=== PATIENT | male | born 1955 | race Caucasian/White ===

== ENCOUNTER → 2018-06-08 10:32 | Outpatient (CLI) | payer OTHER, SELFPAY ==
[2018-06-08 12:25] LABS: Creatinine Urine Random 220.4 mg/dL
[2018-06-08 12:29] LABS: Alanine Aminotransferase 52 IU/L (21-72); Albumin 4.8 g/dL (3.5-5.0); Albumin Globulin Ratio 1.8 (1.0-2.8); Alkaline Phosphatase 87 U/L (38-126); Aspartate Aminotransferase 47 IU/L (17-59); Bilirubin Total 0.8 mg/dL (0.2-1.3); Blood Urea Nitrogen 22 mg/dL (9-20); Calcium 10.2 mg/dL (8.4-10.2); Carbon Dioxide 23 mmol/L (22-32); Chloride 104 mmol/L (98-107); Cholesterol 119 mg/dL (140-199); Estimated Glomerular Filt Rate > 60.0 mL/min (>60); Globulin 2.6 g/dL (1.7-4.1); Glucose 113 mg/dL (80-110); HDL Cholesterol 45 mg/dL (40-60); HEMOLYSIS < 15 (0-50); LDL Cholesterol Calculated 34 mg/dL (<100); Potassium 4.5 mmol/L (3.4-5.1); Sodium 143 mmol/L (137-145); Total Protein 7.4 g/dL (6.3-8.2); Triglycerides 201 mg/dL (35-150)
[2018-06-08 12:39] LABS: Hemoglobin A1C% w Est Avg Glu 6.3 % (4.0-6.0)
== END ==
PROVIDERS: Family Provider Family Medicine; PCP Family Medicine; Visit Provider Family Medicine
DX: E11.9 Type 2 diabetes mellitus without complications (principal)
CPT/HCPCS: 36415; 80053; 80061; 82043; 82570; 83036

== ENCOUNTER → 2019-01-14 13:33 | Outpatient (CLI) | payer MEDICARE, SELFPAY ==
[2019-01-14 14:48] LABS: Alanine Aminotransferase 63 IU/L (21-72); Albumin Globulin Ratio 1.7 (1.0-2.8); Alkaline Phosphatase 82 U/L (38-126); Aspartate Aminotransferase 69 IU/L (17-59); BUN Creatinine Ratio 23.3 (6-22); Bilirubin Total 0.8 mg/dL (0.2-1.3); Blood Urea Nitrogen 28 mg/dL (9-20); Carbon Dioxide 24 mmol/L (22-32); Chloride 102 mmol/L (98-107); Cholesterol 195 mg/dL (140-199); Estimated Glomerular Filt Rate > 60.0 mL/min (>60); Glucose 112 mg/dL (80-110); HDL Cholesterol 51 mg/dL (40-60); HEMOLYSIS < 15 (0-50); LDL Cholesterol Calculated 103 mg/dL (<100); Potassium 5.2 mmol/L (3.4-5.1); Sodium 140 mmol/L (137-145); Triglycerides 203 mg/dL (35-150)
[2019-01-14 14:49] LABS: Hemoglobin A1C% w Est Avg Glu 5.9 % (4.0-6.0)
[2019-01-14 15:34] LABS: Microalbumi Creatinin Ratio Ur 10.5 ug/mg CR (<30); Microalbumin Urine Random < 0.6 mg/dL (0-1.6)
== END ==
PROVIDERS: Family Provider Family Medicine; PCP Family Medicine; Visit Provider Family Medicine
DX: E11.9 Type 2 diabetes mellitus without complications (principal)
CPT/HCPCS: 36415; 80053; 80061; 82043; 82570; 83036

== ENCOUNTER → 2020-09-09 10:51 | Outpatient (CLI) | payer MEDICARE, OTHER, SELFPAY ==
--- NOTE | 2020-09-09 11:02 | DI.RAD.S_ITS ---
PROCEDURE: XR LUMBAR SPINE 2-3V INDICATIONS: pain TECHNIQUE: 3 views of the lumbar spine were acquired. COMPARISON: None. FINDINGS: Bones: No fracture. Multilevel degenerative endplate sclerosis and spurring. Diffuse facet arthropathy. Grade 1 anterolisthesis of L4 on L5. Grade 1 retrolisthesis of L1 on L2. Diffuse mild to moderate narrowing of the lumbar disc spaces. Soft tissues: Vascular calcifications seen in the aorta. IMPRESSION: Moderate diffuse lumbar spondylosis and facet disease Multilevel spondylolisthesis as above. Dictated by: Sohail Willams M.D. on 09/09/2020 at 12:52 Approved by: Sohail Willams M.D. on 09/09/2020 at 13:10
== END ==
PROVIDERS: Family Provider Family Medicine; PCP Family Medicine; Referring Provider Family Medicine; Visit Provider Family Medicine
DX: M47.816 Spondylosis without myelopathy or radiculopathy, lumbar region (principal); M43.16 Spondylolisthesis, lumbar region; M54.5 Low back pain; G89.29 Other chronic pain
CPT/HCPCS: 72100

== ENCOUNTER → 2020-09-10 13:55 | Outpatient (CLI) | payer MEDICARE, OTHER, SELFPAY ==
[2020-09-11 14:42] LABS: Fecal Immunochemical Test Positive (Negative)
== END ==
PROVIDERS: Family Provider Family Medicine; PCP Family Medicine; Referring Provider Family Medicine; Visit Provider Family Medicine
DX: Z12.11 Encounter for screening for malignant neoplasm of colon (principal)
CPT/HCPCS: 82274

== ENCOUNTER → 2020-10-09 09:01 | Outpatient (CLI) | payer MEDICARE, OTHER, SELFPAY ==
[2020-10-09 10:32] LABS: COVID19 -Nasal RAPID Negative (Negative)
== END ==
PROVIDERS: Family Provider Family Medicine; PCP Family Medicine; Visit Provider Surgery
DX: Z11.59 Encounter for screening for other viral diseases (principal); Z01.812 Encounter for preprocedural laboratory examination
CPT/HCPCS: 87635; C9803

== ENCOUNTER 2020-10-12 09:39 | Day surgery (SDC) | payer MEDICARE, OTHER, SELFPAY ==
[2020-10-12] VITALS (8 sets, daily range): BP systolic 105–161; BP diastolic 56–95; PULSE 78–99; RESP 15–22; TEMP 36.2–37.4; O2SAT 94–97; BMI 63.6
--- NOTE | 2020-10-12 | PATH_ITS ---
[facility] Accession Number: [id number] . 01 Material submitted: . rectum - RECTUM POLYP . 02 Diagnosis: Rectum, Polyp: Tubulovillous adenoma, fragmented. Negative for high-grade dysplasia or malignancy. MRV 10/14/2020 1100 Local . 02 Electronically signed: . Angel Clifford MD, PhD, Pathologist NPI- [id number] . 01 Gross description: . RECTUM POLYP: Received in formalin are multiple fragment(s) of garrett, soft tissue measuring 1.3 x 0.7 x 0.7 cm in aggregate submitted entirely in 1 cassette(s) /QBJ 10/13/2020 0712 Local . 02 Pathologist provided ICD-10: D12.8 . 02 CPT . 689538 Performed at: 01 [facility] [address] [id number] MD Hema Stone MD Phone: [phone] Performed at: 02 [facility] [address] [place], [place] [id number] MD Celestina Swan MD Phone: [phone]
[2020-10-12] MEDS: LACTATED RINGERS 1,000 ML 200 ML IV ×2 (10:25→11:37)
--- NOTE | 2020-10-12 10:56 | PM.HP.1 ---
History of Present Illness History of Present Illness Date Patient Seen: 10/12/20 Time Patient Seen: 10:56 Chief complaint: SCREENING COLONOSCOPY Narrative: The patient presents for colorectal sreening. They have never had any previous examination for such. No personal or family history of colon cancer. On further history denies any recent gastrointestinal symptoms. No nausea, vomiting, abdominal pain, loss of appetite, unexplained weight loss, change in bowel habits, diarrhea, constipation, melena, hematochezia, or bright red blood per rectum. Patient History Medical History Allergies (~1971) Asthma (~1999) Body posture problem Chicken pox (~1965) Chronic low back pain without sciatica (~2018) Depression (~1996) HTN (hypertension) Hyperlipidemia Lumbar region somatic dysfunction Pelvic somatic dysfunction Postural kyphosis, thoracic region Sacral region somatic dysfunction Segmental and somatic dysfunction of abdomen and other regions Sleep apnea (~1999) Substance abuse (~1970) Type 2 diabetes mellitus Weight gain finding Surgical History Anesthesia H/O knee surgery (~1999) Family & Social History Family History Father Diabetes mellitus Hypertension Congestive heart failure Stroke Sister Cancer Mother Alzheimer disease Grandfather Cancer Grandfather Tuberculosis Grandmother Mental health problem Social History: household members spouse Tobacco & Substance use: Smoking Status Former smoker alcohol intake former Substance Use Type does not use Meds Home Medications and Allergies Home Medications Medication Instructions Recorded Confirmed Type atorvastatin 40 mg tablet 40 mg PO DAILY #90 tab 09/29/20 10/12/20 Rx cetirizine 10 mg capsule 10 mg PO DAILY #90 cap 09/29/20 10/12/20 Rx escitalopram oxalate 20 mg tablet 20 mg PO DAILY #90 tab 09/29/20 10/12/20 Rx fluticasone propionate 110 2 puff INHALATION BID #12 gram 09/29/20 10/12/20 Rx mcg/actuation HFA aerosol inhaler fluticasone propionate 50 1 spray NASAL DAILY #18.2 ml 09/29/20 10/12/20 Rx mcg/actuation nasal spray,suspension losartan 50 mg-hydrochlorothiazide 1 tab PO DAILY #90 tab 09/29/20 10/12/20 Rx 12.5 mg tablet metformin 500 mg tablet 1,000 mg PO BID #360 tab 09/29/20 10/12/20 Rx Allergies Allergy/AdvReac Type Severity Reaction Status Date / Time apple Allergy Severe Swelling Verified 10/12/20 09:59 of Lip/Tongue/Throat peach Allergy Severe Swelling Verified 10/12/20 09:59 of Lip/Tongue/Throat walnut Allergy Severe Swelling Verified 10/12/20 09:58 of Lip/Tongue/Throat Review of Systems Review of Systems Narrative: A 10 point review of systems is negative except as noted in the HPI Exam Vital Signs (past 8 hours): - 10/12/20 10:13 Temperature 97.1 F L Pulse Rate 99 H Respiratory Rate 15 Blood Pressure 161/95 H Pulse Oximetry 97 Oxygen Delivery Method Room Air Narrative Exam Narrative: General-no acute distress, well nourished adult male HEENT-moist mucous membranes, no scleral icterus Neck-supple, no lymphadenopathy Chest- non labored respirations, clear to auscultation bilaterally Cardiac-regular rate no peripheral edema Abdomen-soft, nontender, non distended Extremities-warm, well perfused Neurological-alert and oriented, no focal deficits Assessment & Plan Assessment & Plan narrative: The patient requires colorectal screening and colonoscopy is recommended. Technical details were discussed. Risks, benefits, alternatives explained. Risks including but not limited to myocardial infarction, aspiration, bleeding, pain, missed lesion, incomplete examination, need for further radiographic studies, colonic perforation, and need for major abdominal surgery were discussed. All questions were answered to their satisfaction, and they are in agreement with this plan.
[2020-10-12] MEDS: fentaNYL 250 MCG/5 ML INJ IV (11:02)
[2020-10-12] MEDS: MIDAZOLAM 5 MG/5 ML VIAL IV (11:02)
--- NOTE | 2020-10-12 11:29 | PM.OP.ENDO ---
Operative Date/Time/Diagnoses Date of procedure: 10/12/20 Time of procedure: 11:29 Pre-op diagnosis: Positive fecal immunochemical test (FIT) Post-op diagnosis: other (rectal polyp, diverticulosis) Procedure & Clinicians Study performed: Colonoscopy, polypectomy Same procedure as scheduled: Yes Indications: 64-year-old man positive fit test no prior colonoscopy here for screening Surgeon: Billy Aaron Procedure Notes SCOAP/Timeout: Performed Procedure in detail: Medications: Conscious sedation using 5mg IV midazolam and 100mcg IV of fentanyl The history and physical was performed/updated and the patient is ASA class is *. The procedure was discussed in detail with the patient. Potential risks complications including infection, bleeding, missed diagnosis, perforation, need for surgery, and were explained. Their questions were answered and informed consent was obtained. Patient was brought to the procedure room and placed standard monitoring equipment. The patient's vital signs were monitored continuously throughout the entire procedure. Prior to starting time-out was performed. The ablation patient was placed in the left lateral recumbent position. Procedural sedation was administered. Examination began with a thorough inspection of the perianal area there was no evidence of fissures, fistulae, external hemorrhoids or cutaneous malignancy. The colonoscopy scope was then placed into the anal canal and was advanced to the cecum, which was identified by the ileocecal valve, the appendiceal orifice and the confluence of the taenia. The scope was then slowly withdrawn examining colon thoroughly in all directions, irrigating it of any residual stool. 1 cm pedunculated polyp in the rectum was removed with cold snare. There was some small amount of bleeding from the base polyp and I cauterized this hemostasis was observed Ferreira diverticulosis The patient tolerated the procedure well. They will be discharged once criteria are met. The prep was of good/excellent quality. The withdrawl time was 14 minutes. The sedation time was 26 minutes. Findings: diverticulosis and polyp Specimen(s): other (Rectal polyp) Complications: none Impression: Rectal polyp Post-procedure Recommendations: Colonscopy in 5 years Disposition: same day surgery
== END 2020-10-12 12:19 | disposition home or self-care (01) ==
PROVIDERS: Family Provider Family Medicine; PCP Family Medicine; Referring Provider Surgery; Visit Provider Surgery
PROC: 0DJD8ZZ Inspection of Lower Intestinal Tract, Via Natural or Artificial Opening Endoscopic (ICD-10-PCS; CPT 45378; principal; 2020-10-12 10:45)
DX: R19.5 Other fecal abnormalities (principal); I10 Essential (primary) hypertension; E78.5 Hyperlipidemia, unspecified; G47.30 Sleep apnea, unspecified; E11.9 Type 2 diabetes mellitus without complications; J45.909 Unspecified asthma, uncomplicated; Z79.84 Long term (current) use of oral hypoglycemic drugs; K57.30 Diverticulosis of large intestine without perforation or abscess without bleeding; D12.8 Benign neoplasm of rectum
CPT/HCPCS: 45385; 82962; J2250; J3010

== ENCOUNTER → 2020-12-03 10:44 | Outpatient (CLI) | payer MEDICARE, OTHER, SELFPAY ==
[2020-12-03 12:20] LABS: Add Manual Diff / Slide Review NO; Basophils Absolute Auto 100 /uL (0-100); Eosinophils Absolute Auto 200 /uL (0-450); Eosinophils Percent Auto 3.1 % (2-4); Hematocrit 40.1 % (41-53); Hemoglobin 13.2 g/dL (13.5-17.5); Lymphocytes Absolute Auto 2200 /uL (1100-4500); Lymphocytes Percent Auto 31.3 % (25-40); Monocytes Absolute Auto 400 /uL (0-900); Monocytes Percent Auto 6.4 % (3-14); Neutrophils Absolute Auto 4000 /uL (1500-7000); Neutrophils Percent Auto 58.2 % (50-75); Platelet Count 234 X10^3/uL (150-400); Red Blood Cell Count 4.26 X10^6/uL (4.5-5.9); Red Cell Distribution Width 13.6 % (11.6-14.8); White Blood Cell Count 6.9 X10^3/uL (4.5-11.0)
[2020-12-03 12:25] LABS: Hemoglobin A1C% w Est Avg Glu 6.4 % (4.0-6.0)
[2020-12-03 12:33] LABS: Alanine Aminotransferase 47 IU/L (<50); Albumin 4.8 g/dL (3.5-5.0); Albumin Globulin Ratio 1.6 (1.0-2.8); Alkaline Phosphatase 89 U/L (38-126); Aspartate Aminotransferase 60 IU/L (17-59); BUN Creatinine Ratio 22.9 (6-22); Bilirubin Total 0.4 mg/dL (0.2-1.3); Blood Urea Nitrogen 22 mg/dL (9-20); Carbon Dioxide 21 mmol/L (22-32); Chloride 104 mmol/L (98-107); Cholesterol 144 mg/dL (140-199); Estimated Glomerular Filt Rate > 60.0 mL/min (>60); Glucose 93 mg/dL (80-110); HDL Cholesterol 46 mg/dL (40-60); HEMOLYSIS < 15 (0-50); LDL Cholesterol Calculated 41 mg/dL (<100); Potassium 4.1 mmol/L (3.4-5.1); Sodium 138 mmol/L (137-145); Total Protein 7.8 g/dL (6.3-8.2); Triglycerides 287 mg/dL (35-150)
[2020-12-03 12:59] LABS: Prostate Specific Antigen Scrn 0.178 ng/mL (0.1-4.0)
== END ==
PROVIDERS: PCP Family Medicine; Referring Provider Family Medicine; Visit Provider Family Medicine
DX: E11.9 Type 2 diabetes mellitus without complications (principal); Z12.5 Encounter for screening for malignant neoplasm of prostate; E78.5 Hyperlipidemia, unspecified; I10 Essential (primary) hypertension
CPT/HCPCS: 36415; 80053; 80061; 83036; 85025; G0103

== ENCOUNTER 2021-03-12 13:45 | Outpatient (RCR) | payer MEDICARE, OTHER, SELFPAY ==
--- NOTE | 2021-01-07 18:13 | PT.OIE ---
Current Diagnoses Other chronic pain (01/07/21) Postural kyphosis, thoracic region (01/07/21) Low back pain (01/07/21) Difficulty in walking, not elsewhere classified (01/07/21) Abnormal posture (01/07/21) Weakness (01/07/21) Past Medical History (Last Updated 12/03/20 @ 10:18 by Raul Urbina DO) Allergies (~1971) Asthma (~1999) Body posture problem Cervical somatic dysfunction Chicken pox (~1965) Chronic low back pain without sciatica (~2018) Depression (~1996) HTN (hypertension) Hyperlipidemia Lumbar region somatic dysfunction Pelvic somatic dysfunction Postural kyphosis, thoracic region Sacral region somatic dysfunction Screening for prostate cancer Segmental and somatic dysfunction of abdomen and other regions Sleep apnea (~1999) Somatic dysfunction of lower extremity Substance abuse (~1970) Thoracic region somatic dysfunction Type 2 diabetes mellitus Upper extremity somatic dysfunction Weight gain finding Weight loss counseling, encounter for Past Surgical History (Last Reviewed 10/12/20 @ 10:56 by Billy Aaron MD) Anesthesia H/O knee surgery (~1999) Visit Care Team Role Provider Type Raul Urbina DO Attending Provider Physician Primary Care Provider Referring Provider Specialty: [facility] Address: [address] [place] [address] Email: Physical Therapy Initial Evaluation PT-OP-A Visit Information Start: 01/06/21 11:42 Freq: Status: Active Protocol: Document 01/07/21 16:47 [facility] (Rec: 01/07/21 18:01 [facility] [id number]) Out-Patient Physical Therapy Visit Information Visit Information Visit Type Initial Evaluation Visit Note 11/29 Visit Start Time 16:50 Visit Stop Time 17:30 Total Visit Minutes 40 Visit Number 1 Number of WOOD CARVER Visits 0 PT-OP-B Current Condition Start: 01/06/21 11:42 Freq: Status: Active Protocol: Document 01/07/21 16:47 [facility] (Rec: 01/07/21 18:01 [facility] [id number]) Current Condition History of Current Condition Onset Date 5 years Current Complaints LBP History of Current Condition pt reports progressive worsening back pain over the past 5 years and 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 No notable injuries. Pt reports dry needling over the past 6 weeks that did help some but treatment plateaued. Pt reprots pain improved about 2/ 3 w/dry needling. Walks dog 3x /day (2x .5 mile and 1x mile) where he has pain. He has to stabilize back with hands by the end of 1 mile walk. Walking in the snow was very difficult. Pt reports its been difficult to do walks since about 1 year ago. Pt reports standing for >30 min, he starts to feel his back, but really feels awful after a 4 hour shift at [employer]. He tries to sit down occ. Pt reports tripping over dog aobut 1 year ago but no known injury Prior Treatments and Tests dry needling by DO & stretching exercises by doctor -help some IMPRESSION: Moderate diffuse lumbar spondylosis and facet disease Multilevel spondylolisthesis as above. Treatment Goals Patient/Caregiver Goals Play basketball again (been 12 years since last played)- wants to play in [employer], be able to exercise again to help w/pain, diabetes, wt & BP, Be able to walk 1-2 miles without inc pain Personal Factors Other Personal Factors That May Effect works at [employer], HTN, Therapy/Recovery diabetes PT-OP-C Subjective Start: 01/06/21 11:42 Freq: Status: Active Protocol: Document 01/07/21 16:47 [facility] (Rec: 01/07/21 18:01 [facility] [id number]) Patient Questionnaires Oswestry Low Back Index Oswestry Score 7/50 OP-PT Pain Assessment Location LB Pain Location Details lumbar into SI region B Intensity 5 Scale Used Numeric (0 - 10) Description- Other like mm are really tight Frequency Intermittent Pain Duration relieves w/in seconds of sitting down Radiating Location denies any Pain Aggravating Factors Standing,Walking,Lifting Pain Alleviating Factors Sitting Other Pain Alleviating Factors laying, advil if really bad PT-OP-F Manual Assessment Start: 01/06/21 11:42 Freq: Status: Active Protocol: Document 01/07/21 16:47 [facility] (Rec: 01/07/21 18:01 [facility] [id number]) Manual Assessments Soft Tissue Assessment Soft Tissue Mobility Assessment tightness L ES & glutes upper, R QL Joint Mobility Assessment Joint Mobility Assessment equal greater trochanter & iliac crest height PT-OP-G Mobility & Gait Start: 01/06/21 11:42 Freq: Status: Active Protocol: Document 01/07/21 16:47 [facility] (Rec: 01/07/21 18:01 [facility] [id number]) OP Gait Assessment Comments Gait Comments walks w/reaching w/legs w/dec push off, lat shear of pelvis w/walk w/o full wt accpetance, dec overall appropriate pelvis motion PT-OP-J Posture/Palpation/Skin Start: 01/06/21 11:42 Freq: Status: Active Protocol: Document 01/07/21 16:47 [facility] (Rec: 01/07/21 18:01 [facility] [id number]) Posture Evaluation Minerva Postural Classification System Minerva Postural Classifications Posterior/Anterior Vertebral Compression Test 2 Elbow Flexion Test 0 Lumbar Protective Mechanism Left AP 0 Lumbar Protective Mechanism Right AP 1 Lumbar Protective Mechanism Left PA 0 Lumbar Protective Mechanism Right PA 0 Comments Posture Comments significant kyphsosi & fwd head, flexed at hips, LLE ER slightly PT-OP-K Range of Motion Start: 01/06/21 11:42 Freq: Status: Active Protocol: Document 01/07/21 16:47 [facility] (Rec: 01/07/21 18:01 [facility] [id number]) Lumbar Spine Range of Motion Lumbar Spine Active Degrees Flexion 51 Extension 5 Rotation Left 41 Rotation Right 36 Lateral Flexion Left 25 Lateral Flexion Right 21 Comments no pain PT-OP-L Special Tests Start: 01/06/21 11:42 Freq: Status: Active Protocol: Document 01/07/21 16:47 [facility] (Rec: 01/07/21 18:01 [facility] [id number]) Special Tests Lumbar Spine Special Tests Straight Leg Raise Test Results R 80 Comments L 74 Slump Test Results neg B David Test Results WNL PT-OP-M Strength Start: 01/06/21 11:42 Freq: Status: Active Protocol: Document 01/07/21 16:47 [facility] (Rec: 01/07/21 18:01 [facility] [id number]) Hip Strength Hip Manual Muscle Testing Right Flexion (L2) 5 Normal Extension (S1) 3 Fair Abduction 4- Good- Adduction 4 Good External Rotation 4 Good Internal Rotation 4+ Good+ Left Flexion (L2) 5 Normal Extension (S1) 3- Fair- Abduction 4- Good- Adduction 4 Good External Rotation 4 Good Internal Rotation 4+ Good+ Knee Strength Knee Manual Muscle Testing Right Flexion (S2) 5 Normal Extension (L3) 5 Normal Left Flexion (S2) 5 Normal Extension (L3) 5 Normal Ankle/Foot Strength Ankle and Foot Manual Muscle Testing Right Dorsiflexion (L4) 5 Normal Plantarflexion (S1) 5 Normal Left Dorsiflexion (L4) 5 Normal Plantarflexion (S1) 5 Normal Comments 20 heel raises B PT-OP-Q Treatments Start: 01/06/21 11:42 Freq: Status: Active Protocol: Document 01/07/21 16:47 [facility] (Rec: 01/07/21 18:01 [facility] [id number]) Therapeutic Exercises Supine Exercises pelvic tilts Reps/Minutes 10 Standing Exercises hip ext Standing Exercise Name alt Side bilateral Reps/Minutes 15 Comments max cueing & tactile cueing wall posture Standing Exercise Name w/pillow behind head & shoulder ext Side bilateral Reps/Minutes 2 min Self-Care/Home Management Treatment Education Other Education importance of posture PT-OP-T Assessment and Plan Start: 01/06/21 11:42 Freq: Status: Active Protocol: Document 01/07/21 16:47 [facility] (Rec: 01/07/21 18:01 [facility] [id number]) Physical Therapy Assessment Rehab Potential Rehabilitation Potential Good Evaluation Complexity Number of Personal Factors/Comorbidities 1-2 Number of Body Systems Impaired 4 or More Clinical Presentation at Evaluation Evolving Impairments Impairments Activity Tolerance,Functional Activities,Functional Mobility ,Gait,Pain,Posture,ROM,Soft Tissue Mobility,Strength Goals activity Car Shunter Goal (LTG) Pt will be able to lateral movements requried for pt to participate in old man league basketball w/o inc pain LTG Duration 03/07/21 BENY Car Shunter Goal (LTG) Pt will improve BENY to no greater than 3/50 to show improved functional ability. LTG Duration 03/07/21 walking Short Term Goal (STG) Pt will demonstrate increased push off with gait. STG Duration 02/04/21 Nursing Home Goal (LTG) Pt will be able to walk 1 mile without inc in back pain more than 2/10. LTG Duration 03/07/21 strength Short Term Goal (STG) Pt will be indep w/HEP STG Duration 02/04/21 Nursing Home Goal (LTG) Pt will have 5/5 LE strength & 3/5 LPM into all planes w/o pain to show improved stability to dec pain w/ activity. LTG Duration 03/07/21 lifting Short Term Goal (STG) Pt will be able to lift without pain with good mechanics to dec risk of further pain/injury when working at [employer]. STG Duration 02/04/21 Car Shunter Goal (LTG) Pt will score 4/5 w/EFT to show imrpoved stability for lifting to dec risk of pain w/ lifitng. LTG Duration 03/07/21 Assessment Summary Assessment Pt presents w/chronic LBP that has gotten worse over the past year and has had some relief w/dry needling treatment from DO. He has difficulty with performing his daily walks, doing his full shifts at [employer], and standing exteneded. His pain can be relieved with sitting, but it makes it dififcult for him to do longer activities. He has weak glutes & fwd flexed posture especially at thoracic spine which likely contributes to his LBP. He would benefit from PT to work on his deficits to improve his ability to particiapte in his typical activities. Physical Therapy Plan Frequency and Duration Frequency of Treatment 2x/Week Duration of Treatment 2 months Plan of Care Start Date 01/07/21 Plan of Care End Date 03/07/21 Therapeutic Interventions Therapeutic Interventions Aquatic Therapy,Balance Training,Gait Training,Home Exercise Program,Joint Mobilizations,Manual Therapy, Neuromuscular Re-education, Patient/Caregiver Education, Self-Care/Home Management,Soft Tissue Mobilization,Taping, Therapeutic Activities, Therapeutic Exercises Modalities Cold Pack/Ice Massage,Electric Stimulation,Hot Packs, Traction- Mechanical, Ultrasound Next Visit Focus/Plan Next Note Type Treatment Note Next Visit Plan further core progression supine, roll & reach, squats, side steps, STM to LB & hip mobs
--- NOTE | 2021-01-07 18:13 | PT.OPPOC ---
Physical, Occupational & Speech Therapy At [facility] Current Diagnoses Other chronic pain (01/07/21) Postural kyphosis, thoracic region (01/07/21) Low back pain (01/07/21) Difficulty in walking, not elsewhere classified (01/07/21) Abnormal posture (01/07/21) Weakness (01/07/21) Visit Care Team Role Provider Type Raul Urbina DO Attending Provider Physician Primary Care Provider Referring Provider Specialty: [facility] Address: [address] [place] [address] Email: Plan Of Care PT-OP-T Assessment and Plan Start: 01/06/21 11:42 Freq: Status: Active Protocol: Document 01/07/21 16:47 [facility] (Rec: 01/07/21 18:01 [facility] [id number]) Physical Therapy Assessment Rehab Potential Rehabilitation Potential Good Evaluation Complexity Number of Personal Factors/Comorbidities 1-2 Number of Body Systems Impaired 4 or More Clinical Presentation at Evaluation Evolving Impairments Impairments Activity Tolerance,Functional Activities,Functional Mobility ,Gait,Pain,Posture,ROM,Soft Tissue Mobility,Strength Goals activity Usp Goal (LTG) Pt will be able to lateral movements requried for pt to participate in old man league basketball w/o inc pain LTG Duration 03/07/21 BENY Usp Goal (LTG) Pt will improve BENY to no greater than 3/50 to show improved functional ability. LTG Duration 03/07/21 walking Short Term Goal (STG) Pt will demonstrate increased push off with gait. STG Duration 02/04/21 Usp Goal (LTG) Pt will be able to walk 1 mile without inc in back pain more than 2/10. LTG Duration 03/07/21 strength Short Term Goal (STG) Pt will be indep w/HEP STG Duration 02/04/21 Usp Goal (LTG) Pt will have 5/5 LE strength & 3/5 LPM into all planes w/o pain to show improved stability to dec pain w/ activity. LTG Duration 03/07/21 lifting Short Term Goal (STG) Pt will be able to lift without pain with good mechanics to dec risk of further pain/injury when working at [employer]. STG Duration 02/04/21 Frit Maker Goal (LTG) Pt will score 4/5 w/EFT to show imrpoved stability for lifting to dec risk of pain w/ lifitng. LTG Duration 03/07/21 Assessment Summary Assessment Pt presents w/chronic LBP that has gotten worse over the past year and has had some relief w/dry needling treatment from DO. He has difficulty with performing his daily walks, doing his full shifts at [employer], and standing exteneded. His pain can be relieved with sitting, but it makes it dififcult for him to do longer activities. He has weak glutes & fwd flexed posture especially at thoracic spine which likely contributes to his LBP. He would benefit from PT to work on his deficits to improve his ability to particiapte in his typical activities. Physical Therapy Plan Frequency and Duration Frequency of Treatment 2x/Week Duration of Treatment 2 months Plan of Care Start Date 01/07/21 Plan of Care End Date 03/07/21 Therapeutic Interventions Therapeutic Interventions Aquatic Therapy,Balance Training,Gait Training,Home Exercise Program,Joint Mobilizations,Manual Therapy, Neuromuscular Re-education, Patient/Caregiver Education, Self-Care/Home Management,Soft Tissue Mobilization,Taping, Therapeutic Activities, Therapeutic Exercises Modalities Cold Pack/Ice Massage,Electric Stimulation,Hot Packs, Traction- Mechanical, Ultrasound Next Visit Focus/Plan Next Note Type Treatment Note Next Visit Plan further core progression supine, roll & reach, squats, side steps, STM to LB & hip mobs Plan of Care Dates Plan of Care Start Date 01/07/21 Plan of Care End Date 03/07/21 Electronically Signed by: Adali Bedolla, PT 01/07/21 [id number] Please Sign and Return: I have reviewed this Plan of Care and certify that the skilled therapy services above are required to meet the patient?s needs. Physician Signature Date Printed Name and Credentials Clinical Instructor Signature Printed Name and Credentials
--- NOTE | 2021-01-12 17:48 | PT.OTN ---
Current Diagnoses Other chronic pain (01/12/21) Postural kyphosis, thoracic region (01/12/21) Low back pain (01/12/21) Difficulty in walking, not elsewhere classified (01/12/21) Abnormal posture (01/12/21) Weakness (01/12/21) Physical Therapy Treatment Note PT-OP-A Visit Information Start: 01/06/21 11:42 Freq: Status: Active Protocol: Document 01/12/21 16:51 [facility] (Rec: 01/12/21 17:48 [facility] [id number]) Out-Patient Physical Therapy Visit Information Visit Information Visit Type Treatment Note Visit Note 12/30 Visit Start Time 16:50 Visit Stop Time 17:30 Total Visit Minutes 40 Visit Number 2 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 No notable injuries. Pt reports dry needling over the past 6 weeks that did help some but treatment plateaued. Pt reprots pain improved about 2/ 3 w/dry needling. Walks dog 3x /day (2x .5 mile and 1x mile) where he has pain. He has to stabilize back with hands by the end of 1 mile walk. Walking in the snow was very difficult. Pt reports its been difficult to do walks since about 1 year ago. Pt reports standing for >30 min, he starts to feel his back, but really feels awful after a 4 hour shift at [employer]. He tries to sit down occ. Pt reports tripping over dog aobut 1 year ago but no known injury Prior Treatments and Tests dry needling by DO & stretching exercises by doctor -help some IMPRESSION: Moderate diffuse lumbar spondylosis and facet disease Multilevel spondylolisthesis as above. Treatment Goals Patient/Caregiver Goals Play basketball again (been 12 years since last played)- wants to play in [employer] men[employer] league, be able to exercise again to help w/pain, diabetes, wt & BP, Be able to walk 1-2 miles without inc pain Personal Factors Other Personal Factors That May Effect works at [employer], HTN, Therapy/Recovery diabetes PT-OP-C Subjective Start: 01/06/21 11:42 Freq: Status: Active Protocol: Document 01/12/21 16:51 [facility] (Rec: 01/12/21 17:48 [facility] [id number]) OP-PT Subjective Patient Comments Patient Comments Pt reprots compliance with exercises PT-OP-F Manual Assessment Start: 01/06/21 11:42 Freq: Status: Active Protocol: Document 01/07/21 16:47 [facility] (Rec: 01/07/21 18:01 [facility] [id number]) Manual Assessments Soft Tissue Assessment Soft Tissue Mobility Assessment tightness L ES & glutes upper, R QL Joint Mobility Assessment Joint Mobility Assessment equal greater trochanter & iliac crest height PT-OP-G Mobility & Gait Start: 01/06/21 11:42 Freq: Status: Active Protocol: Document 01/07/21 16:47 [facility] (Rec: 01/07/21 18:01 [facility] [id number]) OP Gait Assessment Comments Gait Comments walks w/reaching w/legs w/dec push off, lat shear of pelvis w/walk w/o full wt accpetance, dec overall appropriate pelvis motion PT-OP-J Posture/Palpation/Skin Start: 01/06/21 11:42 Freq: Status: Active Protocol: Document 01/07/21 16:47 [facility] (Rec: 01/07/21 18:01 [facility] [id number]) Posture Evaluation [facility] Postural Classification System Minerva Postural Classifications Posterior/Anterior Vertebral Compression Test 2 Elbow Flexion Test 0 Lumbar Protective Mechanism Left AP 0 Lumbar Protective Mechanism Right AP 1 Lumbar Protective Mechanism Left PA 0 Lumbar Protective Mechanism Right PA 0 Comments Posture Comments significant kyphsosi & fwd head, flexed at hips, LLE ER slightly PT-OP-K Range of Motion Start: 01/06/21 11:42 Freq: Status: Active Protocol: Document 01/07/21 16:47 [facility] (Rec: 01/07/21 18:01 [facility] [id number]) Lumbar Spine Range of Motion Lumbar Spine Active Degrees Flexion 51 Extension 5 Rotation Left 41 Rotation Right 36 Lateral Flexion Left 25 Lateral Flexion Right 21 Comments no pain PT-OP-L Special Tests Start: 01/06/21 11:42 Freq: Status: Active Protocol: Document 01/07/21 16:47 [facility] (Rec: 01/07/21 18:01 [facility] [id number]) Special Tests Lumbar Spine Special Tests Straight Leg Raise Test Results R 80 Comments L 74 Slump Test Results neg B David Test Results WNL PT-OP-M Strength Start: 01/06/21 11:42 Freq: Status: Active Protocol: Document 01/07/21 16:47 [facility] (Rec: 01/07/21 18:01 [facility] [id number]) Hip Strength Hip Manual Muscle Testing Right Flexion (L2) 5 Normal Extension (S1) 3 Fair Abduction 4- Good- Adduction 4 Good External Rotation 4 Good Internal Rotation 4+ Good+ Left Flexion (L2) 5 Normal Extension (S1) 3- Fair- Abduction 4- Good- Adduction 4 Good External Rotation 4 Good Internal Rotation 4+ Good+ Knee Strength Knee Manual Muscle Testing Right Flexion (S2) 5 Normal Extension (L3) 5 Normal Left Flexion (S2) 5 Normal Extension (L3) 5 Normal Ankle/Foot Strength Ankle and Foot Manual Muscle Testing Right Dorsiflexion (L4) 5 Normal Plantarflexion (S1) 5 Normal Left Dorsiflexion (L4) 5 Normal Plantarflexion (S1) 5 Normal Comments 20 heel raises B PT-OP-Q Treatments Start: 01/06/21 11:42 Freq: Status: Active Protocol: Document 01/12/21 16:51 [facility] (Rec: 01/12/21 17:48 [facility] [id number]) Therapeutic Exercises Supine Exercises LTR Side bilateral Reps/Minutes 10 core Supine Exercise Name isometric B hip flex Side bilateral Reps/Minutes 30 sec hip ER Supine Exercise Name BKFO w/core focus Side bilateral Reps/Minutes 15 hip flex Supine Exercise Name january w/ core focus Side bilateral Reps/Minutes 10 pelvic tilts Equipment Used focus on breathing Reps/Minutes 15 Sidelying Exercises roll & reach Side bilateral Reps/Minutes 10 Standing Exercises squat Standing Exercise Name over chair Side bilateral Reps/Minutes 20 side step Side bilateral Equipment Used L1 Reps/Minutes 20 hip ext Standing Exercise Name alt Side bilateral Equipment Used L1 Reps/Minutes 15 Comments max cueing & tactile cueing wall posture Standing Exercise Name w/pillow behind head & shoulder ext Side bilateral Reps/Minutes 2 min Manual Therapy Treatment Soft Tissue Mobilization LB Body Location B paraspinals & QL Mobilization Type Rolling,Strumming,Sustained Pressure Intensity/Depth Moderate Body Position Prone Joint Mobilizations sacrum Joint caudal FM & PA hip Joint on axis ER FM B PT-OP-T Assessment and Plan Start: 01/06/21 11:42 Freq: Status: Active Protocol: Document 01/12/21 16:51 [facility] (Rec: 01/12/21 17:48 [facility] [id number]) Physical Therapy Assessment Goals activity Intermediate Goal (LTG) Pt will be able to lateral movements requried for pt to participate in [employer] basketball w/o inc pain LTG Duration 03/07/21 BENY Intermediate Goal (LTG) Pt will improve BENY to no greater than 3/50 to show improved functional ability. LTG Duration 03/07/21 walking Short Term Goal (STG) Pt will demonstrate increased push off with gait. STG Duration 02/04/21 Intermediate Goal (LTG) Pt will be able to walk 1 mile without inc in back pain more than 2/10. LTG Duration 03/07/21 strength Short Term Goal (STG) Pt will be indep w/HEP STG Duration 02/04/21 Intermediate Goal (LTG) Pt will have 5/5 LE strength & 3/5 LPM into all planes w/o pain to show improved stability to dec pain w/ activity. LTG Duration 03/07/21 lifting Short Term Goal (STG) Pt will be able to lift without pain with good mechanics to dec risk of further pain/injury when working at [employer]. STG Duration 02/04/21 Intermediate Goal (LTG) Pt will score 4/5 w/EFT to show imrpoved stability for lifting to dec risk of pain w/ lifitng. LTG Duration 03/07/21 Assessment Summary Assessment Pt did well with exericses but did note difficulty with core exercises. He did require cueing to avoid tilitng back and forth and to cont breathing during core exercises. Cueing for posture in standing. Improved hip rotation after manual treatment. Physical Therapy Plan Frequency and Duration Frequency of Treatment 2x/Week Duration of Treatment 2 months Plan of Care Start Date 01/07/21 Plan of Care End Date 03/07/21 Next Visit Focus/Plan Next Note Type Treatment Note Next Visit Plan review exercises,STM to LB & hip mobs
--- NOTE | 2021-01-14 17:47 | PT.OTN ---
Current Diagnoses Other chronic pain (01/14/21) Postural kyphosis, thoracic region (01/14/21) Low back pain (01/14/21) Difficulty in walking, not elsewhere classified (01/14/21) Abnormal posture (01/14/21) Weakness (01/14/21) Physical Therapy Treatment Note PT-OP-A Visit Information Start: 01/06/21 11:42 Freq: Status: Active Protocol: Document 01/14/21 16:45 [facility] (Rec: 01/14/21 17:47 [facility] [id number]) Out-Patient Physical Therapy Visit Information Visit Information Visit Type Treatment Note Visit Note 01/27 Visit Start Time 16:50 Visit Stop Time 17:30 Total Visit Minutes 40 Visit Number 3 Number of [employer] Visits 0 PT-OP-B Current Condition Start: 01/06/21 11:42 Freq: Status: Active Protocol: Document 01/07/21 16:47 [facility] (Rec: 01/07/21 18:01 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 No notable injuries. Pt reports dry needling over the past 6 weeks that did help some but treatment plateaued. Pt reprots pain improved about 2/ 3 w/dry needling. Walks dog 3x /day (2x .5 mile and 1x mile) where he has pain. He has to stabilize back with hands by the end of 1 mile walk. Walking in the snow was very difficult. Pt reports its been difficult to do walks since about 1 year ago. Pt reports standing for >30 min, he starts to feel his back, but really feels awful after a 4 hour shift at [employer]. He tries to sit down occ. Pt reports tripping over dog aobut 1 year ago but no known injury Prior Treatments and Tests dry needling by DO & stretching exercises by doctor -help some IMPRESSION: Moderate diffuse lumbar spondylosis and facet disease Multilevel spondylolisthesis as above. Treatment Goals Patient/Caregiver Goals Play basketball again (been 12 years since last played)- wants to play in [employer], be able to exercise again to help w/pain, diabetes, wt & BP, Be able to walk 1-2 miles without inc pain Personal Factors Other Personal Factors That May Effect works at [employer], HTN, Therapy/Recovery diabetes PT-OP-C Subjective Start: 01/06/21 11:42 Freq: Status: Active Protocol: Document 01/14/21 16:45 [facility] (Rec: 01/14/21 17:47 [facility] [id number]) OP-PT Subjective Patient Comments Patient Comments Pt did exericses last night PT-OP-F Manual Assessment Start: 01/06/21 11:42 Freq: Status: Active Protocol: Document 01/07/21 16:47 [facility] (Rec: 01/07/21 18:01 [facility] [id number]) Manual Assessments Soft Tissue Assessment Soft Tissue Mobility Assessment tightness L ES & glutes upper, R QL Joint Mobility Assessment Joint Mobility Assessment equal greater trochanter & iliac crest height PT-OP-G Mobility & Gait Start: 01/06/21 11:42 Freq: Status: Active Protocol: Document 01/07/21 16:47 [facility] (Rec: 01/07/21 18:01 [facility] [id number]) OP Gait Assessment Comments Gait Comments walks w/reaching w/legs w/dec push off, lat shear of pelvis w/walk w/o full wt accpetance, dec overall appropriate pelvis motion PT-OP-J Posture/Palpation/Skin Start: 01/06/21 11:42 Freq: Status: Active Protocol: Document 01/07/21 16:47 [facility] (Rec: 01/07/21 18:01 [facility] [id number]) Posture Evaluation [facility] Postural Classification System [place] Postural Classifications Posterior/Anterior Vertebral Compression Test 2 Elbow Flexion Test 0 Lumbar Protective Mechanism Left AP 0 Lumbar Protective Mechanism Right AP 1 Lumbar Protective Mechanism Left PA 0 Lumbar Protective Mechanism Right PA 0 Comments Posture Comments significant kyphsosi & fwd head, flexed at hips, LLE ER slightly PT-OP-K Range of Motion Start: 01/06/21 11:42 Freq: Status: Active Protocol: Document 01/07/21 16:47 [facility] (Rec: 01/07/21 18:01 [facility] [id number]) Lumbar Spine Range of Motion Lumbar Spine Active Degrees Flexion 51 Extension 5 Rotation Left 41 Rotation Right 36 Lateral Flexion Left 25 Lateral Flexion Right 21 Comments no pain PT-OP-L Special Tests Start: 01/06/21 11:42 Freq: Status: Active Protocol: Document 01/07/21 16:47 [facility] (Rec: 01/07/21 18:01 [facility] [id number]) Special Tests Lumbar Spine Special Tests Straight Leg Raise Test Results R 80 Comments L 74 Slump Test Results neg B David Test Results WNL PT-OP-M Strength Start: 01/06/21 11:42 Freq: Status: Active Protocol: Document 01/07/21 16:47 [facility] (Rec: 01/07/21 18:01 [facility] [id number]) Hip Strength Hip Manual Muscle Testing Right Flexion (L2) 5 Normal Extension (S1) 3 Fair Abduction 4- Good- Adduction 4 Good External Rotation 4 Good Internal Rotation 4+ Good+ Left Flexion (L2) 5 Normal Extension (S1) 3- Fair- Abduction 4- Good- Adduction 4 Good External Rotation 4 Good Internal Rotation 4+ Good+ Knee Strength Knee Manual Muscle Testing Right Flexion (S2) 5 Normal Extension (L3) 5 Normal Left Flexion (S2) 5 Normal Extension (L3) 5 Normal Ankle/Foot Strength Ankle and Foot Manual Muscle Testing Right Dorsiflexion (L4) 5 Normal Plantarflexion (S1) 5 Normal Left Dorsiflexion (L4) 5 Normal Plantarflexion (S1) 5 Normal Comments 20 heel raises B PT-OP-Q Treatments Start: 01/06/21 11:42 Freq: Status: Active Protocol: Document 01/14/21 16:45 [facility] (Rec: 01/14/21 17:47 [facility] [id number]) Gym Equipment Sport Cord fwd Exercise Details fwd walk in mirror w/focus on wt shift Cord/Resistance green Reps/Duration 12 Therapeutic Exercises Supine Exercises bridge Supine Exercise Name w/approximation at knees Side bilateral Reps/Minutes 5 sec x10 LTR Side bilateral Reps/Minutes 10 core Supine Exercise Name isometric B hip flex Side bilateral Reps/Minutes 30 sec hip ER Supine Exercise Name BKFO w/core focus Side bilateral Reps/Minutes 10 hip flex Supine Exercise Name march w/ core focus Side bilateral Reps/Minutes 10 pelvic tilts Equipment Used focus on breathing Reps/Minutes 5 Sidelying Exercises roll & reach Side bilateral Reps/Minutes 10 Standing Exercises squat Standing Exercise Name over chair Side bilateral Reps/Minutes 20 side step Side bilateral Equipment Used L1 Reps/Minutes 20 hip ext Standing Exercise Name alt Side bilateral Equipment Used L1 Reps/Minutes 15 Comments cues for posture & slow movement Gait Training Gait Activity wt shifts Comments 1.fwd in mirror focus on posture 2 wt sfhit to acceptance w/ SLS w/counter support Manual Therapy Treatment Soft Tissue Mobilization LB Body Location B paraspinals & QL Mobilization Type Rolling,Strumming,Sustained Pressure Intensity/Depth Moderate Body Position Prone Joint Mobilizations sacrum Joint caudal FM & PA hip Joint on axis ER FM L PT-OP-T Assessment and Plan Start: 01/06/21 11:42 Freq: Status: Active Protocol: Document 01/14/21 16:45 [facility] (Rec: 01/14/21 17:47 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 LTG Duration 03/07/21 walking Short Term Goal (STG) Pt will demonstrate increased push off with gait. STG Duration 02/04/21 Snf Goal (LTG) Pt will be able to walk 1 mile without inc in back pain more than 2/10. LTG Duration 03/07/21 strength Short Term Goal (STG) Pt will be indep w/HEP STG Duration 02/04/21 Snf Goal (LTG) Pt will have 5/5 LE strength & 3/5 LPM into all planes w/o pain to show improved stability to dec pain w/ activity. LTG Duration 03/07/21 lifting Short Term Goal (STG) Pt will be able to lift without pain with good mechanics to dec risk of further pain/injury when working at [employer]. STG Duration 02/04/21 Hotel Engineer Goal (LTG) Pt will score 4/5 w/EFT to show imrpoved stability for lifting to dec risk of pain w/ lifitng. LTG Duration 03/07/21 Assessment Summary Assessment Pt felt unsteady when doing wt shifts and had to step to the side to catch balance occ. REquired cueing mostly for posture during exercises today . Physical Therapy Plan Frequency and Duration Frequency of Treatment 2x/Week Duration of Treatment 2 months Plan of Care Start Date 01/07/21 Plan of Care End Date 03/07/21 Next Visit Focus/Plan Next Note Type Treatment Note Next Visit Plan cont to work on core exercises , cont to wrok on LB & hip mobility
--- NOTE | 2021-01-18 16:55 | PT.OTN ---
Current Diagnoses Other chronic pain (01/18/21) Postural kyphosis, thoracic region (01/18/21) Low back pain (01/18/21) Difficulty in walking, not elsewhere classified (01/18/21) Abnormal posture (01/18/21) Weakness (01/18/21) Physical Therapy Treatment Note PT-OP-A Visit Information Start: 01/06/21 11:42 Freq: Status: Active Protocol: Document 01/18/21 15:13 MA (Rec: 01/18/21 16:01 MA [id number]) Out-Patient Physical Therapy Visit Information Visit Information Visit Type Treatment Note Visit Note 02/27 Visit Start Time 15:11 Visit Stop Time 15:56 Total Visit Minutes 45 Visit Number 4 Number of PSYCHIATRIC LPN Visits 1 PT-OP-B Current Condition Start: 01/06/21 11:42 Freq: Status: Active Protocol: Document 01/07/21 16:47 LR (Rec: 01/07/21 18:01 [facility] [id number]) Current Condition History of Current Condition Onset Date 5 years Current Complaints LBP History of Current Condition pt reports progressive worsening back pain over the past 5 years and 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 No notable injuries. Pt reports dry needling over the past 6 weeks that did help some but treatment plateaued. Pt reprots pain improved about 2/ 3 w/dry needling. Walks dog 3x /day (2x .5 mile and 1x mile) where he has pain. He has to stabilize back with hands by the end of 1 mile walk. Walking in the snow was very difficult. Pt reports its been difficult to do walks since about 1 year ago. Pt reports standing for >30 min, he starts to feel his back, but really feels awful after a 4 hour shift at [employer]. He tries to sit down occ. Pt reports tripping over dog aobut 1 year ago but no known injury Prior Treatments and Tests dry needling by DO & stretching exercises by doctor -help some IMPRESSION: Moderate diffuse lumbar spondylosis and facet disease Multilevel spondylolisthesis as above. Treatment Goals Patient/Caregiver Goals Play basketball again (been 12 years since last played)- wants to play in [employer] league, be able to exercise again to help w/pain, diabetes, wt & BP, Be able to walk 1-2 miles without inc pain Personal Factors Other Personal Factors That May Effect works at [employer], HTN, Therapy/Recovery diabetes PT-OP-C Subjective Start: 01/06/21 11:42 Freq: Status: Active Protocol: Document 01/18/21 15:13 MA (Rec: 01/18/21 16:01 MA [id number]) OP-PT Subjective Patient Comments Patient Comments Pt has been doing HEP exercises. His back pain is about the same. PT-OP-F Manual Assessment Start: 01/06/21 11:42 Freq: Status: Active Protocol: Document 01/07/21 16:47 [facility] (Rec: 01/07/21 18:01 [facility] [id number]) Manual Assessments Soft Tissue Assessment Soft Tissue Mobility Assessment tightness L ES & glutes upper, R QL Joint Mobility Assessment Joint Mobility Assessment equal greater trochanter & iliac crest height PT-OP-G Mobility & Gait Start: 01/06/21 11:42 Freq: Status: Active Protocol: Document 01/07/21 16:47 [facility] (Rec: 01/07/21 18:01 [facility] [id number]) OP Gait Assessment Comments Gait Comments walks w/reaching w/legs w/dec push off, lat shear of pelvis w/walk w/o full wt accpetance, dec overall appropriate pelvis motion PT-OP-J Posture/Palpation/Skin Start: 01/06/21 11:42 Freq: Status: Active Protocol: Document 01/07/21 16:47 [facility] (Rec: 01/07/21 18:01 [facility] [id number]) Posture Evaluation [facility] Postural Classification System [facility] Postural Classifications Posterior/Anterior Vertebral Compression Test 2 Elbow Flexion Test 0 Lumbar Protective Mechanism Left AP 0 Lumbar Protective Mechanism Right AP 1 Lumbar Protective Mechanism Left PA 0 Lumbar Protective Mechanism Right PA 0 Comments Posture Comments significant kyphsosi & fwd head, flexed at hips, LLE ER slightly PT-OP-K Range of Motion Start: 01/06/21 11:42 Freq: Status: Active Protocol: Document 01/07/21 16:47 [facility] (Rec: 01/07/21 18:01 [facility] [id number]) Lumbar Spine Range of Motion Lumbar Spine Active Degrees Flexion 51 Extension 5 Rotation Left 41 Rotation Right 36 Lateral Flexion Left 25 Lateral Flexion Right 21 Comments no pain PT-OP-L Special Tests Start: 01/06/21 11:42 Freq: Status: Active Protocol: Document 01/07/21 16:47 [facility] (Rec: 01/07/21 18:01 [facility] [id number]) Special Tests Lumbar Spine Special Tests Straight Leg Raise Test Results R 80 Comments L 74 Slump Test Results neg B David Test Results WNL PT-OP-M Strength Start: 01/06/21 11:42 Freq: Status: Active Protocol: Document 01/07/21 16:47 [facility] (Rec: 01/07/21 18:01 [facility] [id number]) Hip Strength Hip Manual Muscle Testing Right Flexion (L2) 5 Normal Extension (S1) 3 Fair Abduction 4- Good- Adduction 4 Good External Rotation 4 Good Internal Rotation 4+ Good+ Left Flexion (L2) 5 Normal Extension (S1) 3- Fair- Abduction 4- Good- Adduction 4 Good External Rotation 4 Good Internal Rotation 4+ Good+ Knee Strength Knee Manual Muscle Testing Right Flexion (S2) 5 Normal Extension (L3) 5 Normal Left Flexion (S2) 5 Normal Extension (L3) 5 Normal Ankle/Foot Strength Ankle and Foot Manual Muscle Testing Right Dorsiflexion (L4) 5 Normal Plantarflexion (S1) 5 Normal Left Dorsiflexion (L4) 5 Normal Plantarflexion (S1) 5 Normal Comments 20 heel raises B PT-OP-Q Treatments Start: 01/06/21 11:42 Freq: Status: Active Protocol: Document 01/18/21 15:13 MA (Rec: 01/18/21 16:01 MA [id number]) Therapeutic Exercises Supine Exercises bridge Supine Exercise Name w/approximation at knees Side bilateral Reps/Minutes 5 sec x10 LTR Side bilateral Reps/Minutes 10 core Supine Exercise Name then isometric B hip flex Side bilateral Reps/Minutes 30 sec hip ER Supine Exercise Name BKFO w/core focus Side bilateral Reps/Minutes 10 hip flex Supine Exercise Name january w/ core focus Side bilateral Reps/Minutes 10 pelvic tilts Equipment Used focus on breathing Reps/Minutes 5 Sidelying Exercises roll & reach Side bilateral Reps/Minutes 10 Standing Exercises Hip Hikes Side bilateral Equipment Used 4 step Reps/Minutes x8 Step Ups Side bilateral Equipment Used 4 step Reps/Minutes x8 ea side step Side bilateral Equipment Used L1 Reps/Minutes 20ft x2 hip ext Standing Exercise Name alt Side bilateral Equipment Used L1 Reps/Minutes 10x Comments cues for posture & slow movement Gait Training Gait Activity wt shifts Comments 1.fwd in mirror focus on posture 2 wt sfhit to acceptance w/ SLS w/counter support Manual Therapy Treatment Soft Tissue Mobilization LB Body Location B paraspinals & QL Mobilization Type Rolling,Strumming,Sustained Pressure Intensity/Depth Moderate Body Position Prone PT-OP-T Assessment and Plan Start: 01/06/21 11:42 Freq: Status: Active Protocol: Document 01/18/21 15:13 MA (Rec: 01/18/21 16:01 MA [id number]) Physical Therapy Assessment Goals activity Half-Way Goal (LTG) Pt will be able to lateral movements requried for pt to participate in old [employer] league basketball w/o inc pain LTG Duration 03/07/21 BENY Half-Way Goal (LTG) Pt will improve BENY to no greater than 3/50 to show improved functional ability. LTG Duration 03/07/21 walking Short Term Goal (STG) Pt will demonstrate increased push off with gait. STG Duration 02/04/21 Fruit Inspector Goal (LTG) Pt will be able to walk 1 mile without inc in back pain more than 2/10. LTG Duration 03/07/21 strength Short Term Goal (STG) Pt will be indep w/HEP STG Duration 02/04/21 Fruit Inspector Goal (LTG) Pt will have 5/5 LE strength & 3/5 LPM into all planes w/o pain to show improved stability to dec pain w/ activity. LTG Duration 03/07/21 lifting Short Term Goal (STG) Pt will be able to lift without pain with good mechanics to dec risk of further pain/injury when working at [employer]. STG Duration 02/04/21 Half-Way Goal (LTG) Pt will score 4/5 w/EFT to show imrpoved stability for lifting to dec risk of pain w/ lifitng. LTG Duration 03/07/21 Assessment Summary Assessment Pt needs verbal and tactile cues during weight shifts for pelvic rotation and to avoid hip drop. Worked on hip hikes in mirror with pt lifting to neutral. Pt had no pain throughout session. He needs cues for activating transverse abdominals during supine core work and to avoid spinal extension during bridges. Pt would benefit from skilled therapy for decreasing back pain and increasing core strength. Physical Therapy Plan Frequency and Duration Frequency of Treatment 2x/Week Duration of Treatment 2 months Plan of Care Start Date 01/07/21 Plan of Care End Date 03/07/21 Therapeutic Interventions Therapeutic Interventions Aquatic Therapy,Balance Training,Gait Training,Home Exercise Program,Joint Mobilizations,Manual Therapy, Neuromuscular Re-education, Patient/Caregiver Education, Self-Care/Home Management,Soft Tissue Mobilization,Taping, Therapeutic Activities, Therapeutic Exercises Modalities Cold Pack/Ice Massage,Electric Stimulation,Hot Packs, Traction- Mechanical, Ultrasound Next Visit Focus/Plan Next Note Type Treatment Note Next Visit Plan cont to work on core exercises , low back STM and hip mobility
--- NOTE | 2021-01-25 16:19 | PT.OTN ---
Current Diagnoses Other chronic pain (01/25/21) Postural kyphosis, thoracic region (01/25/21) Low back pain (01/25/21) Difficulty in walking, not elsewhere classified (01/25/21) Abnormal posture (01/25/21) Weakness (01/25/21) Physical Therapy Treatment Note PT-OP-A Visit Information Start: 01/06/21 11:42 Freq: Status: Active Protocol: Document 01/25/21 14:34 MA (Rec: 01/25/21 15:17 MA [id number]) Out-Patient Physical Therapy Visit Information Visit Information Visit Type Treatment Note Visit Note 03/29 Visit Start Time 14:30 Visit Stop Time 15:10 Total Visit Minutes 40 Visit Number 5 Number of PICK REMOVER Visits 2 PT-OP-B Current Condition Start: 01/06/21 11:42 Freq: Status: Active Protocol: Document 01/07/21 16:47 LR (Rec: 01/07/21 18:01 [facility] [id number]) Current Condition History of Current Condition Onset Date 5 years Current Complaints LBP History of Current Condition pt reports progressive worsening back pain over the past 5 years and 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 No notable injuries. Pt reports dry needling over the past 6 weeks that did help some but treatment plateaued. Pt reprots pain improved about 2/ 3 w/dry needling. Walks dog 3x /day (2x .5 mile and 1x mile) where he has pain. He has to stabilize back with hands by the end of 1 mile walk. Walking in the snow was very difficult. Pt reports its been difficult to do walks since about 1 year ago. Pt reports standing for >30 min, he starts to feel his back, but really feels awful after a 4 hour shift at [employer]. He tries to sit down occ. Pt reports tripping over dog aobut 1 year ago but no known injury Prior Treatments and Tests dry needling by DO & stretching exercises by doctor -help some IMPRESSION: Moderate diffuse lumbar spondylosis and facet disease Multilevel spondylolisthesis as above. Treatment Goals Patient/Caregiver Goals Play basketball again (been 12 years since last played)- wants to play in [employer], be able to exercise again to help w/pain, diabetes, wt & BP, Be able to walk 1-2 miles without inc pain Personal Factors Other Personal Factors That May Effect works at [employer], HTN, Therapy/Recovery diabetes PT-OP-C Subjective Start: 01/06/21 11:42 Freq: Status: Active Protocol: Document 01/25/21 14:34 MA (Rec: 01/25/21 15:17 MA [id number]) OP-PT Subjective Patient Comments Patient Comments My back is doing a little better PT-OP-F Manual Assessment Start: 01/06/21 11:42 Freq: Status: Active Protocol: Document 01/07/21 16:47 [facility] (Rec: 01/07/21 18:01 [facility] [id number]) Manual Assessments Soft Tissue Assessment Soft Tissue Mobility Assessment tightness L ES & glutes upper, R QL Joint Mobility Assessment Joint Mobility Assessment equal greater trochanter & iliac crest height PT-OP-G Mobility & Gait Start: 01/06/21 11:42 Freq: Status: Active Protocol: Document 01/07/21 16:47 [facility] (Rec: 01/07/21 18:01 [facility] [id number]) OP Gait Assessment Comments Gait Comments walks w/reaching w/legs w/dec push off, lat shear of pelvis w/walk w/o full wt accpetance, dec overall appropriate pelvis motion PT-OP-J Posture/Palpation/Skin Start: 01/06/21 11:42 Freq: Status: Active Protocol: Document 01/07/21 16:47 [facility] (Rec: 01/07/21 18:01 [facility] [id number]) Posture Evaluation [facility] Postural Classification System [facility] Postural Classifications Posterior/Anterior Vertebral Compression Test 2 Elbow Flexion Test 0 Lumbar Protective Mechanism Left AP 0 Lumbar Protective Mechanism Right AP 1 Lumbar Protective Mechanism Left PA 0 Lumbar Protective Mechanism Right PA 0 Comments Posture Comments significant kyphsosi & fwd head, flexed at hips, LLE ER slightly PT-OP-K Range of Motion Start: 01/06/21 11:42 Freq: Status: Active Protocol: Document 01/07/21 16:47 [facility] (Rec: 01/07/21 18:01 [facility] [id number]) Lumbar Spine Range of Motion Lumbar Spine Active Degrees Flexion 51 Extension 5 Rotation Left 41 Rotation Right 36 Lateral Flexion Left 25 Lateral Flexion Right 21 Comments no pain PT-OP-L Special Tests Start: 01/06/21 11:42 Freq: Status: Active Protocol: Document 01/07/21 16:47 [facility] (Rec: 01/07/21 18:01 [facility] [id number]) Special Tests Lumbar Spine Special Tests Straight Leg Raise Test Results R 80 Comments L 74 Slump Test Results neg B David Test Results WNL PT-OP-M Strength Start: 01/06/21 11:42 Freq: Status: Active Protocol: Document 01/07/21 16:47 [facility] (Rec: 01/07/21 18:01 [facility] [id number]) Hip Strength Hip Manual Muscle Testing Right Flexion (L2) 5 Normal Extension (S1) 3 Fair Abduction 4- Good- Adduction 4 Good External Rotation 4 Good Internal Rotation 4+ Good+ Left Flexion (L2) 5 Normal Extension (S1) 3- Fair- Abduction 4- Good- Adduction 4 Good External Rotation 4 Good Internal Rotation 4+ Good+ Knee Strength Knee Manual Muscle Testing Right Flexion (S2) 5 Normal Extension (L3) 5 Normal Left Flexion (S2) 5 Normal Extension (L3) 5 Normal Ankle/Foot Strength Ankle and Foot Manual Muscle Testing Right Dorsiflexion (L4) 5 Normal Plantarflexion (S1) 5 Normal Left Dorsiflexion (L4) 5 Normal Plantarflexion (S1) 5 Normal Comments 20 heel raises B PT-OP-Q Treatments Start: 01/06/21 11:42 Freq: Status: Active Protocol: Document 01/25/21 14:34 MA (Rec: 01/25/21 15:17 MA [id number]) Therapeutic Exercises Supine Exercises bridge Supine Exercise Name w/approximation at knees Side bilateral Reps/Minutes 5 sec x8 LTR Side bilateral Reps/Minutes 10 hip flex Supine Exercise Name january w/ core focus Side bilateral Reps/Minutes 10 Sidelying Exercises roll & reach Side bilateral Reps/Minutes 10 Standing Exercises Hip Hikes Side bilateral Equipment Used 4 step Reps/Minutes x8 squat Standing Exercise Name over chair Side bilateral Reps/Minutes x8 side step Side bilateral Equipment Used L2 Reps/Minutes 20ft x2 hip ext Standing Exercise Name alt Side bilateral Equipment Used L2 Reps/Minutes 10x Comments cues for posture & slow movement Therapeutic Activity Therapeutic Activity Lifting Name Lifting mechanics Comments 1. lifting 45 cm ball from floor, bringing ball close to body and keeping chest lifted 2. lifting 6 box from table at hip height Manual Therapy Treatment Soft Tissue Mobilization LB Body Location B paraspinals & QL Mobilization Type Rolling,Strumming,Sustained Pressure Intensity/Depth Moderate Body Position Prone PT-OP-T Assessment and Plan Start: 01/06/21 11:42 Freq: Status: Active Protocol: Document 01/25/21 14:34 MA (Rec: 01/25/21 15:17 MA [id number]) Physical Therapy Assessment Goals activity Behavior Clinician Goal (LTG) Pt will be able to lateral movements requried for pt to participate in [employer] league basketball w/o inc pain LTG Duration 03/07/21 BENY Behavior Clinician Goal (LTG) Pt will improve BENY to no greater than 3/50 to show improved functional ability. LTG Duration 03/07/21 walking Short Term Goal (STG) Pt will demonstrate increased push off with gait. STG Duration 02/04/21 Behavior Clinician Goal (LTG) Pt will be able to walk 1 mile without inc in back pain more than 2/10. LTG Duration 03/07/21 strength Short Term Goal (STG) Pt will be indep w/HEP STG Duration 02/04/21 Behavior Clinician Goal (LTG) Pt will have 5/5 LE strength & 3/5 LPM into all planes w/o pain to show improved stability to dec pain w/ activity. LTG Duration 03/07/21 lifting Short Term Goal (STG) Pt will be able to lift without pain with good mechanics to dec risk of further pain/injury when working at [employer]. STG Duration 02/04/21 Behavior Clinician Goal (LTG) Pt will score 4/5 w/EFT to show imrpoved stability for lifting to dec risk of pain w/ lifitng. LTG Duration 03/07/21 Assessment Summary Assessment Pt's requested lvl 2 TB for side steps and extension today . He was able to maintain good form so gave him lvl 2 band for home. Worked on lifting mechanics today with pt needing moderate cues to keep chest up and bring object closer to body when lifting. Pt is waiting for his second shot before going back to work at [employer]. Physical Therapy Plan Frequency and Duration Frequency of Treatment 2x/Week Duration of Treatment 2 months Plan of Care Start Date 01/07/21 Plan of Care End Date 03/07/21 Therapeutic Interventions Therapeutic Interventions Aquatic Therapy,Balance Training,Gait Training,Home Exercise Program,Joint Mobilizations,Manual Therapy, Neuromuscular Re-education, Patient/Caregiver Education, Self-Care/Home Management,Soft Tissue Mobilization,Taping, Therapeutic Activities, Therapeutic Exercises Modalities Cold Pack/Ice Massage,Electric Stimulation,Hot Packs, Traction- Mechanical, Ultrasound Next Visit Focus/Plan Next Note Type Treatment Note Next Visit Plan Check carryover of lifting mechanics, cont to work on core exercises, low back STM and hip mobility
--- NOTE | 2021-01-27 16:07 | PT.OTN ---
Current Diagnoses Other chronic pain (01/27/21) Postural kyphosis, thoracic region (01/27/21) Low back pain (01/27/21) Difficulty in walking, not elsewhere classified (01/27/21) Abnormal posture (01/27/21) Weakness (01/27/21) Physical Therapy Treatment Note PT-OP-A Visit Information Start: 01/06/21 11:42 Freq: Status: Active Protocol: Document 01/27/21 15:18 MA (Rec: 01/27/21 16:02 MA [id number]) Out-Patient Physical Therapy Visit Information Visit Information Visit Type Treatment Note Visit Note 04/29 Visit Start Time 15:15 Visit Stop Time 15:57 Total Visit Minutes 42 Visit Number 6 Number of AGRICULTURAL ECONOMIST Visits 3 PT-OP-B Current Condition Start: 01/06/21 11:42 Freq: Status: Active Protocol: Document 01/07/21 16:47 LR (Rec: 01/07/21 18:01 [facility] [id number]) Current Condition History of Current Condition Onset Date 5 years Current Complaints LBP History of Current Condition pt reports progressive worsening back pain over the past 5 years and 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 No notable injuries. Pt reports dry needling over the past 6 weeks that did help some but treatment plateaued. Pt reprots pain improved about 2/ 3 w/dry needling. Walks dog 3x /day (2x .5 mile and 1x mile) where he has pain. He has to stabilize back with hands by the end of 1 mile walk. Walking in the snow was very difficult. Pt reports its been difficult to do walks since about 1 year ago. Pt reports standing for >30 min, he starts to feel his back, but really feels awful after a 4 hour shift at [employer]. He tries to sit down occ. Pt reports tripping over dog aobut 1 year ago but no known injury Prior Treatments and Tests dry needling by DO & stretching exercises by doctor -help some IMPRESSION: Moderate diffuse lumbar spondylosis and facet disease Multilevel spondylolisthesis as above. Treatment Goals Patient/Caregiver Goals Play basketball again (been 12 years since last played)- wants to play in Monday old men's league, be able to exercise again to help w/pain, diabetes, wt & BP, Be able to walk 1-2 miles without inc pain Personal Factors Other Personal Factors That May Effect works at [employer], HTN, Therapy/Recovery diabetes PT-OP-C Subjective Start: 01/06/21 11:42 Freq: Status: Active Protocol: Document 01/27/21 15:18 MA (Rec: 01/27/21 16:02 MA [id number]) OP-PT Subjective Patient Comments Patient Comments My back is doing well PT-OP-F Manual Assessment Start: 01/06/21 11:42 Freq: Status: Active Protocol: Document 01/07/21 16:47 [facility] (Rec: 01/07/21 18:01 [facility] [id number]) Manual Assessments Soft Tissue Assessment Soft Tissue Mobility Assessment tightness L ES & glutes upper, R QL Joint Mobility Assessment Joint Mobility Assessment equal greater trochanter & iliac crest height PT-OP-G Mobility & Gait Start: 01/06/21 11:42 Freq: Status: Active Protocol: Document 01/07/21 16:47 [facility] (Rec: 01/07/21 18:01 [facility] [id number]) OP Gait Assessment Comments Gait Comments walks w/reaching w/legs w/dec push off, lat shear of pelvis w/walk w/o full wt accpetance, dec overall appropriate pelvis motion PT-OP-J Posture/Palpation/Skin Start: 01/06/21 11:42 Freq: Status: Active Protocol: Document 01/07/21 16:47 [facility] (Rec: 01/07/21 18:01 [facility] [id number]) Posture Evaluation [facility] Postural Classification System [facility] Postural Classifications Posterior/Anterior Vertebral Compression Test 2 Elbow Flexion Test 0 Lumbar Protective Mechanism Left AP 0 Lumbar Protective Mechanism Right AP 1 Lumbar Protective Mechanism Left PA 0 Lumbar Protective Mechanism Right PA 0 Comments Posture Comments significant kyphsosi & fwd head, flexed at hips, LLE ER slightly PT-OP-K Range of Motion Start: 01/06/21 11:42 Freq: Status: Active Protocol: Document 01/07/21 16:47 [facility] (Rec: 01/07/21 18:01 [facility] [id number]) Lumbar Spine Range of Motion Lumbar Spine Active Degrees Flexion 51 Extension 5 Rotation Left 41 Rotation Right 36 Lateral Flexion Left 25 Lateral Flexion Right 21 Comments no pain PT-OP-L Special Tests Start: 02/17/21 11:42 Freq: Status: Active Protocol: Document 01/07/21 16:47 [facility] (Rec: 01/07/21 18:01 [facility] [id number]) Special Tests Lumbar Spine Special Tests Straight Leg Raise Test Results R 80 Comments L 74 Slump Test Results neg B David Test Results WNL PT-OP-M Strength Start: 01/06/21 11:42 Freq: Status: Active Protocol: Document 01/07/21 16:47 [facility] (Rec: 01/07/21 18:01 [facility] [id number]) Hip Strength Hip Manual Muscle Testing Right Flexion (L2) 5 Normal Extension (S1) 3 Fair Abduction 4- Good- Adduction 4 Good External Rotation 4 Good Internal Rotation 4+ Good+ Left Flexion (L2) 5 Normal Extension (S1) 3- Fair- Abduction 4- Good- Adduction 4 Good External Rotation 4 Good Internal Rotation 4+ Good+ Knee Strength Knee Manual Muscle Testing Right Flexion (S2) 5 Normal Extension (L3) 5 Normal Left Flexion (S2) 5 Normal Extension (L3) 5 Normal Ankle/Foot Strength Ankle and Foot Manual Muscle Testing Right Dorsiflexion (L4) 5 Normal Plantarflexion (S1) 5 Normal Left Dorsiflexion (L4) 5 Normal Plantarflexion (S1) 5 Normal Comments 20 heel raises B PT-OP-Q Treatments Start: 01/06/21 11:42 Freq: Status: Active Protocol: Document 01/27/21 15:18 MA (Rec: 01/27/21 16:02 MA [id number]) Therapeutic Exercises Supine Exercises bridge Supine Exercise Name w/approximation at knees Side bilateral Reps/Minutes 5 sec x8 LTR Side bilateral Reps/Minutes 10 hip ER Side bilateral Equipment Used lvl 2 TB Reps/Minutes 10 hip flex Supine Exercise Name january w/ core focus Side bilateral Reps/Minutes 10 pelvic tilts Equipment Used focus on breathing Reps/Minutes 5 Sidelying Exercises roll & reach Side bilateral Reps/Minutes 10x hold 5 sec Therapeutic Activity Therapeutic Activity Lifting Name Lifting mechanics Reps/Minutes x6 Comments lifting 18 box ~ 10 pounds Manual Therapy Treatment Soft Tissue Mobilization LB Body Location B paraspinals & QL Mobilization Type Rolling,Strumming,Sustained Pressure Intensity/Depth Moderate Body Position Prone PT-OP-T Assessment and Plan Start: 01/06/21 11:42 Freq: Status: Active Protocol: Document 01/27/21 15:18 MA (Rec: 01/27/21 16:02 MA [id number]) Physical Therapy Assessment Goals activity Charge Hand Goal (LTG) Pt will be able to lateral movements requried for pt to participate in old man league basketball w/o inc pain LTG Duration 03/07/21 BENY Detention Goal (LTG) Pt will improve BENY to no greater than 3/50 to show improved functional ability. LTG Duration 03/07/21 walking Short Term Goal (STG) Pt will demonstrate increased push off with gait. STG Duration 02/04/21 Charge Hand Goal (LTG) Pt will be able to walk 1 mile without inc in back pain more than 2/10. LTG Duration 03/07/21 strength Short Term Goal (STG) Pt will be indep w/HEP STG Duration 02/04/21 Charge Hand Goal (LTG) Pt will have 5/5 LE strength & 3/5 LPM into all planes w/o pain to show improved stability to dec pain w/ activity. LTG Duration 03/07/21 lifting Short Term Goal (STG) Pt will be able to lift without pain with good mechanics to dec risk of further pain/injury when working at [employer]. STG Duration 02/04/21 Detention Goal (LTG) Pt will score 4/5 w/EFT to show imrpoved stability for lifting to dec risk of pain w/ lifitng. LTG Duration 03/07/21 Assessment Summary Assessment Pt showed good carryover of lifting mechanics when lifting from floor. He has some trouble when setting objects back down and tends to forward flex, instead of squat which causes him to lose his balance requiring Min A x1. Once cued to squat and keep chest lifted, pt is able to maintain balance. Worked on lifting heavier objects today since pt states I lift up to 150 pounds when I volunteer so the ball was really light last session. Pt is showing good core control during supine core exercises and needs only minimal cues for TrA activation. Physical Therapy Plan Frequency and Duration Frequency of Treatment 2x/Week Duration of Treatment 2 months Plan of Care Start Date 01/07/21 Plan of Care End Date 03/07/21 Therapeutic Interventions Therapeutic Interventions Aquatic Therapy,Balance Training,Gait Training,Home Exercise Program,Joint Mobilizations,Manual Therapy, Neuromuscular Re-education, Patient/Caregiver Education, Self-Care/Home Management,Soft Tissue Mobilization,Taping, Therapeutic Activities, Therapeutic Exercises Modalities Cold Pack/Ice Massage,Electric Stimulation,Hot Packs, Traction- Mechanical, Ultrasound Next Visit Focus/Plan Next Note Type Treatment Note Next Visit Plan Begin working on lateral movements for getting back to basketball. Continue working on lifting mechanics, core exercises, low back STM and hip mobility
--- NOTE | 2021-02-03 15:18 | PT.OTN ---
Current Diagnoses Other chronic pain (02/03/21) Postural kyphosis, thoracic region (02/03/21) Low back pain (02/03/21) Difficulty in walking, not elsewhere classified (02/03/21) Abnormal posture (02/03/21) Weakness (02/03/21) Physical Therapy Treatment Note PT-OP-A Visit Information Start: 01/06/21 11:42 Freq: Status: Active Protocol: Document 02/03/21 14:31 [facility] (Rec: 02/03/21 15:18 [facility] [id number]) Out-Patient Physical Therapy Visit Information Visit Information Visit Type Treatment Note Visit Note 05/29 Visit Start Time 14:35 Visit Stop Time 15:14 Total Visit Minutes 39 Visit Number 7 Number of LEARN TO SWIM INSTRUCTOR Visits 0 PT-OP-B Current Condition Start: 01/06/21 11:42 Freq: Status: Active Protocol: Document 01/07/21 16:47 [facility] (Rec: 01/07/21 18:01 [facility] [id number]) Current Condition History of Current Condition Onset Date 5 years Current Complaints LBP History of Current Condition pt reports progressive worsening back pain over the past 5 years and 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 No notable injuries. Pt reports dry needling over the past 6 weeks that did help some but treatment plateaued. Pt reprots pain improved about 2/ 3 w/dry needling. Walks dog 3x /day (2x .5 mile and 1x mile) where he has pain. He has to stabilize back with hands by the end of 1 mile walk. Walking in the snow was very difficult. Pt reports its been difficult to do walks since about 1 year ago. Pt reports standing for >30 min, he starts to feel his back, but really feels awful after a 4 hour shift at [employer]. He tries to sit down occ. Pt reports tripping over dog aobut 1 year ago but no known injury Prior Treatments and Tests dry needling by DO & stretching exercises by doctor -help some IMPRESSION: Moderate diffuse lumbar spondylosis and facet disease Multilevel spondylolisthesis as above. Treatment Goals Patient/Caregiver Goals Play basketball again (been 12 years since last played)- wants to play in [employer], be able to exercise again to help w/pain, diabetes, wt & BP, Be able to walk 1-2 miles without inc pain Personal Factors Other Personal Factors That May Effect works at [employer], HTN, Therapy/Recovery diabetes PT-OP-C Subjective Start: 01/06/21 11:42 Freq: Status: Active Protocol: Document 02/03/21 14:31 [facility] (Rec: 02/03/21 15:18 [facility] [id number]) OP-PT Subjective Patient Comments Patient Comments 4/10 pain after dog walk 1.5 Patient Reported Progress Improving PT-OP-F Manual Assessment Start: 01/06/21 11:42 Freq: Status: Active Protocol: Document 01/07/21 16:47 [facility] (Rec: 01/07/21 18:01 [facility] [id number]) Manual Assessments Soft Tissue Assessment Soft Tissue Mobility Assessment tightness L ES & glutes upper, R QL Joint Mobility Assessment Joint Mobility Assessment equal greater trochanter & iliac crest height PT-OP-G Mobility & Gait Start: 01/06/21 11:42 Freq: Status: Active Protocol: Document 01/07/21 16:47 [facility] (Rec: 01/07/21 18:01 [facility] [id number]) OP Gait Assessment Comments Gait Comments walks w/reaching w/legs w/dec push off, lat shear of pelvis w/walk w/o full wt accpetance, dec overall appropriate pelvis motion PT-OP-J Posture/Palpation/Skin Start: 01/06/21 11:42 Freq: Status: Active Protocol: Document 01/07/21 16:47 [facility] (Rec: 01/07/21 18:01 [facility] [id number]) Posture Evaluation [facility] Postural Classification System [facility] Postural Classifications Posterior/Anterior Vertebral Compression Test 2 Elbow Flexion Test 0 Lumbar Protective Mechanism Left AP 0 Lumbar Protective Mechanism Right AP 1 Lumbar Protective Mechanism Left PA 0 Lumbar Protective Mechanism Right PA 0 Comments Posture Comments significant kyphsosi & fwd head, flexed at hips, LLE ER slightly PT-OP-K Range of Motion Start: 01/06/21 11:42 Freq: Status: Active Protocol: Document 01/07/21 16:47 [facility] (Rec: 01/07/21 18:01 [facility] [id number]) Lumbar Spine Range of Motion Lumbar Spine Active Degrees Flexion 51 Extension 5 Rotation Left 41 Rotation Right 36 Lateral Flexion Left 25 Lateral Flexion Right 21 Comments no pain PT-OP-L Special Tests Start: 01/06/21 11:42 Freq: Status: Active Protocol: Document 01/07/21 16:47 [facility] (Rec: 01/07/21 18:01 [facility] [id number]) Special Tests Lumbar Spine Special Tests Straight Leg Raise Test Results R 80 Comments L 74 Slump Test Results neg B David Test Results WNL PT-OP-M Strength Start: 01/06/21 11:42 Freq: Status: Active Protocol: Document 01/07/21 16:47 [facility] (Rec: 01/07/21 18:01 [facility] [id number]) Hip Strength Hip Manual Muscle Testing Right Flexion (L2) 5 Normal Extension (S1) 3 Fair Abduction 4- Good- Adduction 4 Good External Rotation 4 Good Internal Rotation 4+ Good+ Left Flexion (L2) 5 Normal Extension (S1) 3- Fair- Abduction 4- Good- Adduction 4 Good External Rotation 4 Good Internal Rotation 4+ Good+ Knee Strength Knee Manual Muscle Testing Right Flexion (S2) 5 Normal Extension (L3) 5 Normal Left Flexion (S2) 5 Normal Extension (L3) 5 Normal Ankle/Foot Strength Ankle and Foot Manual Muscle Testing Right Dorsiflexion (L4) 5 Normal Plantarflexion (S1) 5 Normal Left Dorsiflexion (L4) 5 Normal Plantarflexion (S1) 5 Normal Comments 20 heel raises B PT-OP-Q Treatments Start: 01/06/21 11:42 Freq: Status: Active Protocol: Document 02/03/21 14:31 [facility] (Rec: 02/03/21 15:18 [facility] [id number]) Gym Equipment Shuttle Balance blue clips Comments fwd &side :wbos & nbos Therapeutic Exercises Standing Exercises lunges Standing Exercise Name fwd & side Side bilateral Reps/Minutes 12 ea Comments cues for core & posture side step Standing Exercise Name in minisquat Side bilateral Equipment Used L3 Reps/Minutes 20ft x2 Comments by rail Other Exercises quadruped Other Exercise Name 1. alt UE lift 2. alt LE lift Side bilateral Reps/Minutes 12 ea Comments difficulty w/lifting RLE w/ keeping trunk still preet pose Other Exercise Name fwd & to sides Reps/Minutes 30 sec ea Therapeutic Activity Therapeutic Activity Lifting Name Lifting mechanics Comments box starting at 20lbs then 30 lbs and working on squat lift then move over to table Manual Therapy Treatment Soft Tissue Mobilization LB Body Location B paraspinals & QL Mobilization Type Rolling,Strumming,Sustained Pressure Intensity/Depth Moderate Body Position Prone Joint Mobilizations Lumbar Joint UPA L4 &L5 Grade II PT-OP-T Assessment and Plan Start: 01/06/21 11:42 Freq: Status: Active Protocol: Document 02/03/21 14:31 [facility] (Rec: 02/03/21 15:18 [facility] [id number]) Physical Therapy Assessment Goals activity [employer] Goal (LTG) Pt will be able to lateral movements requried for pt to participate in [email or web address] basketball w/o inc pain LTG Duration 03/07/21 BENY [employer] Goal (LTG) Pt will improve BENY to no greater than 3/50 to show improved functional ability. LTG Duration 03/07/21 walking Short Term Goal (STG) Pt will demonstrate increased push off with gait. STG Duration 02/04/21 Half-Way Goal (LTG) Pt will be able to walk 1 mile without inc in back pain more than 2/10. LTG Duration 03/07/21 strength Short Term Goal (STG) Pt will be indep w/HEP STG Duration 02/04/21 Half-Way Goal (LTG) Pt will have 5/5 LE strength & 3/5 LPM into all planes w/o pain to show improved stability to dec pain w/ activity. LTG Duration 03/07/21 lifting Short Term Goal (STG) Pt will be able to lift without pain with good mechanics to dec risk of further pain/injury when working at [employer]. STG Duration 02/04/21 [employer] Goal (LTG) Pt will score 4/5 w/EFT to show imrpoved stability for lifting to dec risk of pain w/ lifitng. LTG Duration 03/07/21 Assessment Summary Assessment Pt did well with lifting but requried cueing for good posture w/standing fully when lifting before walking to move object. He is improving with strength and tolerated more difficult exercises tdoay. Physical Therapy Plan Frequency and Duration Frequency of Treatment 2x/Week Duration of Treatment 2 months Plan of Care Start Date 01/07/21 Plan of Care End Date 03/07/21 Next Visit Focus/Plan Next Note Type Treatment Note Next Visit Plan cont working on lateral movements for getting back to basketball. Continue working on lifting mechanics, core exercises, low back STM and hip mobility
--- NOTE | 2021-02-05 15:18 | PT.OTN ---
Current Diagnoses Other chronic pain (02/05/21) Postural kyphosis, thoracic region (02/05/21) Low back pain (02/05/21) Difficulty in walking, not elsewhere classified (02/05/21) Abnormal posture (02/05/21) Weakness (02/05/21) Physical Therapy Treatment Note PT-OP-A Visit Information Start: 01/06/21 11:42 Freq: Status: Active Protocol: Document 02/05/21 14:48 MA (Rec: 02/05/21 15:18 MA [id number]) Out-Patient Physical Therapy Visit Information Visit Information Visit Type Treatment Note Visit Note 06/29 Visit Start Time 14:30 Visit Stop Time 15:10 Total Visit Minutes 40 Visit Number 8 Number of PARK INTERPRETER Visits 1 PT-OP-B Current Condition Start: 01/06/21 11:42 Freq: Status: Active Protocol: Document 01/07/21 16:47 LR (Rec: 01/07/21 18:01 LR [id number]) Current Condition History of Current Condition Onset Date 5 years Current Complaints LBP History of Current Condition pt reports progressive worsening back pain over the past 5 years and 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 No notable injuries. Pt reports dry needling over the past 6 weeks that did help some but treatment plateaued. Pt reprots pain improved about 2/ 3 w/dry needling. Walks dog 3x /day (2x .5 mile and 1x mile) where he has pain. He has to stabilize back with hands by the end of 1 mile walk. Walking in the snow was very difficult. Pt reports its been difficult to do walks since about 1 year ago. Pt reports standing for >30 min, he starts to feel his back, but really feels awful after a 4 hour shift at [employer]. He tries to sit down occ. Pt reports tripping over dog aobut 1 year ago but no known injury Prior Treatments and Tests dry needling by DO & stretching exercises by doctor -help some IMPRESSION: Moderate diffuse lumbar spondylosis and facet disease Multilevel spondylolisthesis as above. Treatment Goals Patient/Caregiver Goals Play basketball again (been 12 years since last played)- wants to play in Monday old men's league, be able to exercise again to help w/pain, diabetes, wt & BP, Be able to walk 1-2 miles without inc pain Personal Factors Other Personal Factors That May Effect works at [employer], HTN, Therapy/Recovery diabetes PT-OP-C Subjective Start: 01/06/21 11:42 Freq: Status: Active Protocol: Document 02/05/21 14:48 MA (Rec: 02/05/21 15:18 MA [id number]) OP-PT Subjective Patient Comments Patient Comments Nothing new since last visit on Monday. Pt feels overall , therapy has improved his LBP PT-OP-F Manual Assessment Start: 01/06/21 11:42 Freq: Status: Active Protocol: Document 01/07/21 16:47 [facility] (Rec: 01/07/21 18:01 [facility] [id number]) Manual Assessments Soft Tissue Assessment Soft Tissue Mobility Assessment tightness L ES & glutes upper, R QL Joint Mobility Assessment Joint Mobility Assessment equal greater trochanter & iliac crest height PT-OP-G Mobility & Gait Start: 01/06/21 11:42 Freq: Status: Active Protocol: Document 01/07/21 16:47 [facility] (Rec: 01/07/21 18:01 [facility] [id number]) OP Gait Assessment Comments Gait Comments walks w/reaching w/legs w/dec push off, lat shear of pelvis w/walk w/o full wt accpetance, dec overall appropriate pelvis motion PT-OP-J Posture/Palpation/Skin Start: 01/06/21 11:42 Freq: Status: Active Protocol: Document 01/07/21 16:47 [facility] (Rec: 01/07/21 18:01 [facility] [id number]) Posture Evaluation Minerva Postural Classification System Minerva Postural Classifications Posterior/Anterior Vertebral Compression Test 2 Elbow Flexion Test 0 Lumbar Protective Mechanism Left AP 0 Lumbar Protective Mechanism Right AP 1 Lumbar Protective Mechanism Left PA 0 Lumbar Protective Mechanism Right PA 0 Comments Posture Comments significant kyphsosi & fwd head, flexed at hips, LLE ER slightly PT-OP-K Range of Motion Start: 01/06/21 11:42 Freq: Status: Active Protocol: Document 01/07/21 16:47 [facility] (Rec: 01/07/21 18:01 [facility] [id number]) Lumbar Spine Range of Motion Lumbar Spine Active Degrees Flexion 51 Extension 5 Rotation Left 41 Rotation Right 36 Lateral Flexion Left 25 Lateral Flexion Right 21 Comments no pain PT-OP-L Special Tests Start: 01/06/21 11:42 Freq: Status: Active Protocol: Document 01/07/21 16:47 [facility] (Rec: 01/07/21 18:01 [facility] [id number]) Special Tests Lumbar Spine Special Tests Straight Leg Raise Test Results R 80 Comments L 74 Slump Test Results neg B David Test Results WNL PT-OP-M Strength Start: 01/06/21 11:42 Freq: Status: Active Protocol: Document 01/07/21 16:47 [facility] (Rec: 01/07/21 18:01 [facility] [id number]) Hip Strength Hip Manual Muscle Testing Right Flexion (L2) 5 Normal Extension (S1) 3 Fair Abduction 4- Good- Adduction 4 Good External Rotation 4 Good Internal Rotation 4+ Good+ Left Flexion (L2) 5 Normal Extension (S1) 3- Fair- Abduction 4- Good- Adduction 4 Good External Rotation 4 Good Internal Rotation 4+ Good+ Knee Strength Knee Manual Muscle Testing Right Flexion (S2) 5 Normal Extension (L3) 5 Normal Left Flexion (S2) 5 Normal Extension (L3) 5 Normal Ankle/Foot Strength Ankle and Foot Manual Muscle Testing Right Dorsiflexion (L4) 5 Normal Plantarflexion (S1) 5 Normal Left Dorsiflexion (L4) 5 Normal Plantarflexion (S1) 5 Normal Comments 20 heel raises B PT-OP-Q Treatments Start: 01/06/21 11:42 Freq: Status: Active Protocol: Document 02/05/21 14:48 MA (Rec: 02/05/21 15:18 MA [id number]) Gym Equipment Shuttle Balance blue clips Comments fwd &side :wbos & nbos (EO/EC ) fwd: staggered stance Therapeutic Exercises Supine Exercises Stretch Supine Exercise Name HS stretch with towel Side bilateral Reps/Minutes 60 sec LTR Side bilateral Reps/Minutes 10 pelvic tilts Equipment Used focus on breathing Reps/Minutes 5 Standing Exercises lunges Standing Exercise Name fwd- big step out and back ( modified lunge) Side bilateral Reps/Minutes 8 ea Comments cues for core & posture side step Standing Exercise Name in minisquat (one round with yellow band, one without) Side bilateral Equipment Used yellow band Reps/Minutes 20ft x2 Comments by rail Other Exercises quadruped Other Exercise Name 1. alt UE lift 2. alt LE lift Side bilateral Reps/Minutes 12 ea Comments difficulty w/lifting RLE w/ keeping trunk still preet pose Other Exercise Name fwd & to sides Reps/Minutes 30 sec ea PT-OP-T Assessment and Plan Start: 01/06/21 11:42 Freq: Status: Active Protocol: Document 02/05/21 14:48 MA (Rec: 02/05/21 15:18 MA [id number]) Physical Therapy Assessment Goals activity Chain Carrier Goal (LTG) Pt will be able to lateral movements requried for pt to participate in [place] basketball w/o inc pain LTG Duration 03/07/21 BENY Snf Goal (LTG) Pt will improve BENY to no greater than 3/50 to show improved functional ability. LTG Duration 03/07/21 walking Short Term Goal (STG) Pt will demonstrate increased push off with gait. STG Duration 02/04/21 Snf Goal (LTG) Pt will be able to walk 1 mile without inc in back pain more than 2/10. LTG Duration 03/07/21 strength Short Term Goal (STG) Pt will be indep w/HEP STG Duration 02/04/21 Snf Goal (LTG) Pt will have 5/5 LE strength & 3/5 LPM into all planes w/o pain to show improved stability to dec pain w/ activity. LTG Duration 03/07/21 lifting Short Term Goal (STG) Pt will be able to lift without pain with good mechanics to dec risk of further pain/injury when working at [employer]. STG Duration 02/04/21 Chain Carrier Goal (LTG) Pt will score 4/5 w/EFT to show imrpoved stability for lifting to dec risk of pain w/ lifitng. LTG Duration 03/07/21 Assessment Summary Assessment Pt required cueing for posture throughout exercises. His core strength and balance are both improving. Pt was able to stand on shuttle balance with eyes closed only needing occassional bouts of Min A for balance. Physical Therapy Plan Next Visit Focus/Plan Next Note Type Treatment Note Next Visit Plan Continue working on lateral movements for getting back to basketball. Add HS stretch to HEP. Continue working on lifting mechanics, core exercises, low back STM and hip mobility
--- NOTE | 2021-02-10 14:48 | PT.OTN ---
Current Diagnoses Other chronic pain (02/10/21) Postural kyphosis, thoracic region (02/10/21) Low back pain (02/10/21) Difficulty in walking, not elsewhere classified (02/10/21) Abnormal posture (02/10/21) Weakness (02/10/21) Physical Therapy Treatment Note PT-OP-A Visit Information Start: 01/06/21 11:42 Freq: Status: Active Protocol: Document 02/10/21 13:44 [facility] (Rec: 02/10/21 14:47 [facility] [id number]) Out-Patient Physical Therapy Visit Information Visit Information Visit Type Progress Note Visit Note 11/29 Visit Start Time 13:47 Visit Stop Time 14:27 Total Visit Minutes 40 Visit Number 9 Number of DISTRICT ENGINEER Visits 0 PT-OP-B Current Condition Start: 01/06/21 11:42 Freq: Status: Active Protocol: Document 01/07/21 16:47 [facility] (Rec: 01/07/21 18:01 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 No notable injuries. Pt reports dry needling over the past 6 weeks that did help some but treatment plateaued. Pt reprots pain improved about 2/ 3 w/dry needling. Walks dog 3x /day (2x .5 mile and 1x mile) where he has pain. He has to stabilize back with hands by the end of 1 mile walk. Walking in the snow was very difficult. Pt reports its been difficult to do walks since about 1 year ago. Pt reports standing for >30 min, he starts to feel his back, but really feels awful after a 4 hour shift at [employer]. He tries to sit down occ. Pt reports tripping over dog aobut 1 year ago but no known injury Prior Treatments and Tests dry needling by DO & stretching exercises by doctor -help some IMPRESSION: Moderate diffuse lumbar spondylosis and facet disease Multilevel spondylolisthesis as above. Treatment Goals Patient/Caregiver Goals Play basketball again (been 12 years since last played)- wants to play in Monday old men's league, be able to exercise again to help w/pain, diabetes, wt & BP, Be able to walk 1-2 miles without inc pain Personal Factors Other Personal Factors That May Effect works at [email or web address], HTN, Therapy/Recovery diabetes PT-OP-C Subjective Start: 01/06/21 11:42 Freq: Status: Active Protocol: Document 02/10/21 13:44 [facility] (Rec: 02/10/21 14:47 [facility] [id number]) OP-PT Subjective Patient Comments Patient Comments Pt reports pain slowly better each week Patient Reported Progress Improving PT-OP-F Manual Assessment Start: 01/06/21 11:42 Freq: Status: Active Protocol: Document 01/07/21 16:47 [facility] (Rec: 01/07/21 18:01 [facility] [id number]) Manual Assessments Soft Tissue Assessment Soft Tissue Mobility Assessment tightness L ES & glutes upper, R QL Joint Mobility Assessment Joint Mobility Assessment equal greater trochanter & iliac crest height PT-OP-G Mobility & Gait Start: 01/06/21 11:42 Freq: Status: Active Protocol: Document 01/07/21 16:47 [facility] (Rec: 01/07/21 18:01 [facility] [id number]) OP Gait Assessment Comments Gait Comments walks w/reaching w/legs w/dec push off, lat shear of pelvis w/walk w/o full wt accpetance, dec overall appropriate pelvis motion PT-OP-J Posture/Palpation/Skin Start: 01/06/21 11:42 Freq: Status: Active Protocol: Document 02/10/21 13:44 [facility] (Rec: 02/10/21 14:47 [facility] [id number]) Posture Evaluation Minerva Postural Classification System Vertebral Compression Test 3 Elbow Flexion Test 2 Lumbar Protective Mechanism Left AP 0 Lumbar Protective Mechanism Right AP 2 Lumbar Protective Mechanism Left PA 1 Lumbar Protective Mechanism Right PA 0 PT-OP-K Range of Motion Start: 01/06/21 11:42 Freq: Status: Active Protocol: Document 01/07/21 16:47 [facility] (Rec: 01/07/21 18:01 [facility] [id number]) Lumbar Spine Range of Motion Lumbar Spine Active Degrees Flexion 51 Extension 5 Rotation Left 41 Rotation Right 36 Lateral Flexion Left 25 Lateral Flexion Right 21 Comments no pain PT-OP-L Special Tests Start: 01/06/21 11:42 Freq: Status: Active Protocol: Document 01/07/21 16:47 [facility] (Rec: 01/07/21 18:01 [facility] [id number]) Special Tests Lumbar Spine Special Tests Straight Leg Raise Test Results R 80 Comments L 74 Slump Test Results neg B David Test Results WNL PT-OP-M Strength Start: 01/06/21 11:42 Freq: Status: Active Protocol: Document 02/10/21 13:44 [facility] (Rec: 02/10/21 14:47 [facility] [id number]) Hip Strength Hip Manual Muscle Testing Right Flexion (L2) 5 Normal Extension (S1) 3+ Fair+ Abduction 4+ Good+ Adduction 4 Good External Rotation 4 Good Internal Rotation 5 Normal Left Flexion (L2) 5 Normal Extension (S1) 3+ Fair+ Abduction 4+ Good+ Adduction 4+ Good+ External Rotation 5 Normal Internal Rotation 5 Normal Knee Strength Knee Manual Muscle Testing Right Flexion (S2) 5 Normal Extension (L3) 5 Normal Left Flexion (S2) 5 Normal Extension (L3) 5 Normal Ankle/Foot Strength Ankle and Foot Manual Muscle Testing Right Dorsiflexion (L4) 5 Normal Plantarflexion (S1) 5 Normal Left Dorsiflexion (L4) 5 Normal Plantarflexion (S1) 5 Normal Comments 20 heel raises B PT-OP-Q Treatments Start: 01/06/21 11:42 Freq: Status: Active Protocol: Document 02/10/21 13:44 [facility] (Rec: 02/10/21 14:47 [facility] [id number]) Gym Equipment Shuttle Balance blue clips Details fwd: WBOS, NBOS w/head turns & staggeres tance B Therapeutic Exercises Standing Exercises lunges Standing Exercise Name fwd- big step out and back ( modified lunge) Side bilateral Reps/Minutes 8 ea Comments cues for core & posture side step Standing Exercise Name in minisquat Side bilateral Equipment Used red band Reps/Minutes 20ft Comments by rail Manual Therapy Treatment Soft Tissue Mobilization LB Body Location B paraspinals & QL Mobilization Type Rolling,Strumming,Sustained Pressure Intensity/Depth Moderate Body Position Prone Joint Mobilizations sacrum Joint caudal FM & PA Neuro Re-Education Treatment Balance Activities hurdles Details step through x 6 reps Surface rail prn PT-OP-T Assessment and Plan Start: 01/06/21 11:42 Freq: Status: Active Protocol: Document 02/10/21 13:44 [facility] (Rec: 02/10/21 14:47 [facility] [id number]) Physical Therapy Assessment Goals activity [employer] Treating Unit Operator Goal (LTG) Pt will be able to lateral movements requried for pt to participate in old man league basketball w/o inc pain 02/10-has not tried LTG Duration 04/12/21 BENY [employer] Treating Unit Operator Goal (LTG) Pt will improve BENY to no greater than 3/50 to show improved functional ability. 02/10-n/t LTG Duration 04/12/21 walking Short Term Goal (STG) Pt will demonstrate increased push off with gait. 02/10-inc on L>R STG Duration 03/13/21 Detention Goal (LTG) Pt will be able to walk 1 mile without inc in back pain more than 12/30. 02/10-02/27 now w/1 mile, can walk further LTG Duration 04/12/21 strength Short Term Goal (STG) Pt will be indep w/HEP STG Duration achieved Natural [employer] Treating Unit Operator Goal (LTG) Pt will have 5/5 LE strength & 3/5 LPM into all planes w/o pain to show improved stability to dec pain w/ activity. 02/10-progressing LTG Duration 04/12/21 lifting Short Term Goal (STG) Pt will be able to lift without pain with good mechanics to dec risk of further pain/injury when working at [employer]. 02/10-min cues needed STG Duration 03/13/21 Detention Goal (LTG) Pt will score 4/5 w/EFT to show imrpoved stability for lifting to dec risk of pain w/ lifitng. LTG Duration 04/12/21l Assessment Summary Assessment Pt did well with exercises but does require cuieng for posture for all activities. He had difficulty with hurdles d /t requirement of coordiation and clearing . He is making good improvements with pain, strength and mobility and would benefit from cont PT. Physical Therapy Plan Frequency and Duration Frequency of Treatment 1-2x/week Duration of Treatment 2 months Plan of Care Start Date 02/10/21 Plan of Care End Date 04/12/21 Therapeutic Interventions Therapeutic Interventions Aquatic Therapy,Balance Training,Gait Training,Home Exercise Program,Joint Mobilizations,Manual Therapy, Neuromuscular Re-education, Patient/Caregiver Education, Self-Care/Home Management,Soft Tissue Mobilization,Taping, Therapeutic Activities, Therapeutic Exercises Modalities Cold Pack/Ice Massage,Electric Stimulation,Hot Packs, Traction- Mechanical, Ultrasound Next Visit Focus/Plan Next Note Type Treatment Note Next Visit Plan Continue working on lateral movements for getting back to basketball.Continue working on lifting mechanics, core exercises, low back STM and hip mobility
--- NOTE | 2021-02-10 14:48 | PT.OPPOC ---
Physical, Occupational & Speech Therapy At [facility] Current Diagnoses Other chronic pain (02/10/21) Postural kyphosis, thoracic region (02/10/21) Low back pain (02/10/21) Difficulty in walking, not elsewhere classified (02/10/21) Abnormal posture (02/10/21) Weakness (02/10/21) Visit Care Team Role Provider Type Raul Urbina DO Attending Provider Physician Primary Care Provider Referring Provider Specialty: [facility] Address: [address] [place] [address], [facility] Email: Plan Of Care PT-OP-T Assessment and Plan Start: 01/06/21 11:42 Freq: Status: Active Protocol: Document 02/10/21 13:44 [facility] (Rec: 02/10/21 14:47 [facility] [id number]) Physical Therapy Assessment Goals activity Longterm Goal (LTG) Pt will be able to lateral movements requried for pt to participate in [employer] basketball w/o inc pain 02/10-has not tried LTG Duration 04/12/21 BENY Combiner Goal (LTG) Pt will improve BENY to no greater than 3/50 to show improved functional ability. 02/10-n/t LTG Duration 04/12/21 walking Short Term Goal (STG) Pt will demonstrate increased push off with gait. 02/10-inc on L>R STG Duration 03/13/21 Longterm Goal (LTG) Pt will be able to walk 1 mile without inc in back pain more than 2/10. 02/10-/ now w/1 mile, can walk further LTG Duration 04/12/21 strength Short Term Goal (STG) Pt will be indep w/HEP STG Duration achieved Combiner Goal (LTG) Pt will have 5/5 LE strength & 3/5 LPM into all planes w/o pain to show improved stability to dec pain w/ activity. 02/10-progressing LTG Duration 04/12/21 lifting Short Term Goal (STG) Pt will be able to lift without pain with good mechanics to dec risk of further pain/injury when working at [employer]. 02/10-min cues needed STG Duration 03/13/21 Longterm Goal (LTG) Pt will score 4/5 w/EFT to show imrpoved stability for lifting to dec risk of pain w/ lifitng. LTG Duration 04/12/21l Assessment Summary Assessment Pt did well with exercises but does require cuieng for posture for all activities. He had difficulty with hurdles d /t requirement of coordiation and clearing . He is making good improvements with pain, strength and mobility and would benefit from cont PT. Physical Therapy Plan Frequency and Duration Frequency of Treatment 1-2x/week Duration of Treatment 2 months Plan of Care Start Date 02/10/21 Plan of Care End Date 04/12/21 Therapeutic Interventions Therapeutic Interventions Aquatic Therapy,Balance Training,Gait Training,Home Exercise Program,Joint Mobilizations,Manual Therapy, Neuromuscular Re-education, Patient/Caregiver Education, Self-Care/Home Management,Soft Tissue Mobilization,Taping, Therapeutic Activities, Therapeutic Exercises Modalities Cold Pack/Ice Massage,Electric Stimulation,Hot Packs, Traction- Mechanical, Ultrasound Next Visit Focus/Plan Next Note Type Treatment Note Next Visit Plan Continue working on lateral movements for getting back to basketball.Continue working on lifting mechanics, core exercises, low back STM and hip mobility Plan of Care Dates Plan of Care Start Date 02/10/21 Plan of Care End Date 04/12/21 Electronically Signed by: Adali Bedolla, PT 02/10/21 [id number] Please Sign and Return: I have reviewed this Plan of Care and certify that the skilled therapy services above are required to meet the patient?s needs. Physician Signature Date Printed Name and Credentials Clinical Instructor Signature Printed Name and Credentials
--- NOTE | 2021-02-12 15:16 | PT.OTN ---
Current Diagnoses Other chronic pain (02/12/21) Postural kyphosis, thoracic region (02/12/21) Low back pain (02/12/21) Difficulty in walking, not elsewhere classified (02/12/21) Abnormal posture (02/12/21) Weakness (02/12/21) Physical Therapy Treatment Note PT-OP-A Visit Information Start: 01/06/21 11:42 Freq: Status: Active Protocol: Document 02/12/21 14:34 MA (Rec: 02/12/21 15:16 MA [id number]) Out-Patient Physical Therapy Visit Information Visit Information Visit Type Treatment Note Visit Start Time 14:30 Visit Stop Time 15:10 Total Visit Minutes 40 Visit Number 10 Number of WELFARE SUPERVISOR Visits 1 PT-OP-B Current Condition Start: 01/06/21 11:42 Freq: Status: Active Protocol: Document 01/07/21 16:47 LR (Rec: 01/07/21 18:01 [facility] [id number]) Current Condition History of Current Condition Onset Date 5 years Current Complaints LBP History of Current Condition pt reports progressive worsening back pain over the past 5 years and 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 No notable injuries. Pt reports dry needling over the past 6 weeks that did help some but treatment plateaued. Pt reprots pain improved about 2/ 3 w/dry needling. Walks dog 3x /day (2x .5 mile and 1x mile) where he has pain. He has to stabilize back with hands by the end of 1 mile walk. Walking in the snow was very difficult. Pt reports its been difficult to do walks since about 1 year ago. Pt reports standing for >30 min, he starts to feel his back, but really feels awful after a 4 hour shift at [employer] He tries to sit down occ. Pt reports tripping over dog aobut 1 year ago but no known injury Prior Treatments and Tests dry needling by DO & stretching exercises by doctor -help some IMPRESSION: Moderate diffuse lumbar spondylosis and facet disease Multilevel spondylolisthesis as above. Treatment Goals Patient/Caregiver Goals Play basketball again (been 12 years since last played)- wants to play in [employer] league, be able to exercise again to help w/pain, diabetes, wt & BP, Be able to walk 1-2 miles without inc pain Personal Factors Other Personal Factors That May Effect works at [employer], HTN, Therapy/Recovery diabetes PT-OP-C Subjective Start: 01/06/21 11:42 Freq: Status: Active Protocol: Document 02/12/21 14:34 MA (Rec: 02/12/21 15:16 MA [id number]) OP-PT Subjective Patient Comments Patient Comments Pt reports pain is getting better every week. He thinks therapy is helping. Patient Reported Progress Improving PT-OP-F Manual Assessment Start: 01/06/21 11:42 Freq: Status: Active Protocol: Document 01/07/21 16:47 [facility] (Rec: 01/07/21 18:01 [facility] [id number]) Manual Assessments Soft Tissue Assessment Soft Tissue Mobility Assessment tightness L ES & glutes upper, R QL Joint Mobility Assessment Joint Mobility Assessment equal greater trochanter & iliac crest height PT-OP-G Mobility & Gait Start: 01/06/21 11:42 Freq: Status: Active Protocol: Document 01/07/21 16:47 [facility] (Rec: 01/07/21 18:01 [facility] [id number]) OP Gait Assessment Comments Gait Comments walks w/reaching w/legs w/dec push off, lat shear of pelvis w/walk w/o full wt accpetance, dec overall appropriate pelvis motion PT-OP-J Posture/Palpation/Skin Start: 01/06/21 11:42 Freq: Status: Active Protocol: Document 02/10/21 13:44 [facility] (Rec: 02/10/21 14:47 [facility] [id number]) Posture Evaluation Minerva Postural Classification System Vertebral Compression Test 3 Elbow Flexion Test 2 Lumbar Protective Mechanism Left AP 0 Lumbar Protective Mechanism Right AP 2 Lumbar Protective Mechanism Left PA 1 Lumbar Protective Mechanism Right PA 0 PT-OP-K Range of Motion Start: 01/06/21 11:42 Freq: Status: Active Protocol: Document 01/07/21 16:47 [facility] (Rec: 01/07/21 18:01 [facility] [id number]) Lumbar Spine Range of Motion Lumbar Spine Active Degrees Flexion 51 Extension 5 Rotation Left 41 Rotation Right 36 Lateral Flexion Left 25 Lateral Flexion Right 21 Comments no pain PT-OP-L Special Tests Start: 01/06/21 11:42 Freq: Status: Active Protocol: Document 01/07/21 16:47 LR (Rec: 01/07/21 18:01 [facility] [id number]) Special Tests Lumbar Spine Special Tests Straight Leg Raise Test Results R 80 Comments L 74 Slump Test Results neg B David Test Results WNL PT-OP-M Strength Start: 01/06/21 11:42 Freq: Status: Active Protocol: Document 02/10/21 13:44 LR (Rec: 02/10/21 14:47 [facility] [id number]) Hip Strength Hip Manual Muscle Testing Right Flexion (L2) 5 Normal Extension (S1) 3+ Fair+ Abduction 4+ Good+ Adduction 4 Good External Rotation 4 Good Internal Rotation 5 Normal Left Flexion (L2) 5 Normal Extension (S1) 3+ Fair+ Abduction 4+ Good+ Adduction 4+ Good+ External Rotation 5 Normal Internal Rotation 5 Normal Knee Strength Knee Manual Muscle Testing Right Flexion (S2) 5 Normal Extension (L3) 5 Normal Left Flexion (S2) 5 Normal Extension (L3) 5 Normal Ankle/Foot Strength Ankle and Foot Manual Muscle Testing Right Dorsiflexion (L4) 5 Normal Plantarflexion (S1) 5 Normal Left Dorsiflexion (L4) 5 Normal Plantarflexion (S1) 5 Normal Comments 20 heel raises B PT-OP-Q Treatments Start: 01/06/21 11:42 Freq: Status: Active Protocol: Document 02/12/21 14:34 MA (Rec: 02/12/21 15:16 MA [id number]) Therapeutic Exercises Supine Exercises Stretch Supine Exercise Name HS stretch with towel Side bilateral Reps/Minutes 60 sec LTR Side bilateral Reps/Minutes 10 pelvic tilts Equipment Used focus on breathing Reps/Minutes 8 Sitting Exercises Piriformis stretch Sitting Exercise Name figure-4 Reps/Minutes 60 Standing Exercises squat Standing Exercise Name over chair Side bilateral Reps/Minutes x10 side step Standing Exercise Name in minisquat Side bilateral Equipment Used red band Reps/Minutes 20ftx2 Comments by rail Manual Therapy Treatment Soft Tissue Mobilization LB Body Location B paraspinals & QL Mobilization Type Rolling,Strumming,Sustained Pressure Intensity/Depth Moderate Body Position Prone Neuro Re-Education Treatment Balance Activities SLS Surface Solid Equipment single hand on bar Reps/Duration 10 sec Comments CGA; Mary as pt tried to let go of bar hurdles Details step through x 6 reps Surface rail prn Comments fwd, lateral PT-OP-T Assessment and Plan Start: 01/06/21 11:42 Freq: Status: Active Protocol: Document 02/12/21 14:34 MA (Rec: 02/12/21 15:16 MA [id number]) Physical Therapy Assessment Goals activity Skilled Nursing Goal (LTG) Pt will be able to lateral movements requried for pt to participate in old [employer] league basketball w/o inc pain 02/10-has not tried LTG Duration 04/12/21 BENY Ambulatory Care Goal (LTG) Pt will improve BENY to no greater than 3/50 to show improved functional ability. 02/10-n/t LTG Duration 04/12/21 walking Short Term Goal (STG) Pt will demonstrate increased push off with gait. 02/10-inc on L>R STG Duration 03/13/21 Ambulatory Care Goal (LTG) Pt will be able to walk 1 mile without inc in back pain more than 210. 02/10-02/27 now w/1 mile, can walk further LTG Duration 04/12/21 strength Short Term Goal (STG) Pt will be indep w/HEP STG Duration achieved Skilled Nursing Goal (LTG) Pt will have 5/5 LE strength & 3/5 LPM into all planes w/o pain to show improved stability to dec pain w/ activity. 02/10-progressing LTG Duration 04/12/21 lifting Short Term Goal (STG) Pt will be able to lift without pain with good mechanics to dec risk of further pain/injury when working at [employer]. 02/10-min cues needed STG Duration 03/13/21 Skilled Nursing Goal (LTG) Pt will score 4/5 w/EFT to show imrpoved stability for lifting to dec risk of pain w/ lifitng. LTG Duration 04/12/21l Assessment Summary Assessment Pt continues to need cues for posture. He has occassional LOB during hurdles, fwd stepping more than lateral stepping. Pt is shakey during SLS with single hand on bar and needed one bout of Min A when trying to let go of bar. Pt's RLE is tighter than LLE during HS and piriformis stretches Physical Therapy Plan Frequency and Duration Frequency of Treatment 1-2x/week Duration of Treatment 2 months Plan of Care Start Date 02/10/21 Plan of Care End Date 04/12/21 Therapeutic Interventions Therapeutic Interventions Aquatic Therapy,Balance Training,Gait Training,Home Exercise Program,Joint Mobilizations,Manual Therapy, Neuromuscular Re-education, Patient/Caregiver Education, Self-Care/Home Management,Soft Tissue Mobilization,Taping, Therapeutic Activities, Therapeutic Exercises Modalities Cold Pack/Ice Massage,Electric Stimulation,Hot Packs, Traction- Mechanical, Ultrasound Next Visit Focus/Plan Next Note Type Treatment Note Next Visit Plan Continue working on lateral movements for getting back to basketball.Continue working on lifting mechanics, core exercises, low back STM and hip mobility
--- NOTE | 2021-02-17 15:16 | PT.OTN ---
Current Diagnoses Other chronic pain (02/17/21) Postural kyphosis, thoracic region (02/17/21) Low back pain (02/17/21) Difficulty in walking, not elsewhere classified (02/17/21) Abnormal posture (02/17/21) Weakness (02/17/21) Physical Therapy Treatment Note PT-OP-A Visit Information Start: 01/06/21 11:42 Freq: Status: Active Protocol: Document 02/17/21 14:29 MA (Rec: 02/17/21 15:16 MA [id number]) Out-Patient Physical Therapy Visit Information Visit Information Visit Type Treatment Note Visit Start Time 14:28 Visit Stop Time 15:10 Total Visit Minutes 42 Visit Number 11 Number of WEDDING DAY COORDINATOR Visits 2 PT-OP-B Current Condition Start: 01/06/21 11:42 Freq: Status: Active Protocol: Document 01/07/21 16:47 [facility] (Rec: 01/07/21 18:01 [facility] [id number]) Current Condition History of Current Condition Onset Date 5 years Current Complaints LBP History of Current Condition pt reports progressive worsening back pain over the past 5 years and 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 No notable injuries. Pt reports dry needling over the past 6 weeks that did help some but treatment plateaued. Pt reprots pain improved about 2/ 3 w/dry needling. Walks dog 3x /day (2x .5 mile and 1x mile) where he has pain. He has to stabilize back with hands by the end of 1 mile walk. Walking in the snow was very difficult. Pt reports its been difficult to do walks since about 1 year ago. Pt reports standing for >30 min, he starts to feel his back, but really feels awful after a 4 hour shift at [employer]. He tries to sit down occ. Pt reports tripping over dog aobut 1 year ago but no known injury Prior Treatments and Tests dry needling by DO & stretching exercises by doctor -help some IMPRESSION: Moderate diffuse lumbar spondylosis and facet disease Multilevel spondylolisthesis as above. Treatment Goals Patient/Caregiver Goals Play basketball again (been 12 years since last played)- wants to play in [employer], be able to exercise again to help w/pain, diabetes, wt & BP, Be able to walk 1-2 miles without inc pain Personal Factors Other Personal Factors That May Effect works at [employer], HTN, Therapy/Recovery diabetes PT-OP-C Subjective Start: 01/06/21 11:42 Freq: Status: Active Protocol: Document 02/17/21 14:29 MA (Rec: 02/17/21 15:16 MA [id number]) OP-PT Subjective Patient Comments Patient Comments Pt reports his pain is getting better and he has less pain after walking PT-OP-F Manual Assessment Start: 01/06/21 11:42 Freq: Status: Active Protocol: Document 01/07/21 16:47 [facility] (Rec: 01/07/21 18:01 [facility] [id number]) Manual Assessments Soft Tissue Assessment Soft Tissue Mobility Assessment tightness L ES & glutes upper, R QL Joint Mobility Assessment Joint Mobility Assessment equal greater trochanter & iliac crest height PT-OP-G Mobility & Gait Start: 01/06/21 11:42 Freq: Status: Active Protocol: Document 01/07/21 16:47 [facility] (Rec: 01/07/21 18:01 [facility] [id number]) OP Gait Assessment Comments Gait Comments walks w/reaching w/legs w/dec push off, lat shear of pelvis w/walk w/o full wt accpetance, dec overall appropriate pelvis motion PT-OP-J Posture/Palpation/Skin Start: 01/06/21 11:42 Freq: Status: Active Protocol: Document 02/10/21 13:44 [facility] (Rec: 02/10/21 14:47 [facility] [id number]) Posture Evaluation Minerva Postural Classification System Vertebral Compression Test 3 Elbow Flexion Test 2 Lumbar Protective Mechanism Left AP 0 Lumbar Protective Mechanism Right AP 2 Lumbar Protective Mechanism Left PA 1 Lumbar Protective Mechanism Right PA 0 PT-OP-K Range of Motion Start: 01/06/21 11:42 Freq: Status: Active Protocol: Document 01/07/21 16:47 [facility] (Rec: 01/07/21 18:01 [facility] [id number]) Lumbar Spine Range of Motion Lumbar Spine Active Degrees Flexion 51 Extension 5 Rotation Left 41 Rotation Right 36 Lateral Flexion Left 25 Lateral Flexion Right 21 Comments no pain PT-OP-L Special Tests Start: 01/06/21 11:42 Freq: Status: Active Protocol: Document 01/07/21 16:47 [facility] (Rec: 01/07/21 18:01 [facility] [id number]) Special Tests Lumbar Spine Special Tests Straight Leg Raise Test Results R 80 Comments L 74 Slump Test Results neg B David Test Results WNL PT-OP-M Strength Start: 01/06/21 11:42 Freq: Status: Active Protocol: Document 02/10/21 13:44 [facility] (Rec: 02/10/21 14:47 [facility] [id number]) Hip Strength Hip Manual Muscle Testing Right Flexion (L2) 5 Normal Extension (S1) 3+ Fair+ Abduction 4+ Good+ Adduction 4 Good External Rotation 4 Good Internal Rotation 5 Normal Left Flexion (L2) 5 Normal Extension (S1) 3+ Fair+ Abduction 4+ Good+ Adduction 4+ Good+ External Rotation 5 Normal Internal Rotation 5 Normal Knee Strength Knee Manual Muscle Testing Right Flexion (S2) 5 Normal Extension (L3) 5 Normal Left Flexion (S2) 5 Normal Extension (L3) 5 Normal Ankle/Foot Strength Ankle and Foot Manual Muscle Testing Right Dorsiflexion (L4) 5 Normal Plantarflexion (S1) 5 Normal Left Dorsiflexion (L4) 5 Normal Plantarflexion (S1) 5 Normal Comments 20 heel raises B PT-OP-Q Treatments Start: 01/06/21 11:42 Freq: Status: Active Protocol: Document 02/17/21 14:29 MA (Rec: 02/17/21 15:16 MA [id number]) Therapeutic Exercises Supine Exercises LTR Side bilateral Reps/Minutes 8x 10 sec hold core Supine Exercise Name supine marches Side bilateral Reps/Minutes 30 sec pelvic tilts Equipment Used focus on breathing Reps/Minutes 8 Sidelying Exercises roll & reach Side bilateral Reps/Minutes 10x hold 5 sec Sitting Exercises Piriformis stretch Sitting Exercise Name figure-4 Reps/Minutes 60 Standing Exercises lunges Standing Exercise Name fwd- big step out and back ( modified lunge) Side bilateral Reps/Minutes 8 ea Comments cues for core & posture Therapeutic Activity Therapeutic Activity Lifting Name Lifting mechanics Comments lifting 4 in box from floor and setting it back down Manual Therapy Treatment Soft Tissue Mobilization LB Body Location B paraspinals & QL Mobilization Type Rolling,Strumming,Sustained Pressure Intensity/Depth Moderate Body Position Prone Neuro Re-Education Treatment Balance Activities Tandem Stance Comments 1. solid floor 2. blue foam 3.tandem walk 2x20 feet hurdles Details step through x 6 reps Surface rail prn Comments fwd, lateral Self-Care/Home Management Treatment Education Patient Education Home Exercise Program Other Education Pt asked for exercises he can do to help with balance at home. Discussed trying modified tandem and then tandem stance by counter for support before doing any SLS at home PT-OP-T Assessment and Plan Start: 01/06/21 11:42 Freq: Status: Active Protocol: Document 02/17/21 14:29 MA (Rec: 02/17/21 15:16 MA [id number]) Physical Therapy Assessment Goals activity Longterm Goal (LTG) Pt will be able to lateral movements requried for pt to participate in [employer] league basketball w/o inc pain 02/10-has not tried LTG Duration 04/12/21 BENY Longterm Goal (LTG) Pt will improve BENY to no greater than 3/50 to show improved functional ability. 02/10-n/t LTG Duration 04/12/21 walking Short Term Goal (STG) Pt will demonstrate increased push off with gait. 02/10-inc on L>R STG Duration 03/13/21 Transit Clerk Goal (LTG) Pt will be able to walk 1 mile without inc in back pain more than 10. 02/10-02/27 now w/1 mile, can walk further LTG Duration 04/12/21 strength Short Term Goal (STG) Pt will be indep w/HEP STG Duration achieved Longterm Goal (LTG) Pt will have 5/5 LE strength & 3/5 LPM into all planes w/o pain to show improved stability to dec pain w/ activity. 02/10-progressing LTG Duration 04/12/21 lifting Short Term Goal (STG) Pt will be able to lift without pain with good mechanics to dec risk of further pain/injury when working at [employer]. 02/10-min cues needed 02/17- GOAL MET STG Duration Achieved Transit Clerk Goal (LTG) Pt will score 4/5 w/EFT to show imrpoved stability for lifting to dec risk of pain w/ lifitng. LTG Duration 04/12/21l Assessment Summary Assessment Started with balance work instead of supine core work today with pt having more difficulty balancing and catching his foot several times on the hurdles. Pt continues to need cues during pelvic tilts to use TrA and not rectus abs. Reminded pt to focus on pulling his belly button toward his spine at home. Pt was able to show good carry-over of training during lifting, achieving a short term goal. Physical Therapy Plan Frequency and Duration Frequency of Treatment 1-2x/week Duration of Treatment 2 months Plan of Care Start Date 02/10/21 Plan of Care End Date 04/12/21 Therapeutic Interventions Therapeutic Interventions Aquatic Therapy,Balance Training,Gait Training,Home Exercise Program,Joint Mobilizations,Manual Therapy, Neuromuscular Re-education, Patient/Caregiver Education, Self-Care/Home Management,Soft Tissue Mobilization,Taping, Therapeutic Activities, Therapeutic Exercises Modalities Cold Pack/Ice Massage,Electric Stimulation,Hot Packs, Traction- Mechanical, Ultrasound Next Visit Focus/Plan Next Note Type Treatment Note Next Visit Plan see how tandem stance went at home with counter for support Continue working on lateral movements for getting back to basketball.Continue working on lifting mechanics, core exercises, low back STM and hip mobility
--- NOTE | 2021-02-19 14:33 | PT.OTN ---
Current Diagnoses Other chronic pain (02/19/21) Postural kyphosis, thoracic region (02/19/21) Low back pain (02/19/21) Difficulty in walking, not elsewhere classified (02/19/21) Abnormal posture (02/19/21) Weakness (02/19/21) Physical Therapy Treatment Note PT-OP-A Visit Information Start: 01/06/21 11:42 Freq: Status: Active Protocol: Document 02/19/21 13:50 MA (Rec: 02/19/21 14:32 MA [id number]) Out-Patient Physical Therapy Visit Information Visit Information Visit Type Treatment Note Visit Start Time 13:45 Visit Number 12 Number of HEADING AND PRIMING OPERATOR Visits 3 PT-OP-B Current Condition Start: 01/06/21 11:42 Freq: Status: Active Protocol: Document 01/07/21 16:47 [facility] (Rec: 01/07/21 18:01 [facility] [id number]) Current Condition History of Current Condition Onset Date 5 years Current Complaints LBP History of Current Condition pt reports progressive worsening back pain over the past 5 years and 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 No notable injuries. Pt reports dry needling over the past 6 weeks that did help some but treatment plateaued. Pt reprots pain improved about 2/ 3 w/dry needling. Walks dog 3x /day (2x .5 mile and 1x mile) where he has pain. He has to stabilize back with hands by the end of 1 mile walk. Walking in the snow was very difficult. Pt reports its been difficult to do walks since about 1 year ago. Pt reports standing for >30 min, he starts to feel his back, but really feels awful after a 4 hour shift at [employer]. He tries to sit down occ. Pt reports tripping over dog aobut 1 year ago but no known injury Prior Treatments and Tests dry needling by DO & stretching exercises by doctor -help some IMPRESSION: Moderate diffuse lumbar spondylosis and facet disease Multilevel spondylolisthesis as above. Treatment Goals Patient/Caregiver Goals Play basketball again (been 12 years since last played)- wants to play in Monday old men[employer] league, be able to exercise again to help w/pain, diabetes, wt & BP, Be able to walk 1-2 miles without inc pain Personal Factors Other Personal Factors That May Effect works at [employer], HTN, Therapy/Recovery diabetes PT-OP-C Subjective Start: 01/06/21 11:42 Freq: Status: Active Protocol: Document 02/19/21 14:33 MA (Rec: 02/19/21 14:33 MA [id number]) OP-PT Subjective Patient Comments Patient Comments Pt did tandem walking using his counter for support at home. He had no pain after walking the dog nearly 1 mile yesterday. PT-OP-F Manual Assessment Start: 01/06/21 11:42 Freq: Status: Active Protocol: Document 01/07/21 16:47 [facility] (Rec: 01/07/21 18:01 [facility] [id number]) Manual Assessments Soft Tissue Assessment Soft Tissue Mobility Assessment tightness L ES & glutes upper, R QL Joint Mobility Assessment Joint Mobility Assessment equal greater trochanter & iliac crest height PT-OP-G Mobility & Gait Start: 01/06/21 11:42 Freq: Status: Active Protocol: Document 01/07/21 16:47 [facility] (Rec: 01/07/21 18:01 [facility] [id number]) OP Gait Assessment Comments Gait Comments walks w/reaching w/legs w/dec push off, lat shear of pelvis w/walk w/o full wt accpetance, dec overall appropriate pelvis motion PT-OP-J Posture/Palpation/Skin Start: 01/06/21 11:42 Freq: Status: Active Protocol: Document 02/10/21 13:44 [facility] (Rec: 02/10/21 14:47 [facility] [id number]) Posture Evaluation Minerva Postural Classification System Vertebral Compression Test 3 Elbow Flexion Test 2 Lumbar Protective Mechanism Left AP 0 Lumbar Protective Mechanism Right AP 2 Lumbar Protective Mechanism Left PA 1 Lumbar Protective Mechanism Right PA 0 PT-OP-K Range of Motion Start: 01/06/21 11:42 Freq: Status: Active Protocol: Document 01/07/21 16:47 [facility] (Rec: 01/07/21 18:01 [facility] [id number]) Lumbar Spine Range of Motion Lumbar Spine Active Degrees Flexion 51 Extension 5 Rotation Left 41 Rotation Right 36 Lateral Flexion Left 25 Lateral Flexion Right 21 Comments no pain PT-OP-L Special Tests Start: 01/06/21 11:42 Freq: Status: Active Protocol: Document 01/07/21 16:47 [facility] (Rec: 01/07/21 18:01 [facility] [id number]) Special Tests Lumbar Spine Special Tests Straight Leg Raise Test Results R 80 Comments L 74 Slump Test Results neg B David Test Results WNL PT-OP-M Strength Start: 01/06/21 11:42 Freq: Status: Active Protocol: Document 02/10/21 13:44 [facility] (Rec: 02/10/21 14:47 [facility] [id number]) Hip Strength Hip Manual Muscle Testing Right Flexion (L2) 5 Normal Extension (S1) 3+ Fair+ Abduction 4+ Good+ Adduction 4 Good External Rotation 4 Good Internal Rotation 5 Normal Left Flexion (L2) 5 Normal Extension (S1) 3+ Fair+ Abduction 4+ Good+ Adduction 4+ Good+ External Rotation 5 Normal Internal Rotation 5 Normal Knee Strength Knee Manual Muscle Testing Right Flexion (S2) 5 Normal Extension (L3) 5 Normal Left Flexion (S2) 5 Normal Extension (L3) 5 Normal Ankle/Foot Strength Ankle and Foot Manual Muscle Testing Right Dorsiflexion (L4) 5 Normal Plantarflexion (S1) 5 Normal Left Dorsiflexion (L4) 5 Normal Plantarflexion (S1) 5 Normal Comments 20 heel raises B PT-OP-Q Treatments Start: 01/06/21 11:42 Freq: Status: Active Protocol: Document 02/19/21 13:50 MA (Rec: 02/19/21 14:32 MA [id number]) Therapeutic Exercises Supine Exercises bridge Supine Exercise Name w/approximation at knees Side bilateral Reps/Minutes 10x 5 sec hold LTR Side bilateral Reps/Minutes 8x 10 sec hold pelvic tilts Equipment Used focus on breathing Reps/Minutes 10 Other Exercises quadruped Other Exercise Name 1. alt UE lift 2. alt LE lift Side bilateral Reps/Minutes 6x ea Comments focus on core to keep body still preet pose Other Exercise Name fwd Reps/Minutes 30 sec Therapeutic Activity Therapeutic Activity Basketball Reps/Minutes 2 min Comments bouncing ball, reaching outside FADY Neuro Re-Education Treatment Balance Activities Tandem Stance Comments 1. solid floor 2. blue foam 3.tandem walk 2x20 feet hurdles Details fwd, lateral Comments 1. fwd, lateral 6 hurdles 2. fwd over hurdles, box, blue & green foam pads PT-OP-T Assessment and Plan Start: 01/06/21 11:42 Freq: Status: Active Protocol: Document 02/19/21 13:50 MA (Rec: 02/19/21 14:32 MA [id number]) Physical Therapy Assessment Goals activity [employer] Goal (LTG) Pt will be able to lateral movements requried for pt to participate in old man league basketball w/o inc pain 02/10-has not tried LTG Duration 04/12/21 BENY Custodial Goal (LTG) Pt will improve BENY to no greater than 3/50 to show improved functional ability. 02/10-n/t LTG Duration 04/12/21 walking Short Term Goal (STG) Pt will demonstrate increased push off with gait. 02/10-inc on L>R STG Duration 03/13/21 Custodial Goal (LTG) Pt will be able to walk 1 mile without inc in back pain more than 10. 02/10-02/27 now w/1 mile, can walk further LTG Duration 04/12/21 strength Short Term Goal (STG) Pt will be indep w/HEP STG Duration achieved Custodial Goal (LTG) Pt will have 5/5 LE strength & 3/5 LPM into all planes w/o pain to show improved stability to dec pain w/ activity. 02/10-progressing LTG Duration 04/12/21 lifting Short Term Goal (STG) Pt will be able to lift without pain with good mechanics to dec risk of further pain/injury when working at [employer]. 02/10-min cues needed 02/17- GOAL MET STG Duration Achieved Custodial Goal (LTG) Pt will score 4/5 w/EFT to show imrpoved stability for lifting to dec risk of pain w/ lifitng. LTG Duration 04/12/21l Assessment Summary Assessment Pt did much better today than Monday with balance work. He was able to complete hurdles fwd and laterally, only hitting one bri. Added foam pads with hurdles to make a more challenging obstacle course with pt only having one LOB requiring min A . Allen did better activating TrA during core work, only needing a single reminder to avoid using only rectus instead of TrA. Ended session bouncing basketball with pt, having him reach outside FADY for balance challenge. Pt does not feel he is ready to go back to basketball legue yet, but is willing to work on skills here to help avoid hurting LB when he returns to playing. Physical Therapy Plan Frequency and Duration Frequency of Treatment 1-2x/week Duration of Treatment 2 months Plan of Care Start Date 02/10/21 Plan of Care End Date 04/12/21 Therapeutic Interventions Therapeutic Interventions Aquatic Therapy,Balance Training,Gait Training,Home Exercise Program,Joint Mobilizations,Manual Therapy, Neuromuscular Re-education, Patient/Caregiver Education, Self-Care/Home Management,Soft Tissue Mobilization,Taping, Therapeutic Activities, Therapeutic Exercises Modalities Cold Pack/Ice Massage,Electric Stimulation,Hot Packs, Traction- Mechanical, Ultrasound Next Visit Focus/Plan Next Note Type Treatment Note Next Visit Plan Progress core exercises, low back STM and hip mobility; begin practicing lateral movements with basketball
--- NOTE | 2021-02-24 15:25 | PT.OTN ---
Current Diagnoses Other chronic pain (02/24/21) Postural kyphosis, thoracic region (02/24/21) Low back pain (02/24/21) Difficulty in walking, not elsewhere classified (02/24/21) Abnormal posture (02/24/21) Weakness (02/24/21) Physical Therapy Treatment Note PT-OP-A Visit Information Start: 01/06/21 11:42 Freq: Status: Active Protocol: Document 02/24/21 14:12 [facility] (Rec: 02/24/21 15:25 [facility] [id number]) Out-Patient Physical Therapy Visit Information Visit Information Visit Type Treatment Note Visit Start Time 14:31 Visit Stop Time 15:14 Total Visit Minutes 43 Visit Number 13 Number of CONSTRUCTION TRENCH DIGGER Visits 0 PT-OP-B Current Condition Start: 01/06/21 11:42 Freq: Status: Active Protocol: Document 01/07/21 16:47 [facility] (Rec: 01/07/21 18:01 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 No notable injuries. Pt reports dry needling over the past 6 weeks that did help some but treatment plateaued. Pt reprots pain improved about 2/ 3 w/dry needling. Walks dog 3x /day (2x .5 mile and 1x mile) where he has pain. He has to stabilize back with hands by the end of 1 mile walk. Walking in the snow was very difficult. Pt reports its been difficult to do walks since about 1 year ago. Pt reports standing for >30 min, he starts to feel his back, but really feels awful after a 4 hour shift at [employer]. He tries to sit down occ. Pt reports tripping over dog aobut 1 year ago but no known injury Prior Treatments and Tests dry needling by DO & stretching exercises by doctor -help some IMPRESSION: Moderate diffuse lumbar spondylosis and facet disease Multilevel spondylolisthesis as above. Treatment Goals Patient/Caregiver Goals Play basketball again (been 12 years since last played)- wants to play in Monday old men[employer] league, be able to exercise again to help w/pain, diabetes, wt & BP, Be able to walk 1-2 miles without inc pain Personal Factors Other Personal Factors That May Effect works at [employer], HTN, Therapy/Recovery diabetes PT-OP-C Subjective Start: 01/06/21 11:42 Freq: Status: Active Protocol: Document 02/24/21 14:12 [facility] (Rec: 02/24/21 15:25 [facility] [id number]) OP-PT Subjective Patient Comments Patient Comments Pt reports he feels like pain has been worse this week starting monday when he was playing w/[employer] (5&11) PT-OP-F Manual Assessment Start: 01/06/21 11:42 Freq: Status: Active Protocol: Document 01/07/21 16:47 [facility] (Rec: 01/07/21 18:01 [facility] [id number]) Manual Assessments Soft Tissue Assessment Soft Tissue Mobility Assessment tightness L ES & glutes upper, R QL Joint Mobility Assessment Joint Mobility Assessment equal greater trochanter & iliac crest height PT-OP-G Mobility & Gait Start: 01/06/21 11:42 Freq: Status: Active Protocol: Document 01/07/21 16:47 [facility] (Rec: 01/07/21 18:01 [facility] [id number]) OP Gait Assessment Comments Gait Comments walks w/reaching w/legs w/dec push off, lat shear of pelvis w/walk w/o full wt accpetance, dec overall appropriate pelvis motion PT-OP-J Posture/Palpation/Skin Start: 01/06/21 11:42 Freq: Status: Active Protocol: Document 02/10/21 13:44 [facility] (Rec: 02/10/21 14:47 [facility] [id number]) Posture Evaluation Minerva Postural Classification System Vertebral Compression Test 3 Elbow Flexion Test 2 Lumbar Protective Mechanism Left AP 0 Lumbar Protective Mechanism Right AP 2 Lumbar Protective Mechanism Left PA 1 Lumbar Protective Mechanism Right PA 0 PT-OP-K Range of Motion Start: 01/06/21 11:42 Freq: Status: Active Protocol: Document 01/07/21 16:47 [facility] (Rec: 01/07/21 18:01 [facility] [id number]) Lumbar Spine Range of Motion Lumbar Spine Active Degrees Flexion 51 Extension 5 Rotation Left 41 Rotation Right 36 Lateral Flexion Left 25 Lateral Flexion Right 21 Comments no pain PT-OP-L Special Tests Start: 01/06/21 11:42 Freq: Status: Active Protocol: Document 01/07/21 16:47 [facility] (Rec: 01/07/21 18:01 [facility] [id number]) Special Tests Lumbar Spine Special Tests Straight Leg Raise Test Results R 80 Comments L 74 Slump Test Results neg B David Test Results WNL PT-OP-M Strength Start: 01/06/21 11:42 Freq: Status: Active Protocol: Document 02/10/21 13:44 [facility] (Rec: 02/10/21 14:47 [facility] [id number]) Hip Strength Hip Manual Muscle Testing Right Flexion (L2) 5 Normal Extension (S1) 3+ Fair+ Abduction 4+ Good+ Adduction 4 Good External Rotation 4 Good Internal Rotation 5 Normal Left Flexion (L2) 5 Normal Extension (S1) 3+ Fair+ Abduction 4+ Good+ Adduction 4+ Good+ External Rotation 5 Normal Internal Rotation 5 Normal Knee Strength Knee Manual Muscle Testing Right Flexion (S2) 5 Normal Extension (L3) 5 Normal Left Flexion (S2) 5 Normal Extension (L3) 5 Normal Ankle/Foot Strength Ankle and Foot Manual Muscle Testing Right Dorsiflexion (L4) 5 Normal Plantarflexion (S1) 5 Normal Left Dorsiflexion (L4) 5 Normal Plantarflexion (S1) 5 Normal Comments 20 heel raises B PT-OP-Q Treatments Start: 01/06/21 11:42 Freq: Status: Active Protocol: Document 02/24/21 14:12 [facility] (Rec: 02/24/21 15:25 [facility] [id number]) Gym Equipment Shuttle Balance blue clips Details fwd: WBOS, NBOS & side WBOS & NBOS Therapeutic Ball seated Ball Size/Color green ball Body Position seated Reps/Duration 15 ea Comments 1.bounces 2. alt marches supine Exercise Details bridges Ball Size/Color 55cm Body Position Supine Reps/Duration 15 Therapeutic Exercises Supine Exercises core Supine Exercise Name 1.supine marches 2. knee ext lift Side bilateral Reps/Minutes 15 ea Prone Exercises hip ext Side bilateral Reps/Minutes 15 Standing Exercises side step Standing Exercise Name in minisquat Side bilateral Equipment Used red band Reps/Minutes 20ftx2 Comments by marlin Therapeutic Activity Therapeutic Activity posture Comments standing posture & working in different positions (WBOS, NBOS & staggered stance B) Basketball Name working on hip hinge Reps/Minutes 4 min Comments bouncing ball, reaching outside FADY Manual Therapy Treatment Soft Tissue Mobilization LB Body Location B paraspinals & QL Mobilization Type Rolling,Strumming,Sustained Pressure Intensity/Depth Moderate Body Position Prone Joint Mobilizations hip Joint on axis ER FM B PT-OP-T Assessment and Plan Start: 01/06/21 11:42 Freq: Status: Active Protocol: Document 02/24/21 14:12 [facility] (Rec: 02/24/21 15:25 [facility] [id number]) Physical Therapy Assessment Goals activity Structural Technician Goal (LTG) Pt will be able to lateral movements requried for pt to participate in [employer] basketball w/o inc pain 02/10-has not tried LTG Duration 04/12/21 BENY Structural Technician Goal (LTG) Pt will improve BENY to no greater than 3/50 to show improved functional ability. 02/10-n/t LTG Duration 04/12/21 walking Short Term Goal (STG) Pt will demonstrate increased push off with gait. 02/10-inc on L>R STG Duration 03/13/21 Skilled Nursing Goal (LTG) Pt will be able to walk 1 mile without inc in back pain more than 2/10. 02/10-4/10 now w/1 mile, can walk further LTG Duration 04/12/21 strength Short Term Goal (STG) Pt will be indep w/HEP STG Duration achieved Skilled Nursing Goal (LTG) Pt will have 5/5 LE strength & 3/5 LPM into all planes w/o pain to show improved stability to dec pain w/ activity. 02/10-progressing LTG Duration 04/12/21 lifting Short Term Goal (STG) Pt will be able to lift without pain with good mechanics to dec risk of further pain/injury when working at [employer]. 02/10-min cues needed 02/17- GOAL MET STG Duration Achieved Structural Technician Goal (LTG) Pt will score 4/5 w/EFT to show imrpoved stability for lifting to dec risk of pain w/ lifitng. LTG Duration 04/12/21l Assessment Summary Assessment Pt had difficulty keeping ball bouncing & avoiding flex of t spine. He improved on balance board performancw while working on posture. Cueing occ still to avoid scuffing w/ walking. Physical Therapy Plan Frequency and Duration Frequency of Treatment 1-2x/week Duration of Treatment 2 months Plan of Care Start Date 02/10/21 Plan of Care End Date 04/12/21 Next Visit Focus/Plan Next Note Type Treatment Note Next Visit Plan Progress core exercises, low back STM and hip mobility; cont practicing lateral movements with basketball
--- NOTE | 2021-02-26 14:41 | PT.OTN ---
Current Diagnoses Other chronic pain (02/26/21) Postural kyphosis, thoracic region (02/26/21) Low back pain (02/26/21) Difficulty in walking, not elsewhere classified (02/26/21) Abnormal posture (02/26/21) Weakness (02/26/21) Physical Therapy Treatment Note PT-OP-A Visit Information Start: 01/06/21 11:42 Freq: Status: Active Protocol: Document 02/26/21 13:47 MA (Rec: 02/26/21 14:41 MA [id number]) Out-Patient Physical Therapy Visit Information Visit Information Visit Type Treatment Note Visit Start Time 13:45 Visit Stop Time 14:30 Total Visit Minutes 45 Visit Number 14 Number of DESIGNER ARCHITECT Visits 1 PT-OP-B Current Condition Start: 01/06/21 11:42 Freq: Status: Active Protocol: Document 01/07/21 16:47 LR (Rec: 01/07/21 18:01 [facility] [id number]) Current Condition History of Current Condition Onset Date 5 years Current Complaints LBP History of Current Condition pt reports progressive worsening back pain over the past 5 years and 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 No notable injuries. Pt reports dry needling over the past 6 weeks that did help some but treatment plateaued. Pt reprots pain improved about 2/ 3 w/dry needling. Walks dog 3x /day (2x .5 mile and 1x mile) where he has pain. He has to stabilize back with hands by the end of 1 mile walk. Walking in the snow was very difficult. Pt reports its been difficult to do walks since about 1 year ago. Pt reports standing for >30 min, he starts to feel his back, but really feels awful after a 4 hour shift at [employer]. He tries to sit down occ. Pt reports tripping over dog aobut 1 year ago but no known injury Prior Treatments and Tests dry needling by DO & stretching exercises by doctor -help some IMPRESSION: Moderate diffuse lumbar spondylosis and facet disease Multilevel spondylolisthesis as above. Treatment Goals Patient/Caregiver Goals Play basketball again (been 12 years since last played)- wants to play in Monday old men's league, be able to exercise again to help w/pain, diabetes, wt & BP, Be able to walk 1-2 miles without inc pain Personal Factors Other Personal Factors That May Effect works at [employer], HTN, Therapy/Recovery diabetes PT-OP-C Subjective Start: 01/06/21 11:42 Freq: Status: Active Protocol: Document 02/26/21 13:47 MA (Rec: 02/26/21 14:41 MA [id number]) OP-PT Subjective Patient Comments Patient Comments Pt's pain has gotten better since the beginning of the week. PT-OP-F Manual Assessment Start: 01/06/21 11:42 Freq: Status: Active Protocol: Document 01/07/21 16:47 LR (Rec: 01/07/21 18:01 [facility] [id number]) Manual Assessments Soft Tissue Assessment Soft Tissue Mobility Assessment tightness L ES & glutes upper, R QL Joint Mobility Assessment Joint Mobility Assessment equal greater trochanter & iliac crest height PT-OP-G Mobility & Gait Start: 01/06/21 11:42 Freq: Status: Active Protocol: Document 01/07/21 16:47 LR (Rec: 01/07/21 18:01 [facility] [id number]) OP Gait Assessment Comments Gait Comments walks w/reaching w/legs w/dec push off, lat shear of pelvis w/walk w/o full wt accpetance, dec overall appropriate pelvis motion PT-OP-J Posture/Palpation/Skin Start: 01/06/21 11:42 Freq: Status: Active Protocol: Document 02/10/21 13:44 [facility] (Rec: 02/10/21 14:47 [facility] [id number]) Posture Evaluation Minerva Postural Classification System Vertebral Compression Test 3 Elbow Flexion Test 2 Lumbar Protective Mechanism Left AP 0 Lumbar Protective Mechanism Right AP 2 Lumbar Protective Mechanism Left PA 1 Lumbar Protective Mechanism Right PA 0 PT-OP-K Range of Motion Start: 01/06/21 11:42 Freq: Status: Active Protocol: Document 01/07/21 16:47 [facility] (Rec: 01/07/21 18:01 [facility] [id number]) Lumbar Spine Range of Motion Lumbar Spine Active Degrees Flexion 51 Extension 5 Rotation Left 41 Rotation Right 36 Lateral Flexion Left 25 Lateral Flexion Right 21 Comments no pain PT-OP-L Special Tests Start: 01/06/21 11:42 Freq: Status: Active Protocol: Document 01/07/21 16:47 [facility] (Rec: 01/07/21 18:01 [facility] [id number]) Special Tests Lumbar Spine Special Tests Straight Leg Raise Test Results R 80 Comments L 74 Slump Test Results neg B David Test Results WNL PT-OP-M Strength Start: 01/06/21 11:42 Freq: Status: Active Protocol: Document 02/10/21 13:44 [facility] (Rec: 02/10/21 14:47 [facility] [id number]) Hip Strength Hip Manual Muscle Testing Right Flexion (L2) 5 Normal Extension (S1) 3+ Fair+ Abduction 4+ Good+ Adduction 4 Good External Rotation 4 Good Internal Rotation 5 Normal Left Flexion (L2) 5 Normal Extension (S1) 3+ Fair+ Abduction 4+ Good+ Adduction 4+ Good+ External Rotation 5 Normal Internal Rotation 5 Normal Knee Strength Knee Manual Muscle Testing Right Flexion (S2) 5 Normal Extension (L3) 5 Normal Left Flexion (S2) 5 Normal Extension (L3) 5 Normal Ankle/Foot Strength Ankle and Foot Manual Muscle Testing Right Dorsiflexion (L4) 5 Normal Plantarflexion (S1) 5 Normal Left Dorsiflexion (L4) 5 Normal Plantarflexion (S1) 5 Normal Comments 20 heel raises B PT-OP-Q Treatments Start: 01/06/21 11:42 Freq: Status: Active Protocol: Document 02/26/21 13:47 MA (Rec: 02/26/21 14:41 MA [id number]) Gym Equipment Shuttle Balance blue clips Details fwd: WBOS, NBOS & side WBOS & NBOS Therapeutic Ball seated Ball Size/Color green ball Body Position seated Reps/Duration 15 ea Comments 1.bounces 2. alt marches supine Exercise Details bridges Ball Size/Color 55cm Body Position Supine Reps/Duration 15 Comments LEs on ball Therapeutic Exercises Supine Exercises LTR Side bilateral Reps/Minutes 8x 10 sec hold Standing Exercises side step Standing Exercise Name in minisquat Side bilateral Equipment Used red band Reps/Minutes 20ftx2 Comments by marlin hip ext Standing Exercise Name alt Side bilateral Equipment Used red band Reps/Minutes 2x10 Comments cues for posture & slow movement Manual Therapy Treatment Soft Tissue Mobilization Glutes Body Location Juni glute med/max Mobilization Type Myofascial Release,Sustained Pressure,Trigger Point Release Intensity/Depth Moderate Body Position Prone Comments Mod-deep pressure Self-Care/Home Management Treatment Education Other Education Pt has been occassionally wearing a back brace when he walks dog. Discussed how he can wear his brace if he feels it helps when he is walking as a reminder for good posture and core facilitation, but not to wear brace throughout the day as a crutch since his back has been doing a lot better. PT-OP-T Assessment and Plan Start: 01/06/21 11:42 Freq: Status: Active Protocol: Document 02/26/21 13:47 MA (Rec: 02/26/21 14:41 MA [id number]) Physical Therapy Assessment Goals activity Checkroom Chief Goal (LTG) Pt will be able to lateral movements requried for pt to participate in old man league basketball w/o inc pain 02/10-has not tried LTG Duration 04/12/21 BENY Longterm Goal (LTG) Pt will improve BENY to no greater than 3/50 to show improved functional ability. 02/10-n/t LTG Duration 04/12/21 walking Short Term Goal (STG) Pt will demonstrate increased push off with gait. 02/10-inc on L>R STG Duration 03/13/21 Longterm Goal (LTG) Pt will be able to walk 1 mile without inc in back pain more than 12/30. 02/10-02/27 now w/1 mile, can walk further LTG Duration 04/12/21 strength Short Term Goal (STG) Pt will be indep w/HEP STG Duration achieved Checkroom Chief Goal (LTG) Pt will have 5/5 LE strength & 3/5 LPM into all planes w/o pain to show improved stability to dec pain w/ activity. 02/10-progressing LTG Duration 04/12/21 lifting Short Term Goal (STG) Pt will be able to lift without pain with good mechanics to dec risk of further pain/injury when working at [employer]. 02/10-min cues needed 02/17- GOAL MET STG Duration Achieved Longterm Goal (LTG) Pt will score 4/5 w/EFT to show imrpoved stability for lifting to dec risk of pain w/ lifitng. LTG Duration 04/12/21l Assessment Summary Assessment Pt did well on balance board today.He has the most difficulty during staggered stance when forward. Pt stated his back is doing well but his hip (pointing to glute med ) has been bothering him some. Worked on STM to glutes with pt's R side tighter than L. Physical Therapy Plan Frequency and Duration Frequency of Treatment 1-2x/week Duration of Treatment 2 months Plan of Care Start Date 02/10/21 Plan of Care End Date 04/12/21 Therapeutic Interventions Therapeutic Interventions Aquatic Therapy,Balance Training,Gait Training,Home Exercise Program,Joint Mobilizations,Manual Therapy, Neuromuscular Re-education, Patient/Caregiver Education, Self-Care/Home Management,Soft Tissue Mobilization,Taping, Therapeutic Activities, Therapeutic Exercises Modalities Cold Pack/Ice Massage,Electric Stimulation,Hot Packs, Traction- Mechanical, Ultrasound Next Visit Focus/Plan Next Note Type Treatment Note Next Visit Plan Progress core exercises, low back STM and hip mobility; cont practicing lateral movements with basketball
--- NOTE | 2021-03-03 15:33 | PT.OTN ---
Current Diagnoses Other chronic pain (03/03/21) Postural kyphosis, thoracic region (03/03/21) Low back pain (03/03/21) Difficulty in walking, not elsewhere classified (03/03/21) Abnormal posture (03/03/21) Weakness (03/03/21) Physical Therapy Treatment Note PT-OP-A Visit Information Start: 01/06/21 11:42 Freq: Status: Active Protocol: Document 03/03/21 14:33 [facility] (Rec: 03/03/21 15:33 [facility] [id number]) Out-Patient Physical Therapy Visit Information Visit Information Visit Type Treatment Note Visit Start Time 14:32 Visit Stop Time 15:13 Total Visit Minutes 41 Visit Number 15 Number of CARRIER LOADER Visits 0 PT-OP-B Current Condition Start: 01/06/21 11:42 Freq: Status: Active Protocol: Document 01/07/21 16:47 [facility] (Rec: 01/07/21 18:01 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 No notable injuries. Pt reports dry needling over the past 6 weeks that did help some but treatment plateaued. Pt reprots pain improved about 2/ 3 w/dry needling. Walks dog 3x /day (2x .5 mile and 1x mile) where he has pain. He has to stabilize back with hands by the end of 1 mile walk. Walking in the snow was very difficult. Pt reports its been difficult to do walks since about 1 year ago. Pt reports standing for >30 min, he starts to feel his back, but really feels awful after a 4 hour shift at [employer]. He tries to sit down occ. Pt reports tripping over dog aobut 1 year ago but no known injury Prior Treatments and Tests dry needling by DO & stretching exercises by doctor -help some IMPRESSION: Moderate diffuse lumbar spondylosis and facet disease Multilevel spondylolisthesis as above. Treatment Goals Patient/Caregiver Goals Play basketball again (been 12 years since last played)- wants to play in [employer] league, be able to exercise again to help w/pain, diabetes, wt & BP, Be able to walk 1-2 miles without inc pain Personal Factors Other Personal Factors That May Effect works at [employer], HTN, Therapy/Recovery diabetes PT-OP-C Subjective Start: 01/06/21 11:42 Freq: Status: Active Protocol: Document 03/03/21 14:33 [facility] (Rec: 03/03/21 15:33 [facility] [id number]) OP-PT Subjective Patient Comments Patient Comments Pt reprots back not bothering him on his walks. He notices his back when he makes weird turns etc PT-OP-F Manual Assessment Start: 01/06/21 11:42 Freq: Status: Active Protocol: Document 01/07/21 16:47 [facility] (Rec: 01/07/21 18:01 [facility] [id number]) Manual Assessments Soft Tissue Assessment Soft Tissue Mobility Assessment tightness L ES & glutes upper, R QL Joint Mobility Assessment Joint Mobility Assessment equal greater trochanter & iliac crest height PT-OP-G Mobility & Gait Start: 01/06/21 11:42 Freq: Status: Active Protocol: Document 01/07/21 16:47 [facility] (Rec: 01/07/21 18:01 [facility] [id number]) OP Gait Assessment Comments Gait Comments walks w/reaching w/legs w/dec push off, lat shear of pelvis w/walk w/o full wt accpetance, dec overall appropriate pelvis motion PT-OP-J Posture/Palpation/Skin Start: 01/06/21 11:42 Freq: Status: Active Protocol: Document 02/10/21 13:44 [facility] (Rec: 02/10/21 14:47 [facility] [id number]) Posture Evaluation Minerva Postural Classification System Vertebral Compression Test 3 Elbow Flexion Test 2 Lumbar Protective Mechanism Left AP 0 Lumbar Protective Mechanism Right AP 2 Lumbar Protective Mechanism Left PA 1 Lumbar Protective Mechanism Right PA 0 PT-OP-K Range of Motion Start: 01/06/21 11:42 Freq: Status: Active Protocol: Document 01/07/21 16:47 [facility] (Rec: 01/07/21 18:01 [facility] [id number]) Lumbar Spine Range of Motion Lumbar Spine Active Degrees Flexion 51 Extension 5 Rotation Left 41 Rotation Right 36 Lateral Flexion Left 25 Lateral Flexion Right 21 Comments no pain PT-OP-L Special Tests Start: 01/06/21 11:42 Freq: Status: Active Protocol: Document 01/07/21 16:47 [facility] (Rec: 01/07/21 18:01 [facility] [id number]) Special Tests Lumbar Spine Special Tests Straight Leg Raise Test Results R 80 Comments L 74 Slump Test Results neg B David Test Results WNL PT-OP-M Strength Start: 01/06/21 11:42 Freq: Status: Active Protocol: Document 02/10/21 13:44 [facility] (Rec: 02/10/21 14:47 [facility] [id number]) Hip Strength Hip Manual Muscle Testing Right Flexion (L2) 5 Normal Extension (S1) 3+ Fair+ Abduction 4+ Good+ Adduction 4 Good External Rotation 4 Good Internal Rotation 5 Normal Left Flexion (L2) 5 Normal Extension (S1) 3+ Fair+ Abduction 4+ Good+ Adduction 4+ Good+ External Rotation 5 Normal Internal Rotation 5 Normal Knee Strength Knee Manual Muscle Testing Right Flexion (S2) 5 Normal Extension (L3) 5 Normal Left Flexion (S2) 5 Normal Extension (L3) 5 Normal Ankle/Foot Strength Ankle and Foot Manual Muscle Testing Right Dorsiflexion (L4) 5 Normal Plantarflexion (S1) 5 Normal Left Dorsiflexion (L4) 5 Normal Plantarflexion (S1) 5 Normal Comments 20 heel raises B PT-OP-Q Treatments Start: 01/06/21 11:42 Freq: Status: Active Protocol: Document 03/03/21 14:33 [facility] (Rec: 03/03/21 15:33 [facility] [id number]) Gym Equipment Shuttle Balance red clips Details WBOS fwd blue clips Details fwd: WBOS, NBOS & side WBOS & NBOS Therapeutic Ball seated Ball Size/Color green ball Body Position seated Reps/Duration 15 ea Comments 1.bounces 2. alt marches B 3. kicks B 4. rotation B Lvl 1 band 2 strands supine Exercise Details 1. bridges 2. knee flex/ext Ball Size/Color 55cm Body Position Supine Reps/Duration 5 sec x10 2. 20 Comments LEs on ball Sport Cord fwd Exercise Details fwd walk Cord/Resistance red Reps/Duration 12 Therapeutic Exercises Standing Exercises walk outs Standing Exercise Name fwd press w/side step Side bilateral Equipment Used L1 (2 strands) Reps/Minutes 10 Manual Therapy Treatment Soft Tissue Mobilization LB Body Location B paraspinals & QL Mobilization Type Rolling,Strumming,Sustained Pressure Intensity/Depth Moderate Body Position Prone PT-OP-T Assessment and Plan Start: 01/06/21 11:42 Freq: Status: Active Protocol: Document 03/03/21 14:33 [facility] (Rec: 03/03/21 15:33 [facility] [id number]) Physical Therapy Assessment Goals activity Skilled Nursing Goal (LTG) Pt will be able to lateral movements requried for pt to participate in [email or web address] league basketball w/o inc pain 02/10-has not tried LTG Duration 04/12/21 BENY Legal Entity Controller Goal (LTG) Pt will improve BENY to no greater than 3/50 to show improved functional ability. 02/10-n/t LTG Duration 04/12/21 walking Short Term Goal (STG) Pt will demonstrate increased push off with gait. 02/10-inc on L>R STG Duration 03/13/21 Skilled Nursing Goal (LTG) Pt will be able to walk 1 mile without inc in back pain more than 12/30. 02/10-02/27 now w/1 mile, can walk further LTG Duration 04/12/21 strength Short Term Goal (STG) Pt will be indep w/HEP STG Duration achieved Legal Entity Controller Goal (LTG) Pt will have 5/5 LE strength & 3/5 LPM into all planes w/o pain to show improved stability to dec pain w/ activity. 02/10-progressing LTG Duration 04/12/21 lifting Short Term Goal (STG) Pt will be able to lift without pain with good mechanics to dec risk of further pain/injury when working at [employer]. 02/10-min cues needed 02/17- GOAL MET STG Duration Achieved Legal Entity Controller Goal (LTG) Pt will score 4/5 w/EFT to show imrpoved stability for lifting to dec risk of pain w/ lifitng. LTG Duration 04/12/21l Assessment Summary Assessment Pt did well with exercises with only mild tightness in his back after exercises. Does require max cueing for posture throughout activities though. Physical Therapy Plan Frequency and Duration Frequency of Treatment 1-2x/week Duration of Treatment 2 months Plan of Care Start Date 02/10/21 Plan of Care End Date 04/12/21 Next Visit Focus/Plan Next Note Type Treatment Note Next Visit Plan cont to work on transitional movements & core stability w/ unsuspected pertubations
--- NOTE | 2021-03-05 14:23 | PT.OTN ---
Current Diagnoses Other chronic pain (03/05/21) Postural kyphosis, thoracic region (03/05/21) Low back pain (03/05/21) Difficulty in walking, not elsewhere classified (03/05/21) Abnormal posture (03/05/21) Weakness (03/05/21) Physical Therapy Treatment Note PT-OP-A Visit Information Start: 01/06/21 11:42 Freq: Status: Active Protocol: Document 03/05/21 13:39 MA (Rec: 03/05/21 14:22 MA [id number]) Out-Patient Physical Therapy Visit Information Visit Information Visit Type Treatment Note Visit Start Time 13:42 Visit Stop Time 14:22 Total Visit Minutes 40 Visit Number 16 Number of EARTH SCIENCES PROFESSOR Visits 1 PT-OP-B Current Condition Start: 01/06/21 11:42 Freq: Status: Active Protocol: Document 01/07/21 16:47 LR (Rec: 01/07/21 18:01 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 No notable injuries. Pt reports dry needling over the past 6 weeks that did help some but treatment plateaued. Pt reprots pain improved about 2/ 3 w/dry needling. Walks dog 3x /day (2x .5 mile and 1x mile) where he has pain. He has to stabilize back with hands by the end of 1 mile walk. Walking in the snow was very difficult. Pt reports its been difficult to do walks since about 1 year ago. Pt reports standing for >30 min, he starts to feel his back, but really feels awful after a 4 hour shift at [employer]. He tries to sit down occ. Pt reports tripping over dog aobut 1 year ago but no known injury Prior Treatments and Tests dry needling by DO & stretching exercises by doctor -help some IMPRESSION: Moderate diffuse lumbar spondylosis and facet disease Multilevel spondylolisthesis as above. Treatment Goals Patient/Caregiver Goals Play basketball again (been 12 years since last played)- wants to play in Monday old men's league, be able to exercise again to help w/pain, diabetes, wt & BP, Be able to walk 1-2 miles without inc pain Personal Factors Other Personal Factors That May Effect works at [email or web address], HTN, Therapy/Recovery diabetes PT-OP-C Subjective Start: 01/06/21 11:42 Freq: Status: Active Protocol: Document 03/05/21 13:39 MA (Rec: 03/05/21 14:22 MA [id number]) OP-PT Subjective Patient Comments Patient Comments Pt has nothing new to report. He is going golfing on Monday and will report next session on how his back feels after PT-OP-F Manual Assessment Start: 01/06/21 11:42 Freq: Status: Active Protocol: Document 01/07/21 16:47 [facility] (Rec: 01/07/21 18:01 [facility] [id number]) Manual Assessments Soft Tissue Assessment Soft Tissue Mobility Assessment tightness L ES & glutes upper, R QL Joint Mobility Assessment Joint Mobility Assessment equal greater trochanter & iliac crest height PT-OP-G Mobility & Gait Start: 01/06/21 11:42 Freq: Status: Active Protocol: Document 01/07/21 16:47 [facility] (Rec: 01/07/21 18:01 [facility] [id number]) OP Gait Assessment Comments Gait Comments walks w/reaching w/legs w/dec push off, lat shear of pelvis w/walk w/o full wt accpetance, dec overall appropriate pelvis motion PT-OP-J Posture/Palpation/Skin Start: 01/06/21 11:42 Freq: Status: Active Protocol: Document 02/10/21 13:44 [facility] (Rec: 02/10/21 14:47 [facility] [id number]) Posture Evaluation Minerva Postural Classification System Vertebral Compression Test 3 Elbow Flexion Test 2 Lumbar Protective Mechanism Left AP 0 Lumbar Protective Mechanism Right AP 2 Lumbar Protective Mechanism Left PA 1 Lumbar Protective Mechanism Right PA 0 PT-OP-K Range of Motion Start: 01/06/21 11:42 Freq: Status: Active Protocol: Document 01/07/21 16:47 [facility] (Rec: 01/07/21 18:01 [facility] [id number]) Lumbar Spine Range of Motion Lumbar Spine Active Degrees Flexion 51 Extension 5 Rotation Left 41 Rotation Right 36 Lateral Flexion Left 25 Lateral Flexion Right 21 Comments no pain PT-OP-L Special Tests Start: 01/06/21 11:42 Freq: Status: Active Protocol: Document 01/07/21 16:47 LR (Rec: 01/07/21 18:01 [facility] [id number]) Special Tests Lumbar Spine Special Tests Straight Leg Raise Test Results R 80 Comments L 74 Slump Test Results neg B David Test Results WNL PT-OP-M Strength Start: 01/06/21 11:42 Freq: Status: Active Protocol: Document 02/10/21 13:44 [facility] (Rec: 02/10/21 14:47 [facility] [id number]) Hip Strength Hip Manual Muscle Testing Right Flexion (L2) 5 Normal Extension (S1) 3+ Fair+ Abduction 4+ Good+ Adduction 4 Good External Rotation 4 Good Internal Rotation 5 Normal Left Flexion (L2) 5 Normal Extension (S1) 3+ Fair+ Abduction 4+ Good+ Adduction 4+ Good+ External Rotation 5 Normal Internal Rotation 5 Normal Knee Strength Knee Manual Muscle Testing Right Flexion (S2) 5 Normal Extension (L3) 5 Normal Left Flexion (S2) 5 Normal Extension (L3) 5 Normal Ankle/Foot Strength Ankle and Foot Manual Muscle Testing Right Dorsiflexion (L4) 5 Normal Plantarflexion (S1) 5 Normal Left Dorsiflexion (L4) 5 Normal Plantarflexion (S1) 5 Normal Comments 20 heel raises B PT-OP-Q Treatments Start: 01/06/21 11:42 Freq: Status: Active Protocol: Document 03/05/21 13:39 MA (Rec: 03/05/21 14:22 MA [id number]) Gym Equipment Shuttle Balance red clips Details fwd: WBOS, NBOS & side WBOS & NBOS Comments Min A Therapeutic Ball seated Ball Size/Color green ball Body Position seated Reps/Duration 15 ea Comments 1. seated bouncing basketball 2. alt marches B 3. kicks B 4. rotation B Lvl 1 band 2 strands supine Exercise Details 1. bridges 2. knee flex/ext Ball Size/Color 55cm Body Position Supine Reps/Duration 5 sec x10 2. 20 Comments LEs on ball Therapeutic Exercises Supine Exercises Stretch Supine Exercise Name HS stretch with belt, piriformis stretch Side bilateral Reps/Minutes 60 sec Sitting Exercises Posture Sitting Exercise Name seated posture with perturbations Reps/Minutes 2 min Comments 1. seated posture 2. chin tucks x10 PT-OP-T Assessment and Plan Start: 01/06/21 11:42 Freq: Status: Active Protocol: Document 03/05/21 13:39 MA (Rec: 03/05/21 14:22 MA [id number]) Physical Therapy Assessment Goals activity Assisted Goal (LTG) Pt will be able to lateral movements requried for pt to participate in old man league basketball w/o inc pain 02/10-has not tried LTG Duration 04/12/21 BENY Assisted Goal (LTG) Pt will improve BENY to no greater than 3/50 to show improved functional ability. 02/10-n/t LTG Duration 04/12/21 walking Short Term Goal (STG) Pt will demonstrate increased push off with gait. 02/10-inc on L>R STG Duration 03/13/21 Senior Housekeeper Goal (LTG) Pt will be able to walk 1 mile without inc in back pain more than 10. 02/10-02/27 now w/1 mile, can walk further LTG Duration 04/12/21 strength Short Term Goal (STG) Pt will be indep w/HEP STG Duration achieved Senior Housekeeper Goal (LTG) Pt will have 5/5 LE strength & 3/5 LPM into all planes w/o pain to show improved stability to dec pain w/ activity. 02/10-progressing LTG Duration 04/12/21 lifting Short Term Goal (STG) Pt will be able to lift without pain with good mechanics to dec risk of further pain/injury when working at [employer]. 02/10-min cues needed 02/17- GOAL MET STG Duration Achieved Assisted Goal (LTG) Pt will score 4/5 w/EFT to show imrpoved stability for lifting to dec risk of pain w/ lifitng. LTG Duration 04/12/21l Assessment Summary Assessment Pt was able to do red clips on shuttle balance today with CGA-Min A. He needs frequent cues for posture throughout exercises and has trouble holding posture for longer than 30 seconds. Ended session working on seated posture with perturbations and chin tucks. Physical Therapy Plan Frequency and Duration Frequency of Treatment 1-2x/week Duration of Treatment 2 months Plan of Care Start Date 02/10/21 Plan of Care End Date 04/12/21 Therapeutic Interventions Therapeutic Interventions Aquatic Therapy,Balance Training,Gait Training,Home Exercise Program,Joint Mobilizations,Manual Therapy, Neuromuscular Re-education, Patient/Caregiver Education, Self-Care/Home Management,Soft Tissue Mobilization,Taping, Therapeutic Activities, Therapeutic Exercises Modalities Cold Pack/Ice Massage,Electric Stimulation,Hot Packs, Traction- Mechanical, Ultrasound Next Visit Focus/Plan Next Note Type Treatment Note Next Visit Plan cont to work on transitional movements & core stability w/ unsuspected pertubations
--- NOTE | 2021-03-10 15:20 | PT.OTN ---
Current Diagnoses Other chronic pain (03/10/21) Postural kyphosis, thoracic region (03/10/21) Low back pain (03/10/21) Difficulty in walking, not elsewhere classified (03/10/21) Abnormal posture (03/10/21) Weakness (03/10/21) Physical Therapy Treatment Note PT-OP-A Visit Information Start: 01/06/21 11:42 Freq: Status: Active Protocol: Document 03/10/21 14:39 [facility] (Rec: 03/10/21 15:19 [facility] [id number]) Out-Patient Physical Therapy Visit Information Visit Information Visit Type Treatment Note Visit Start Time 14:36 Visit Stop Time 14:29 Total Visit Minutes 38 Visit Number 17 Number of PLASTIC FINISHER Visits 0 PT-OP-B Current Condition Start: 01/06/21 11:42 Freq: Status: Active Protocol: Document 01/07/21 16:47 [facility] (Rec: 01/07/21 18:01 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 No notable injuries. Pt reports dry needling over the past 6 weeks that did help some but treatment plateaued. Pt reprots pain improved about 2/ 3 w/dry needling. Walks dog 3x /day (2x .5 mile and 1x mile) where he has pain. He has to stabilize back with hands by the end of 1 mile walk. Walking in the snow was very difficult. Pt reports its been difficult to do walks since about 1 year ago. Pt reports standing for >30 min, he starts to feel his back, but really feels awful after a 4 hour shift at [employer]. He tries to sit down occ. Pt reports tripping over dog aobut 1 year ago but no known injury Prior Treatments and Tests dry needling by DO & stretching exercises by doctor -help some IMPRESSION: Moderate diffuse lumbar spondylosis and facet disease Multilevel spondylolisthesis as above. Treatment Goals Patient/Caregiver Goals Play basketball again (been 12 years since last played)- wants to play in Monday old men's league, be able to exercise again to help w/pain, diabetes, wt & BP, Be able to walk 1-2 miles without inc pain Personal Factors Other Personal Factors That May Effect works at [employer], HTN, Therapy/Recovery diabetes PT-OP-C Subjective Start: 01/06/21 11:42 Freq: Status: Active Protocol: Document 03/10/21 14:39 [facility] (Rec: 03/10/21 15:19 [facility] [id number]) OP-PT Subjective Patient Comments Patient Comments Pt reports back has not bothered him at all Patient Reported Progress Improving PT-OP-F Manual Assessment Start: 01/06/21 11:42 Freq: Status: Active Protocol: Document 01/07/21 16:47 [facility] (Rec: 01/07/21 18:01 [facility] [id number]) Manual Assessments Soft Tissue Assessment Soft Tissue Mobility Assessment tightness L ES & glutes upper, R QL Joint Mobility Assessment Joint Mobility Assessment equal greater trochanter & iliac crest height PT-OP-G Mobility & Gait Start: 01/06/21 11:42 Freq: Status: Active Protocol: Document 01/07/21 16:47 [facility] (Rec: 01/07/21 18:01 [facility] [id number]) OP Gait Assessment Comments Gait Comments walks w/reaching w/legs w/dec push off, lat shear of pelvis w/walk w/o full wt accpetance, dec overall appropriate pelvis motion PT-OP-J Posture/Palpation/Skin Start: 01/06/21 11:42 Freq: Status: Active Protocol: Document 03/10/21 14:39 [facility] (Rec: 03/10/21 15:19 [facility] [id number]) Posture Evaluation Minerva Postural Classification System Elbow Flexion Test 3 Lumbar Protective Mechanism Left AP 1 Lumbar Protective Mechanism Right AP 2 Lumbar Protective Mechanism Left PA 2 Lumbar Protective Mechanism Right PA 2 PT-OP-K Range of Motion Start: 01/06/21 11:42 Freq: Status: Active Protocol: Document 01/07/21 16:47 [facility] (Rec: 01/07/21 18:01 [facility] [id number]) Lumbar Spine Range of Motion Lumbar Spine Active Degrees Flexion 51 Extension 5 Rotation Left 41 Rotation Right 36 Lateral Flexion Left 25 Lateral Flexion Right 21 Comments no pain PT-OP-L Special Tests Start: 01/06/21 11:42 Freq: Status: Active Protocol: Document 01/07/21 16:47 [facility] (Rec: 01/07/21 18:01 [facility] [id number]) Special Tests Lumbar Spine Special Tests Straight Leg Raise Test Results R 80 Comments L 74 Slump Test Results neg B David Test Results WNL PT-OP-M Strength Start: 01/06/21 11:42 Freq: Status: Active Protocol: Document 03/10/21 14:39 [facility] (Rec: 03/10/21 15:19 [facility] [id number]) Hip Strength Hip Manual Muscle Testing Right Flexion (L2) 5 Normal Extension (S1) 4- Good- Abduction 5 Normal Adduction 5 Normal External Rotation 5 Normal Internal Rotation 5 Normal Left Flexion (L2) 5 Normal Extension (S1) 4- Good- Abduction 5 Normal Adduction 5 Normal External Rotation 5 Normal Internal Rotation 5 Normal Knee Strength Knee Manual Muscle Testing Right Flexion (S2) 5 Normal Extension (L3) 5 Normal Left Flexion (S2) 5 Normal Extension (L3) 5 Normal Ankle/Foot Strength Ankle and Foot Manual Muscle Testing Right Dorsiflexion (L4) 5 Normal Plantarflexion (S1) 5 Normal Left Dorsiflexion (L4) 5 Normal Plantarflexion (S1) 5 Normal Comments 20 heel raises B PT-OP-Q Treatments Start: 01/06/21 11:42 Freq: Status: Active Protocol: Document 03/10/21 14:39 [facility] (Rec: 03/10/21 15:19 [facility] [id number]) Gym Equipment Shuttle Balance red clips Details fwd/side: WBOS, fwd NBOS Therapeutic Ball seated Ball Size/Color green ball Body Position seated Reps/Duration 15 ea Comments 1. seated bouncing 2. alt marches B 3. kicks B 4. rotation B Lvl 1 band 2 strands 5.pelvic circles Sport Cord fwd Exercise Details fwd walk Cord/Resistance red Reps/Duration 12 Therapeutic Exercises Prone Exercises hip ext Side bilateral Reps/Minutes 10 Standing Exercises lunges Standing Exercise Name fwd & lat Side bilateral Reps/Minutes 10 ea Comments cues for core & posture hip ext Standing Exercise Name alt Side bilateral Equipment Used L2 Reps/Minutes 2x10 Comments cues for posture & slow movement Neuro Re-Education Treatment Balance Activities bosu Details step ups Reps/Duration 12 B Tandem Stance Comments 1. solid floor hurdles Details fwd, lateral Comments 1. fwd, lateral 6 hurdles PT-OP-T Assessment and Plan Start: 01/06/21 11:42 Freq: Status: Active Protocol: Document 03/10/21 14:39 [facility] (Rec: 03/10/21 15:19 [facility] [id number]) Physical Therapy Assessment Goals activity Shelter Goal (LTG) Pt will be able to lateral movements requried for pt to participate in old man league basketball w/o inc pain 02/10-has not tried LTG Duration able to do lat movements in therapy but has not played bball, can dribble BENY Shelter Goal (LTG) Pt will improve BENY to no greater than 3/50 to show improved functional ability. 02/10-n/t LTG Duration 04/12/21 walking Short Term Goal (STG) Pt will demonstrate increased push off with gait. 02/10-inc on L>R STG Duration improving but does require cuieng Shelter Goal (LTG) Pt will be able to walk 1 mile without inc in back pain more than 12/30. 02/10-02/27 now w/1 mile, can walk further LTG Duration achieved strength Short Term Goal (STG) Pt will be indep w/HEP STG Duration achieved Supervisor Waterworks Goal (LTG) Pt will have 5/5 LE strength & 3/5 LPM into all planes w/o pain to show improved stability to dec pain w/ activity. 02/10-progressing LTG Duration signficanlty improved lifting Short Term Goal (STG) Pt will be able to lift without pain with good mechanics to dec risk of further pain/injury when working at [employer]. 02/10-min cues needed 02/17- GOAL MET STG Duration Achieved Supervisor Waterworks Goal (LTG) Pt will score 4/5 w/EFT to show imrpoved stability for lifting to dec risk of pain w/ lifitng. LTG Duration improved to 3/5 Assessment Summary Assessment Pt did well with uneven surfaces today with good challenge on red clips but able w/cueing to stay in good posture. No pain with session. REview HEP with pt and make sure he has core and glute exercises for home program for dc after next time Physical Therapy Plan Frequency and Duration Frequency of Treatment 1-2x/week Duration of Treatment 2 months Plan of Care Start Date 02/10/21 Plan of Care End Date 04/12/21 Next Visit Focus/Plan Next Note Type Discharge Summary Next Visit Plan review HEP for DC
--- NOTE | 2021-03-12 14:33 | PT.OTN ---
Current Diagnoses Other chronic pain (03/12/21) Postural kyphosis, thoracic region (03/12/21) Low back pain (03/12/21) Difficulty in walking, not elsewhere classified (03/12/21) Abnormal posture (03/12/21) Weakness (03/12/21) Physical Therapy Treatment Note PT-OP-A Visit Information Start: 01/06/21 11:42 Freq: Status: Active Protocol: Document 03/12/21 13:57 MA (Rec: 03/12/21 14:33 MA [id number]) Out-Patient Physical Therapy Visit Information Visit Information Visit Type Treatment Note Visit Start Time 13:45 Visit Stop Time 14:25 Total Visit Minutes 40 Visit Number 18 Number of OCULARIST Visits 1 PT-OP-B Current Condition Start: 01/06/21 11:42 Freq: Status: Active Protocol: Document 01/07/21 16:47 LR (Rec: 01/07/21 18:01 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 No notable injuries. Pt reports dry needling over the past 6 weeks that did help some but treatment plateaued. Pt reprots pain improved about 2/ 3 w/dry needling. Walks dog 3x /day (2x .5 mile and 1x mile) where he has pain. He has to stabilize back with hands by the end of 1 mile walk. Walking in the snow was very difficult. Pt reports its been difficult to do walks since about 1 year ago. Pt reports standing for >30 min, he starts to feel his back, but really feels awful after a 4 hour shift at [employer]. He tries to sit down occ. Pt reports tripping over dog aobut 1 year ago but no known injury Prior Treatments and Tests dry needling by DO & stretching exercises by doctor -help some IMPRESSION: Moderate diffuse lumbar spondylosis and facet disease Multilevel spondylolisthesis as above. Treatment Goals Patient/Caregiver Goals Play basketball again (been 12 years since last played)- wants to play in [employer], be able to exercise again to help w/pain, diabetes, wt & BP, Be able to walk 1-2 miles without inc pain Personal Factors Other Personal Factors That May Effect works at [employer], HTN, Therapy/Recovery diabetes PT-OP-C Subjective Start: 01/06/21 11:42 Freq: Status: Active Protocol: Document 03/12/21 13:57 MA (Rec: 03/12/21 14:33 MA [id number]) OP-PT Subjective Patient Comments Patient Comments Pt feels he is ready for d/c PT-OP-F Manual Assessment Start: 01/06/21 11:42 Freq: Status: Active Protocol: Document 01/07/21 16:47 LR (Rec: 01/07/21 18:01 [facility] [id number]) Manual Assessments Soft Tissue Assessment Soft Tissue Mobility Assessment tightness L ES & glutes upper, R QL Joint Mobility Assessment Joint Mobility Assessment equal greater trochanter & iliac crest height PT-OP-G Mobility & Gait Start: 01/06/21 11:42 Freq: Status: Active Protocol: Document 01/07/21 16:47 [facility] (Rec: 01/07/21 18:01 [facility] [id number]) OP Gait Assessment Comments Gait Comments walks w/reaching w/legs w/dec push off, lat shear of pelvis w/walk w/o full wt accpetance, dec overall appropriate pelvis motion PT-OP-J Posture/Palpation/Skin Start: 01/06/21 11:42 Freq: Status: Active Protocol: Document 03/10/21 14:39 LR (Rec: 03/10/21 15:19 [facility] [id number]) Posture Evaluation Minerva Postural Classification System Elbow Flexion Test 3 Lumbar Protective Mechanism Left AP 1 Lumbar Protective Mechanism Right AP 2 Lumbar Protective Mechanism Left PA 2 Lumbar Protective Mechanism Right PA 2 PT-OP-K Range of Motion Start: 01/06/21 11:42 Freq: Status: Active Protocol: Document 01/07/21 16:47 LR (Rec: 01/07/21 18:01 [facility] [id number]) Lumbar Spine Range of Motion Lumbar Spine Active Degrees Flexion 51 Extension 5 Rotation Left 41 Rotation Right 36 Lateral Flexion Left 25 Lateral Flexion Right 21 Comments no pain PT-OP-L Special Tests Start: 01/06/21 11:42 Freq: Status: Active Protocol: Document 01/07/21 16:47 LR (Rec: 01/07/21 18:01 [facility] [id number]) Special Tests Lumbar Spine Special Tests Straight Leg Raise Test Results R 80 Comments L 74 Slump Test Results neg B David Test Results WNL PT-OP-M Strength Start: 01/06/21 11:42 Freq: Status: Active Protocol: Document 03/10/21 14:39 [facility] (Rec: 03/10/21 15:19 [facility] [id number]) Hip Strength Hip Manual Muscle Testing Right Flexion (L2) 5 Normal Extension (S1) 4- Good- Abduction 5 Normal Adduction 5 Normal External Rotation 5 Normal Internal Rotation 5 Normal Left Flexion (L2) 5 Normal Extension (S1) 4- Good- Abduction 5 Normal Adduction 5 Normal External Rotation 5 Normal Internal Rotation 5 Normal Knee Strength Knee Manual Muscle Testing Right Flexion (S2) 5 Normal Extension (L3) 5 Normal Left Flexion (S2) 5 Normal Extension (L3) 5 Normal Ankle/Foot Strength Ankle and Foot Manual Muscle Testing Right Dorsiflexion (L4) 5 Normal Plantarflexion (S1) 5 Normal Left Dorsiflexion (L4) 5 Normal Plantarflexion (S1) 5 Normal Comments 20 heel raises B PT-OP-Q Treatments Start: 01/06/21 11:42 Freq: Status: Active Protocol: Document 03/12/21 13:57 MA (Rec: 03/12/21 14:33 MA [id number]) Gym Equipment Shuttle Balance red clips Details fwd/side: WBOS, fwd NBOS Comments fwd: staggered stance Therapeutic Exercises Supine Exercises bridge Side bilateral Reps/Minutes 10x 5 sec hold core Supine Exercise Name 1.supine marches Side bilateral Reps/Minutes x10 Standing Exercises side step Standing Exercise Name in minisquat Side bilateral Equipment Used lvl 2 TB Reps/Minutes 20ftx2 Comments by rail hip ext Standing Exercise Name alt Side bilateral Equipment Used L2 Reps/Minutes 2x10 Comments cues for posture & slow movement Other Exercises quadruped Other Exercise Name alt LE lift Side bilateral Reps/Minutes 6x ea Comments focus on core to keep body still Self-Care/Home Management Treatment Education Other Education Final HEP Reivew: elevated plank, child's pose, quadruped LE extension, prone hip ext, bridge, supine core marches, standing hip ext with band, monster walk with band All exercises 3x/wk with daily stretches PT-OP-T Assessment and Plan Start: 01/06/21 11:42 Freq: Status: Active Protocol: Document 03/12/21 13:57 MA (Rec: 03/12/21 14:33 MA [id number]) Physical Therapy Assessment Goals activity Custodial Goal (LTG) Pt will be able to lateral movements requried for pt to participate in [employer] basketball w/o inc pain 02/10-has not tried LTG Duration able to do lat movements in therapy but has not played bball, can dribble BENY Custodial Goal (LTG) Pt will improve BENY to no greater than 3/50 to show improved functional ability. 02/10-n/t 03/12/21- GOAL MET BENY score 1/ 50 LTG Duration Achieved walking Short Term Goal (STG) Pt will demonstrate increased push off with gait. 02/10-inc on L>R STG Duration improving but does require cuieng [employer] Goal (LTG) Pt will be able to walk 1 mile without inc in back pain more than 12/30. 02/10-02/27 now w/1 mile, can walk further LTG Duration achieved strength Short Term Goal (STG) Pt will be indep w/HEP STG Duration achieved Custodial Goal (LTG) Pt will have 5/5 LE strength & 3/5 LPM into all planes w/o pain to show improved stability to dec pain w/ activity. 02/10-progressing LTG Duration signficanlty improved lifting Short Term Goal (STG) Pt will be able to lift without pain with good mechanics to dec risk of further pain/injury when working at [employer]. 02/10-min cues needed 02/17- GOAL MET STG Duration Achieved [employer] Goal (LTG) Pt will score 4/5 w/EFT to show imrpoved stability for lifting to dec risk of pain w/ lifitng. LTG Duration improved to 3/5 Assessment Summary Assessment Allen has no back pain recently and has met his goals to d/c from therapy. He has improved his LE strength to 3- 4/5 in all planes, improved core stability, balance, and shows good lifting mechanics, His BENY score improved from 8/ 50 the first session to 1/50 today. Allen spent today's session reviewing exercises he could do at home with printed HEP given to pt at end of session. Pt to be d/c today. Physical Therapy Plan Frequency and Duration Frequency of Treatment 1-2x/week Duration of Treatment 2 months Plan of Care Start Date 02/10/21 Plan of Care End Date 04/12/21 Therapeutic Interventions Therapeutic Interventions Aquatic Therapy,Balance Training,Gait Training,Home Exercise Program,Joint Mobilizations,Manual Therapy, Neuromuscular Re-education, Patient/Caregiver Education, Self-Care/Home Management,Soft Tissue Mobilization,Taping, Therapeutic Activities, Therapeutic Exercises Modalities Cold Pack/Ice Massage,Electric Stimulation,Hot Packs, Traction- Mechanical, Ultrasound Discharge Physical Therapy Discharge Reasons Goals Met Next Visit Focus/Plan Next Note Type Discharge Summary Next Visit Plan review HEP for DC
--- NOTE | 2021-03-16 17:18 | PT.OPDS ---
Current Diagnoses Other chronic pain (03/12/21) Postural kyphosis, thoracic region (03/12/21) Low back pain (03/12/21) Difficulty in walking, not elsewhere classified (03/12/21) Abnormal posture (03/12/21) Weakness (03/12/21) Visit Care Team Role Provider Type Raul Urbina DO Attending Provider Physician Primary Care Provider Referring Provider Specialty: [facility] Address: [address] [place] [address], [facility] Email: Visit Number Visit Number 18 Discharge Summary PT-OP-B Current Condition Start: 01/06/21 11:42 Freq: Status: Active Protocol: Document 01/07/21 16:47 [facility] (Rec: 01/07/21 18:01 [facility] [id number]) Current Condition History of Current Condition Onset Date 5 years Current Complaints LBP History of Current Condition pt reports progressive worsening back pain over the past 5 years and 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 No notable injuries. Pt reports dry needling over the past 6 weeks that did help some but treatment plateaued. Pt reprots pain improved about 2/ 3 w/dry needling. Walks dog 3x /day (2x .5 mile and 1x mile) where he has pain. He has to stabilize back with hands by the end of 1 mile walk. Walking in the snow was very difficult. Pt reports its been difficult to do walks since about 1 year ago. Pt reports standing for >30 min, he starts to feel his back, but really feels awful after a 4 hour shift at [employer]. He tries to sit down occ. Pt reports tripping over dog aobut 1 year ago but no known injury Prior Treatments and Tests dry needling by DO & stretching exercises by doctor -help some IMPRESSION: Moderate diffuse lumbar spondylosis and facet disease Multilevel spondylolisthesis as above. Treatment Goals Patient/Caregiver Goals Play basketball again (been 12 years since last played)- wants to play in [employer], be able to exercise again to help w/pain, diabetes, wt & BP, Be able to walk 1-2 miles without inc pain Personal Factors Other Personal Factors That May Effect works at [employer], HTN, Therapy/Recovery diabetes PT-OP-C Subjective Start: 01/06/21 11:42 Freq: Status: Active Protocol: Document 03/12/21 13:57 MA (Rec: 03/12/21 14:33 MA [id number]) OP-PT Subjective Patient Comments Patient Comments Pt feels he is ready for d/c Patient Questionnaires Oswestry Low Back Index Oswestry Score 1/50 Oswestry Impairment 1 to 19% Impaired (Score 1-19) PT-OP-F Manual Assessment Start: 01/06/21 11:42 Freq: Status: Active Protocol: Document 01/07/21 16:47 [facility] (Rec: 01/07/21 18:01 [facility] [id number]) Manual Assessments Soft Tissue Assessment Soft Tissue Mobility Assessment tightness L ES & glutes upper, R QL Joint Mobility Assessment Joint Mobility Assessment equal greater trochanter & iliac crest height PT-OP-G Mobility & Gait Start: 01/06/21 11:42 Freq: Status: Active Protocol: Document 01/07/21 16:47 [facility] (Rec: 01/07/21 18:01 [facility] [id number]) OP Gait Assessment Comments Gait Comments walks w/reaching w/legs w/dec push off, lat shear of pelvis w/walk w/o full wt accpetance, dec overall appropriate pelvis motion PT-OP-J Posture/Palpation/Skin Start: 01/06/21 11:42 Freq: Status: Active Protocol: Document 03/10/21 14:39 [facility] (Rec: 03/10/21 15:19 [facility] [id number]) Posture Evaluation Minerva Postural Classification System Elbow Flexion Test 3 Lumbar Protective Mechanism Left AP 1 Lumbar Protective Mechanism Right AP 2 Lumbar Protective Mechanism Left PA 2 Lumbar Protective Mechanism Right PA 2 PT-OP-K Range of Motion Start: 01/06/21 11:42 Freq: Status: Active Protocol: Document 01/07/21 16:47 [facility] (Rec: 01/07/21 18:01 [facility] [id number]) Lumbar Spine Range of Motion Lumbar Spine Active Degrees Flexion 51 Extension 5 Rotation Left 41 Rotation Right 36 Lateral Flexion Left 25 Lateral Flexion Right 21 Comments no pain PT-OP-L Special Tests Start: 01/06/21 11:42 Freq: Status: Active Protocol: Document 01/07/21 16:47 [facility] (Rec: 01/07/21 18:01 [facility] [id number]) Special Tests Lumbar Spine Special Tests Straight Leg Raise Test Results R 80 Comments L 74 Slump Test Results neg B David Test Results WNL PT-OP-M Strength Start: 01/06/21 11:42 Freq: Status: Active Protocol: Document 03/10/21 14:39 [facility] (Rec: 03/10/21 15:19 [facility] [id number]) Hip Strength Hip Manual Muscle Testing Right Flexion (L2) 5 Normal Extension (S1) 4- Good- Abduction 5 Normal Adduction 5 Normal External Rotation 5 Normal Internal Rotation 5 Normal Left Flexion (L2) 5 Normal Extension (S1) 4- Good- Abduction 5 Normal Adduction 5 Normal External Rotation 5 Normal Internal Rotation 5 Normal Knee Strength Knee Manual Muscle Testing Right Flexion (S2) 5 Normal Extension (L3) 5 Normal Left Flexion (S2) 5 Normal Extension (L3) 5 Normal Ankle/Foot Strength Ankle and Foot Manual Muscle Testing Right Dorsiflexion (L4) 5 Normal Plantarflexion (S1) 5 Normal Left Dorsiflexion (L4) 5 Normal Plantarflexion (S1) 5 Normal Comments 20 heel raises B PT-OP-T Assessment and Plan Start: 01/06/21 11:42 Freq: Status: Active Protocol: Document 03/16/21 17:17 [facility] (Rec: 03/16/21 17:18 [facility] [id number]) Physical Therapy Assessment Assessment Summary Assessment Allen has no back pain recently and has met his goals to d/c from therapy. He has improved his LE strength to in all planes, improved core stability, balance, and shows good lifting mechanics. His BENY score improved from 8/50 the first session to 1/50 today. Pt able to do HEP indep and is to cont working on stbility exercises at home Physical Therapy Plan Discharge Physical Therapy Discharge Reasons Goals Met
== END 2021-03-17 07:48 | disposition home or self-care (01) ==
LOC: PHYS 13:45
PROVIDERS: PCP Family Medicine; Referring Provider Family Medicine; Visit Provider Family Medicine
DX: R29.3 Abnormal posture (principal); M54.5 Low back pain; G89.29 Other chronic pain; M40.04 Postural kyphosis, thoracic region; R26.2 Difficulty in walking, not elsewhere classified; R53.1 Weakness
CPT/HCPCS: 97110; 97112; 97116; 97140; 97162; 97530; 97535

== ENCOUNTER 2022-03-03 17:50 | Emergency (ER) | payer MEDICARE, OTHER, SELFPAY ==
[2022-03-03 18:03] VITALS: BP 164/78; PULSE 96; RESP 18; TEMP 36.4; O2SAT 98; BMI 27.3
[2022-03-03] MEDS: TET,DIPH,PERTUSS(ACELL),VAC/PF 0.5 ML SYRINGE IM (18:23)
--- NOTE | 2022-03-03 18:30 | ED_ITS ---
HPI - Fall General Chief Complaint: Fall Stated Complaint: head bump s/p fall Time Seen by Provider: 03/03/22 18:21 Source: patient Mode of arrival: Ambulatory History of Present Illness HPI Narrative: Patient is a 66-year-old male who is here for evaluation approximately 1 hour after he fell while walking down a incline. Is here with his . He did sustain some abrasions to his hands and also hit his right forehead. He denies any vision problems. No nausea vomiting. No headache. No extremity injuries. There was no loss of consciousness. Not on anticoagulation. He does have an underlying tremor in his states that he has had some issues with walking specifically on inclines. This is not the 1st time he has fallen. He does have a follow-up with his primary doctor the beginning next week. Related Data Previous Rx's Medication Instructions Recorded cetirizine 10 mg capsule (Zyrtec) 10 mg PO DAILY #90 cap 09/29/20 escitalopram oxalate 20 mg tablet 20 mg PO DAILY #90 tab 12/23/21 metformin 500 mg tablet See Rx Instructions .ROUTE 12/23/21 .COMPLEX #360 tab losartan 50 mg-hydrochlorothiazide 1 tab PO DAILY #90 tab 01/19/22 12.5 mg tablet atorvastatin 40 mg tablet 40 mg PO DAILY #90 tab 01/28/22 fluticasone propionate 110 2 puff INHALATION BID #12 gram 02/08/22 mcg/actuation HFA aerosol inhaler (Flovent HFA) fluticasone propionate 50 1 spray NASAL DAILY #18.2 ml 02/08/22 mcg/actuation nasal spray,suspension Allergies Allergy/AdvReac Type Severity Reaction Status Date / Time apple Allergy Severe Swelling Verified 12/10/20 10:01 of Lip/Tongue/Throat peach Allergy Severe Swelling Verified 12/10/20 10:01 of Lip/Tongue/Throat walnut Allergy Severe Swelling Verified 12/10/20 10:01 of Lip/Tongue/Throat Review of Systems Constitutional Constitutional: Denies headache(s) ENT Ears, Nose, Mouth, and Throat: Denies headache(s) Cardiovascular Cardiovascular: Denies chest pain and Denies dyspnea Respiratory Respiratory: Denies dyspnea Musculoskeletal Musculoskeletal: Reports system reviewed and no additional complaints, except as documented and Reports as per HPI Integumentary/Breasts Skin/Breast: Reports system reviewed and no additional complaints, except as documented and Reports as per HPI Neurologic Neurologic: Denies headache(s) Hematologic/Lymphatic On Anticoagulants: No Patient History Medical History Allergies (~1971) Asthma (~1999) Body posture problem Cervical somatic dysfunction Chicken pox (~1965) Chronic low back pain without sciatica (~2018) Depression (~1996) HTN (hypertension) Hyperlipidemia Lumbar region somatic dysfunction Pelvic somatic dysfunction Postural kyphosis, thoracic region Sacral region somatic dysfunction Screening for prostate cancer Segmental and somatic dysfunction of abdomen and other regions Sleep apnea (~1999) Somatic dysfunction of lower extremity Substance abuse (~1970) Thoracic region somatic dysfunction Type 2 diabetes mellitus Upper extremity somatic dysfunction Weight gain finding Weight loss counseling, encounter for Surgical History Anesthesia H/O knee surgery (~1999) Family History Father Diabetes mellitus Hypertension Congestive heart failure Stroke Sister Cancer Mother Alzheimer disease Grandfather Cancer Grandfather Tuberculosis Grandmother Mental health problem Social History household members: spouse Smoking Status: Former smoker alcohol intake: former substance use type: does not use Smoking Status: Former smoker alcohol intake frequency: holidays/special occasions only Substance Use Type: does not use Exam Initial Vital Signs Initial Vital Signs: Vital Signs Temperature 97.6 F 03/03/22 18:03 Pulse Rate 96 H 03/03/22 18:03 Respiratory Rate 18 03/03/22 18:03 Blood Pressure 164/78 H 03/03/22 18:03 Pulse Oximetry 98 03/03/22 18:03 Const General: cooperative and healthy appearing HENOK Head: abrasion (Right forehead) Eyes Pupils: PERRL EOM: EOM intact bilaterally Resp Effort & Inspection: normal respiratory effort Cardio Rate: regular rate Back/Spine/Pelvis Back: No back tenderness Cervical Spine: No cervical spinal tenderness Skin Other: Patient has abrasions above his right eye in his right forehead. Also superficial abrasions to his palms both his hands. Neuro General: patient alert, patient awake and moves all extremities Extrem General: capillary refill normal Psych Appearance: grossly normal and well kempt Scores [place] CT Head Rule Age <16 years old: No Patient on blood thinners: No Seizure after injury: No Exclusion: Patient NOT Excluded, Proceed to next steps GCS < 15 at 2 hr post trauma: No Suspected open or depressed skull fracture: No Any sign of basilar skull fracture (hemotympanum, raccoon eyes, Cody's sign, CSF leonie-/rhinorrhea): No Two or more episodes of vomiting: No Age greater or equal to 65 years: Yes Retrograde amnesia to the event greater or equal to 30 min: No Dangerous Mechanism (pedestrian vs. mv, occupant ejected from mv, fall from >3 ft or > 5 stairs): No Recommendation: Consider CT. The [place] Head CT Rule cannot rule out need for Imaging. GCS Lesa coma scale eye opening: Spontaneous Lesa coma scale verbal response: Orientated Lesa coma scale motor response: Obey commands Lesa coma scale total score: 15 Nexus Score for C-Spine Focal Neurologic deficit present: No Midline spinal tenderness present: No Altered level of conciousness present: No Intoxication present: No Distracting Injury Present: No Nexus Criteria for C-spine: 0 Course Orders Ordered: Discontinued Medications Diphtheria/Tetanus/Acell Pertussis (Tet,Diph,Pertuss(Acell),Vac/Pf 0.5 Ml Syringe) 0.5 ml IM .ONCE ONE Stop: 03/03/22 18:19 Last Admin: 03/03/22 18:23 Dose: 0.5 ml Documented by: BTONER Vital Signs Vital signs: Vital Signs - 8 hr 03/03/22 18:03 03/03/22 19:28 Temperature 97.6 F Pulse Rate 96 H 95 H Respiratory Rate 18 18 Blood Pressure 164/78 H 139/76 Pulse Oximetry 98 97 MDM - Fall MDM Narrative Medical decision making narrative: This is clearly a mechanical falls the patient lost his balance while walking down an incline. His cervical spine is cleared by nexus criteria. He is able to move his upper lower extremities without difficulty. GCS of 15. The patient's only positive result on the [place] Head CT Rule is his age however despite this I feel that we can hold on a head CT for now. He was observed for period of time after the injury without any deterioration. Plan to be is to discharge home and have observed for potentially worsening symptoms and will return. Feel that we can hold on other radiologic studies for now. Patient is expressed understanding and agree with this plan. Discharge Plan Departure Patient Disposition: Home Clinical Impression: Forehead contusion, Abrasion hand, Fall, CHI (closed head injury) Instructions: How to Prevent Falls Activity Restrictions/Additional Instructions: You can eat like normal and sleep like normal. Continue to take all of your medications as directed. You can shower like normal as well. Place ice over the abrasions around your right eye. Keep all of her scheduled medical appointments. Return to the emergency department for any new or worsening symptoms. Prescriptions: No Action escitalopram oxalate 20 mg tablet 20 mg PO DAILY Qty: 90 0RF Rx Instructions: PLEASE SCHEDULE A MEDICATION REVIEW APPT WITH YOUR PRIMARY CARE PRIOR TO FURTHER REFILLS. metformin 500 mg tablet See Rx Instructions .ROUTE .COMPLEX Qty: 360 0RF Dose Instruction: TAKE 2 TABLETS BY MOUTH TWICE DAILY Rx Instructions: TAKE 2 TABLETS BY MOUTH TWICE DAILY losartan-hydrochlorothiazide 50-12.5 mg tablet 1 tab PO DAILY Qty: 90 0RF Rx Instructions: PLEASE SCHEDULE ANNUAL EXAM PRIOR TO FURTHER REFILLS. atorvastatin 40 mg tablet 40 mg PO DAILY Qty: 90 0RF Rx Instructions: PLEASE SCHEDULE ANNUAL EXAM PRIOR TO FURTHER REFILLS. Flovent HFA 110 mcg/actuation HFA aerosol inhaler 2 puff INHALATION BID Qty: 12 0RF fluticasone propionate 50 mcg/actuation spray,suspension 1 spray NASAL DAILY Qty: 18.2 0RF Rx Instructions: administer into each nostril Zyrtec 10 mg capsule 10 mg PO DAILY Qty: 90 3RF Referrals: Raul Urbina DO [Primary Care Provider] -
[2022-03-03 19:28] VITALS: BP 139/76; PULSE 95; RESP 18; O2SAT 97
== END 2022-03-03 19:28 | disposition home or self-care (01) ==
PROVIDERS: Emergency Provider Emergency Medicine; Family Provider Family Medicine; PCP Family Medicine
DX: S09.8XXA Other specified injuries of head, initial encounter (principal); S60.512A Abrasion of left hand, initial encounter; S60.511A Abrasion of right hand, initial encounter; W10.2XXA Fall (on)(from) incline, initial encounter; Z23 Encounter for immunization
CPT/HCPCS: 90471; 99283; 90715

== ENCOUNTER → 2022-03-11 13:56 | Outpatient (CLI) | payer MEDICARE, OTHER, SELFPAY ==
[2022-03-11 14:58] LABS: Add Manual Diff / Slide Review NO; Basophils Absolute Auto 100 /uL (0-100); Basophils Percent Auto 0.9 % (0-2); Eosinophils Absolute Auto 200 /uL (0-450); Eosinophils Percent Auto 2.3 % (2-4); Hematocrit 44.4 % (41-53); Hemoglobin 15.1 g/dL (13.5-17.5); Lymphocytes Absolute Auto 2200 /uL (1100-4500); Lymphocytes Percent Auto 24.6 % (25-40); Mean Corpuscular HGB Conc 34.1 % (30-36); Mean Corpuscular Hemoglobin 31.4 PG (26-34); Monocytes Absolute Auto 600 /uL (0-900); Monocytes Percent Auto 6.6 % (3-14); Neutrophils Absolute Auto 5800 /uL (1500-7000); Neutrophils Percent Auto 65.6 % (50-75); Platelet Count 260 X10^3/uL (150-400); Red Blood Cell Count 4.82 X10^6/uL (4.5-5.9); Red Cell Distribution Width 13.6 % (11.6-14.8); White Blood Cell Count 8.9 X10^3/uL (4.5-11.0)
[2022-03-11 15:01] LABS: Hemoglobin A1C% w Est Avg Glu 6.3 % (4.0-6.0)
[2022-03-11 15:07] LABS: Alanine Aminotransferase 26 IU/L (<50); Albumin 5.3 g/dL (3.5-5.0); Albumin Globulin Ratio 1.6 (1.0-2.8); Alkaline Phosphatase 79 U/L (38-126); Aspartate Aminotransferase 43 IU/L (17-59); BUN Creatinine Ratio 18.3 (6-22); Blood Urea Nitrogen 19 mg/dL (9-20); Calcium 9.8 mg/dL (8.4-10.2); Carbon Dioxide 21 mmol/L (22-32); Chloride 106 mmol/L (98-107); Cholesterol 145 mg/dL (140-199); Estimated Glomerular Filt Rate > 60 mL/min (>60); Globulin 3.4 g/dL (1.7-4.1); Glucose 114 mg/dL (80-110); HDL Cholesterol 56 mg/dL (40-60); LDL Cholesterol Calculated 63 mg/dL (<100); Potassium 4.5 mmol/L (3.4-5.1); Sodium 140 mmol/L (137-145); Total Protein 8.7 g/dL (6.3-8.2); Triglycerides 130 mg/dL (35-150)
[2022-03-11 15:08] LABS: HEMOLYSIS 64 (0-50)
[2022-03-11 15:35] LABS: Prostate Specific Antigen 0.227 ng/mL (0.10-4.00)
== END ==
PROVIDERS: Family Provider Family Medicine; PCP Family Medicine; Referring Provider Family Medicine; Visit Provider Family Medicine
DX: E11.9 Type 2 diabetes mellitus without complications (principal); I10 Essential (primary) hypertension; E78.5 Hyperlipidemia, unspecified; Z12.5 Encounter for screening for malignant neoplasm of prostate
CPT/HCPCS: 36415; 80053; 80061; 83036; 84153; 85025; G0103

== ENCOUNTER 2022-07-13 13:45 | Outpatient (RCR) | payer MEDICARE, OTHER, SELFPAY ==
--- NOTE | 2022-01-12 12:00 | PT.OIE ---
Current Diagnoses Other chronic pain (01/12/22) Postural kyphosis, thoracic region (01/12/22) Low back pain, unspecified (01/12/22) Abnormal posture (01/12/22) History of falling (01/12/22) Past Medical History (Last Updated 12/03/20 @ 10:18 by Raul Urbina DO) Allergies (~1971) Asthma (~1999) Body posture problem Cervical somatic dysfunction Chicken pox (~1965) Chronic low back pain without sciatica (~2018) Depression (~1996) H/O knee surgery (~1999) HTN (hypertension) Hyperlipidemia Lumbar region somatic dysfunction Pelvic somatic dysfunction Postural kyphosis, thoracic region Sacral region somatic dysfunction Screening for prostate cancer Segmental and somatic dysfunction of abdomen and other regions Sleep apnea (~1999) Somatic dysfunction of lower extremity Substance abuse (~1970) Thoracic region somatic dysfunction Type 2 diabetes mellitus Upper extremity somatic dysfunction Weight gain finding Weight loss counseling, encounter for Past Surgical History (Last Reviewed 10/12/20 @ 10:56 by Billy Aaron MD) Anesthesia H/O knee surgery (~1999) Visit Care Team Role Provider Type Ralu Urbina DO Attending Provider Physician Family Provider Primary Care Provider Referring Provider Specialty: Family Practice Address: [address] [place] [address] Email: Physical Therapy Initial Evaluation PT-OP-A Visit Information Start: 01/12/22 17:31 Freq: Status: Active Protocol: Document 01/12/22 11:15 [facility] (Rec: 01/12/22 17:33 [facility] [id number]) Out-Patient Physical Therapy Visit Information Visit Information Visit Type Initial Evaluation Visit Start Time 11:15 Visit Stop Time 12:00 Total Visit Minutes 45 Visit Number 1 Number of STORES ASSISTANT Visits 0 Evaluation Information Evaluation Date 01/12/22 PT-OP-B Current Condition Start: 01/12/22 17:31 Freq: Status: Active Protocol: Document 01/12/22 11:15 [facility] (Rec: 01/13/22 15:32 [facility] [id number]) Current Condition History of Current Condition Onset Date Multi-year history Current Complaints Back pain, decreased gait tolerance, difficulty lifting, decreased balance History of Current Condition Pt is a 66 year old male presenting with a multi-year history of low back pain. 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 Notes it has worsened over the last ~10 years, to the point now where he has pain with any extended standing, walking, or lifting. Pt notes he doesn't really have any difficulty when sitting or lying down, only standing. Also notes he has noticed worsening balance, has fallen a few times in the last couple months, typically when walking down hill, he feels like he gets moving too quickly forward and loses control. Treatment Goals Patient/Caregiver Goals Pt's goal is to improve his standing and walking tolerance , as well as improve his balance PT-OP-C Subjective Start: 01/12/22 17:31 Freq: Status: Active Protocol: Document 01/12/22 11:15 [facility] (Rec: 01/12/22 17:45 [facility] [id number]) OP-PT Subjective Patient Comments Patient Comments Just walking my dog bothers my back. It's almost immediate . Patient Reported Progress Worse Patient Questionnaires Oswestry Low Back Index Oswestry Score 10/50 = 20% Oswestry Impairment 20 to 39% Impaired (Score 20- 39) OP-PT Pain Assessment Pain Assessment Grid Paper Pain Assessment Grid Completed Yes Location LB Intensity 4 PT-OP-E Functional Tests Start: 01/12/22 17:36 Freq: Status: Active Protocol: Document 01/12/22 11:15 [facility] (Rec: 01/12/22 17:37 [facility] [id number]) Functional Tests Dynamic Gait Index (DGI) Score 18/24 DGI Impairment Rating 20 to <40% Impaired (Score 15- 19) PT-OP-F Manual Assessment Start: 01/12/22 17:39 Freq: Status: Active Protocol: Document 01/12/22 11:15 [facility] (Rec: 01/12/22 17:41 [facility] [id number]) Manual Assessments Joint Mobility Assessment Joint Mobility Assessment Lumbar vertebral hypomobility, limited P->A motion during attempted mobilizations PT-OP-G Mobility & Gait Start: 01/12/22 17:36 Freq: Status: Active Protocol: Document 01/12/22 11:15 [facility] (Rec: 01/12/22 17:39 [facility] [id number]) OP Gait Assessment Comments Gait Comments Pt shuffles feet with nearly every step, due to forward weight shift, displays limited heel strike, mainly touch down phase begins entirely on balls of feet. PT-OP-J Posture/Palpation/Skin Start: 01/12/22 17:31 Freq: Status: Active Protocol: Document 01/12/22 11:15 [facility] (Rec: 01/12/22 17:36 [facility] [id number]) Posture Evaluation Position Standing Evaluation View Lateral Head/C-Spine Posture Flexed T-Spine Posture Increased Kyphosis L-Spine Posture Increased Lordosis Pelvis Posture Anteriorly Tilted Weight Distribution Weight Shifted Anterior Comments Posture Comments Pt stands with weight shifted forward over his feet, pelvis centered over his toes, and then show excessive lumbar lordosis to lean slightly back , and excessive thoracic kyphosis to return to forward lean. Pt very resistant to attempts to correct posture, will not allow himself to lean back. PT-OP-K Range of Motion Start: 01/12/22 17:31 Freq: Status: Active Protocol: Document 01/12/22 11:15 [facility] (Rec: 01/12/22 17:43 [facility] [id number]) Lumbar Spine Range of Motion Lumbar Spine Active Degrees Testing Position Standing Flexion 50 Extension 20 Lateral Flexion Left 47 Lateral Flexion Right 47 Comments Lateral flexion measured in cm from fingertips to floor PT-OP-L Special Tests Start: 01/12/22 17:55 Freq: Status: Active Protocol: Document 01/12/22 11:15 [facility] (Rec: 01/13/22 15:18 DC[facility] [id number]) Special Tests Lumbar Spine Special Tests Lateral SI Compression Test Results Negative ELIZABET Test Results Negative A-P Shearing Test Results Negative Compression Test Results Negative Straight Leg Raise Test Results Negative Slump Test Results Negative PT-OP-M Strength Start: 01/12/22 17:31 Freq: Status: Active Protocol: Document 01/12/22 11:15 [facility] (Rec: 01/12/22 17:43 DC[facility] [id number]) Hip Strength Hip Manual Muscle Testing Right Flexion (L2) 5 Normal Abduction 5 Normal Adduction 5 Normal External Rotation 5 Normal Internal Rotation 5 Normal Left Flexion (L2) 5 Normal Abduction 5 Normal Adduction 5 Normal External Rotation 5 Normal Internal Rotation 5 Normal Knee Strength Knee Manual Muscle Testing Right Flexion (S2) 5 Normal Extension (L3) 5 Normal Left Flexion (S2) 5 Normal Extension (L3) 5 Normal Ankle/Foot Strength Ankle and Foot Manual Muscle Testing Right Dorsiflexion (L4) 5 Normal Plantarflexion (S1) 5 Normal Left Dorsiflexion (L4) 5 Normal Plantarflexion (S1) 5 Normal PT-OP-T Assessment and Plan Start: 01/12/22 17:31 Freq: Status: Active Protocol: Document 01/12/22 11:15 [facility] (Rec: 01/12/22 17:55 DCW [id number]) Physical Therapy Assessment Rehab Potential Rehabilitation Potential Good Evaluation Complexity Number of Personal Factors/Comorbidities 1-2 Number of Body Systems Impaired 1-2 Clinical Presentation at Evaluation Stable Impairments Impairments Functional Activities, Functional Mobility,Gait, Posture Other Concerns Fall Risk Yes, per DGI () and falls history Goals Three Impairment Pt at increased falls risk, per DGI score () Longterm Goal (LTG) Pt to increased DGI score by at least three points to to demonstrate decreased falls risk LTG Duration 03/12/22 Two Impairment Pt stands with a forward weight shift onto the balls of his feet 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 There were, however, some interesting findings, which may be impacting pt's participation in daily activities. Pt displays poor, forward-shifted posture, with all his weight largely over his toes and balls of his feet . This forward lean creates increased lordosis in his low back in standing, which may be the cause of his back pain. This also creates his shuffling gait pattern and increases his difficulty walking down hills, which is how the majority of his falls have occurred. Pt should benefit from skilled therapy to address balance and posture training, in an effort to decreased ongoing low back pain in standing and walking. Physical Therapy Plan Frequency and Duration Frequency of Treatment 2x/Week Duration of Treatment Two months Plan of Care Start Date 01/12/22 Plan of Care End Date 03/12/22 Therapeutic Interventions Therapeutic Interventions Aquatic Therapy,Balance Training,Joint Mobilizations, Manual Therapy,Neuromuscular Re-education,Patient/Caregiver Education,Self-Care/Home Management,Soft Tissue Mobilization,Therapeutic Exercises Modalities Cold Pack/Ice Massage,Electric Stimulation,Hot Packs, Ultrasound Next Visit Focus/Plan Next Note Type Treatment Note Next Visit Plan Posture training, lumbar joint mobilizations
--- NOTE | 2022-01-12 12:00 | PT.OPPOC ---
Physical, Occupational & Speech Therapy At [facility] Current Diagnoses Other chronic pain (01/12/22) Postural kyphosis, thoracic region (01/12/22) Low back pain, unspecified (01/12/22) Abnormal posture (01/12/22) History of falling (01/12/22) Visit Care Team Role Provider Type Raul Urbina DO Attending Provider Physician Family Provider Primary Care Provider Referring Provider Specialty: Family Practice Address: [address] [place] [address], [facility] Email: Plan Of Care PT-OP-T Assessment and Plan Start: 01/12/22 17:31 Freq: Status: Active Protocol: Document 01/12/22 11:15 DCW (Rec: 01/12/22 17:55 DCW [id number]) Physical Therapy Assessment Rehab Potential Rehabilitation Potential Good Evaluation Complexity Number of Personal Factors/Comorbidities 1-2 Number of Body Systems Impaired 1-2 Clinical Presentation at Evaluation Stable Impairments Impairments Functional Activities, Functional Mobility,Gait, Posture Other Concerns Fall Risk Yes, per DGI () and falls history Goals Three Impairment Pt at increased falls risk, per DGI score () Information And Data Architect Analyst Goal (LTG) Pt to increased DGI score by at least three points to to demonstrate decreased falls risk LTG Duration 03/12/22 Two Impairment Pt stands with a forward weight shift onto the balls of his feet Information And Data Architect Analyst 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 There were, however, some interesting findings, which may be impacting pt's participation in daily activities. Pt displays poor, forward-shifted posture, with all his weight largely over his toes and balls of his feet . This forward lean creates increased lordosis in his low back in standing, which may be the cause of his back pain. This also creates his shuffling gait pattern and increases his difficulty walking down hills, which is how the majority of his falls have occurred. Pt should benefit from skilled therapy to address balance and posture training, in an effort to decreased ongoing low back pain in standing and walking. Physical Therapy Plan Frequency and Duration Frequency of Treatment 2x/Week Duration of Treatment Two months Plan of Care Start Date 01/12/22 Plan of Care End Date 03/12/22 Therapeutic Interventions Therapeutic Interventions Aquatic Therapy,Balance Training,Joint Mobilizations, Manual Therapy,Neuromuscular Re-education,Patient/Caregiver Education,Self-Care/Home Management,Soft Tissue Mobilization,Therapeutic Exercises Modalities Cold Pack/Ice Massage,Electric Stimulation,Hot Packs, Ultrasound Next Visit Focus/Plan Next Note Type Treatment Note Next Visit Plan Posture training, lumbar joint mobilizations Plan of Care Dates Plan of Care Start Date 01/12/22 Plan of Care End Date 03/12/22 Electronically Signed by: Enoch Moyer, PT 01/13/22 1176 Please Sign and Return: I have reviewed this Plan of Care and certify that the skilled therapy services above are required to meet the patient?s needs. Physician Signature Date Printed Name and Credentials Clinical Instructor Signature Printed Name and Credentials
--- NOTE | 2022-01-18 15:14 | PT.OTN ---
Current Diagnoses Other chronic pain (01/18/22) Postural kyphosis, thoracic region (01/18/22) Low back pain, unspecified (01/18/22) Abnormal posture (01/18/22) History of falling (01/18/22) Physical Therapy Treatment Note PT-OP-A Visit Information Start: 01/12/22 17:31 Freq: Status: Active Protocol: Document 01/18/22 14:30 DCW (Rec: 01/18/22 15:14 DCW [id number]) Out-Patient Physical Therapy Visit Information Visit Information Visit Type Treatment Note Visit Start Time 14:30 Visit Stop Time 15:15 Total Visit Minutes 45 Visit Number 2 Number of METER/RELAY TECHNICIAN Visits 0 Evaluation Information Evaluation Date 01/12/22 PT-OP-B Current Condition Start: 01/12/22 17:31 Freq: Status: Active Protocol: Document 01/12/22 11:15 DCW (Rec: 01/13/22 15:32 DCW [id number]) Current Condition History of Current Condition Onset Date Multi-year history Current Complaints Back pain, decreased gait tolerance, difficulty lifting, decreased balance History of Current Condition Pt is a 66 year old male presenting with a multi-year history of low back pain. 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 Notes it has worsened over the last ~10 years, to the point now where he has pain with any extended standing, walking, or lifting. Pt notes he doesn't really have any difficulty when sitting or lying down, only standing. Also notes he has noticed worsening balance, has fallen a few times in the last couple months, typically when walking down hill, he feels like he gets moving too quickly forward and loses control. Treatment Goals Patient/Caregiver Goals Pt's goal is to improve his standing and walking tolerance , as well as improve his balance PT-OP-C Subjective Start: 01/12/22 17:31 Freq: Status: Active Protocol: Document 01/18/22 14:30 DCW (Rec: 01/18/22 15:14 DCW [id number]) OP-PT Subjective Patient Comments Patient Comments I'm about the same, but last time was just the assessment, we didn't really get into any actual therapy, so I didn't expect much improvement yet. PT-OP-E Functional Tests Start: 01/12/22 17:36 Freq: Status: Active Protocol: Document 01/12/22 11:15 DCW (Rec: 01/12/22 17:37 DCW [id number]) Functional Tests Dynamic Gait Index (DGI) Score 18/24 DGI Impairment Rating 20 to <40% Impaired (Score 15- 19) PT-OP-F Manual Assessment Start: 01/12/22 17:39 Freq: Status: Active Protocol: Document 01/12/22 11:15 DCW (Rec: 01/12/22 17:41 DCW [id number]) Manual Assessments Joint Mobility Assessment Joint Mobility Assessment Lumbar vertebral hypomobility, limited P->A motion during attempted mobilizations PT-OP-G Mobility & Gait Start: 01/12/22 17:36 Freq: Status: Active Protocol: Document 01/12/22 11:15 DCW (Rec: 01/12/22 17:39 DCW [id number]) OP Gait Assessment Comments Gait Comments Pt shuffles feet with nearly every step, due to forward weight shift, displays limited heel strike, mainly touch down phase begins entirely on balls of feet. PT-OP-J Posture/Palpation/Skin Start: 01/12/22 17:31 Freq: Status: Active Protocol: Document 01/12/22 11:15 DCW (Rec: 01/12/22 17:36 DCW [id number]) Posture Evaluation Position Standing Evaluation View Lateral Head/C-Spine Posture Flexed T-Spine Posture Increased Kyphosis L-Spine Posture Increased Lordosis Pelvis Posture Anteriorly Tilted Weight Distribution Weight Shifted Anterior Comments Posture Comments Pt stands with weight shifted forward over his feet, pelvis centered over his toes, and then show excessive lumbar lordosis to lean slightly back , and excessive thoracic kyphosis to return to forward lean. Pt very resistant to attempts to correct posture, will not allow himself to lean back. PT-OP-K Range of Motion Start: 01/12/22 17:31 Freq: Status: Active Protocol: Document 01/12/22 11:15 DCW (Rec: 01/12/22 17:43 DCW [id number]) Lumbar Spine Range of Motion Lumbar Spine Active Degrees Testing Position Standing Flexion 50 Extension 20 Lateral Flexion Left 47 Lateral Flexion Right 47 Comments Lateral flexion measured in cm from fingertips to floor PT-OP-L Special Tests Start: 01/12/22 17:55 Freq: Status: Active Protocol: Document 01/12/22 11:15 DCW (Rec: 01/13/22 15:18 DCW [id number]) Special Tests Lumbar Spine Special Tests Lateral SI Compression Test Results Negative ELIZABET Test Results Negative A-P Shearing Test Results Negative Compression Test Results Negative Straight Leg Raise Test Results Negative Slump Test Results Negative PT-OP-M Strength Start: 01/12/22 17:31 Freq: Status: Active Protocol: Document 01/12/22 11:15 DCW (Rec: 01/12/22 17:43 DCW [id number]) Hip Strength Hip Manual Muscle Testing Right Flexion (L2) 5 Normal Abduction 5 Normal Adduction 5 Normal External Rotation 5 Normal Internal Rotation 5 Normal Left Flexion (L2) 5 Normal Abduction 5 Normal Adduction 5 Normal External Rotation 5 Normal Internal Rotation 5 Normal Knee Strength Knee Manual Muscle Testing Right Flexion (S2) 5 Normal Extension (L3) 5 Normal Left Flexion (S2) 5 Normal Extension (L3) 5 Normal Ankle/Foot Strength Ankle and Foot Manual Muscle Testing Right Dorsiflexion (L4) 5 Normal Plantarflexion (S1) 5 Normal Left Dorsiflexion (L4) 5 Normal Plantarflexion (S1) 5 Normal PT-OP-Q Treatments Start: 01/12/22 17:31 Freq: Status: Active Protocol: Document 01/18/22 14:30 DCW (Rec: 01/18/22 15:14 DCW [id number]) Cardio Equipment Recumbent Elliptical (Biodex) Duration (Minutes) 5 Resistance 5 Seat Position 10 Gym Equipment Therapeutic Ball supine Exercise Details LTR, Resisted hip flexion Ball Size/Color 55cm Lv 2 T-band Body Position Supine Therapeutic Exercises Standing Exercises 2 Standing Exercise Name Door pec stretch Side bilateral 1 Standing Exercise Name Rows Side bilateral Resistance Lv 3 Comments Improving posture Other Exercises 2 Other Exercise Name Retro fall to wall 1 Other Exercise Name wall posture Neuro Re-Education Treatment Balance Activities hurdles Details fwd, lateral Equipment in // bars PT-OP-T Assessment and Plan Start: 01/12/22 17:31 Freq: Status: Active Protocol: Document 01/18/22 14:30 DCW (Rec: 01/18/22 15:14 DCW [id number]) Physical Therapy Assessment Impairments Impairments Functional Activities, Functional Mobility,Gait, Posture Other Concerns Fall Risk Yes, per DGI () and falls history Goals Three Impairment Pt at increased falls risk, per DGI score () Pulp House Supervisor Goal (LTG) Pt to increased DGI score by at least three points to to demonstrate decreased falls risk LTG Duration 03/12/22 Two Impairment Pt stands with a forward weight shift onto the balls of his feet Shelter Goal (LTG) Pt to stand with proper posture 80% of the time with no verbal or tactile cues or corrections LTG Duration 03/12/22 One Impairment Pt does not have an appropriate home exercise program Short Term Goal (STG) Pt to be independent and compliant with an appropriate HEP STG Duration 02/09/22 Assessment Summary Assessment Pt had some difficulty with hurdles, needed to catch himself on the // bars twice. Pt also very uncomfortable working on posture against the wall, admits his body doesn' t feel right when not leaning forward. Physical Therapy Plan Frequency and Duration Frequency of Treatment 2x/Week Duration of Treatment Two months Plan of Care Start Date 01/12/22 Plan of Care End Date 03/12/22 Therapeutic Interventions Therapeutic Interventions Aquatic Therapy,Balance Training,Joint Mobilizations, Manual Therapy,Neuromuscular Re-education,Patient/Caregiver Education,Self-Care/Home Management,Soft Tissue Mobilization,Therapeutic Exercises Modalities Cold Pack/Ice Massage,Electric Stimulation,Hot Packs, Ultrasound Next Visit Focus/Plan Next Note Type Treatment Note Next Visit Plan Posture training, lumbar joint mobilizations
--- NOTE | 2022-01-20 16:43 | PT.OTN ---
Current Diagnoses Other chronic pain (01/20/22) Postural kyphosis, thoracic region (01/20/22) Low back pain, unspecified (01/20/22) Abnormal posture (01/20/22) History of falling (01/20/22) Physical Therapy Treatment Note PT-OP-A Visit Information Start: 01/12/22 17:31 Freq: Status: Active Protocol: Document 01/20/22 16:00 DCW (Rec: 01/20/22 16:43 DCW [id number]) Out-Patient Physical Therapy Visit Information Visit Information Visit Type Treatment Note Visit Start Time 16:00 Visit Stop Time 16:45 Total Visit Minutes 45 Visit Number 3 Number of THERAPIST SPEECH Visits 0 Evaluation Information Evaluation Date 01/12/22 PT-OP-B Current Condition Start: 01/12/22 17:31 Freq: Status: Active Protocol: Document 01/12/22 11:15 DCW (Rec: 01/13/22 15:32 DCW [id number]) Current Condition History of Current Condition Onset Date Multi-year history Current Complaints Back pain, decreased gait tolerance, difficulty lifting, decreased balance History of Current Condition Pt is a 66 year old male presenting with a multi-year history of low back pain. 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 Notes it has worsened over the last ~10 years, to the point now where he has pain with any extended standing, walking, or lifting. Pt notes he doesn't really have any difficulty when sitting or lying down, only standing. Also notes he has noticed worsening balance, has fallen a few times in the last couple months, typically when walking down hill, he feels like he gets moving too quickly forward and loses control. Treatment Goals Patient/Caregiver Goals Pt's goal is to improve his standing and walking tolerance , as well as improve his balance PT-OP-C Subjective Start: 01/12/22 17:31 Freq: Status: Active Protocol: Document 01/20/22 16:00 DCW (Rec: 01/20/22 16:43 DCW [id number]) OP-PT Subjective Patient Comments Patient Comments I was a little tight when I work up Monday morning, but it wasn't too bad, actually it felt pretty good. PT-OP-E Functional Tests Start: 01/12/22 17:36 Freq: Status: Active Protocol: Document 01/12/22 11:15 DCW (Rec: 01/12/22 17:37 DCW [id number]) Functional Tests Dynamic Gait Index (DGI) Score 18/24 DGI Impairment Rating 20 to <40% Impaired (Score 15- 19) PT-OP-F Manual Assessment Start: 01/12/22 17:39 Freq: Status: Active Protocol: Document 01/12/22 11:15 DCW (Rec: 01/12/22 17:41 DCW [id number]) Manual Assessments Joint Mobility Assessment Joint Mobility Assessment Lumbar vertebral hypomobility, limited P->A motion during attempted mobilizations PT-OP-G Mobility & Gait Start: 01/12/22 17:36 Freq: Status: Active Protocol: Document 01/12/22 11:15 DCW (Rec: 01/12/22 17:39 DCW [id number]) OP Gait Assessment Comments Gait Comments Pt shuffles feet with nearly every step, due to forward weight shift, displays limited heel strike, mainly touch down phase begins entirely on balls of feet. PT-OP-J Posture/Palpation/Skin Start: 01/12/22 17:31 Freq: Status: Active Protocol: Document 01/12/22 11:15 DCW (Rec: 01/12/22 17:36 DCW [id number]) Posture Evaluation Position Standing Evaluation View Lateral Head/C-Spine Posture Flexed T-Spine Posture Increased Kyphosis L-Spine Posture Increased Lordosis Pelvis Posture Anteriorly Tilted Weight Distribution Weight Shifted Anterior Comments Posture Comments Pt stands with weight shifted forward over his feet, pelvis centered over his toes, and then show excessive lumbar lordosis to lean slightly back , and excessive thoracic kyphosis to return to forward lean. Pt very resistant to attempts to correct posture, will not allow himself to lean back. PT-OP-K Range of Motion Start: 01/12/22 17:31 Freq: Status: Active Protocol: Document 01/12/22 11:15 DCW (Rec: 01/12/22 17:43 DCW [id number]) Lumbar Spine Range of Motion Lumbar Spine Active Degrees Testing Position Standing Flexion 50 Extension 20 Lateral Flexion Left 47 Lateral Flexion Right 47 Comments Lateral flexion measured in cm from fingertips to floor PT-OP-L Special Tests Start: 01/12/22 17:55 Freq: Status: Active Protocol: Document 01/12/22 11:15 DCW (Rec: 01/13/22 15:18 DCW [id number]) Special Tests Lumbar Spine Special Tests Lateral SI Compression Test Results Negative ELIZABET Test Results Negative A-P Shearing Test Results Negative Compression Test Results Negative Straight Leg Raise Test Results Negative Slump Test Results Negative PT-OP-M Strength Start: 01/12/22 17:31 Freq: Status: Active Protocol: Document 01/12/22 11:15 DCW (Rec: 01/12/22 17:43 DCW [id number]) Hip Strength Hip Manual Muscle Testing Right Flexion (L2) 5 Normal Abduction 5 Normal Adduction 5 Normal External Rotation 5 Normal Internal Rotation 5 Normal Left Flexion (L2) 5 Normal Abduction 5 Normal Adduction 5 Normal External Rotation 5 Normal Internal Rotation 5 Normal Knee Strength Knee Manual Muscle Testing Right Flexion (S2) 5 Normal Extension (L3) 5 Normal Left Flexion (S2) 5 Normal Extension (L3) 5 Normal Ankle/Foot Strength Ankle and Foot Manual Muscle Testing Right Dorsiflexion (L4) 5 Normal Plantarflexion (S1) 5 Normal Left Dorsiflexion (L4) 5 Normal Plantarflexion (S1) 5 Normal PT-OP-Q Treatments Start: 01/12/22 17:31 Freq: Status: Active Protocol: Document 01/20/22 16:00 DCW (Rec: 01/20/22 16:43 DCW [id number]) Cardio Equipment Recumbent Elliptical (Biodex) Duration (Minutes) 5 Resistance 5 Seat Position 10 Gym Equipment Cable Column (Body Solid) Pallof Press Resistance 20# Therapeutic Exercises Sidelying Exercises 3 Sidelying Exercise Name Reverse Clamshell Side bilateral 2 Sidelying Exercise Name Clamshell Side bilateral 1 Sidelying Exercise Name Open Book Side bilateral Other Exercises 2 Other Exercise Name Retro fall to wall 1 Other Exercise Name wall posture Gait Training Gait Activity Heel Toe Description VCs for Heel-toe gait pattern Level of Assistance SBA Comments Decreased foot shuffling Neuro Re-Education Treatment Balance Activities hurdles Details fwd, lateral Equipment in // bars PT-OP-T Assessment and Plan Start: 01/12/22 17:31 Freq: Status: Active Protocol: Document 01/20/22 16:00 DCW (Rec: 01/20/22 16:43 DCW [id number]) Physical Therapy Assessment Impairments Impairments Functional Activities, Functional Mobility,Gait, Posture Other Concerns Fall Risk Yes, per DGI () and falls history Goals Three Impairment Pt at increased falls risk, per DGI score () Correction Goal (LTG) Pt to increased DGI score by at least three points to to demonstrate decreased falls risk LTG Duration 03/12/22 Two Impairment Pt stands with a forward weight shift onto the balls of his feet Supervisor Liquefaction Goal (LTG) Pt to stand with proper posture 80% of the time with no verbal or tactile cues or corrections LTG Duration 03/12/22 One Impairment Pt does not have an appropriate home exercise program Short Term Goal (STG) Pt to be independent and compliant with an appropriate HEP STG Duration 02/09/22 Assessment Summary Assessment Pt doing better today, was still challenged some with balance exercises, but did well during gait with additional verbal cues. Posture also improving with focus on wall posturing. Physical Therapy Plan Frequency and Duration Frequency of Treatment 2x/Week Duration of Treatment Two months Plan of Care Start Date 01/12/22 Plan of Care End Date 03/12/22 Therapeutic Interventions Therapeutic Interventions Aquatic Therapy,Balance Training,Joint Mobilizations, Manual Therapy,Neuromuscular Re-education,Patient/Caregiver Education,Self-Care/Home Management,Soft Tissue Mobilization,Therapeutic Exercises Modalities Cold Pack/Ice Massage,Electric Stimulation,Hot Packs, Ultrasound Next Visit Focus/Plan Next Note Type Treatment Note Next Visit Plan Posture training, lumbar joint mobilizations
--- NOTE | 2022-01-24 15:20 | PT.OTN ---
Current Diagnoses Other chronic pain (01/24/22) Postural kyphosis, thoracic region (01/24/22) Low back pain, unspecified (01/24/22) Abnormal posture (01/24/22) History of falling (01/24/22) Physical Therapy Treatment Note PT-OP-A Visit Information Start: 01/12/22 17:31 Freq: Status: Active Protocol: Document 01/24/22 14:33 SP (Rec: 01/24/22 15:55 SP [id number]) Out-Patient Physical Therapy Visit Information Visit Information Visit Type Treatment Note Visit Start Time 14:33 Visit Stop Time 15:20 Total Visit Minutes 47 Visit Number 4 Number of WAX ROOM SUPERVISOR Visits 1 Evaluation Information Evaluation Date 01/12/22 PT-OP-B Current Condition Start: 01/12/22 17:31 Freq: Status: Active Protocol: Document 01/12/22 11:15 DCW (Rec: 01/13/22 15:32 DCW [id number]) Current Condition History of Current Condition Onset Date Multi-year history Current Complaints Back pain, decreased gait tolerance, difficulty lifting, decreased balance History of Current Condition Pt is a 66 year old male presenting with a multi-year history of low back pain. 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 Notes it has worsened over the last ~10 years, to the point now where he has pain with any extended standing, walking, or lifting. Pt notes he doesn't really have any difficulty when sitting or lying down, only standing. Also notes he has noticed worsening balance, has fallen a few times in the last couple months, typically when walking down hill, he feels like he gets moving too quickly forward and loses control. Treatment Goals Patient/Caregiver Goals Pt's goal is to improve his standing and walking tolerance , as well as improve his balance PT-OP-C Subjective Start: 01/12/22 17:31 Freq: Status: Active Protocol: Document 01/24/22 14:33 SP (Rec: 01/24/22 15:55 SP [id number]) OP-PT Subjective Patient Comments Patient Comments No new things to report. PT-OP-E Functional Tests Start: 01/12/22 17:36 Freq: Status: Active Protocol: Document 01/12/22 11:15 DCW (Rec: 01/12/22 17:37 DCW [id number]) Functional Tests Dynamic Gait Index (DGI) Score 18/24 DGI Impairment Rating 20 to <40% Impaired (Score 15- 19) PT-OP-F Manual Assessment Start: 01/12/22 17:39 Freq: Status: Active Protocol: Document 01/12/22 11:15 DCW (Rec: 01/12/22 17:41 DCW [id number]) Manual Assessments Joint Mobility Assessment Joint Mobility Assessment Lumbar vertebral hypomobility, limited P->A motion during attempted mobilizations PT-OP-G Mobility & Gait Start: 01/12/22 17:36 Freq: Status: Active Protocol: Document 01/12/22 11:15 DCW (Rec: 01/12/22 17:39 DCW [id number]) OP Gait Assessment Comments Gait Comments Pt shuffles feet with nearly every step, due to forward weight shift, displays limited heel strike, mainly touch down phase begins entirely on balls of feet. PT-OP-J Posture/Palpation/Skin Start: 01/12/22 17:31 Freq: Status: Active Protocol: Document 01/12/22 11:15 DCW (Rec: 01/12/22 17:36 DCW [id number]) Posture Evaluation Position Standing Evaluation View Lateral Head/C-Spine Posture Flexed T-Spine Posture Increased Kyphosis L-Spine Posture Increased Lordosis Pelvis Posture Anteriorly Tilted Weight Distribution Weight Shifted Anterior Comments Posture Comments Pt stands with weight shifted forward over his feet, pelvis centered over his toes, and then show excessive lumbar lordosis to lean slightly back , and excessive thoracic kyphosis to return to forward lean. Pt very resistant to attempts to correct posture, will not allow himself to lean back. PT-OP-K Range of Motion Start: 01/12/22 17:31 Freq: Status: Active Protocol: Document 01/12/22 11:15 DCW (Rec: 01/12/22 17:43 DCW [id number]) Lumbar Spine Range of Motion Lumbar Spine Active Degrees Testing Position Standing Flexion 50 Extension 20 Lateral Flexion Left 47 Lateral Flexion Right 47 Comments Lateral flexion measured in cm from fingertips to floor PT-OP-L Special Tests Start: 01/12/22 17:55 Freq: Status: Active Protocol: Document 01/12/22 11:15 DCW (Rec: 01/13/22 15:18 DCW [id number]) Special Tests Lumbar Spine Special Tests Lateral SI Compression Test Results Negative ELIZABET Test Results Negative A-P Shearing Test Results Negative Compression Test Results Negative Straight Leg Raise Test Results Negative Slump Test Results Negative PT-OP-M Strength Start: 01/12/22 17:31 Freq: Status: Active Protocol: Document 01/12/22 11:15 DCW (Rec: 01/12/22 17:43 DCW [id number]) Hip Strength Hip Manual Muscle Testing Right Flexion (L2) 5 Normal Abduction 5 Normal Adduction 5 Normal External Rotation 5 Normal Internal Rotation 5 Normal Left Flexion (L2) 5 Normal Abduction 5 Normal Adduction 5 Normal External Rotation 5 Normal Internal Rotation 5 Normal Knee Strength Knee Manual Muscle Testing Right Flexion (S2) 5 Normal Extension (L3) 5 Normal Left Flexion (S2) 5 Normal Extension (L3) 5 Normal Ankle/Foot Strength Ankle and Foot Manual Muscle Testing Right Dorsiflexion (L4) 5 Normal Plantarflexion (S1) 5 Normal Left Dorsiflexion (L4) 5 Normal Plantarflexion (S1) 5 Normal PT-OP-Q Treatments Start: 01/12/22 17:31 Freq: Status: Active Protocol: Document 01/24/22 14:33 SP (Rec: 01/24/22 15:55 SP [id number]) Cardio Equipment Recumbent Elliptical (Biodex) Duration (Minutes) 5 Resistance 5 Seat Position 10 Other UE/ LEs, 40 RPM, total steps 392 Gym Equipment Cable Column (Body Solid) Pallof Press Resistance G TB x8 reps R and L Reps/Time long arm vs cross arm chest- challenged no UT recruitment Therapeutic Exercises Supine Exercises David stretch Supine Exercise Name noted pt rubbing L hip flexor post hurdles Side left Equipment Used opposite LE bent, strap on LLE Reps/Minutes 30 Comments good hip flexor stretch with strap Sidelying Exercises 3 Sidelying Exercise Name Reverse Clamshell Side bilateral Reps/Minutes x15 Comments cued stacked hips, slow con/ ecc 2 Sidelying Exercise Name Clamshell Side bilateral Reps/Minutes x15 Comments cued stacked hips, slow con/ ecc 1 Sidelying Exercise Name Open Book Side bilateral Reps/Minutes x7 Comments cued slow pacing con/ecc, head with arm Sitting Exercises STS Sitting Exercise Name STSx5 > eccentric taps x5 Resistance AROM Equipment Used mesh chair, arms cross chest Comments add for HEP next tx, add foam if able for challenge in PT Standing Exercises hip flexor stretch Standing Exercise Name shown post noted rubbing hip flexor post hurdles Side left Equipment Used //bars, bottom step- no stretch Reps/Minutes x3 Comments no stretch dangling, better w/ strap 1 Standing Exercise Name Rows Side bilateral Resistance Lv 3 Reps/Minutes x30 Comments Improving posture, cued elbows bent, slower con/ ecc pacing, tall posture Other Exercises 2 Other Exercise Name Retro fall to wall- HEP review Reps/Minutes x5 1 Other Exercise Name wall posture segmental roll ups Resistance AROM Reps/Minutes x3, 5 sec hold Comments cued TA fac hold, provided HO for HEP review 1-3 Gait Training Gait Activity Heel Toe Description VCs for Heel-toe gait pattern Device Used none Level of Assistance SBA Surface firm Distance/Duration 50 ft Treatment Focus increased stride and foot clearance Comments cued heel toe, quiet stepping. Neuro Re-Education Treatment Balance Activities step taps Details alternating Equipment 6 step, //bars Comments cued tall posture, core/ hip abd fac with light contact taps- improved stabilty and stance time- CG> SBA hurdles Details fwd Surface firm> oval cushions Equipment in // bars Reps/Duration 3 laps firm CG- SBA, 2 laps oval CG- Min A Comments step to>receiprocal stepping > oval cushions (very challenging, LOB Mary and // bars recover) *Cued slow pacing quiet stepping, improved stance time with core/ hip abd fac/ alighnment. PT-OP-T Assessment and Plan Start: 01/12/22 17:31 Freq: Status: Active Protocol: Document 01/24/22 14:33 SP (Rec: 01/24/22 15:55 SP [id number]) Physical Therapy Assessment Goals Three Impairment Pt at increased falls risk, per DGI score () Lithograph Printer Goal (LTG) Pt to increased DGI score by at least three points to to demonstrate decreased falls risk LTG Duration 03/12/22 Two Impairment Pt stands with a forward weight shift onto the balls of his feet Fpc Goal (LTG) Pt to stand with proper posture 80% of the time with no verbal or tactile cues or corrections LTG Duration 03/12/22 One Impairment Pt does not have an appropriate home exercise program Short Term Goal (STG) Pt to be independent and compliant with an appropriate HEP STG Duration 02/09/22 Assessment Summary Assessment Pt improved stance time and stability during step taps, hurdles with cues for quiet stepping. Occasional cue for heel toe post quiet stepping . Physical Therapy Plan Frequency and Duration Frequency of Treatment 2x/Week Duration of Treatment Two months Plan of Care Start Date 01/12/22 Plan of Care End Date 03/12/22 Therapeutic Interventions Therapeutic Interventions Aquatic Therapy,Balance Training,Joint Mobilizations, Manual Therapy,Neuromuscular Re-education,Patient/Caregiver Education,Self-Care/Home Management,Soft Tissue Mobilization,Therapeutic Exercises Modalities Cold Pack/Ice Massage,Electric Stimulation,Hot Packs, Ultrasound Next Visit Focus/Plan Next Note Type Treatment Note Next Visit Plan Recheck paloff press for quality from if add to HEP. POC: Posture training, lumbar joint mobilizations
--- NOTE | 2022-01-26 15:16 | PT.OTN ---
Current Diagnoses Other chronic pain (01/26/22) Postural kyphosis, thoracic region (01/26/22) Low back pain, unspecified (01/26/22) Abnormal posture (01/26/22) History of falling (01/26/22) Physical Therapy Treatment Note PT-OP-A Visit Information Start: 01/12/22 17:31 Freq: Status: Active Protocol: Document 01/26/22 14:30 DCW (Rec: 01/26/22 15:16 DCW [id number]) Out-Patient Physical Therapy Visit Information Visit Information Visit Type Treatment Note Visit Start Time 14:30 Visit Stop Time 15:15 Total Visit Minutes 45 Visit Number 5 Number of ADVERTISING INTERN Visits 0 Evaluation Information Evaluation Date 01/12/22 PT-OP-B Current Condition Start: 01/12/22 17:31 Freq: Status: Active Protocol: Document 01/12/22 11:15 DCW (Rec: 01/13/22 15:32 DCW [id number]) Current Condition History of Current Condition Onset Date Multi-year history Current Complaints Back pain, decreased gait tolerance, difficulty lifting, decreased balance History of Current Condition Pt is a 66 year old male presenting with a multi-year history of low back pain. 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 Notes it has worsened over the last ~10 years, to the point now where he has pain with any extended standing, walking, or lifting. Pt notes he doesn't really have any difficulty when sitting or lying down, only standing. Also notes he has noticed worsening balance, has fallen a few times in the last couple months, typically when walking down hill, he feels like he gets moving too quickly forward and loses control. Treatment Goals Patient/Caregiver Goals Pt's goal is to improve his standing and walking tolerance , as well as improve his balance PT-OP-C Subjective Start: 01/12/22 17:31 Freq: Status: Active Protocol: Document 01/26/22 14:30 DCW (Rec: 01/26/22 15:16 DCW [id number]) OP-PT Subjective Patient Comments Patient Comments Pt notes is back is not too much better. PT-OP-E Functional Tests Start: 01/12/22 17:36 Freq: Status: Active Protocol: Document 01/12/22 11:15 DCW (Rec: 01/12/22 17:37 DCW [id number]) Functional Tests Dynamic Gait Index (DGI) Score 18/24 DGI Impairment Rating 20 to <40% Impaired (Score 15- 19) PT-OP-F Manual Assessment Start: 01/12/22 17:39 Freq: Status: Active Protocol: Document 01/12/22 11:15 DCW (Rec: 01/12/22 17:41 DCW [id number]) Manual Assessments Joint Mobility Assessment Joint Mobility Assessment Lumbar vertebral hypomobility, limited P->A motion during attempted mobilizations PT-OP-G Mobility & Gait Start: 01/12/22 17:36 Freq: Status: Active Protocol: Document 01/12/22 11:15 DCW (Rec: 01/12/22 17:39 DCW [id number]) OP Gait Assessment Comments Gait Comments Pt shuffles feet with nearly every step, due to forward weight shift, displays limited heel strike, mainly touch down phase begins entirely on balls of feet. PT-OP-J Posture/Palpation/Skin Start: 01/12/22 17:31 Freq: Status: Active Protocol: Document 01/12/22 11:15 DCW (Rec: 01/12/22 17:36 DCW [id number]) Posture Evaluation Position Standing Evaluation View Lateral Head/C-Spine Posture Flexed T-Spine Posture Increased Kyphosis L-Spine Posture Increased Lordosis Pelvis Posture Anteriorly Tilted Weight Distribution Weight Shifted Anterior Comments Posture Comments Pt stands with weight shifted forward over his feet, pelvis centered over his toes, and then show excessive lumbar lordosis to lean slightly back , and excessive thoracic kyphosis to return to forward lean. Pt very resistant to attempts to correct posture, will not allow himself to lean back. PT-OP-K Range of Motion Start: 01/12/22 17:31 Freq: Status: Active Protocol: Document 01/12/22 11:15 DCW (Rec: 01/12/22 17:43 DCW [id number]) Lumbar Spine Range of Motion Lumbar Spine Active Degrees Testing Position Standing Flexion 50 Extension 20 Lateral Flexion Left 47 Lateral Flexion Right 47 Comments Lateral flexion measured in cm from fingertips to floor PT-OP-L Special Tests Start: 01/12/22 17:55 Freq: Status: Active Protocol: Document 01/12/22 11:15 DCW (Rec: 01/13/22 15:18 DCW [id number]) Special Tests Lumbar Spine Special Tests Lateral SI Compression Test Results Negative ELIZABET Test Results Negative A-P Shearing Test Results Negative Compression Test Results Negative Straight Leg Raise Test Results Negative Slump Test Results Negative PT-OP-M Strength Start: 01/12/22 17:31 Freq: Status: Active Protocol: Document 01/12/22 11:15 DCW (Rec: 01/12/22 17:43 DCW [id number]) Hip Strength Hip Manual Muscle Testing Right Flexion (L2) 5 Normal Abduction 5 Normal Adduction 5 Normal External Rotation 5 Normal Internal Rotation 5 Normal Left Flexion (L2) 5 Normal Abduction 5 Normal Adduction 5 Normal External Rotation 5 Normal Internal Rotation 5 Normal Knee Strength Knee Manual Muscle Testing Right Flexion (S2) 5 Normal Extension (L3) 5 Normal Left Flexion (S2) 5 Normal Extension (L3) 5 Normal Ankle/Foot Strength Ankle and Foot Manual Muscle Testing Right Dorsiflexion (L4) 5 Normal Plantarflexion (S1) 5 Normal Left Dorsiflexion (L4) 5 Normal Plantarflexion (S1) 5 Normal PT-OP-Q Treatments Start: 01/12/22 17:31 Freq: Status: Active Protocol: Document 01/26/22 14:30 DCW (Rec: 01/26/22 15:16 DCW [id number]) Cardio Equipment Recumbent Elliptical (BiodLanyrd) Duration (Minutes) 5 Resistance 5 Seat Position 10 Gym Equipment Cable Column (Body Solid) Pallof Press Resistance #2 T-band x8 reps R and L Reps/Time long arm vs cross arm chest- challenged no UT recruitment Therapeutic Ball supine Exercise Details LTR, Resisted hip flexion Ball Size/Color 55cm Lv 2 T-band Body Position Supine Manual Therapy Treatment Soft Tissue Mobilization LB Body Location B paraspinals & QL Mobilization Type Rolling,Strumming,Sustained Pressure Intensity/Depth Moderate Body Position Sidelying PT-OP-T Assessment and Plan Start: 01/12/22 17:31 Freq: Status: Active Protocol: Document 01/26/22 14:30 DCW (Rec: 01/26/22 15:16 DCW [id number]) Physical Therapy Assessment Impairments Impairments Functional Activities, Functional Mobility,Gait, Posture Other Concerns Fall Risk Yes, per DGI () and falls history Goals Three Impairment Pt at increased falls risk, per DGI score () Distance Learning Technician Goal (LTG) Pt to increased DGI score by at least three points to to demonstrate decreased falls risk LTG Duration 03/12/22 Two Impairment Pt stands with a forward weight shift onto the balls of his feet Distance Learning Technician Goal (LTG) Pt to stand with proper posture 80% of the time with no verbal or tactile cues or corrections LTG Duration 03/12/22 One Impairment Pt does not have an appropriate home exercise program Short Term Goal (STG) Pt to be independent and compliant with an appropriate HEP STG Duration 02/09/22 Assessment Summary Assessment Pt still struggling with forward posture and shuffling gait when not receiving verbal cues, but is able to correct himself with cueing. Physical Therapy Plan Frequency and Duration Frequency of Treatment 2x/Week Duration of Treatment Two months Plan of Care Start Date 01/12/22 Plan of Care End Date 03/12/22 Therapeutic Interventions Therapeutic Interventions Aquatic Therapy,Balance Training,Joint Mobilizations, Manual Therapy,Neuromuscular Re-education,Patient/Caregiver Education,Self-Care/Home Management,Soft Tissue Mobilization,Therapeutic Exercises Modalities Cold Pack/Ice Massage,Electric Stimulation,Hot Packs, Ultrasound Next Visit Focus/Plan Next Note Type Treatment Note Next Visit Plan Recheck cas colon for quality from if add to HEP. POC: Posture training, lumbar joint mobilizations
--- NOTE | 2022-01-31 13:46 | PT.OTN ---
Current Diagnoses Other chronic pain (01/31/22) Postural kyphosis, thoracic region (01/31/22) Low back pain, unspecified (01/31/22) Abnormal posture (01/31/22) History of falling (01/31/22) Physical Therapy Treatment Note PT-OP-A Visit Information Start: 01/12/22 17:31 Freq: Status: Active Protocol: Document 01/31/22 13:06 SP (Rec: 01/31/22 13:49 SP [id number]) Out-Patient Physical Therapy Visit Information Visit Information Visit Type Treatment Note Visit Start Time 13:06 Visit Stop Time 13:46 Total Visit Minutes 40 Visit Number 6 Number of SENIOR ABAP DEVELOPER Visits 1 Evaluation Information Evaluation Date 01/12/22 PT-OP-B Current Condition Start: 01/12/22 17:31 Freq: Status: Active Protocol: Document 01/12/22 11:15 DCW (Rec: 01/13/22 15:32 DCW [id number]) Current Condition History of Current Condition Onset Date Multi-year history Current Complaints Back pain, decreased gait tolerance, difficulty lifting, decreased balance History of Current Condition Pt is a 66 year old male presenting with a multi-year history of low back pain. 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 Notes it has worsened over the last ~10 years, to the point now where he has pain with any extended standing, walking, or lifting. Pt notes he doesn't really have any difficulty when sitting or lying down, only standing. Also notes he has noticed worsening balance, has fallen a few times in the last couple months, typically when walking down hill, he feels like he gets moving too quickly forward and loses control. Treatment Goals Patient/Caregiver Goals Pt's goal is to improve his standing and walking tolerance , as well as improve his balance PT-OP-C Subjective Start: 01/12/22 17:31 Freq: Status: Active Protocol: Document 01/31/22 13:06 SP (Rec: 01/31/22 13:49 SP [id number]) OP-PT Subjective Patient Comments Patient Comments Pt stated compliant with HEP 2x/day. PT-OP-E Functional Tests Start: 01/12/22 17:36 Freq: Status: Active Protocol: Document 01/12/22 11:15 DCW (Rec: 01/12/22 17:37 DCW [id number]) Functional Tests Dynamic Gait Index (DGI) Score 18/24 DGI Impairment Rating 20 to <40% Impaired (Score 15- 19) PT-OP-F Manual Assessment Start: 01/12/22 17:39 Freq: Status: Active Protocol: Document 01/12/22 11:15 DCW (Rec: 01/12/22 17:41 DCW [id number]) Manual Assessments Joint Mobility Assessment Joint Mobility Assessment Lumbar vertebral hypomobility, limited P->A motion during attempted mobilizations PT-OP-G Mobility & Gait Start: 01/12/22 17:36 Freq: Status: Active Protocol: Document 01/12/22 11:15 DCW (Rec: 01/12/22 17:39 DCW [id number]) OP Gait Assessment Comments Gait Comments Pt shuffles feet with nearly every step, due to forward weight shift, displays limited heel strike, mainly touch down phase begins entirely on balls of feet. PT-OP-J Posture/Palpation/Skin Start: 01/12/22 17:31 Freq: Status: Active Protocol: Document 01/12/22 11:15 DCW (Rec: 01/12/22 17:36 DCW [id number]) Posture Evaluation Position Standing Evaluation View Lateral Head/C-Spine Posture Flexed T-Spine Posture Increased Kyphosis L-Spine Posture Increased Lordosis Pelvis Posture Anteriorly Tilted Weight Distribution Weight Shifted Anterior Comments Posture Comments Pt stands with weight shifted forward over his feet, pelvis centered over his toes, and then show excessive lumbar lordosis to lean slightly back , and excessive thoracic kyphosis to return to forward lean. Pt very resistant to attempts to correct posture, will not allow himself to lean back. PT-OP-K Range of Motion Start: 01/12/22 17:31 Freq: Status: Active Protocol: Document 01/12/22 11:15 DCW (Rec: 01/12/22 17:43 DCW [id number]) Lumbar Spine Range of Motion Lumbar Spine Active Degrees Testing Position Standing Flexion 50 Extension 20 Lateral Flexion Left 47 Lateral Flexion Right 47 Comments Lateral flexion measured in cm from fingertips to floor PT-OP-L Special Tests Start: 01/12/22 17:55 Freq: Status: Active Protocol: Document 01/12/22 11:15 DCW (Rec: 01/13/22 15:18 DCW [id number]) Special Tests Lumbar Spine Special Tests Lateral SI Compression Test Results Negative ELIZABET Test Results Negative A-P Shearing Test Results Negative Compression Test Results Negative Straight Leg Raise Test Results Negative Slump Test Results Negative PT-OP-M Strength Start: 01/12/22 17:31 Freq: Status: Active Protocol: Document 01/12/22 11:15 DCW (Rec: 01/12/22 17:43 DCW [id number]) Hip Strength Hip Manual Muscle Testing Right Flexion (L2) 5 Normal Abduction 5 Normal Adduction 5 Normal External Rotation 5 Normal Internal Rotation 5 Normal Left Flexion (L2) 5 Normal Abduction 5 Normal Adduction 5 Normal External Rotation 5 Normal Internal Rotation 5 Normal Knee Strength Knee Manual Muscle Testing Right Flexion (S2) 5 Normal Extension (L3) 5 Normal Left Flexion (S2) 5 Normal Extension (L3) 5 Normal Ankle/Foot Strength Ankle and Foot Manual Muscle Testing Right Dorsiflexion (L4) 5 Normal Plantarflexion (S1) 5 Normal Left Dorsiflexion (L4) 5 Normal Plantarflexion (S1) 5 Normal PT-OP-Q Treatments Start: 01/12/22 17:31 Freq: Status: Active Protocol: Document 01/31/22 13:06 SP (Rec: 01/31/22 13:49 SP [id number]) Cardio Equipment Recumbent Elliptical (Biodex) Duration (Minutes) 6 Resistance 5 Seat Position see 9 Other UE/ LEs, 40 RPM, 489 total steps Gym Equipment Therapeutic Ball supine Exercise Details LTR x10, Resisted hip flexion #3 Ball Size/Color red 55cm t-ball Lv 3 T-band ( hip flexion) Body Position Supine Comments S during LTR, Manual downward pressure to decrease shakiness and resistant knee/ hip flex and ext. Sport Cord fwd Exercise Details fwd, back, side walk Cord/Resistance red Reps/Duration 12 Comments cued core/ hip abd fac and alignemet eccentric stepping- CG> min A at end stretch. Therapeutic Exercises Standing Exercises band walk Standing Exercise Name R and L- PT only for now Resistance Y TB at ankles- close SBA Equipment Used rail PRN, LOB to R going R x1 CG recovery Reps/Minutes 20 ft x2 laps Comments cued COG over FADY (front foot and heels). 1 Standing Exercise Name Rows Side bilateral Resistance Lv 3 Reps/Minutes x30 Comments cued tall posture, wt between front feet and heels- not lean back Other Exercises 2 Other Exercise Name Retro fall to wall- HEP review Equipment Used 2. foam stand perturbation nudges Reps/Minutes 1. x10 firm floor, x5 blue foam under BLE Comments cued buttocks tucked under trunk- good core post chain/ quad fac 1 Other Exercise Name wall posture segmental roll ups Resistance AROM Equipment Used small orange ball behind neck/ head Reps/Minutes x3, 5 sec hold Comments cued TA fac hold, provided HO for HEP review 1-3 PT-OP-T Assessment and Plan Start: 01/12/22 17:31 Freq: Status: Active Protocol: Document 01/31/22 13:06 SP (Rec: 01/31/22 13:49 SP [id number]) Physical Therapy Assessment Goals Three Impairment Pt at increased falls risk, per DGI score () Supervisor Maintenance Goal (LTG) Pt to increased DGI score by at least three points to to demonstrate decreased falls risk LTG Duration 03/12/22 Two Impairment Pt stands with a forward weight shift onto the balls of his feet Supervisor Maintenance Goal (LTG) Pt to stand with proper posture 80% of the time with no verbal or tactile cues or corrections LTG Duration 03/12/22 One Impairment Pt does not have an appropriate home exercise program Short Term Goal (STG) Pt to be independent and compliant with an appropriate HEP STG Duration 02/09/22 Assessment Summary Assessment Pt improved good feedback core and posture at wall and retro lean/ falls into wall w/ chair front on added uneven surface. He stated challenged to get head back on wall. Pt required support 25% of time eccentric return durng resisted f/b/side stepping, LOB x2 Min A recovery, improved stance time post cues for COG over front foot and heel and core/ hip abd controlled awareness to assimulate gait against wind outdoors and uneven surfaces. Physical Therapy Plan Frequency and Duration Frequency of Treatment 2x/Week Duration of Treatment Two months Plan of Care Start Date 01/12/22 Plan of Care End Date 03/12/22 Therapeutic Interventions Therapeutic Interventions Aquatic Therapy,Balance Training,Joint Mobilizations, Manual Therapy,Neuromuscular Re-education,Patient/Caregiver Education,Self-Care/Home Management,Soft Tissue Mobilization,Therapeutic Exercises Modalities Cold Pack/Ice Massage,Electric Stimulation,Hot Packs, Ultrasound Next Visit Focus/Plan Next Note Type Treatment Note Next Visit Plan Recheck cas press for quality from if add to HEP, continue sport cord, band walk for safety if can add to HEP. POC: Posture training, lumbar joint mobilizations
--- NOTE | 2022-02-02 15:12 | PT.OTN ---
Current Diagnoses Other chronic pain (02/02/22) Postural kyphosis, thoracic region (02/02/22) Low back pain, unspecified (02/02/22) Abnormal posture (02/02/22) History of falling (02/02/22) Physical Therapy Treatment Note PT-OP-A Visit Information Start: 01/12/22 17:31 Freq: Status: Active Protocol: Document 02/02/22 14:30 DCW (Rec: 02/02/22 15:12 DCW [id number]) Out-Patient Physical Therapy Visit Information Visit Information Visit Type Treatment Note Visit Start Time 14:30 Visit Stop Time 15:15 Total Visit Minutes 45 Visit Number 7 Number of SPACE PHYSICIST Visits 0 Evaluation Information Evaluation Date 01/12/22 PT-OP-B Current Condition Start: 01/12/22 17:31 Freq: Status: Active Protocol: Document 01/12/22 11:15 DCW (Rec: 01/13/22 15:32 DCW [id number]) Current Condition History of Current Condition Onset Date Multi-year history Current Complaints Back pain, decreased gait tolerance, difficulty lifting, decreased balance History of Current Condition Pt is a 66 year old male presenting with a multi-year history of low back pain. 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 Notes it has worsened over the last ~10 years, to the point now where he has pain with any extended standing, walking, or lifting. Pt notes he doesn't really have any difficulty when sitting or lying down, only standing. Also notes he has noticed worsening balance, has fallen a few times in the last couple months, typically when walking down hill, he feels like he gets moving too quickly forward and loses control. Treatment Goals Patient/Caregiver Goals Pt's goal is to improve his standing and walking tolerance , as well as improve his balance PT-OP-C Subjective Start: 01/12/22 17:31 Freq: Status: Active Protocol: Document 02/02/22 14:30 DCW (Rec: 02/02/22 15:12 DCW [id number]) OP-PT Subjective Patient Comments Patient Comments Pt reports he is a little better today. PT-OP-E Functional Tests Start: 01/12/22 17:36 Freq: Status: Active Protocol: Document 01/12/22 11:15 DCW (Rec: 01/12/22 17:37 DCW [id number]) Functional Tests Dynamic Gait Index (DGI) Score 18/24 DGI Impairment Rating 20 to <40% Impaired (Score 15- 19) PT-OP-F Manual Assessment Start: 01/12/22 17:39 Freq: Status: Active Protocol: Document 01/12/22 11:15 DCW (Rec: 01/12/22 17:41 DCW [id number]) Manual Assessments Joint Mobility Assessment Joint Mobility Assessment Lumbar vertebral hypomobility, limited P->A motion during attempted mobilizations PT-OP-G Mobility & Gait Start: 01/12/22 17:36 Freq: Status: Active Protocol: Document 01/12/22 11:15 DCW (Rec: 01/12/22 17:39 DCW [id number]) OP Gait Assessment Comments Gait Comments Pt shuffles feet with nearly every step, due to forward weight shift, displays limited heel strike, mainly touch down phase begins entirely on balls of feet. PT-OP-J Posture/Palpation/Skin Start: 01/12/22 17:31 Freq: Status: Active Protocol: Document 01/12/22 11:15 DCW (Rec: 01/12/22 17:36 DCW [id number]) Posture Evaluation Position Standing Evaluation View Lateral Head/C-Spine Posture Flexed T-Spine Posture Increased Kyphosis L-Spine Posture Increased Lordosis Pelvis Posture Anteriorly Tilted Weight Distribution Weight Shifted Anterior Comments Posture Comments Pt stands with weight shifted forward over his feet, pelvis centered over his toes, and then show excessive lumbar lordosis to lean slightly back , and excessive thoracic kyphosis to return to forward lean. Pt very resistant to attempts to correct posture, will not allow himself to lean back. PT-OP-K Range of Motion Start: 01/12/22 17:31 Freq: Status: Active Protocol: Document 01/12/22 11:15 DCW (Rec: 01/12/22 17:43 DCW [id number]) Lumbar Spine Range of Motion Lumbar Spine Active Degrees Testing Position Standing Flexion 50 Extension 20 Lateral Flexion Left 47 Lateral Flexion Right 47 Comments Lateral flexion measured in cm from fingertips to floor PT-OP-L Special Tests Start: 01/12/22 17:55 Freq: Status: Active Protocol: Document 01/12/22 11:15 DCW (Rec: 01/13/22 15:18 DCW [id number]) Special Tests Lumbar Spine Special Tests Lateral SI Compression Test Results Negative ELIZABET Test Results Negative A-P Shearing Test Results Negative Compression Test Results Negative Straight Leg Raise Test Results Negative Slump Test Results Negative PT-OP-M Strength Start: 01/12/22 17:31 Freq: Status: Active Protocol: Document 01/12/22 11:15 DCW (Rec: 01/12/22 17:43 DCW [id number]) Hip Strength Hip Manual Muscle Testing Right Flexion (L2) 5 Normal Abduction 5 Normal Adduction 5 Normal External Rotation 5 Normal Internal Rotation 5 Normal Left Flexion (L2) 5 Normal Abduction 5 Normal Adduction 5 Normal External Rotation 5 Normal Internal Rotation 5 Normal Knee Strength Knee Manual Muscle Testing Right Flexion (S2) 5 Normal Extension (L3) 5 Normal Left Flexion (S2) 5 Normal Extension (L3) 5 Normal Ankle/Foot Strength Ankle and Foot Manual Muscle Testing Right Dorsiflexion (L4) 5 Normal Plantarflexion (S1) 5 Normal Left Dorsiflexion (L4) 5 Normal Plantarflexion (S1) 5 Normal PT-OP-Q Treatments Start: 01/12/22 17:31 Freq: Status: Active Protocol: Document 02/02/22 14:30 DCW (Rec: 02/02/22 15:12 DCW [id number]) Cardio Equipment Recumbent Elliptical (Biodex) Duration (Minutes) 5 Resistance 6 Seat Position 10 Gym Equipment Therapeutic Ball supine Exercise Details LTR, Resisted hip flexion Ball Size/Color Red - 55 cm Lv 3 T-band (hip flexion) Body Position Supine Therapeutic Exercises Standing Exercises band walk Standing Exercise Name R and L- PT only for now Resistance R TB at ankles- close SBA Equipment Used rail PRN, LOB to R going R x1 CG recovery Reps/Minutes 20 ft x2 laps Comments cued COG over FADY (front foot and heels). Manual Therapy Treatment Soft Tissue Mobilization LB Body Location B paraspinals & QL Mobilization Type Rolling,Strumming,Sustained Pressure Intensity/Depth Moderate Body Position Sidelying Neuro Re-Education Treatment Balance Activities SLS Surface Solid Equipment single hand on bar Comments CGA; Mary as pt tried to let go of bar hurdles Details fwd Surface firm> oval cushions Equipment in // bars Reps/Duration 3 laps firm CG- SBA, 2 laps oval CG- Min A Comments step to>receiprocal stepping > oval cushions (very challenging, LOB Mary and // bars recover) *Cued slow pacing quiet stepping, improved stance time with core/ hip abd fac/ alighnment. PT-OP-T Assessment and Plan Start: 01/12/22 17:31 Freq: Status: Active Protocol: Document 02/02/22 14:30 DCW (Rec: 02/02/22 15:12 DCW [id number]) Physical Therapy Assessment Impairments Impairments Functional Activities, Functional Mobility,Gait, Posture Other Concerns Fall Risk Yes, per DGI () and falls history Goals Three Impairment Pt at increased falls risk, per DGI score () Half-Way Goal (LTG) Pt to increased DGI score by at least three points to to demonstrate decreased falls risk LTG Duration 03/12/22 Two Impairment Pt stands with a forward weight shift onto the balls of his feet Half-Way Goal (LTG) Pt to stand with proper posture 80% of the time with no verbal or tactile cues or corrections LTG Duration 03/12/22 One Impairment Pt does not have an appropriate home exercise program Short Term Goal (STG) Pt to be independent and compliant with an appropriate HEP STG Duration 02/09/22 Assessment Summary Assessment Posture improving with verbal cues, but when walking into the clinic from the parking lot, pt still displays fairly poor posture and forward weight-shift. Physical Therapy Plan Frequency and Duration Frequency of Treatment 2x/Week Duration of Treatment Two months Plan of Care Start Date 01/12/22 Plan of Care End Date 03/12/22 Therapeutic Interventions Therapeutic Interventions Aquatic Therapy,Balance Training,Joint Mobilizations, Manual Therapy,Neuromuscular Re-education,Patient/Caregiver Education,Self-Care/Home Management,Soft Tissue Mobilization,Therapeutic Exercises Modalities Cold Pack/Ice Massage,Electric Stimulation,Hot Packs, Ultrasound Next Visit Focus/Plan Next Note Type Treatment Note Next Visit Plan Recheck paloff press for quality from if add to HEP, continue sport cord, band walk for safety if can add to HEP. POC: Posture training, lumbar joint mobilizations
--- NOTE | 2022-02-07 14:30 | PT.OTN ---
Current Diagnoses Other chronic pain (02/07/22) Postural kyphosis, thoracic region (02/07/22) Low back pain, unspecified (02/07/22) Abnormal posture (02/07/22) History of falling (02/07/22) Physical Therapy Treatment Note PT-OP-A Visit Information Start: 01/12/22 17:31 Freq: Status: Active Protocol: Document 02/07/22 13:45 DCW (Rec: 02/07/22 14:30 DCW [id number]) Out-Patient Physical Therapy Visit Information Visit Information Visit Type Treatment Note Visit Start Time 13:45 Visit Stop Time 14:30 Total Visit Minutes 45 Visit Number 8 Number of STAMPS OR COINS SALESPERSON Visits 0 Evaluation Information Evaluation Date 01/12/22 PT-OP-B Current Condition Start: 01/12/22 17:31 Freq: Status: Active Protocol: Document 01/12/22 11:15 DCW (Rec: 01/13/22 15:32 DCW [id number]) Current Condition History of Current Condition Onset Date Multi-year history Current Complaints Back pain, decreased gait tolerance, difficulty lifting, decreased balance History of Current Condition Pt is a 66 year old male presenting with a multi-year history of low back pain. 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 Notes it has worsened over the last ~10 years, to the point now where he has pain with any extended standing, walking, or lifting. Pt notes he doesn't really have any difficulty when sitting or lying down, only standing. Also notes he has noticed worsening balance, has fallen a few times in the last couple months, typically when walking down hill, he feels like he gets moving too quickly forward and loses control. Treatment Goals Patient/Caregiver Goals Pt's goal is to improve his standing and walking tolerance , as well as improve his balance PT-OP-C Subjective Start: 01/12/22 17:31 Freq: Status: Active Protocol: Document 02/07/22 13:45 DCW (Rec: 02/07/22 14:30 DCW [id number]) OP-PT Subjective Patient Comments Patient Comments Pt feels he has gotten slightly better overall. PT-OP-E Functional Tests Start: 01/12/22 17:36 Freq: Status: Active Protocol: Document 01/12/22 11:15 DCW (Rec: 01/12/22 17:37 DCW [id number]) Functional Tests Dynamic Gait Index (DGI) Score 18/24 DGI Impairment Rating 20 to <40% Impaired (Score 15- 19) PT-OP-F Manual Assessment Start: 01/12/22 17:39 Freq: Status: Active Protocol: Document 01/12/22 11:15 DCW (Rec: 01/12/22 17:41 DCW [id number]) Manual Assessments Joint Mobility Assessment Joint Mobility Assessment Lumbar vertebral hypomobility, limited P->A motion during attempted mobilizations PT-OP-G Mobility & Gait Start: 01/12/22 17:36 Freq: Status: Active Protocol: Document 01/12/22 11:15 DCW (Rec: 01/12/22 17:39 DCW [id number]) OP Gait Assessment Comments Gait Comments Pt shuffles feet with nearly every step, due to forward weight shift, displays limited heel strike, mainly touch down phase begins entirely on balls of feet. PT-OP-J Posture/Palpation/Skin Start: 01/12/22 17:31 Freq: Status: Active Protocol: Document 01/12/22 11:15 DCW (Rec: 01/12/22 17:36 DCW [id number]) Posture Evaluation Position Standing Evaluation View Lateral Head/C-Spine Posture Flexed T-Spine Posture Increased Kyphosis L-Spine Posture Increased Lordosis Pelvis Posture Anteriorly Tilted Weight Distribution Weight Shifted Anterior Comments Posture Comments Pt stands with weight shifted forward over his feet, pelvis centered over his toes, and then show excessive lumbar lordosis to lean slightly back , and excessive thoracic kyphosis to return to forward lean. Pt very resistant to attempts to correct posture, will not allow himself to lean back. PT-OP-K Range of Motion Start: 01/12/22 17:31 Freq: Status: Active Protocol: Document 01/12/22 11:15 DCW (Rec: 01/12/22 17:43 DCW [id number]) Lumbar Spine Range of Motion Lumbar Spine Active Degrees Testing Position Standing Flexion 50 Extension 20 Lateral Flexion Left 47 Lateral Flexion Right 47 Comments Lateral flexion measured in cm from fingertips to floor PT-OP-L Special Tests Start: 01/12/22 17:55 Freq: Status: Active Protocol: Document 01/12/22 11:15 DCW (Rec: 01/13/22 15:18 DCW [id number]) Special Tests Lumbar Spine Special Tests Lateral SI Compression Test Results Negative ELIZABET Test Results Negative A-P Shearing Test Results Negative Compression Test Results Negative Straight Leg Raise Test Results Negative Slump Test Results Negative PT-OP-M Strength Start: 01/12/22 17:31 Freq: Status: Active Protocol: Document 01/12/22 11:15 DCW (Rec: 01/12/22 17:43 DCW [id number]) Hip Strength Hip Manual Muscle Testing Right Flexion (L2) 5 Normal Abduction 5 Normal Adduction 5 Normal External Rotation 5 Normal Internal Rotation 5 Normal Left Flexion (L2) 5 Normal Abduction 5 Normal Adduction 5 Normal External Rotation 5 Normal Internal Rotation 5 Normal Knee Strength Knee Manual Muscle Testing Right Flexion (S2) 5 Normal Extension (L3) 5 Normal Left Flexion (S2) 5 Normal Extension (L3) 5 Normal Ankle/Foot Strength Ankle and Foot Manual Muscle Testing Right Dorsiflexion (L4) 5 Normal Plantarflexion (S1) 5 Normal Left Dorsiflexion (L4) 5 Normal Plantarflexion (S1) 5 Normal PT-OP-Q Treatments Start: 01/12/22 17:31 Freq: Status: Active Protocol: Document 02/07/22 13:45 DCW (Rec: 02/07/22 14:30 DCW [id number]) Cardio Equipment Recumbent Elliptical (Biodex) Duration (Minutes) 5 Resistance 6 Seat Position 10 Gym Equipment Therapeutic Ball supine Exercise Details LTR, Resisted hip flexion Ball Size/Color Red - 55 cm Lv 3 T-band (hip flexion) Body Position Supine Therapeutic Exercises Supine Exercises 5 Supine Exercise Name PPT /c TrA/Air bicycle 4 Supine Exercise Name Bridging /c marching 3 Supine Exercise Name PPT /c TrA/SLR 2 Supine Exercise Name PPT /c TrA/Marching 1 Supine Exercise Name PPT /c TrA Reps/Minutes 5 hold x10 Manual Therapy Treatment Soft Tissue Mobilization LB Body Location B paraspinals & QL Mobilization Type Rolling,Strumming,Sustained Pressure Intensity/Depth Moderate Body Position Sidelying PT-OP-T Assessment and Plan Start: 01/12/22 17:31 Freq: Status: Active Protocol: Document 02/07/22 13:45 DCW (Rec: 02/07/22 14:30 DCW [id number]) Physical Therapy Assessment Impairments Impairments Functional Activities, Functional Mobility,Gait, Posture Other Concerns Fall Risk Yes, per DGI () and falls history Goals Three Impairment Pt at increased falls risk, per DGI score () Retirement Goal (LTG) Pt to increased DGI score by at least three points to to demonstrate decreased falls risk LTG Duration 03/12/22 Two Impairment Pt stands with a forward weight shift onto the balls of his feet Cascade Operator Goal (LTG) Pt to stand with proper posture 80% of the time with no verbal or tactile cues or corrections LTG Duration 03/12/22 One Impairment Pt does not have an appropriate home exercise program Short Term Goal (STG) Pt to be independent and compliant with an appropriate HEP STG Duration 02/09/22 Assessment Summary Assessment Pt tolerating treatment well, continues to have trouble with standing forward on the balls of his feet, shuffling during gait. Physical Therapy Plan Frequency and Duration Frequency of Treatment 2x/Week Duration of Treatment Two months Plan of Care Start Date 01/12/22 Plan of Care End Date 03/12/22 Therapeutic Interventions Therapeutic Interventions Aquatic Therapy,Balance Training,Joint Mobilizations, Manual Therapy,Neuromuscular Re-education,Patient/Caregiver Education,Self-Care/Home Management,Soft Tissue Mobilization,Therapeutic Exercises Modalities Cold Pack/Ice Massage,Electric Stimulation,Hot Packs, Ultrasound Next Visit Focus/Plan Next Note Type Treatment Note Next Visit Plan Recheck paloff press for quality from if add to HEP, continue sport cord, band walk for safety if can add to HEP. POC: Posture training, lumbar joint mobilizations
--- NOTE | 2022-02-09 14:47 | PT.OTN ---
Current Diagnoses Other chronic pain (02/09/22) Postural kyphosis, thoracic region (02/09/22) Low back pain, unspecified (02/09/22) Abnormal posture (02/09/22) History of falling (02/09/22) Physical Therapy Treatment Note PT-OP-A Visit Information Start: 01/12/22 17:31 Freq: Status: Active Protocol: Document 02/09/22 13:45 DCW (Rec: 02/09/22 14:47 DCW [id number]) Out-Patient Physical Therapy Visit Information Visit Information Visit Type Treatment Note Visit Start Time 13:45 Visit Stop Time 14:30 Total Visit Minutes 45 Visit Number 9 Number of KENO DEALER Visits 0 Evaluation Information Evaluation Date 01/12/22 PT-OP-B Current Condition Start: 01/12/22 17:31 Freq: Status: Active Protocol: Document 01/12/22 11:15 DCW (Rec: 01/13/22 15:32 DCW [id number]) Current Condition History of Current Condition Onset Date Multi-year history Current Complaints Back pain, decreased gait tolerance, difficulty lifting, decreased balance History of Current Condition Pt is a 66 year old male presenting with a multi-year history of low back pain. 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 Notes it has worsened over the last ~10 years, to the point now where he has pain with any extended standing, walking, or lifting. Pt notes he doesn't really have any difficulty when sitting or lying down, only standing. Also notes he has noticed worsening balance, has fallen a few times in the last couple months, typically when walking down hill, he feels like he gets moving too quickly forward and loses control. Treatment Goals Patient/Caregiver Goals Pt's goal is to improve his standing and walking tolerance , as well as improve his balance PT-OP-C Subjective Start: 01/12/22 17:31 Freq: Status: Active Protocol: Document 02/09/22 13:45 DCW (Rec: 02/09/22 14:47 DCW [id number]) OP-PT Subjective Patient Comments Patient Comments Pt reports he was pretty sore following last appointment, but then the next day, significantly better. Notes he was able to go for a walk last night with no pain at all . PT-OP-E Functional Tests Start: 01/12/22 17:36 Freq: Status: Active Protocol: Document 01/12/22 11:15 DCW (Rec: 01/12/22 17:37 DCW [id number]) Functional Tests Dynamic Gait Index (DGI) Score 18/24 DGI Impairment Rating 20 to <40% Impaired (Score 15- 19) PT-OP-F Manual Assessment Start: 01/12/22 17:39 Freq: Status: Active Protocol: Document 01/12/22 11:15 DCW (Rec: 01/12/22 17:41 DCW [id number]) Manual Assessments Joint Mobility Assessment Joint Mobility Assessment Lumbar vertebral hypomobility, limited P->A motion during attempted mobilizations PT-OP-G Mobility & Gait Start: 01/12/22 17:36 Freq: Status: Active Protocol: Document 01/12/22 11:15 DCW (Rec: 01/12/22 17:39 DCW [id number]) OP Gait Assessment Comments Gait Comments Pt shuffles feet with nearly every step, due to forward weight shift, displays limited heel strike, mainly touch down phase begins entirely on balls of feet. PT-OP-J Posture/Palpation/Skin Start: 01/12/22 17:31 Freq: Status: Active Protocol: Document 01/12/22 11:15 DCW (Rec: 01/12/22 17:36 DCW [id number]) Posture Evaluation Position Standing Evaluation View Lateral Head/C-Spine Posture Flexed T-Spine Posture Increased Kyphosis L-Spine Posture Increased Lordosis Pelvis Posture Anteriorly Tilted Weight Distribution Weight Shifted Anterior Comments Posture Comments Pt stands with weight shifted forward over his feet, pelvis centered over his toes, and then show excessive lumbar lordosis to lean slightly back , and excessive thoracic kyphosis to return to forward lean. Pt very resistant to attempts to correct posture, will not allow himself to lean back. PT-OP-K Range of Motion Start: 01/12/22 17:31 Freq: Status: Active Protocol: Document 01/12/22 11:15 DCW (Rec: 01/12/22 17:43 DCW [id number]) Lumbar Spine Range of Motion Lumbar Spine Active Degrees Testing Position Standing Flexion 50 Extension 20 Lateral Flexion Left 47 Lateral Flexion Right 47 Comments Lateral flexion measured in cm from fingertips to floor PT-OP-L Special Tests Start: 01/12/22 17:55 Freq: Status: Active Protocol: Document 01/12/22 11:15 DCW (Rec: 01/13/22 15:18 DCW [id number]) Special Tests Lumbar Spine Special Tests Lateral SI Compression Test Results Negative ELIZABET Test Results Negative A-P Shearing Test Results Negative Compression Test Results Negative Straight Leg Raise Test Results Negative Slump Test Results Negative PT-OP-M Strength Start: 01/12/22 17:31 Freq: Status: Active Protocol: Document 01/12/22 11:15 DCW (Rec: 01/12/22 17:43 DCW [id number]) Hip Strength Hip Manual Muscle Testing Right Flexion (L2) 5 Normal Abduction 5 Normal Adduction 5 Normal External Rotation 5 Normal Internal Rotation 5 Normal Left Flexion (L2) 5 Normal Abduction 5 Normal Adduction 5 Normal External Rotation 5 Normal Internal Rotation 5 Normal Knee Strength Knee Manual Muscle Testing Right Flexion (S2) 5 Normal Extension (L3) 5 Normal Left Flexion (S2) 5 Normal Extension (L3) 5 Normal Ankle/Foot Strength Ankle and Foot Manual Muscle Testing Right Dorsiflexion (L4) 5 Normal Plantarflexion (S1) 5 Normal Left Dorsiflexion (L4) 5 Normal Plantarflexion (S1) 5 Normal PT-OP-Q Treatments Start: 01/12/22 17:31 Freq: Status: Active Protocol: Document 02/09/22 13:45 DCW (Rec: 02/09/22 14:47 DCW [id number]) Cardio Equipment Recumbent Elliptical (Biodex) Duration (Minutes) 5 Resistance 6 Seat Position 10 Gym Equipment Cable Column (Body Solid) Pallof Press Resistance #3 T-band x12 reps R and L Shuttle Recovery Unilateral Squats Details TrA hold Resistance 37# Bilateral Squats Details TrA hold Resistance 75# Therapeutic Ball supine Exercise Details LTR, Bridging, Resisted hip flexion Ball Size/Color Red - 55 cm Lv 3 T-band (hip flexion) Body Position Supine Manual Therapy Treatment Soft Tissue Mobilization LB Body Location B paraspinals & QL Mobilization Type Rolling,Strumming,Sustained Pressure Intensity/Depth Moderate Body Position Sidelying Neuro Re-Education Treatment Balance Activities hurdles Details Fwd Equipment CGA->Mary PT-OP-T Assessment and Plan Start: 01/12/22 17:31 Freq: Status: Active Protocol: Document 02/09/22 13:45 DCW (Rec: 02/09/22 14:47 DCW [id number]) Physical Therapy Assessment Impairments Impairments Functional Activities, Functional Mobility,Gait, Posture Other Concerns Fall Risk Yes, per DGI () and falls history Goals Three Impairment Pt at increased falls risk, per DGI score () [facility] Goal (LTG) Pt to increased DGI score by at least three points to to demonstrate decreased falls risk LTG Duration 03/12/22 Two Impairment Pt stands with a forward weight shift onto the balls of his feet Liquified Natural Gas Technician Goal (LTG) Pt to stand with proper posture 80% of the time with no verbal or tactile cues or corrections LTG Duration 03/12/22 One Impairment Pt does not have an appropriate home exercise program Short Term Goal (STG) Pt to be independent and compliant with an appropriate HEP STG Duration 02/09/22 Assessment Summary Assessment Pt doing better with lumbar mobility and stability, still struggles with posture and forward weight shift. Physical Therapy Plan Frequency and Duration Frequency of Treatment 2x/Week Duration of Treatment Two months Plan of Care Start Date 01/12/22 Plan of Care End Date 03/12/22 Therapeutic Interventions Therapeutic Interventions Aquatic Therapy,Balance Training,Joint Mobilizations, Manual Therapy,Neuromuscular Re-education,Patient/Caregiver Education,Self-Care/Home Management,Soft Tissue Mobilization,Therapeutic Exercises Modalities Cold Pack/Ice Massage,Electric Stimulation,Hot Packs, Ultrasound Next Visit Focus/Plan Next Note Type Treatment Note Next Visit Plan Recheck paloff press for quality from if add to HEP, continue sport cord, band walk for safety if can add to HEP. POC: Posture training, lumbar joint mobilizations
--- NOTE | 2022-02-14 14:30 | PT.OTN ---
Current Diagnoses Other chronic pain (02/14/22) Postural kyphosis, thoracic region (02/14/22) Low back pain, unspecified (02/14/22) Abnormal posture (02/14/22) History of falling (02/14/22) Physical Therapy Treatment Note PT-OP-A Visit Information Start: 01/12/22 17:31 Freq: Status: Active Protocol: Document 02/14/22 13:45 DCW (Rec: 02/14/22 14:30 DCW [id number]) Out-Patient Physical Therapy Visit Information Visit Information Visit Type Treatment Note Visit Start Time 13:45 Visit Stop Time 14:30 Total Visit Minutes 45 Visit Number 10 Number of NURSE ANESTHETIST Visits 0 Evaluation Information Evaluation Date 01/12/22 PT-OP-B Current Condition Start: 01/12/22 17:31 Freq: Status: Active Protocol: Document 01/12/22 11:15 DCW (Rec: 01/13/22 15:32 DCW [id number]) Current Condition History of Current Condition Onset Date Multi-year history Current Complaints Back pain, decreased gait tolerance, difficulty lifting, decreased balance History of Current Condition Pt is a 66 year old male presenting with a multi-year history of low back pain. 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 Notes it has worsened over the last ~10 years, to the point now where he has pain with any extended standing, walking, or lifting. Pt notes he doesn't really have any difficulty when sitting or lying down, only standing. Also notes he has noticed worsening balance, has fallen a few times in the last couple months, typically when walking down hill, he feels like he gets moving too quickly forward and loses control. Treatment Goals Patient/Caregiver Goals Pt's goal is to improve his standing and walking tolerance , as well as improve his balance PT-OP-C Subjective Start: 01/12/22 17:31 Freq: Status: Active Protocol: Document 02/14/22 13:45 DCW (Rec: 02/14/22 14:30 DCW [id number]) OP-PT Subjective Patient Comments Patient Comments Pt reports he has been having less constant symptoms, he is able to stand for longer periods of time. PT-OP-E Functional Tests Start: 01/12/22 17:36 Freq: Status: Active Protocol: Document 01/12/22 11:15 DCW (Rec: 01/12/22 17:37 DCW [id number]) Functional Tests Dynamic Gait Index (DGI) Score 18/24 DGI Impairment Rating 20 to <40% Impaired (Score 15- 19) PT-OP-F Manual Assessment Start: 01/12/22 17:39 Freq: Status: Active Protocol: Document 01/12/22 11:15 DCW (Rec: 01/12/22 17:41 DCW [id number]) Manual Assessments Joint Mobility Assessment Joint Mobility Assessment Lumbar vertebral hypomobility, limited P->A motion during attempted mobilizations PT-OP-G Mobility & Gait Start: 01/12/22 17:36 Freq: Status: Active Protocol: Document 01/12/22 11:15 DCW (Rec: 01/12/22 17:39 DCW [id number]) OP Gait Assessment Comments Gait Comments Pt shuffles feet with nearly every step, due to forward weight shift, displays limited heel strike, mainly touch down phase begins entirely on balls of feet. PT-OP-J Posture/Palpation/Skin Start: 01/12/22 17:31 Freq: Status: Active Protocol: Document 01/12/22 11:15 DCW (Rec: 01/12/22 17:36 DCW [id number]) Posture Evaluation Position Standing Evaluation View Lateral Head/C-Spine Posture Flexed T-Spine Posture Increased Kyphosis L-Spine Posture Increased Lordosis Pelvis Posture Anteriorly Tilted Weight Distribution Weight Shifted Anterior Comments Posture Comments Pt stands with weight shifted forward over his feet, pelvis centered over his toes, and then show excessive lumbar lordosis to lean slightly back , and excessive thoracic kyphosis to return to forward lean. Pt very resistant to attempts to correct posture, will not allow himself to lean back. PT-OP-K Range of Motion Start: 01/12/22 17:31 Freq: Status: Active Protocol: Document 01/12/22 11:15 DCW (Rec: 01/12/22 17:43 DCW [id number]) Lumbar Spine Range of Motion Lumbar Spine Active Degrees Testing Position Standing Flexion 50 Extension 20 Lateral Flexion Left 47 Lateral Flexion Right 47 Comments Lateral flexion measured in cm from fingertips to floor PT-OP-L Special Tests Start: 01/12/22 17:55 Freq: Status: Active Protocol: Document 01/12/22 11:15 DCW (Rec: 01/13/22 15:18 DCW [id number]) Special Tests Lumbar Spine Special Tests Lateral SI Compression Test Results Negative ELIZABET Test Results Negative A-P Shearing Test Results Negative Compression Test Results Negative Straight Leg Raise Test Results Negative Slump Test Results Negative PT-OP-M Strength Start: 01/12/22 17:31 Freq: Status: Active Protocol: Document 01/12/22 11:15 DCW (Rec: 01/12/22 17:43 DCW [id number]) Hip Strength Hip Manual Muscle Testing Right Flexion (L2) 5 Normal Abduction 5 Normal Adduction 5 Normal External Rotation 5 Normal Internal Rotation 5 Normal Left Flexion (L2) 5 Normal Abduction 5 Normal Adduction 5 Normal External Rotation 5 Normal Internal Rotation 5 Normal Knee Strength Knee Manual Muscle Testing Right Flexion (S2) 5 Normal Extension (L3) 5 Normal Left Flexion (S2) 5 Normal Extension (L3) 5 Normal Ankle/Foot Strength Ankle and Foot Manual Muscle Testing Right Dorsiflexion (L4) 5 Normal Plantarflexion (S1) 5 Normal Left Dorsiflexion (L4) 5 Normal Plantarflexion (S1) 5 Normal PT-OP-Q Treatments Start: 01/12/22 17:31 Freq: Status: Active Protocol: Document 02/14/22 13:45 DCW (Rec: 02/14/22 14:30 DCW [id number]) Cardio Equipment Recumbent Elliptical (Biodex) Duration (Minutes) 5 Resistance 6 Seat Position 10 Gym Equipment Shuttle Recovery Unilateral Squats Details TrA hold Resistance 37# Bilateral Squats Details TrA hold Resistance 75# Therapeutic Ball supine Exercise Details LTR, Bridging, Resisted hip flexion Ball Size/Color Red - 55 cm Lv 3 T-band (hip flexion) Body Position Supine Manual Therapy Treatment Soft Tissue Mobilization LB Body Location B paraspinals & QL Mobilization Type Rolling,Strumming,Sustained Pressure Intensity/Depth Moderate Body Position Sidelying Neuro Re-Education Treatment Balance Activities hurdles Details Fwd Equipment CGA->Mary PT-OP-T Assessment and Plan Start: 01/12/22 17:31 Freq: Status: Active Protocol: Document 02/14/22 13:45 DCW (Rec: 02/14/22 14:30 DCW [id number]) Physical Therapy Assessment Impairments Impairments Functional Activities, Functional Mobility,Gait, Posture Other Concerns Fall Risk Yes, per DGI () and falls history Goals Three Impairment Pt at increased falls risk, per DGI score () Respite Worker Goal (LTG) Pt to increased DGI score by at least three points to to demonstrate decreased falls risk LTG Duration 03/12/22 Two Impairment Pt stands with a forward weight shift onto the balls of his feet Fpc Goal (LTG) Pt to stand with proper posture 80% of the time with no verbal or tactile cues or corrections LTG Duration 03/12/22 One Impairment Pt does not have an appropriate home exercise program Short Term Goal (STG) Pt to be independent and compliant with an appropriate HEP STG Duration Met Assessment Summary Assessment Pt showing fairly good improvement overall, improved paraspinal tone, increased standing tolerance. Still struggling with posture and balance Physical Therapy Plan Frequency and Duration Frequency of Treatment 2x/Week Duration of Treatment Two months Plan of Care Start Date 01/12/22 Plan of Care End Date 03/12/22 Therapeutic Interventions Therapeutic Interventions Aquatic Therapy,Balance Training,Joint Mobilizations, Manual Therapy,Neuromuscular Re-education,Patient/Caregiver Education,Self-Care/Home Management,Soft Tissue Mobilization,Therapeutic Exercises Modalities Cold Pack/Ice Massage,Electric Stimulation,Hot Packs, Ultrasound Next Visit Focus/Plan Next Note Type Treatment Note Next Visit Plan Recheck paloff press for quality from if add to HEP, continue sport cord, band walk for safety if can add to HEP. POC: Posture training, lumbar joint mobilizations
--- NOTE | 2022-02-16 14:38 | PT.OTN ---
Current Diagnoses Other chronic pain (02/16/22) Postural kyphosis, thoracic region (02/16/22) Low back pain, unspecified (02/16/22) Abnormal posture (02/16/22) History of falling (02/16/22) Physical Therapy Treatment Note PT-OP-A Visit Information Start: 01/12/22 17:31 Freq: Status: Active Protocol: Document 02/16/22 13:45 DCW (Rec: 02/16/22 14:37 DCW [id number]) Out-Patient Physical Therapy Visit Information Visit Information Visit Type Treatment Note Visit Start Time 13:45 Visit Stop Time 14:30 Total Visit Minutes 45 Visit Number 11 Number of ENERGY DERIVATIVES TRADER Visits 0 Evaluation Information Evaluation Date 01/12/22 PT-OP-B Current Condition Start: 01/12/22 17:31 Freq: Status: Active Protocol: Document 01/12/22 11:15 DCW (Rec: 01/13/22 15:32 DCW [id number]) Current Condition History of Current Condition Onset Date Multi-year history Current Complaints Back pain, decreased gait tolerance, difficulty lifting, decreased balance History of Current Condition Pt is a 66 year old male presenting with a multi-year history of low back pain. 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 Notes it has worsened over the last ~10 years, to the point now where he has pain with any extended standing, walking, or lifting. Pt notes he doesn't really have any difficulty when sitting or lying down, only standing. Also notes he has noticed worsening balance, has fallen a few times in the last couple months, typically when walking down hill, he feels like he gets moving too quickly forward and loses control. Treatment Goals Patient/Caregiver Goals Pt's goal is to improve his standing and walking tolerance , as well as improve his balance PT-OP-C Subjective Start: 01/12/22 17:31 Freq: Status: Active Protocol: Document 02/16/22 13:45 DCW (Rec: 02/16/22 14:37 DCW [id number]) OP-PT Subjective Patient Comments Patient Comments Pt notes his back was awful this morning, but seems to be getting better now. PT-OP-E Functional Tests Start: 01/12/22 17:36 Freq: Status: Active Protocol: Document 01/12/22 11:15 DCW (Rec: 01/12/22 17:37 DCW [id number]) Functional Tests Dynamic Gait Index (DGI) Score 18/24 DGI Impairment Rating 20 to <40% Impaired (Score 15- 19) PT-OP-F Manual Assessment Start: 01/12/22 17:39 Freq: Status: Active Protocol: Document 01/12/22 11:15 DCW (Rec: 01/12/22 17:41 DCW [id number]) Manual Assessments Joint Mobility Assessment Joint Mobility Assessment Lumbar vertebral hypomobility, limited P->A motion during attempted mobilizations PT-OP-G Mobility & Gait Start: 01/12/22 17:36 Freq: Status: Active Protocol: Document 01/12/22 11:15 DCW (Rec: 01/12/22 17:39 DCW [id number]) OP Gait Assessment Comments Gait Comments Pt shuffles feet with nearly every step, due to forward weight shift, displays limited heel strike, mainly touch down phase begins entirely on balls of feet. PT-OP-J Posture/Palpation/Skin Start: 01/12/22 17:31 Freq: Status: Active Protocol: Document 01/12/22 11:15 DCW (Rec: 01/12/22 17:36 DCW [id number]) Posture Evaluation Position Standing Evaluation View Lateral Head/C-Spine Posture Flexed T-Spine Posture Increased Kyphosis L-Spine Posture Increased Lordosis Pelvis Posture Anteriorly Tilted Weight Distribution Weight Shifted Anterior Comments Posture Comments Pt stands with weight shifted forward over his feet, pelvis centered over his toes, and then show excessive lumbar lordosis to lean slightly back , and excessive thoracic kyphosis to return to forward lean. Pt very resistant to attempts to correct posture, will not allow himself to lean back. PT-OP-K Range of Motion Start: 01/12/22 17:31 Freq: Status: Active Protocol: Document 01/12/22 11:15 DCW (Rec: 01/12/22 17:43 DCW [id number]) Lumbar Spine Range of Motion Lumbar Spine Active Degrees Testing Position Standing Flexion 50 Extension 20 Lateral Flexion Left 47 Lateral Flexion Right 47 Comments Lateral flexion measured in cm from fingertips to floor PT-OP-L Special Tests Start: 01/12/22 17:55 Freq: Status: Active Protocol: Document 01/12/22 11:15 DCW (Rec: 01/13/22 15:18 DCW [id number]) Special Tests Lumbar Spine Special Tests Lateral SI Compression Test Results Negative ELIZABET Test Results Negative A-P Shearing Test Results Negative Compression Test Results Negative Straight Leg Raise Test Results Negative Slump Test Results Negative PT-OP-M Strength Start: 01/12/22 17:31 Freq: Status: Active Protocol: Document 01/12/22 11:15 DCW (Rec: 01/12/22 17:43 DCW [id number]) Hip Strength Hip Manual Muscle Testing Right Flexion (L2) 5 Normal Abduction 5 Normal Adduction 5 Normal External Rotation 5 Normal Internal Rotation 5 Normal Left Flexion (L2) 5 Normal Abduction 5 Normal Adduction 5 Normal External Rotation 5 Normal Internal Rotation 5 Normal Knee Strength Knee Manual Muscle Testing Right Flexion (S2) 5 Normal Extension (L3) 5 Normal Left Flexion (S2) 5 Normal Extension (L3) 5 Normal Ankle/Foot Strength Ankle and Foot Manual Muscle Testing Right Dorsiflexion (L4) 5 Normal Plantarflexion (S1) 5 Normal Left Dorsiflexion (L4) 5 Normal Plantarflexion (S1) 5 Normal PT-OP-Q Treatments Start: 01/12/22 17:31 Freq: Status: Active Protocol: Document 02/16/22 13:45 DCW (Rec: 02/16/22 14:37 DCW [id number]) Cardio Equipment Recumbent Elliptical (Biodex) Duration (Minutes) 5 Resistance 6 Seat Position 10 Gym Equipment Shuttle Recovery Unilateral Squats Details TrA hold Resistance 50# Bilateral Squats Details TrA hold Resistance 87# Therapeutic Ball supine Exercise Details LTR, Bridging, Resisted hip flexion Ball Size/Color Red - 55 cm Lv 3 T-band (hip flexion) Body Position Supine Manual Therapy Treatment Soft Tissue Mobilization LB Body Location B paraspinals & QL Mobilization Type Rolling,Strumming,Sustained Pressure Intensity/Depth Moderate Body Position Sidelying Neuro Re-Education Treatment Balance Activities step taps Details alternating Equipment 6 step, //bars Reps/Duration 5# hurdles Details Fwd, Side-stepping Equipment CGA->Mary PT-OP-T Assessment and Plan Start: 01/12/22 17:31 Freq: Status: Active Protocol: Document 02/16/22 13:45 DCW (Rec: 02/16/22 14:37 VIVIANA [id number]) Physical Therapy Assessment Impairments Impairments Functional Activities, Functional Mobility,Gait, Posture Other Concerns Fall Risk Yes, per DGI () and falls history Goals Three Impairment Pt at increased falls risk, per DGI score () Prison Goal (LTG) Pt to increased DGI score by at least three points to to demonstrate decreased falls risk LTG Duration 03/12/22 Two Impairment Pt stands with a forward weight shift onto the balls of his feet Mold Repair Technician Goal (LTG) Pt to stand with proper posture 80% of the time with no verbal or tactile cues or corrections LTG Duration 03/12/22 One Impairment Pt does not have an appropriate home exercise program Short Term Goal (STG) Pt to be independent and compliant with an appropriate HEP STG Duration Met Assessment Summary Assessment Pt struggling more with balance activities today, especially hurdles, but they were performed at the end of the session after pt was already fatigued, which may help explain some of his difficulty. Physical Therapy Plan Frequency and Duration Frequency of Treatment 2x/Week Duration of Treatment Two months Plan of Care Start Date 01/12/22 Plan of Care End Date 03/12/22 Therapeutic Interventions Therapeutic Interventions Aquatic Therapy,Balance Training,Joint Mobilizations, Manual Therapy,Neuromuscular Re-education,Patient/Caregiver Education,Self-Care/Home Management,Soft Tissue Mobilization,Therapeutic Exercises Modalities Cold Pack/Ice Massage,Electric Stimulation,Hot Packs, Ultrasound Next Visit Focus/Plan Next Note Type Treatment Note Next Visit Plan Recheck paloff press for quality from if add to HEP, continue sport cord, band walk for safety if can add to HEP. POC: Posture training, lumbar joint mobilizations
--- NOTE | 2022-02-21 13:45 | PT.OTN ---
Current Diagnoses Other chronic pain (02/21/22) Postural kyphosis, thoracic region (02/21/22) Low back pain, unspecified (02/21/22) Abnormal posture (02/21/22) History of falling (02/21/22) Physical Therapy Treatment Note PT-OP-A Visit Information Start: 01/12/22 17:31 Freq: Status: Active Protocol: Document 02/21/22 13:05 SP (Rec: 02/21/22 13:56 SP [id number]) Out-Patient Physical Therapy Visit Information Visit Information Visit Type Treatment Note Visit Start Time 13:05 Visit Stop Time 13:45 Total Visit Minutes 40 Visit Number 12 Number of CORPORATE GENERAL MANAGER Visits 1 Evaluation Information Evaluation Date 01/12/22 PT-OP-B Current Condition Start: 01/12/22 17:31 Freq: Status: Active Protocol: Document 01/12/22 11:15 DCW (Rec: 01/13/22 15:32 DCW [id number]) Current Condition History of Current Condition Onset Date Multi-year history Current Complaints Back pain, decreased gait tolerance, difficulty lifting, decreased balance History of Current Condition Pt is a 66 year old male presenting with a multi-year history of low back pain. 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 Notes it has worsened over the last ~10 years, to the point now where he has pain with any extended standing, walking, or lifting. Pt notes he doesn't really have any difficulty when sitting or lying down, only standing. Also notes he has noticed worsening balance, has fallen a few times in the last couple months, typically when walking down hill, he feels like he gets moving too quickly forward and loses control. Treatment Goals Patient/Caregiver Goals Pt's goal is to improve his standing and walking tolerance , as well as improve his balance PT-OP-C Subjective Start: 01/12/22 17:31 Freq: Status: Active Protocol: Document 02/21/22 13:05 SP (Rec: 02/21/22 13:56 SP [id number]) OP-PT Subjective Patient Comments Patient Comments Pt reports beter, back not hurting, is ableto walk about 1 miles w/ capsante incline/ declines, notices if wet road notices little balance concerns. PT-OP-E Functional Tests Start: 01/12/22 17:36 Freq: Status: Active Protocol: Document 01/12/22 11:15 DCW (Rec: 01/12/22 17:37 DCW [id number]) Functional Tests Dynamic Gait Index (DGI) Score 18/24 DGI Impairment Rating 20 to <40% Impaired (Score 15- 19) PT-OP-F Manual Assessment Start: 01/12/22 17:39 Freq: Status: Active Protocol: Document 01/12/22 11:15 DCW (Rec: 01/12/22 17:41 DCW [id number]) Manual Assessments Joint Mobility Assessment Joint Mobility Assessment Lumbar vertebral hypomobility, limited P->A motion during attempted mobilizations PT-OP-G Mobility & Gait Start: 01/12/22 17:36 Freq: Status: Active Protocol: Document 01/12/22 11:15 DCW (Rec: 01/12/22 17:39 DCW [id number]) OP Gait Assessment Comments Gait Comments Pt shuffles feet with nearly every step, due to forward weight shift, displays limited heel strike, mainly touch down phase begins entirely on balls of feet. PT-OP-J Posture/Palpation/Skin Start: 01/12/22 17:31 Freq: Status: Active Protocol: Document 01/12/22 11:15 DCW (Rec: 01/12/22 17:36 DCW [id number]) Posture Evaluation Position Standing Evaluation View Lateral Head/C-Spine Posture Flexed T-Spine Posture Increased Kyphosis L-Spine Posture Increased Lordosis Pelvis Posture Anteriorly Tilted Weight Distribution Weight Shifted Anterior Comments Posture Comments Pt stands with weight shifted forward over his feet, pelvis centered over his toes, and then show excessive lumbar lordosis to lean slightly back , and excessive thoracic kyphosis to return to forward lean. Pt very resistant to attempts to correct posture, will not allow himself to lean back. PT-OP-K Range of Motion Start: 01/12/22 17:31 Freq: Status: Active Protocol: Document 01/12/22 11:15 DCW (Rec: 01/12/22 17:43 DCW [id number]) Lumbar Spine Range of Motion Lumbar Spine Active Degrees Testing Position Standing Flexion 50 Extension 20 Lateral Flexion Left 47 Lateral Flexion Right 47 Comments Lateral flexion measured in cm from fingertips to floor PT-OP-L Special Tests Start: 01/12/22 17:55 Freq: Status: Active Protocol: Document 01/12/22 11:15 DCW (Rec: 01/13/22 15:18 DCW [id number]) Special Tests Lumbar Spine Special Tests Lateral SI Compression Test Results Negative ELIZABET Test Results Negative A-P Shearing Test Results Negative Compression Test Results Negative Straight Leg Raise Test Results Negative Slump Test Results Negative PT-OP-M Strength Start: 01/12/22 17:31 Freq: Status: Active Protocol: Document 01/12/22 11:15 DCW (Rec: 01/12/22 17:43 DCW [id number]) Hip Strength Hip Manual Muscle Testing Right Flexion (L2) 5 Normal Abduction 5 Normal Adduction 5 Normal External Rotation 5 Normal Internal Rotation 5 Normal Left Flexion (L2) 5 Normal Abduction 5 Normal Adduction 5 Normal External Rotation 5 Normal Internal Rotation 5 Normal Knee Strength Knee Manual Muscle Testing Right Flexion (S2) 5 Normal Extension (L3) 5 Normal Left Flexion (S2) 5 Normal Extension (L3) 5 Normal Ankle/Foot Strength Ankle and Foot Manual Muscle Testing Right Dorsiflexion (L4) 5 Normal Plantarflexion (S1) 5 Normal Left Dorsiflexion (L4) 5 Normal Plantarflexion (S1) 5 Normal PT-OP-Q Treatments Start: 01/12/22 17:31 Freq: Status: Active Protocol: Document 02/21/22 13:05 SP (Rec: 02/21/22 13:56 SP [id number]) Cardio Equipment Recumbent Elliptical (Biodex) Duration (Minutes) 6 Resistance 6 Seat Position 8 Other 45 RPMs Gym Equipment Cable Column (Body Solid) Pallof Press Details cued tall posture Resistance #3> #4 T-band Reps/Time 3x15 reps each-bilateral Neuro Re-Education Treatment Balance Activities bosu Details single step ups Equipment max pocket setter on stair corner rail Reps/Duration x5 R and L Comments min A, cued foot level with floor, tends to lean back and ankles EV. hurdles Details Fwd Surface receiprocal stepping CGA then added oval green and blue cushions Equipment CGA->ModA Comments x4 laps- decreased R eccentric heel strike and LLE foot clearance bri as laps progressed. PT-OP-T Assessment and Plan Start: 01/12/22 17:31 Freq: Status: Active Protocol: Document 02/21/22 13:05 SP (Rec: 02/21/22 13:56 SP [id number]) Physical Therapy Assessment Goals Three Impairment Pt at increased falls risk, per DGI score () Mcc Goal (LTG) Pt to increased DGI score by at least three points to to demonstrate decreased falls risk 02/21/22: fall risk, no change since initial eval. LTG Duration 03/12/22 Two Impairment Pt stands with a forward weight shift onto the balls of his feet Automobile Wrecker Goal (LTG) Pt to stand with proper posture 80% of the time with no verbal or tactile cues or corrections 02/21/22: progressing: thinks improved 50%. LTG Duration 03/12/22 One Impairment Pt does not have an appropriate home exercise program Short Term Goal (STG) Pt to be independent and compliant with an appropriate HEP STG Duration Met Assessment Summary Assessment Pt worked hard throughout tx, was able to complete forward bri stepping CGA, occasional cues for eccentric heel strike on R, Min- Mod A ( with gait belt) for use cushions and cues for core engagement and slower pacing and pause stability over stance LE before advance next foot. No change in DGI as performed at initial eval. Pt would benefit from continued dynamic gait activities. Physical Therapy Plan Frequency and Duration Frequency of Treatment 2x/Week Duration of Treatment Two months Plan of Care Start Date 01/12/22 Plan of Care End Date 03/12/22 Therapeutic Interventions Therapeutic Interventions Aquatic Therapy,Balance Training,Joint Mobilizations, Manual Therapy,Neuromuscular Re-education,Patient/Caregiver Education,Self-Care/Home Management,Soft Tissue Mobilization,Therapeutic Exercises Modalities Cold Pack/Ice Massage,Electric Stimulation,Hot Packs, Ultrasound Next Visit Focus/Plan Next Note Type Treatment Note Next Visit Plan Add paloff press to HEP, continue sport cord and add step forward, band walk ifsafety can add to HEP. POC: Posture training, lumbar joint mobilizations
--- NOTE | 2022-02-23 14:31 | PT.OTN ---
Current Diagnoses Other chronic pain (02/23/22) Postural kyphosis, thoracic region (02/23/22) Low back pain, unspecified (02/23/22) Abnormal posture (02/23/22) History of falling (02/23/22) Physical Therapy Treatment Note PT-OP-A Visit Information Start: 01/12/22 17:31 Freq: Status: Active Protocol: Document 02/23/22 13:45 DCW (Rec: 02/23/22 14:31 DCW [id number]) Out-Patient Physical Therapy Visit Information Visit Information Visit Type Treatment Note Visit Start Time 13:45 Visit Stop Time 14:30 Total Visit Minutes 45 Visit Number 13 Number of XEROX MACHINE ASSEMBLER Visits 0 Evaluation Information Evaluation Date 01/12/22 PT-OP-B Current Condition Start: 01/12/22 17:31 Freq: Status: Active Protocol: Document 01/12/22 11:15 DCW (Rec: 01/13/22 15:32 DCW [id number]) Current Condition History of Current Condition Onset Date Multi-year history Current Complaints Back pain, decreased gait tolerance, difficulty lifting, decreased balance History of Current Condition Pt is a 66 year old male presenting with a multi-year history of low back pain. 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 Notes it has worsened over the last ~10 years, to the point now where he has pain with any extended standing, walking, or lifting. Pt notes he doesn't really have any difficulty when sitting or lying down, only standing. Also notes he has noticed worsening balance, has fallen a few times in the last couple months, typically when walking down hill, he feels like he gets moving too quickly forward and loses control. Treatment Goals Patient/Caregiver Goals Pt's goal is to improve his standing and walking tolerance , as well as improve his balance PT-OP-C Subjective Start: 01/12/22 17:31 Freq: Status: Active Protocol: Document 02/23/22 13:45 DCW (Rec: 02/23/22 14:31 DCW [id number]) OP-PT Subjective Patient Comments Patient Comments Pt feeling good today, has not felt like his back has flared up recently. PT-OP-E Functional Tests Start: 01/12/22 17:36 Freq: Status: Active Protocol: Document 01/12/22 11:15 DCW (Rec: 01/12/22 17:37 DCW [id number]) Functional Tests Dynamic Gait Index (DGI) Score 18/24 DGI Impairment Rating 20 to <40% Impaired (Score 15- 19) PT-OP-F Manual Assessment Start: 01/12/22 17:39 Freq: Status: Active Protocol: Document 01/12/22 11:15 DCW (Rec: 01/12/22 17:41 DCW [id number]) Manual Assessments Joint Mobility Assessment Joint Mobility Assessment Lumbar vertebral hypomobility, limited P->A motion during attempted mobilizations PT-OP-G Mobility & Gait Start: 01/12/22 17:36 Freq: Status: Active Protocol: Document 01/12/22 11:15 DCW (Rec: 01/12/22 17:39 DCW [id number]) OP Gait Assessment Comments Gait Comments Pt shuffles feet with nearly every step, due to forward weight shift, displays limited heel strike, mainly touch down phase begins entirely on balls of feet. PT-OP-J Posture/Palpation/Skin Start: 01/12/22 17:31 Freq: Status: Active Protocol: Document 01/12/22 11:15 DCW (Rec: 01/12/22 17:36 DCW [id number]) Posture Evaluation Position Standing Evaluation View Lateral Head/C-Spine Posture Flexed T-Spine Posture Increased Kyphosis L-Spine Posture Increased Lordosis Pelvis Posture Anteriorly Tilted Weight Distribution Weight Shifted Anterior Comments Posture Comments Pt stands with weight shifted forward over his feet, pelvis centered over his toes, and then show excessive lumbar lordosis to lean slightly back , and excessive thoracic kyphosis to return to forward lean. Pt very resistant to attempts to correct posture, will not allow himself to lean back. PT-OP-K Range of Motion Start: 01/12/22 17:31 Freq: Status: Active Protocol: Document 01/12/22 11:15 DCW (Rec: 01/12/22 17:43 DCW [id number]) Lumbar Spine Range of Motion Lumbar Spine Active Degrees Testing Position Standing Flexion 50 Extension 20 Lateral Flexion Left 47 Lateral Flexion Right 47 Comments Lateral flexion measured in cm from fingertips to floor PT-OP-L Special Tests Start: 01/12/22 17:55 Freq: Status: Active Protocol: Document 01/12/22 11:15 DCW (Rec: 01/13/22 15:18 DCW [id number]) Special Tests Lumbar Spine Special Tests Lateral SI Compression Test Results Negative ELIZABET Test Results Negative A-P Shearing Test Results Negative Compression Test Results Negative Straight Leg Raise Test Results Negative Slump Test Results Negative PT-OP-M Strength Start: 01/12/22 17:31 Freq: Status: Active Protocol: Document 01/12/22 11:15 DCW (Rec: 01/12/22 17:43 DCW [id number]) Hip Strength Hip Manual Muscle Testing Right Flexion (L2) 5 Normal Abduction 5 Normal Adduction 5 Normal External Rotation 5 Normal Internal Rotation 5 Normal Left Flexion (L2) 5 Normal Abduction 5 Normal Adduction 5 Normal External Rotation 5 Normal Internal Rotation 5 Normal Knee Strength Knee Manual Muscle Testing Right Flexion (S2) 5 Normal Extension (L3) 5 Normal Left Flexion (S2) 5 Normal Extension (L3) 5 Normal Ankle/Foot Strength Ankle and Foot Manual Muscle Testing Right Dorsiflexion (L4) 5 Normal Plantarflexion (S1) 5 Normal Left Dorsiflexion (L4) 5 Normal Plantarflexion (S1) 5 Normal PT-OP-Q Treatments Start: 01/12/22 17:31 Freq: Status: Active Protocol: Document 02/23/22 13:45 DCW (Rec: 02/23/22 14:31 DCW [id number]) Cardio Equipment Recumbent Elliptical (Biodex) Duration (Minutes) 5 Resistance 6 Seat Position 10 Gym Equipment Therapeutic Ball supine Exercise Details LTR, Bridging, Resisted hip flexion Ball Size/Color Red - 55 cm Lv 3 T-band (hip flexion) Body Position Supine Manual Therapy Treatment Soft Tissue Mobilization LB Body Location B paraspinals & QL Mobilization Type Rolling,Strumming,Sustained Pressure Intensity/Depth Moderate Body Position Sidelying Joint Mobilizations Lumbar Joint Lumbar Direction P->A Grade III Neuro Re-Education Treatment Balance Activities step taps Details alternating Equipment 6 step, //bars Reps/Duration 5# hurdles Details Fwd, Side-stepping Equipment CGA->Mray PT-OP-T Assessment and Plan Start: 01/12/22 17:31 Freq: Status: Active Protocol: Document 02/23/22 13:45 DCW (Rec: 02/23/22 14:31 DCW [id number]) Physical Therapy Assessment Impairments Impairments Functional Activities, Functional Mobility,Gait, Posture Other Concerns Fall Risk Yes, per DGI () and falls history Goals Three Impairment Pt at increased falls risk, per DGI score () Longterm Goal (LTG) Pt to increased DGI score by at least three points to to demonstrate decreased falls risk 02/21/22: fall risk, no change since initial eval. LTG Duration 03/12/22 Two Impairment Pt stands with a forward weight shift onto the balls of his feet Braille Transcriber Goal (LTG) Pt to stand with proper posture 80% of the time with no verbal or tactile cues or corrections 02/21/22: progressing: thinks improved 50%. LTG Duration 03/12/22 One Impairment Pt does not have an appropriate home exercise program Short Term Goal (STG) Pt to be independent and compliant with an appropriate HEP STG Duration Met Assessment Summary Assessment Pt continues to show good improvement with tolerance to activity, mobility, and pain levels. Will likely benefit from continued therapy to return to prior level of function. Physical Therapy Plan Frequency and Duration Frequency of Treatment 2x/Week Duration of Treatment Two months Plan of Care Start Date 01/12/22 Plan of Care End Date 03/12/22 Therapeutic Interventions Therapeutic Interventions Aquatic Therapy,Balance Training,Joint Mobilizations, Manual Therapy,Neuromuscular Re-education,Patient/Caregiver Education,Self-Care/Home Management,Soft Tissue Mobilization,Therapeutic Exercises Modalities Cold Pack/Ice Massage,Electric Stimulation,Hot Packs, Ultrasound Next Visit Focus/Plan Next Note Type Treatment Note Next Visit Plan Add paloff press to HEP, continue sport cord and add step forward, band walk ifsafety can add to HEP. POC: Posture training, lumbar joint mobilizations
--- NOTE | 2022-03-08 17:36 | PT.OTN ---
Current Diagnoses Other chronic pain (03/08/22) Postural kyphosis, thoracic region (03/08/22) Low back pain, unspecified (03/08/22) Abnormal posture (03/08/22) History of falling (03/08/22) Physical Therapy Treatment Note PT-OP-A Visit Information Start: 01/12/22 17:31 Freq: Status: Active Protocol: Document 03/08/22 16:45 DCW (Rec: 03/08/22 17:34 DCW [id number]) Out-Patient Physical Therapy Visit Information Visit Information Visit Type Progress Note Visit Start Time 16:45 Visit Stop Time 17:30 Total Visit Minutes 45 Visit Number 14 Number of INVENTORY CLERK Visits 0 Evaluation Information Evaluation Date 01/12/22 PT-OP-B Current Condition Start: 01/12/22 17:31 Freq: Status: Active Protocol: Document 01/12/22 11:15 DCW (Rec: 01/13/22 15:32 DCW [id number]) Current Condition History of Current Condition Onset Date Multi-year history Current Complaints Back pain, decreased gait tolerance, difficulty lifting, decreased balance History of Current Condition Pt is a 66 year old male presenting with a multi-year history of low back pain. 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 Notes it has worsened over the last ~10 years, to the point now where he has pain with any extended standing, walking, or lifting. Pt notes he doesn't really have any difficulty when sitting or lying down, only standing. Also notes he has noticed worsening balance, has fallen a few times in the last couple months, typically when walking down hill, he feels like he gets moving too quickly forward and loses control. Treatment Goals Patient/Caregiver Goals Pt's goal is to improve his standing and walking tolerance , as well as improve his balance PT-OP-C Subjective Start: 01/12/22 17:31 Freq: Status: Active Protocol: Document 03/08/22 16:45 DCW (Rec: 03/08/22 17:36 DCW [id number]) OP-PT Subjective Patient Comments Patient Comments Pt suffered a fall this past Monday. Reports he was walking down a steep hill, picked up speed, couldn't slow down, and smacked my forehead off the pavement. Pt presents with a black right eye and some mild edema. Notes he was checked out by his PCP , no other injuries. PT-OP-D Balance Start: 03/08/22 17:00 Freq: Status: Active Protocol: Document 03/08/22 16:45 DCW (Rec: 03/08/22 17:08 DCW [id number]) Balance Tests mCTSIB mCTSIB Position 1 30 mCTSIB Position 2 30 mCTSIB Position 3 30 mCTSIB Position 4 17 Functional Reach Functional Reach Test 11 Functional Reach Impairment Rating 0% Impaired (Score 10) Single Limb Standing Single Limb- Right 1 Single Limb- Left <1 Tandem Tandem Standing L forward: 9.16, R forward: 19.03 PT-OP-E Functional Tests Start: 01/12/22 17:36 Freq: Status: Active Protocol: Document 03/08/22 16:45 DCW (Rec: 03/08/22 16:59 DCW [id number]) Functional Tests Dynamic Gait Index (DGI) Score 19/24 DGI Impairment Rating 20 to <40% Impaired (Score 15- 19) PT-OP-F Manual Assessment Start: 01/12/22 17:39 Freq: Status: Active Protocol: Document 03/08/22 16:45 DCW (Rec: 03/08/22 16:59 DCW [id number]) Manual Assessments Joint Mobility Assessment Joint Mobility Assessment Lumbar vertebral hypomobility, limited P->A motion during attempted mobilizations PT-OP-G Mobility & Gait Start: 01/12/22 17:36 Freq: Status: Active Protocol: Document 03/08/22 16:45 DCW (Rec: 03/08/22 16:59 DCW [id number]) OP Gait Assessment Comments Gait Comments Pt shuffles feet with 50% of his steps, due to forward weight shift, displays limited heel strike, mainly touch down phase begins entirely on balls of feet. PT-OP-J Posture/Palpation/Skin Start: 01/12/22 17:31 Freq: Status: Active Protocol: Document 01/12/22 11:15 DCW (Rec: 01/12/22 17:36 DCW [id number]) Posture Evaluation Position Standing Evaluation View Lateral Head/C-Spine Posture Flexed T-Spine Posture Increased Kyphosis L-Spine Posture Increased Lordosis Pelvis Posture Anteriorly Tilted Weight Distribution Weight Shifted Anterior Comments Posture Comments Pt stands with weight shifted forward over his feet, pelvis centered over his toes, and then show excessive lumbar lordosis to lean slightly back , and excessive thoracic kyphosis to return to forward lean. Pt very resistant to attempts to correct posture, will not allow himself to lean back. PT-OP-K Range of Motion Start: 01/12/22 17:31 Freq: Status: Active Protocol: Document 03/08/22 16:45 DCW (Rec: 03/08/22 16:59 DCW [id number]) Lumbar Spine Range of Motion Lumbar Spine Active Degrees Testing Position Standing Flexion 60 Extension 20 Lateral Flexion Left 45 Lateral Flexion Right 44 Comments Lateral flexion measured in cm from fingertips to floor PT-OP-L Special Tests Start: 01/12/22 17:55 Freq: Status: Active Protocol: Document 01/12/22 11:15 DCW (Rec: 01/13/22 15:18 DCW [id number]) Special Tests Lumbar Spine Special Tests Lateral SI Compression Test Results Negative ELIZABET Test Results Negative A-P Shearing Test Results Negative Compression Test Results Negative Straight Leg Raise Test Results Negative Slump Test Results Negative PT-OP-M Strength Start: 01/12/22 17:31 Freq: Status: Active Protocol: Document 01/12/22 11:15 DCW (Rec: 01/12/22 17:43 DCW [id number]) Hip Strength Hip Manual Muscle Testing Right Flexion (L2) 5 Normal Abduction 5 Normal Adduction 5 Normal External Rotation 5 Normal Internal Rotation 5 Normal Left Flexion (L2) 5 Normal Abduction 5 Normal Adduction 5 Normal External Rotation 5 Normal Internal Rotation 5 Normal Knee Strength Knee Manual Muscle Testing Right Flexion (S2) 5 Normal Extension (L3) 5 Normal Left Flexion (S2) 5 Normal Extension (L3) 5 Normal Ankle/Foot Strength Ankle and Foot Manual Muscle Testing Right Dorsiflexion (L4) 5 Normal Plantarflexion (S1) 5 Normal Left Dorsiflexion (L4) 5 Normal Plantarflexion (S1) 5 Normal PT-OP-Q Treatments Start: 01/12/22 17:31 Freq: Status: Active Protocol: Document 03/08/22 16:45 DCW (Rec: 03/08/22 17:34 DCW [id number]) Cardio Equipment Recumbent Elliptical (Biodex) Duration (Minutes) 5 Resistance 6 Seat Position 10 Neuro Re-Education Treatment Balance Activities Balance board Equipment // bars Comments DF/PF, Lateral EO/EC step taps Details alternating Equipment 6 step, //bars Reps/Duration 5# Tandem Stance Details Tandem stance Equipment // Bars SLS Surface Solid Equipment // bars Other Activities 1 Comments Balance testing PT-OP-T Assessment and Plan Start: 01/12/22 17:31 Freq: Status: Active Protocol: Document 03/08/22 16:45 DCW (Rec: 03/08/22 17:34 DCW [id number]) Physical Therapy Assessment Impairments Impairments Functional Activities, Functional Mobility,Gait, Posture Other Concerns Fall Risk Yes, per DGI () and falls history Goals Three Impairment Pt at increased falls risk, per DGI score () Carpet Sewer Goal (LTG) Pt to increased DGI score by at least three points to to demonstrate decreased falls risk 02/21/22: fall risk, no change since initial eval. LTG Duration 05/08/22 Two Impairment Pt stands with a forward weight shift onto the balls of his feet Custodial Goal (LTG) Pt to stand with proper posture 80% of the time with no verbal or tactile cues or corrections 02/21/22: progressing: thinks improved 50%. LTG Duration 05/08/22 One Impairment Pt does not have an appropriate home exercise program Short Term Goal (STG) Pt to be independent and compliant with an appropriate HEP STG Duration Met Assessment Summary Assessment Following recent fall, pt is becoming more concerned regarding his poor balance. Patient and therapist both agree that he would likely benefit from his physical therapy refocusing more on balance, which should, in addition, help both his posture and back pain. Physical Therapy Plan Frequency and Duration Frequency of Treatment 2x/Week Duration of Treatment Two months Plan of Care Start Date 03/08/22 Plan of Care End Date 05/08/22 Therapeutic Interventions Therapeutic Interventions Aquatic Therapy,Balance Training,Joint Mobilizations, Manual Therapy,Neuromuscular Re-education,Patient/Caregiver Education,Self-Care/Home Management,Soft Tissue Mobilization,Therapeutic Exercises Modalities Cold Pack/Ice Massage,Electric Stimulation,Hot Packs, Ultrasound Next Visit Focus/Plan Next Note Type Treatment Note Next Visit Plan Add paloff press to HEP, continue sport cord and add step forward, band walk ifsafety can add to HEP. POC: Posture training, lumbar joint mobilizations
--- NOTE | 2022-03-08 17:37 | PT.OPPOC ---
Physical, Occupational & Speech Therapy At [facility] Current Diagnoses Other chronic pain (03/08/22) Postural kyphosis, thoracic region (03/08/22) Low back pain, unspecified (03/08/22) Abnormal posture (03/08/22) History of falling (03/08/22) Visit Care Team Role Provider Type Raul Urbina DO Attending Provider Physician Family Provider Primary Care Provider Referring Provider Specialty: Family Practice Address: [address] [place] [address], [facility] Email: Plan Of Care PT-OP-T Assessment and Plan Start: 01/12/22 17:31 Freq: Status: Active Protocol: Document 03/08/22 16:45 DCW (Rec: 03/08/22 17:34 DCW [id number]) Physical Therapy Assessment Impairments Impairments Functional Activities, Functional Mobility,Gait, Posture Other Concerns Fall Risk Yes, per DGI () and falls history Goals Three Impairment Pt at increased falls risk, per DGI score () Enroute Controller Goal (LTG) Pt to increased DGI score by at least three points to to demonstrate decreased falls risk 02/21/22: fall risk, no change since initial eval. LTG Duration 05/08/22 Two Impairment Pt stands with a forward weight shift onto the balls of his feet Enroute Controller Goal (LTG) Pt to stand with proper posture 80% of the time with no verbal or tactile cues or corrections 02/21/22: progressing: thinks improved 50%. LTG Duration 05/08/22 One Impairment Pt does not have an appropriate home exercise program Short Term Goal (STG) Pt to be independent and compliant with an appropriate HEP STG Duration Met Assessment Summary Assessment Following recent fall, pt is becoming more concerned regarding his poor balance. Patient and therapist both agree that he would likely benefit from his physical therapy refocusing more on balance, which should, in addition, help both his posture and back pain. Physical Therapy Plan Frequency and Duration Frequency of Treatment 2x/Week Duration of Treatment Two months Plan of Care Start Date 03/08/22 Plan of Care End Date 05/08/22 Therapeutic Interventions Therapeutic Interventions Aquatic Therapy,Balance Training,Joint Mobilizations, Manual Therapy,Neuromuscular Re-education,Patient/Caregiver Education,Self-Care/Home Management,Soft Tissue Mobilization,Therapeutic Exercises Modalities Cold Pack/Ice Massage,Electric Stimulation,Hot Packs, Ultrasound Next Visit Focus/Plan Next Note Type Treatment Note Next Visit Plan Add paloff press to HEP, continue sport cord and add step forward, band walk ifsafety can add to HEP. POC: Posture training, lumbar joint mobilizations Plan of Care Dates Plan of Care Start Date 03/08/22 Plan of Care End Date 05/08/22 Electronically Signed by: Enoch Moyer, PT 03/08/22 7743 If you are in agreement with this Plan of Care, please return a signed and dated copy. I have reviewed this Plan of Care and certify that the skilled therapy services above are required to meet the patient?s needs. Physician Signature Date Printed Name and Credentials Clinical Instructor Signature Printed Name and Credentials
--- NOTE | 2022-03-14 10:29 | PT.OTN ---
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 Notes it has worsened over the last ~10 years, to the point now where he has pain with any extended standing, walking, or lifting. Pt notes he doesn't really have any difficulty when sitting or lying down, only standing. Also notes he has noticed worsening balance, has fallen a few times in the last couple months, typically when walking down hill, he feels like he gets moving too quickly forward and loses control. Treatment Goals Patient/Caregiver Goals Pt's goal is to improve his standing and walking tolerance , as well as improve his balance PT-OP-C Subjective Start: 01/12/22 17:31 Freq: Status: Active Protocol: Document 03/14/22 09:45 DCW (Rec: 03/14/22 10:29 DCW [id number]) OP-PT Subjective Patient Comments Patient Comments Pt notes he recently got back from a business trip to [place]. PT-OP-D Balance Start: 03/08/22 17:00 Freq: Status: Active Protocol: Document 03/08/22 16:45 DCW (Rec: 03/08/22 17:08 DCW [id number]) Balance Tests mCTSIB mCTSIB Position 1 30 mCTSIB Position 2 30 mCTSIB Position 3 30 mCTSIB Position 4 17 Functional Reach Functional Reach Test 11 Functional Reach Impairment Rating 0% Impaired (Score 10) Single Limb Standing Single Limb- Right 1 Single Limb- Left <1 Tandem Tandem Standing L forward: 9.16, R forward: 19.03 PT-OP-E Functional Tests Start: 01/12/22 17:36 Freq: Status: Active Protocol: Document 03/08/22 16:45 DCW (Rec: 03/08/22 16:59 DCW [id number]) Functional Tests Dynamic Gait Index (DGI) Score 19/24 DGI Impairment Rating 20 to <40% Impaired (Score 15- 19) PT-OP-F Manual Assessment Start: 01/12/22 17:39 Freq: Status: Active Protocol: Document 03/08/22 16:45 DCW (Rec: 03/08/22 16:59 DCW [id number]) Manual Assessments Joint Mobility Assessment Joint Mobility Assessment Lumbar vertebral hypomobility, limited P->A motion during attempted mobilizations PT-OP-G Mobility & Gait Start: 01/12/22 17:36 Freq: Status: Active Protocol: Document 03/08/22 16:45 DCW (Rec: 03/08/22 16:59 DCW [id number]) OP Gait Assessment Comments Gait Comments Pt shuffles feet with 50% of his steps, due to forward weight shift, displays limited heel strike, mainly touch down phase begins entirely on balls of feet. PT-OP-J Posture/Palpation/Skin Start: 01/12/22 17:31 Freq: Status: Active Protocol: Document 01/12/22 11:15 DCW (Rec: 01/12/22 17:36 DCW [id number]) Posture Evaluation Position Standing Evaluation View Lateral Head/C-Spine Posture Flexed T-Spine Posture Increased Kyphosis L-Spine Posture Increased Lordosis Pelvis Posture Anteriorly Tilted Weight Distribution Weight Shifted Anterior Comments Posture Comments Pt stands with weight shifted forward over his feet, pelvis centered over his toes, and then show excessive lumbar lordosis to lean slightly back , and excessive thoracic kyphosis to return to forward lean. Pt very resistant to attempts to correct posture, will not allow himself to lean back. PT-OP-K Range of Motion Start: 01/12/22 17:31 Freq: Status: Active Protocol: Document 03/08/22 16:45 DCW (Rec: 03/08/22 16:59 DCW [id number]) Lumbar Spine Range of Motion Lumbar Spine Active Degrees Testing Position Standing Flexion 60 Extension 20 Lateral Flexion Left 45 Lateral Flexion Right 44 Comments Lateral flexion measured in cm from fingertips to floor PT-OP-L Special Tests Start: 01/12/22 17:55 Freq: Status: Active Protocol: Document 01/12/22 11:15 DCW (Rec: 01/13/22 15:18 DCW [id number]) Special Tests Lumbar Spine Special Tests Lateral SI Compression Test Results Negative ELIZABET Test Results Negative A-P Shearing Test Results Negative Compression Test Results Negative Straight Leg Raise Test Results Negative Slump Test Results Negative PT-OP-M Strength Start: 01/12/22 17:31 Freq: Status: Active Protocol: Document 01/12/22 11:15 DCW (Rec: 01/12/22 17:43 DCW [id number]) Hip Strength Hip Manual Muscle Testing Right Flexion (L2) 5 Normal Abduction 5 Normal Adduction 5 Normal External Rotation 5 Normal Internal Rotation 5 Normal Left Flexion (L2) 5 Normal Abduction 5 Normal Adduction 5 Normal External Rotation 5 Normal Internal Rotation 5 Normal Knee Strength Knee Manual Muscle Testing Right Flexion (S2) 5 Normal Extension (L3) 5 Normal Left Flexion (S2) 5 Normal Extension (L3) 5 Normal Ankle/Foot Strength Ankle and Foot Manual Muscle Testing Right Dorsiflexion (L4) 5 Normal Plantarflexion (S1) 5 Normal Left Dorsiflexion (L4) 5 Normal Plantarflexion (S1) 5 Normal PT-OP-Q Treatments Start: 01/12/22 17:31 Freq: Status: Active Protocol: Document 03/14/22 09:45 DCW (Rec: 03/14/22 10:29 DCW [id number]) Cardio Equipment Recumbent Elliptical (Biodex) Duration (Minutes) 5 Resistance 6 Seat Position 10 Gym Equipment Shuttle Balance red clips Details Red Comments WBOS EO/EC Staggered Stance Neuro Re-Education Treatment Balance Activities Tandem Ambulation Details near rail Amb /c head turns Details Ambulation with head turns step taps Details alternating Equipment 6 step Reps/Duration 5# Tandem Stance Details Tandem stance SLS Surface Solid hurdles Details Hurdles, blue foam, 6 step Equipment CGA->Mary PT-OP-T Assessment and Plan Start: 01/12/22 17:31 Freq: Status: Active Protocol: Document 03/14/22 09:45 DCW (Rec: 03/14/22 10:29 DCW [id number]) Physical Therapy Assessment Impairments Impairments Functional Activities, Functional Mobility,Gait, Posture Other Concerns Fall Risk Yes, per DGI () and falls history Goals Three Impairment Pt at increased falls risk, per DGI score () 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 LTG Duration 05/08/22 Two Impairment Pt stands with a forward weight shift onto the balls of his feet Fci Goal (LTG) Pt to stand with proper posture 80% of the time with no verbal or tactile cues or corrections 02/21/22: progressing: thinks improved 50%. LTG Duration 05/08/22 One Impairment Pt does not have an appropriate home exercise program Short Term Goal (STG) Pt to be independent and compliant with an appropriate HEP STG Duration Met Assessment Summary Assessment Pt still needs fairly consistent reminders to decrease scuffing feet, and verbal cues to correct posture . Physical Therapy Plan Frequency and Duration Frequency of Treatment 2x/Week Duration of Treatment Two months Plan of Care Start Date 03/08/22 Plan of Care End Date 05/08/22 Therapeutic Interventions Therapeutic Interventions Aquatic Therapy,Balance Training,Joint Mobilizations, Manual Therapy,Neuromuscular Re-education,Patient/Caregiver Education,Self-Care/Home Management,Soft Tissue Mobilization,Therapeutic Exercises Modalities Cold Pack/Ice Massage,Electric Stimulation,Hot Packs, Ultrasound Next Visit Focus/Plan Next Note Type Treatment Note Next Visit Plan Add paloff press to HEP, continue sport cord and add step forward, band walk ifsafety can add to HEP. POC: Posture training, lumbar joint mobilizations
--- NOTE | 2022-03-16 14:28 | PT.OTN ---
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 Notes it has worsened over the last ~10 years, to the point now where he has pain with any extended standing, walking, or lifting. Pt notes he doesn't really have any difficulty when sitting or lying down, only standing. Also notes he has noticed worsening balance, has fallen a few times in the last couple months, typically when walking down hill, he feels like he gets moving too quickly forward and loses control. Treatment Goals Patient/Caregiver Goals Pt's goal is to improve his standing and walking tolerance , as well as improve his balance PT-OP-C Subjective Start: 01/12/22 17:31 Freq: Status: Active Protocol: Document 03/16/22 13:49 SP (Rec: 03/16/22 14:33 SP [id number]) OP-PT Subjective Patient Comments Patient Comments Pt states PT focus on balance more lately, no falls but feels off balance, SLS at home very challenging. PT-OP-D Balance Start: 03/08/22 17:00 Freq: Status: Active Protocol: Document 03/08/22 16:45 DCW (Rec: 03/08/22 17:08 DCW [id number]) Balance Tests mCTSIB mCTSIB Position 1 30 mCTSIB Position 2 30 mCTSIB Position 3 30 mCTSIB Position 4 17 Functional Reach Functional Reach Test 11 Functional Reach Impairment Rating 0% Impaired (Score 10) Single Limb Standing Single Limb- Right 1 Single Limb- Left <1 Tandem Tandem Standing L forward: 9.16, R forward: 19.03 PT-OP-E Functional Tests Start: 01/12/22 17:36 Freq: Status: Active Protocol: Document 03/08/22 16:45 DCW (Rec: 03/08/22 16:59 DCW [id number]) Functional Tests Dynamic Gait Index (DGI) Score 19/24 DGI Impairment Rating 20 to <40% Impaired (Score 15- 19) PT-OP-F Manual Assessment Start: 01/12/22 17:39 Freq: Status: Active Protocol: Document 03/08/22 16:45 DCW (Rec: 03/08/22 16:59 DCW [id number]) Manual Assessments Joint Mobility Assessment Joint Mobility Assessment Lumbar vertebral hypomobility, limited P->A motion during attempted mobilizations PT-OP-G Mobility & Gait Start: 01/12/22 17:36 Freq: Status: Active Protocol: Document 03/08/22 16:45 DCW (Rec: 03/08/22 16:59 DCW [id number]) OP Gait Assessment Comments Gait Comments Pt shuffles feet with 50% of his steps, due to forward weight shift, displays limited heel strike, mainly touch down phase begins entirely on balls of feet. PT-OP-J Posture/Palpation/Skin Start: 01/12/22 17:31 Freq: Status: Active Protocol: Document 01/12/22 11:15 DCW (Rec: 01/12/22 17:36 DCW [id number]) Posture Evaluation Position Standing Evaluation View Lateral Head/C-Spine Posture Flexed T-Spine Posture Increased Kyphosis L-Spine Posture Increased Lordosis Pelvis Posture Anteriorly Tilted Weight Distribution Weight Shifted Anterior Comments Posture Comments Pt stands with weight shifted forward over his feet, pelvis centered over his toes, and then show excessive lumbar lordosis to lean slightly back , and excessive thoracic kyphosis to return to forward lean. Pt very resistant to attempts to correct posture, will not allow himself to lean back. PT-OP-K Range of Motion Start: 01/12/22 17:31 Freq: Status: Active Protocol: Document 03/08/22 16:45 DCW (Rec: 03/08/22 16:59 DCW [id number]) Lumbar Spine Range of Motion Lumbar Spine Active Degrees Testing Position Standing Flexion 60 Extension 20 Lateral Flexion Left 45 Lateral Flexion Right 44 Comments Lateral flexion measured in cm from fingertips to floor PT-OP-L Special Tests Start: 01/12/22 17:55 Freq: Status: Active Protocol: Document 01/12/22 11:15 DCW (Rec: 01/13/22 15:18 DCW [id number]) Special Tests Lumbar Spine Special Tests Lateral SI Compression Test Results Negative ELIZABET Test Results Negative A-P Shearing Test Results Negative Compression Test Results Negative Straight Leg Raise Test Results Negative Slump Test Results Negative PT-OP-M Strength Start: 01/12/22 17:31 Freq: Status: Active Protocol: Document 01/12/22 11:15 DCW (Rec: 01/12/22 17:43 DCW [id number]) Hip Strength Hip Manual Muscle Testing Right Flexion (L2) 5 Normal Abduction 5 Normal Adduction 5 Normal External Rotation 5 Normal Internal Rotation 5 Normal Left Flexion (L2) 5 Normal Abduction 5 Normal Adduction 5 Normal External Rotation 5 Normal Internal Rotation 5 Normal Knee Strength Knee Manual Muscle Testing Right Flexion (S2) 5 Normal Extension (L3) 5 Normal Left Flexion (S2) 5 Normal Extension (L3) 5 Normal Ankle/Foot Strength Ankle and Foot Manual Muscle Testing Right Dorsiflexion (L4) 5 Normal Plantarflexion (S1) 5 Normal Left Dorsiflexion (L4) 5 Normal Plantarflexion (S1) 5 Normal PT-OP-Q Treatments Start: 01/12/22 17:31 Freq: Status: Active Protocol: Document 03/16/22 13:49 SP (Rec: 03/16/22 14:33 SP [id number]) Cardio Equipment Recumbent Elliptical (Biodex) Duration (Minutes) 5 Resistance 6 Seat Position 9 Other UEs/LEs 35-40 RPM, total steps 376 Gym Equipment Shuttle Balance red clips Details Red Reps/Duration 8 Comments WBOS EO (NO EC today) Staggered Stance - very shaky, decrease with cues for pelvic under trunk, scap stab and HT to L with RLE forward, unable HT RLE forward Heavier breath. Therapeutic Exercises Sitting Exercises STS Sitting Exercise Name eccentric taps x5 Resistance AROM Equipment Used mesh chair, arms cross chest Reps/Minutes 2x5 Comments cued hip hinge slow eccentric tap Neuro Re-Education Treatment Balance Activities Tandem Ambulation Details hallway rail Surface firm Equipment contact rail PRN Reps/Duration x2 lap 20 ft Comments cued feet apart, shld back/ pelvis underneath Amb /c head turns Details Ambulation with head turns Equipment rail hallway as needed Reps/Duration 80 ft x2 laps Comments cued feet apart, shld back/ pelvis underneath Used metronome 100bpm to assist angella and noted improved wt shift into RLE. Tandem Stance Details NBOS, Stagger, Tandem stance Equipment corner back, chair front (for HEP) Comments NBOS EC 30 s, Stagger head turns slow and hold tandem- challenging cued cued feet apart, shld back/ pelvis underneath-decreased shakiness and improved posture SLS Surface Solid Equipment corner back, chair front Comments very challenging, LOB- improved 2 sec cued feet apart, shld back/ pelvis underneath PT-OP-T Assessment and Plan Start: 01/12/22 17:31 Freq: Status: Active Protocol: Document 03/16/22 13:49 SP (Rec: 03/16/22 14:33 SP [id number]) Physical Therapy Assessment Goals Three Impairment Pt at increased falls risk, per DGI score () Detention Goal (LTG) Pt to increased DGI score by at least three points to to demonstrate decreased falls risk 02/21/22: fall risk, no change since initial eval. LTG Duration 05/08/22 Two Impairment Pt stands with a forward weight shift onto the balls of his feet Detention Goal (LTG) Pt to stand with proper posture 80% of the time with no verbal or tactile cues or corrections 02/21/22: progressing: thinks improved 50%. LTG Duration 05/08/22 One Impairment Pt does not have an appropriate home exercise program Short Term Goal (STG) Pt to be independent and compliant with an appropriate HEP STG Duration Met Assessment Summary Assessment Tx focused on balance and how apply at home back to corner and chair front. Improved better understanding tall posture scap retraction with pelvis underneath body and wt shift forward over BLE. Pt tends to lean into R stronger LE. Improved stability dynamic gait and EC ambulation in hallway contact rail for safety with corrections cued, able wt shift more into RLE with metronome assist 100bpm. Physical Therapy Plan Frequency and Duration Frequency of Treatment 2x/Week Duration of Treatment Two months Plan of Care Start Date 03/08/22 Plan of Care End Date 05/08/22 Therapeutic Interventions Therapeutic Interventions Aquatic Therapy,Balance Training,Joint Mobilizations, Manual Therapy,Neuromuscular Re-education,Patient/Caregiver Education,Self-Care/Home Management,Soft Tissue Mobilization,Therapeutic Exercises Modalities Cold Pack/Ice Massage,Electric Stimulation,Hot Packs, Ultrasound Next Visit Focus/Plan Next Note Type Treatment Note Next Visit Plan Continue balance corner with cues postural COG over FADY and able dynamic gait contact wall for HEP. POC: Posture training, lumbar joint mobilizations
--- NOTE | 2022-03-22 09:45 | PT.OTN ---
Current Diagnoses Other chronic pain (03/22/22) Postural kyphosis, thoracic region (03/22/22) Low back pain, unspecified (03/22/22) Abnormal posture (03/22/22) History of falling (03/22/22) Physical Therapy Treatment Note PT-OP-A Visit Information Start: 01/12/22 17:31 Freq: Status: Active Protocol: Document 03/22/22 09:04 SP (Rec: 03/22/22 09:47 SP [id number]) Out-Patient Physical Therapy Visit Information Visit Information Visit Type Treatment Note Visit Start Time 09:04 Visit Stop Time 09:45 Total Visit Minutes 41 Visit Number 17 Number of SUBSTATION OPERATOR TRANSFORMING Visits 2 Evaluation Information Evaluation Date 01/12/22 PT-OP-B Current Condition Start: 01/12/22 17:31 Freq: Status: Active Protocol: Document 01/12/22 11:15 DCW (Rec: 01/13/22 15:32 DCW [id number]) Current Condition History of Current Condition Onset Date Multi-year history Current Complaints Back pain, decreased gait tolerance, difficulty lifting, decreased balance History of Current Condition Pt is a 66 year old male presenting with a multi-year history of low back pain. 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 Notes it has worsened over the last ~10 years, to the point now where he has pain with any extended standing, walking, or lifting. Pt notes he doesn't really have any difficulty when sitting or lying down, only standing. Also notes he has noticed worsening balance, has fallen a few times in the last couple months, typically when walking down hill, he feels like he gets moving too quickly forward and loses control. Treatment Goals Patient/Caregiver Goals Pt's goal is to improve his standing and walking tolerance , as well as improve his balance PT-OP-C Subjective Start: 01/12/22 17:31 Freq: Status: Active Protocol: Document 03/22/22 09:04 SP (Rec: 03/22/22 09:47 SP [id number]) OP-PT Subjective Patient Comments Patient Comments Pt stated no changes, concerns or improved things to report. PT-OP-D Balance Start: 03/08/22 17:00 Freq: Status: Active Protocol: Document 03/08/22 16:45 DCW (Rec: 03/08/22 17:08 DCW [id number]) Balance Tests mCTSIB mCTSIB Position 1 30 mCTSIB Position 2 30 mCTSIB Position 3 30 mCTSIB Position 4 17 Functional Reach Functional Reach Test 11 Functional Reach Impairment Rating 0% Impaired (Score 10) Single Limb Standing Single Limb- Right 1 Single Limb- Left <1 Tandem Tandem Standing L forward: 9.16, R forward: 19.03 PT-OP-E Functional Tests Start: 01/12/22 17:36 Freq: Status: Active Protocol: Document 03/08/22 16:45 DCW (Rec: 03/08/22 16:59 DCW [id number]) Functional Tests Dynamic Gait Index (DGI) Score 19/24 DGI Impairment Rating 20 to <40% Impaired (Score 15- 19) PT-OP-F Manual Assessment Start: 01/12/22 17:39 Freq: Status: Active Protocol: Document 03/08/22 16:45 DCW (Rec: 03/08/22 16:59 DCW [id number]) Manual Assessments Joint Mobility Assessment Joint Mobility Assessment Lumbar vertebral hypomobility, limited P->A motion during attempted mobilizations PT-OP-G Mobility & Gait Start: 01/12/22 17:36 Freq: Status: Active Protocol: Document 03/08/22 16:45 DCW (Rec: 03/08/22 16:59 DCW [id number]) OP Gait Assessment Comments Gait Comments Pt shuffles feet with 50% of his steps, due to forward weight shift, displays limited heel strike, mainly touch down phase begins entirely on balls of feet. PT-OP-J Posture/Palpation/Skin Start: 01/12/22 17:31 Freq: Status: Active Protocol: Document 01/12/22 11:15 DCW (Rec: 01/12/22 17:36 DCW [id number]) Posture Evaluation Position Standing Evaluation View Lateral Head/C-Spine Posture Flexed T-Spine Posture Increased Kyphosis L-Spine Posture Increased Lordosis Pelvis Posture Anteriorly Tilted Weight Distribution Weight Shifted Anterior Comments Posture Comments Pt stands with weight shifted forward over his feet, pelvis centered over his toes, and then show excessive lumbar lordosis to lean slightly back , and excessive thoracic kyphosis to return to forward lean. Pt very resistant to attempts to correct posture, will not allow himself to lean back. PT-OP-K Range of Motion Start: 01/12/22 17:31 Freq: Status: Active Protocol: Document 03/08/22 16:45 DCW (Rec: 03/08/22 16:59 DCW [id number]) Lumbar Spine Range of Motion Lumbar Spine Active Degrees Testing Position Standing Flexion 60 Extension 20 Lateral Flexion Left 45 Lateral Flexion Right 44 Comments Lateral flexion measured in cm from fingertips to floor PT-OP-L Special Tests Start: 01/12/22 17:55 Freq: Status: Active Protocol: Document 01/12/22 11:15 DCW (Rec: 01/13/22 15:18 DCW [id number]) Special Tests Lumbar Spine Special Tests Lateral SI Compression Test Results Negative ELIZABET Test Results Negative A-P Shearing Test Results Negative Compression Test Results Negative Straight Leg Raise Test Results Negative Slump Test Results Negative PT-OP-M Strength Start: 01/12/22 17:31 Freq: Status: Active Protocol: Document 01/12/22 11:15 DCW (Rec: 01/12/22 17:43 DCW [id number]) Hip Strength Hip Manual Muscle Testing Right Flexion (L2) 5 Normal Abduction 5 Normal Adduction 5 Normal External Rotation 5 Normal Internal Rotation 5 Normal Left Flexion (L2) 5 Normal Abduction 5 Normal Adduction 5 Normal External Rotation 5 Normal Internal Rotation 5 Normal Knee Strength Knee Manual Muscle Testing Right Flexion (S2) 5 Normal Extension (L3) 5 Normal Left Flexion (S2) 5 Normal Extension (L3) 5 Normal Ankle/Foot Strength Ankle and Foot Manual Muscle Testing Right Dorsiflexion (L4) 5 Normal Plantarflexion (S1) 5 Normal Left Dorsiflexion (L4) 5 Normal Plantarflexion (S1) 5 Normal PT-OP-Q Treatments Start: 01/12/22 17:31 Freq: Status: Active Protocol: Document 03/22/22 09:04 SP (Rec: 03/22/22 09:47 SP [id number]) Cardio Equipment Recumbent Elliptical (BiodImproveit! 360) Duration (Minutes) 6 Resistance 6 Seat Position 9 Other UEs/LEs 35-40 RPM, total steps 356 Gym Equipment Shuttle Recovery Unilateral Squats Details TrA hold Resistance 50# Reps/Time 2x10 (alternate BLE) Therapeutic Exercises Sidelying Exercises 3 Sidelying Exercise Name Reverse Clamshell Side bilateral Resistance AROM Reps/Minutes x15 Comments cued stacked hips, slow con/ ecc 2 Sidelying Exercise Name Clamshell Side bilateral Resistance R TB (gave #2 for home) Reps/Minutes x15 Comments cued stacked hips, slow con/ ecc Standing Exercises band walk Standing Exercise Name states does at home. Resistance Lvl 2> #3 TB at ankles- close SBA Equipment Used rail PRN, LOB to R going R x1 CG recovery Reps/Minutes 20 ft x4 laps Comments cued COG over FADY (front foot and heels). Neuro Re-Education Treatment Balance Activities Amb /c head turns Details Ambulation with head turns Equipment rail hallway as needed Reps/Duration 80 ft x2 laps Comments cued feet apart, shld back/ pelvis underneath/ heel toe with core fac and listen to foot clearance. Next time continue to metronome 100bpm to assist angella and noted improved wt shift into RLE with less L lateral lean wt shifts/ more centered. Tandem Stance Details NBOS, Stagger, Tandem stance Equipment corner back, chair front (for HEP) Comments Stagger 30s EC cued shld back/ pelvis underneath/ taller/ breath-decreased shakiness and improved posture tandem 30 s L foot forward, 24s R foot forward. SLS Surface Solid Equipment facing rail, CGA Comments 5s RLE, 10 s LLE w/ opp foot contact stance LE. very challenging LOB lateral rail recovery- shld back/ pelvis underneath, relax shlds w/ core fac. PT-OP-T Assessment and Plan Start: 01/12/22 17:31 Freq: Status: Active Protocol: Document 03/22/22 09:04 SP (Rec: 03/22/22 09:47 SP [id number]) Physical Therapy Assessment Goals Three Impairment Pt at increased falls risk, per DGI score () Industrial Hygiene Manager Goal (LTG) Pt to increased DGI score by at least three points to to demonstrate decreased falls risk 02/21/22: fall risk, no change since initial eval. LTG Duration 05/08/22 Two Impairment Pt stands with a forward weight shift onto the balls of his feet Industrial Hygiene Manager Goal (LTG) Pt to stand with proper posture 80% of the time with no verbal or tactile cues or corrections 02/21/22: progressing: thinks improved 50%. LTG Duration 05/08/22 One Impairment Pt does not have an appropriate home exercise program Short Term Goal (STG) Pt to be independent and compliant with an appropriate HEP STG Duration Met Assessment Summary Assessment Pt improved SLS time and EC stagger this tx post hip strengthening HEP review, foot clearance heel toe with cuing for postural awareness and listen audible foot clearance with posture. Physical Therapy Plan Frequency and Duration Frequency of Treatment 2x/Week Duration of Treatment Two months Plan of Care Start Date 03/08/22 Plan of Care End Date 05/08/22 Therapeutic Interventions Therapeutic Interventions Aquatic Therapy,Balance Training,Joint Mobilizations, Manual Therapy,Neuromuscular Re-education,Patient/Caregiver Education,Self-Care/Home Management,Soft Tissue Mobilization,Therapeutic Exercises Modalities Cold Pack/Ice Massage,Electric Stimulation,Hot Packs, Ultrasound Next Visit Focus/Plan Next Note Type Treatment Note Next Visit Plan Continue balance corner with cues postural COG over FADY and able dynamic gait contact wall for HEP. POC: Posture training, lumbar joint mobilizations
--- NOTE | 2022-03-25 11:20 | PT.OTN ---
Addendum entered and electronically signed by Ambar Huffman PTA 03/25/22 11:39: Check BP and HR pre activity and with activity for safety. Original Note: Current Diagnoses Other chronic pain (03/25/22) Postural kyphosis, thoracic region (03/25/22) Low back pain, unspecified (03/25/22) Abnormal posture (03/25/22) History of falling (03/25/22) Physical Therapy Treatment Note PT-OP-A Visit Information Start: 01/12/22 17:31 Freq: Status: Active Protocol: Document 03/25/22 10:34 SP (Rec: 03/25/22 11:39 SP [id number]) Out-Patient Physical Therapy Visit Information Visit Information Visit Type Treatment Note Visit Note Vitals post dynamic gait to ER : seated 93% on RA, HR 95, BP 171/92 2 min seated rest: BP 151/95 , HR 94 Visit Start Time 10:34 Visit Stop Time 11:20 Total Visit Minutes 46 Visit Number 18 Number of INDUSTRIAL ELECTRICAL ENGINEER Visits 3 Evaluation Information Evaluation Date 01/12/22 PT-OP-B Current Condition Start: 01/12/22 17:31 Freq: Status: Active Protocol: Document 01/12/22 11:15 DCW (Rec: 01/13/22 15:32 DCW [id number]) Current Condition History of Current Condition Onset Date Multi-year history Current Complaints Back pain, decreased gait tolerance, difficulty lifting, decreased balance History of Current Condition Pt is a 66 year old male presenting with a multi-year history of low back pain. 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 Notes it has worsened over the last ~10 years, to the point now where he has pain with any extended standing, walking, or lifting. Pt notes he doesn't really have any difficulty when sitting or lying down, only standing. Also notes he has noticed worsening balance, has fallen a few times in the last couple months, typically when walking down hill, he feels like he gets moving too quickly forward and loses control. Treatment Goals Patient/Caregiver Goals Pt's goal is to improve his standing and walking tolerance , as well as improve his balance PT-OP-C Subjective Start: 01/12/22 17:31 Freq: Status: Active Protocol: Document 03/25/22 10:34 SP (Rec: 03/25/22 11:39 SP [id number]) OP-PT Subjective Patient Comments Patient Comments Pt reports I'm doing ok. Pt states was ableto get to 15s SLS at home. PT-OP-D Balance Start: 03/08/22 17:00 Freq: Status: Active Protocol: Document 03/08/22 16:45 DCW (Rec: 03/08/22 17:08 DCW [id number]) Balance Tests mCTSIB mCTSIB Position 1 30 mCTSIB Position 2 30 mCTSIB Position 3 30 mCTSIB Position 4 17 Functional Reach Functional Reach Test 11 Functional Reach Impairment Rating 0% Impaired (Score 10) Single Limb Standing Single Limb- Right 1 Single Limb- Left <1 Tandem Tandem Standing L forward: 9.16, R forward: 19.03 PT-OP-E Functional Tests Start: 01/12/22 17:36 Freq: Status: Active Protocol: Document 03/08/22 16:45 DCW (Rec: 03/08/22 16:59 DCW [id number]) Functional Tests Dynamic Gait Index (DGI) Score 19/24 DGI Impairment Rating 20 to <40% Impaired (Score 15- 19) PT-OP-F Manual Assessment Start: 01/12/22 17:39 Freq: Status: Active Protocol: Document 03/08/22 16:45 DCW (Rec: 03/08/22 16:59 DCW [id number]) Manual Assessments Joint Mobility Assessment Joint Mobility Assessment Lumbar vertebral hypomobility, limited P->A motion during attempted mobilizations PT-OP-G Mobility & Gait Start: 01/12/22 17:36 Freq: Status: Active Protocol: Document 03/08/22 16:45 DCW (Rec: 03/08/22 16:59 DCW [id number]) OP Gait Assessment Comments Gait Comments Pt shuffles feet with 50% of his steps, due to forward weight shift, displays limited heel strike, mainly touch down phase begins entirely on balls of feet. PT-OP-J Posture/Palpation/Skin Start: 01/12/22 17:31 Freq: Status: Active Protocol: Document 01/12/22 11:15 DCW (Rec: 01/12/22 17:36 DCW [id number]) Posture Evaluation Position Standing Evaluation View Lateral Head/C-Spine Posture Flexed T-Spine Posture Increased Kyphosis L-Spine Posture Increased Lordosis Pelvis Posture Anteriorly Tilted Weight Distribution Weight Shifted Anterior Comments Posture Comments Pt stands with weight shifted forward over his feet, pelvis centered over his toes, and then show excessive lumbar lordosis to lean slightly back , and excessive thoracic kyphosis to return to forward lean. Pt very resistant to attempts to correct posture, will not allow himself to lean back. PT-OP-K Range of Motion Start: 01/12/22 17:31 Freq: Status: Active Protocol: Document 03/08/22 16:45 DCW (Rec: 03/08/22 16:59 DCW [id number]) Lumbar Spine Range of Motion Lumbar Spine Active Degrees Testing Position Standing Flexion 60 Extension 20 Lateral Flexion Left 45 Lateral Flexion Right 44 Comments Lateral flexion measured in cm from fingertips to floor PT-OP-L Special Tests Start: 01/12/22 17:55 Freq: Status: Active Protocol: Document 01/12/22 11:15 DCW (Rec: 01/13/22 15:18 DCW [id number]) Special Tests Lumbar Spine Special Tests Lateral SI Compression Test Results Negative ELIZABET Test Results Negative A-P Shearing Test Results Negative Compression Test Results Negative Straight Leg Raise Test Results Negative Slump Test Results Negative PT-OP-M Strength Start: 01/12/22 17:31 Freq: Status: Active Protocol: Document 01/12/22 11:15 DCW (Rec: 01/12/22 17:43 DCW [id number]) Hip Strength Hip Manual Muscle Testing Right Flexion (L2) 5 Normal Abduction 5 Normal Adduction 5 Normal External Rotation 5 Normal Internal Rotation 5 Normal Left Flexion (L2) 5 Normal Abduction 5 Normal Adduction 5 Normal External Rotation 5 Normal Internal Rotation 5 Normal Knee Strength Knee Manual Muscle Testing Right Flexion (S2) 5 Normal Extension (L3) 5 Normal Left Flexion (S2) 5 Normal Extension (L3) 5 Normal Ankle/Foot Strength Ankle and Foot Manual Muscle Testing Right Dorsiflexion (L4) 5 Normal Plantarflexion (S1) 5 Normal Left Dorsiflexion (L4) 5 Normal Plantarflexion (S1) 5 Normal PT-OP-Q Treatments Start: 01/12/22 17:31 Freq: Status: Active Protocol: Document 03/25/22 10:34 SP (Rec: 03/25/22 11:39 SP [id number]) Cardio Equipment Recumbent Stepper (Sci-Fit) Duration (Minutes) 6 Resistance 3.6 Seat Position 11 Other UEs/ LEs, cued head back neutral, 50 PRM, miles 0,87 Gym Equipment Cable Column (Body Solid) Pallof Press Details cued tall alignment, PPT neutral, head back neutral Resistance #4 T-band Reps/Time 3x15 reps each-bilateral Shuttle Recovery Unilateral Squats Details TrA hold Resistance 50# Reps/Time 2x15 (alternate BLE) Sport Cord fwd Exercise Details fwd, back, side walk Cord/Resistance red Reps/Duration 5 Comments cued core/ hip abd fac and alignemet eccentric stepping- CGA, then on/off blue foam pad Min- Mod A shaky and unsteady , cued trail LE foot clear edge foam pad. Therapeutic Exercises Other Exercises stretching Other Exercise Name standing pec doorway, facing rail calf and hip flex, seated piriformis Side bilateral Reps/Minutes 30 x2 each Comments cued slow breath, relax shlds Gait Training Gait Activity dynamic gait Description head turns, vertical, quick stop/pivot Device Used 0 Level of Assistance SBA Surface firm Distance/Duration gym <> ER Treatment Focus balance recovery Comments max cues for tall posture, increase stride and foot clearance, tends to lean forward and scuff heels, once inwhile toe/ full foot scuff. Ed stop after 1 length hallway for relax/ breath tires quickly. stairs Description MAP bldg Device Used R HR not needed ascend, light Ccontact descend Level of Assistance CGA Distance/Duration 28 step up/ down Treatment Focus posture, balance recovery, alternat step unsupproted Comments R foot caught descend 1 step CGA- Min recover otherwise CGA Neuro Re-Education Treatment Balance Activities Tandem Stance Details NBOS, Stagger, Tandem stance Equipment corner back, chair front (for HEP) Comments Stagger 30s EC cued shld back/ pelvis underneath/ taller/ breath-decreased shakiness and improved posture tandem 30 s L foot forward, 24s R foot forward. SLS Surface Solid Equipment facing rail, CGA Reps/Duration 3 reps Comments 3-4s RLE, 6s LLE w/ opp foot contact stance LE. very challenging LOB facing rail recovery- shld back/ pelvis underneath, relax shlds w/ core fac. PT-OP-T Assessment and Plan Start: 01/12/22 17:31 Freq: Status: Active Protocol: Document 03/25/22 10:34 SP (Rec: 03/25/22 11:39 SP [id number]) Physical Therapy Assessment Goals Three Impairment Pt at increased falls risk, per DGI score () Mash Tub Cooker Operator Goal (LTG) Pt to increased DGI score by at least three points to to demonstrate decreased falls risk 02/21/22: fall risk, no change since initial eval. LTG Duration 05/08/22 Two Impairment Pt stands with a forward weight shift onto the balls of his feet Mash Tub Cooker Operator Goal (LTG) Pt to stand with proper posture 80% of the time with no verbal or tactile cues or corrections 02/21/22: progressing: thinks improved 50%. LTG Duration 05/08/22 One Impairment Pt does not have an appropriate home exercise program Short Term Goal (STG) Pt to be independent and compliant with an appropriate HEP STG Duration Met Assessment Summary Assessment Pt worked hard during tx, challenged on/ off uneven surface again resistance beginning tx and SLS not as long stance time states was up to at home 4 sec compared to 15 sec home. Unsteady/ shakiness challenged posture, core/ hip abd fac. Improved decrease forward posture relaxed shld post stretching. Pt was able complete stair mgt without rail ascend/light 1 HR descend but self recovery and light contact GB for safety (mask donned hard tosee step). Pt dynamic gait distance hallway near ER, 20 ft able maintian foot clearance but tires posture quickly cues required and stop stand rests for recovery. 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 Pt states does hydrate well at home and check his BP regularly know taking BP meds, usually 130/80s. He stated didnt' feel his BP was that high just that good work out challenge today. Pt felt ok/finds just tired end tx from the activity. Physical Therapy Plan Frequency and Duration Frequency of Treatment 2x/Week Duration of Treatment Two months Plan of Care Start Date 03/08/22 Plan of Care End Date 05/08/22 Therapeutic Interventions Therapeutic Interventions Aquatic Therapy,Balance Training,Joint Mobilizations, Manual Therapy,Neuromuscular Re-education,Patient/Caregiver Education,Self-Care/Home Management,Soft Tissue Mobilization,Therapeutic Exercises Modalities Cold Pack/Ice Massage,Electric Stimulation,Hot Packs, Ultrasound Next Visit Focus/Plan Next Note Type Treatment Note Next Visit Plan Continue balance corner with cues postural COG over FADY and able dynamic gait contact wall for HEP. POC: Posture training, lumbar joint mobilizations
--- NOTE | 2022-03-29 10:30 | PT.OTN ---
Current Diagnoses Other chronic pain (03/29/22) Postural kyphosis, thoracic region (03/29/22) Low back pain, unspecified (03/29/22) Abnormal posture (03/29/22) History of falling (03/29/22) Physical Therapy Treatment Note PT-OP-A Visit Information Start: 01/12/22 17:31 Freq: Status: Active Protocol: Document 03/29/22 09:49 SP (Rec: 03/29/22 10:32 SP [id number]) Out-Patient Physical Therapy Visit Information Visit Information Visit Type Treatment Note Visit Note Vitals pre ther ex RUE automated: R BP 156/90 HR 78 post activity: 166/61 HR 91 Pt due for PN next visit (20th visit) Visit Start Time 09:49 Visit Stop Time 10:30 Total Visit Minutes 41 Visit Number 19 Number of REGULATORY ADMINISTRATOR Visits 4 Evaluation Information Evaluation Date 01/12/22 PT-OP-B Current Condition Start: 01/12/22 17:31 Freq: Status: Active Protocol: Document 01/12/22 11:15 DCW (Rec: 01/13/22 15:32 DCW [id number]) Current Condition History of Current Condition Onset Date Multi-year history Current Complaints Back pain, decreased gait tolerance, difficulty lifting, decreased balance History of Current Condition Pt is a 66 year old male presenting with a multi-year history of low back pain. 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 Notes it has worsened over the last ~10 years, to the point now where he has pain with any extended standing, walking, or lifting. Pt notes he doesn't really have any difficulty when sitting or lying down, only standing. Also notes he has noticed worsening balance, has fallen a few times in the last couple months, typically when walking down hill, he feels like he gets moving too quickly forward and loses control. Treatment Goals Patient/Caregiver Goals Pt's goal is to improve his standing and walking tolerance , as well as improve his balance PT-OP-C Subjective Start: 01/12/22 17:31 Freq: Status: Active Protocol: Document 03/29/22 09:49 SP (Rec: 03/29/22 10:32 SP [id number]) OP-PT Subjective Patient Comments Patient Comments Pt reported felt fine after last tx. Walks his dog outside . PT-OP-D Balance Start: 03/08/22 17:00 Freq: Status: Active Protocol: Document 03/08/22 16:45 DCW (Rec: 03/08/22 17:08 DCW [id number]) Balance Tests mCTSIB mCTSIB Position 1 30 mCTSIB Position 2 30 mCTSIB Position 3 30 mCTSIB Position 4 17 Functional Reach Functional Reach Test 11 Functional Reach Impairment Rating 0% Impaired (Score 10) Single Limb Standing Single Limb- Right 1 Single Limb- Left <1 Tandem Tandem Standing L forward: 9.16, R forward: 19.03 PT-OP-E Functional Tests Start: 01/12/22 17:36 Freq: Status: Active Protocol: Document 03/29/22 09:49 SP (Rec: 03/29/22 10:32 SP [id number]) Functional Tests Dynamic Gait Index (DGI) Score 20 DGI Impairment Rating 1 to <20% Impaired (Score 20- 23) PT-OP-F Manual Assessment Start: 01/12/22 17:39 Freq: Status: Active Protocol: Document 03/08/22 16:45 DCW (Rec: 03/08/22 16:59 DCW [id number]) Manual Assessments Joint Mobility Assessment Joint Mobility Assessment Lumbar vertebral hypomobility, limited P->A motion during attempted mobilizations PT-OP-G Mobility & Gait Start: 01/12/22 17:36 Freq: Status: Active Protocol: Document 03/08/22 16:45 DCW (Rec: 03/08/22 16:59 DCW [id number]) OP Gait Assessment Comments Gait Comments Pt shuffles feet with 50% of his steps, due to forward weight shift, displays limited heel strike, mainly touch down phase begins entirely on balls of feet. PT-OP-J Posture/Palpation/Skin Start: 01/12/22 17:31 Freq: Status: Active Protocol: Document 01/12/22 11:15 DCW (Rec: 01/12/22 17:36 DCW [id number]) Posture Evaluation Position Standing Evaluation View Lateral Head/C-Spine Posture Flexed T-Spine Posture Increased Kyphosis L-Spine Posture Increased Lordosis Pelvis Posture Anteriorly Tilted Weight Distribution Weight Shifted Anterior Comments Posture Comments Pt stands with weight shifted forward over his feet, pelvis centered over his toes, and then show excessive lumbar lordosis to lean slightly back , and excessive thoracic kyphosis to return to forward lean. Pt very resistant to attempts to correct posture, will not allow himself to lean back. PT-OP-K Range of Motion Start: 01/12/22 17:31 Freq: Status: Active Protocol: Document 03/08/22 16:45 DCW (Rec: 03/08/22 16:59 DCW [id number]) Lumbar Spine Range of Motion Lumbar Spine Active Degrees Testing Position Standing Flexion 60 Extension 20 Lateral Flexion Left 45 Lateral Flexion Right 44 Comments Lateral flexion measured in cm from fingertips to floor PT-OP-L Special Tests Start: 01/12/22 17:55 Freq: Status: Active Protocol: Document 01/12/22 11:15 DCW (Rec: 01/13/22 15:18 DCW [id number]) Special Tests Lumbar Spine Special Tests Lateral SI Compression Test Results Negative ELIZABET Test Results Negative A-P Shearing Test Results Negative Compression Test Results Negative Straight Leg Raise Test Results Negative Slump Test Results Negative PT-OP-M Strength Start: 01/12/22 17:31 Freq: Status: Active Protocol: Document 01/12/22 11:15 DCW (Rec: 01/12/22 17:43 DCW [id number]) Hip Strength Hip Manual Muscle Testing Right Flexion (L2) 5 Normal Abduction 5 Normal Adduction 5 Normal External Rotation 5 Normal Internal Rotation 5 Normal Left Flexion (L2) 5 Normal Abduction 5 Normal Adduction 5 Normal External Rotation 5 Normal Internal Rotation 5 Normal Knee Strength Knee Manual Muscle Testing Right Flexion (S2) 5 Normal Extension (L3) 5 Normal Left Flexion (S2) 5 Normal Extension (L3) 5 Normal Ankle/Foot Strength Ankle and Foot Manual Muscle Testing Right Dorsiflexion (L4) 5 Normal Plantarflexion (S1) 5 Normal Left Dorsiflexion (L4) 5 Normal Plantarflexion (S1) 5 Normal PT-OP-Q Treatments Start: 01/12/22 17:31 Freq: Status: Active Protocol: Document 03/29/22 09:49 SP (Rec: 03/29/22 10:32 SP [id number]) Gait Training Gait Activity dynamic gait Description head turns, vertical, quick stop/pivot, incline/decline, grass/gravel/mulch Device Used 0 Level of Assistance SBA Surface firm Distance/Duration outdoors Treatment Focus balance recovery Comments intermittend cues for tall posture, increase stride and foot clearance, tends to lean forward and scuff heels, heel cuffs. stairs Description MAP bldg Device Used R HR not needed ascend, light Ccontact descend Level of Assistance CGA Distance/Duration 28 step up/ down Treatment Focus posture, balance recovery, alternat step unsupproted Comments R foot caught descend 1 step CGA- Min recover otherwise CGA Neuro Re-Education Treatment Balance Activities obstacle course Details balance recovery, SLS time, stride Surface 6 hurdles, green/blue oval cushions Reps/Duration x5 laps Comments decrease LLE stance time, cued up posture, COG over stance LE glut/ hip abd / core fac. hurdles Details curb Equipment CGA, 5%A (x2) Reps/Duration 6 reps lead each LE Comments over back curb PT-OP-T Assessment and Plan Start: 01/12/22 17:31 Freq: Status: Active Protocol: Document 03/29/22 09:49 SP (Rec: 03/29/22 10:32 SP [id number]) Physical Therapy Assessment Goals Three Impairment Pt at increased falls risk, per DGI score () Health Outcomes Liaison Goal (LTG) Pt to increased DGI score by at least three points to to demonstrate decreased falls risk 02/21/22: fall risk, no change since initial eval. 03/29/22: progressin/24, mild devaitions with dynamic head turns/ pivots, contact rail as needed receiprocal patterning descending for stability LTG Duration 05/08/22 progressed by 2 points 03/29/22 Two Impairment Pt stands with a forward weight shift onto the balls of his feet Health Outcomes Liaison Goal (LTG) Pt to stand with proper posture 80% of the time with no verbal or tactile cues or corrections 02/21/22: progressing: thinks improved 50%. 03/29/22: progressing: thinks improved by 60%. LTG Duration 05/08/22 progressing 03/29/22 One Impairment Pt does not have an appropriate home exercise program Short Term Goal (STG) Pt to be independent and compliant with an appropriate HEP STG Duration Met Progress Towards Goals Progress Towards Goals Progressing Toward Goals Progress Comments Pt progressed in STG #3 improved DGI by 2 points . STG #2 improvement in posure reported by 60%, in PT corrections with cues to allow foot clearance and stride. Assessment Summary Assessment Pt continues to require cues for postural awareness of scap retraction that allows increase step length and clearance. Pt was able to navigate uneven surfaces outdoor grass tandem walking challenges, over/back curb, incline uneven mulch path CG- 5%A while providing cues for continued posture then only CGA<>sBA. Pt would benefit from continued dynamic balance challenges, PT to assess progress further. Continues to have 1-20% impairement DGI, LTG for safety community. Physical Therapy Plan Frequency and Duration Frequency of Treatment 2x/Week Duration of Treatment Two months Plan of Care Start Date 03/08/22 Plan of Care End Date 05/08/22 Therapeutic Interventions Therapeutic Interventions Aquatic Therapy,Balance Training,Joint Mobilizations, Manual Therapy,Neuromuscular Re-education,Patient/Caregiver Education,Self-Care/Home Management,Soft Tissue Mobilization,Therapeutic Exercises Modalities Cold Pack/Ice Massage,Electric Stimulation,Hot Packs, Ultrasound Next Visit Focus/Plan Next Note Type Treatment Note Next Visit Plan Next tx PN 20th visit. Continue dynamic balance gait to improved steadiness over neighborhood uneven terrain. POC: Posture training, lumbar joint mobilizations
--- NOTE | 2022-04-06 14:35 | PT.OTN ---
Current Diagnoses Other chronic pain (04/06/22) Postural kyphosis, thoracic region (04/06/22) Low back pain, unspecified (04/06/22) Abnormal posture (04/06/22) History of falling (04/06/22) Physical Therapy Treatment Note PT-OP-A Visit Information Start: 01/12/22 17:31 Freq: Status: Active Protocol: Document 04/06/22 13:45 DCW (Rec: 04/06/22 14:35 DCW [id number]) Out-Patient Physical Therapy Visit Information Visit Information Visit Type Treatment Note Visit Start Time 13:45 Visit Stop Time 14:30 Total Visit Minutes 45 Visit Number 20 Number of RN CARDIOVASCULAR Visits 0 Evaluation Information Evaluation Date 01/12/22 PT-OP-B Current Condition Start: 01/12/22 17:31 Freq: Status: Active Protocol: Document 01/12/22 11:15 DCW (Rec: 01/13/22 15:32 DCW [id number]) Current Condition History of Current Condition Onset Date Multi-year history Current Complaints Back pain, decreased gait tolerance, difficulty lifting, decreased balance History of Current Condition Pt is a 66 year old male presenting with a multi-year history of low back pain. 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 Notes it has worsened over the last ~10 years, to the point now where he has pain with any extended standing, walking, or lifting. Pt notes he doesn't really have any difficulty when sitting or lying down, only standing. Also notes he has noticed worsening balance, has fallen a few times in the last couple months, typically when walking down hill, he feels like he gets moving too quickly forward and loses control. Treatment Goals Patient/Caregiver Goals Pt's goal is to improve his standing and walking tolerance , as well as improve his balance PT-OP-C Subjective Start: 01/12/22 17:31 Freq: Status: Active Protocol: Document 04/06/22 13:45 DCW (Rec: 04/06/22 14:35 DCW [id number]) OP-PT Subjective Patient Comments Patient Comments Pt notes he was doing well, but I made a mistake, played 9 holes of golf yesterday. I was really sore during the round, almost had to use a my golf club like a cane. Admits that his balance wasn't great while playing. PT-OP-D Balance Start: 03/08/22 17:00 Freq: Status: Active Protocol: Document 03/08/22 16:45 DCW (Rec: 03/08/22 17:08 DCW [id number]) Balance Tests mCTSIB mCTSIB Position 1 30 mCTSIB Position 2 30 mCTSIB Position 3 30 mCTSIB Position 4 17 Functional Reach Functional Reach Test 11 Functional Reach Impairment Rating 0% Impaired (Score 10) Single Limb Standing Single Limb- Right 1 Single Limb- Left <1 Tandem Tandem Standing L forward: 9.16, R forward: 19.03 PT-OP-E Functional Tests Start: 01/12/22 17:36 Freq: Status: Active Protocol: Document 03/29/22 09:49 SP (Rec: 03/29/22 10:32 SP [id number]) Functional Tests Dynamic Gait Index (DGI) Score 20 DGI Impairment Rating 1 to <20% Impaired (Score 20- 23) PT-OP-F Manual Assessment Start: 01/12/22 17:39 Freq: Status: Active Protocol: Document 03/08/22 16:45 DCW (Rec: 03/08/22 16:59 DCW [id number]) Manual Assessments Joint Mobility Assessment Joint Mobility Assessment Lumbar vertebral hypomobility, limited P->A motion during attempted mobilizations PT-OP-G Mobility & Gait Start: 01/12/22 17:36 Freq: Status: Active Protocol: Document 03/08/22 16:45 DCW (Rec: 03/08/22 16:59 DCW [id number]) OP Gait Assessment Comments Gait Comments Pt shuffles feet with 50% of his steps, due to forward weight shift, displays limited heel strike, mainly touch down phase begins entirely on balls of feet. PT-OP-J Posture/Palpation/Skin Start: 01/12/22 17:31 Freq: Status: Active Protocol: Document 01/12/22 11:15 DCW (Rec: 01/12/22 17:36 DCW [id number]) Posture Evaluation Position Standing Evaluation View Lateral Head/C-Spine Posture Flexed T-Spine Posture Increased Kyphosis L-Spine Posture Increased Lordosis Pelvis Posture Anteriorly Tilted Weight Distribution Weight Shifted Anterior Comments Posture Comments Pt stands with weight shifted forward over his feet, pelvis centered over his toes, and then show excessive lumbar lordosis to lean slightly back , and excessive thoracic kyphosis to return to forward lean. Pt very resistant to attempts to correct posture, will not allow himself to lean back. PT-OP-K Range of Motion Start: 01/12/22 17:31 Freq: Status: Active Protocol: Document 03/08/22 16:45 DCW (Rec: 03/08/22 16:59 DCW [id number]) Lumbar Spine Range of Motion Lumbar Spine Active Degrees Testing Position Standing Flexion 60 Extension 20 Lateral Flexion Left 45 Lateral Flexion Right 44 Comments Lateral flexion measured in cm from fingertips to floor PT-OP-L Special Tests Start: 01/12/22 17:55 Freq: Status: Active Protocol: Document 01/12/22 11:15 DCW (Rec: 01/13/22 15:18 DCW [id number]) Special Tests Lumbar Spine Special Tests Lateral SI Compression Test Results Negative ELIZABET Test Results Negative A-P Shearing Test Results Negative Compression Test Results Negative Straight Leg Raise Test Results Negative Slump Test Results Negative PT-OP-M Strength Start: 01/12/22 17:31 Freq: Status: Active Protocol: Document 01/12/22 11:15 DCW (Rec: 01/12/22 17:43 DCW [id number]) Hip Strength Hip Manual Muscle Testing Right Flexion (L2) 5 Normal Abduction 5 Normal Adduction 5 Normal External Rotation 5 Normal Internal Rotation 5 Normal Left Flexion (L2) 5 Normal Abduction 5 Normal Adduction 5 Normal External Rotation 5 Normal Internal Rotation 5 Normal Knee Strength Knee Manual Muscle Testing Right Flexion (S2) 5 Normal Extension (L3) 5 Normal Left Flexion (S2) 5 Normal Extension (L3) 5 Normal Ankle/Foot Strength Ankle and Foot Manual Muscle Testing Right Dorsiflexion (L4) 5 Normal Plantarflexion (S1) 5 Normal Left Dorsiflexion (L4) 5 Normal Plantarflexion (S1) 5 Normal PT-OP-Q Treatments Start: 01/12/22 17:31 Freq: Status: Active Protocol: Document 04/06/22 13:45 DCW (Rec: 04/06/22 14:35 DCW [id number]) Cardio Equipment Recumbent Elliptical (Patient Conversation Media) Duration (Minutes) 6 Resistance 6 Seat Position 9 Other UEs/LEs 35-40 RPM, total steps 356 Gym Equipment Shuttle Recovery Unilateral Squats Details TrA hold Resistance 50# Reps/Time 2x15 (alternate BLE) Gait Training Gait Activity dynamic gait Description head turns, vertical, quick stop/pivot, incline/decline, grass/gravel/mulch Device Used 0 Level of Assistance SBA Surface firm Distance/Duration outdoors Treatment Focus balance recovery Comments intermittend cues for tall posture, increase stride and foot clearance, tends to lean forward and scuff heels, heel cuffs. stairs Description MAP bldg Device Used R HR not needed ascend, light contact descend Level of Assistance CGA Distance/Duration 28 step up/ down Treatment Focus posture, balance recovery, alternat step unsupproted Comments R foot caught descend 1 step CGA- Min recover otherwise CGA Neuro Re-Education Treatment Balance Activities Tandem Ambulation Surface firm Equipment // bars: contact rail PRN Reps/Duration x2 lap 20 ft Comments cued feet apart, shld back/ pelvis underneath Amb /c head turns Details Ambulation with head turns Equipment rail hallway as needed, 100 bpm metronome Reps/Duration 80 ft x2 laps Comments cued feet apart, shld back/ pelvis underneath/ heel toe with core fac and listen to foot clearance. step taps Details cross-body alternating Equipment Cones Reps/Duration 5# SLS Details SLS Surface Solid Equipment facing rail, CGA hurdles Details Hurdles Equipment // bars Reps/Duration Fwd, Lateral PT-OP-T Assessment and Plan Start: 01/12/22 17:31 Freq: Status: Active Protocol: Document 04/06/22 13:45 DCW (Rec: 04/06/22 14:35 DCW [id number]) Physical Therapy Assessment Impairments Impairments Functional Activities, Functional Mobility,Gait, Posture Goals Three Impairment Pt at increased falls risk, per DGI score () Fpc Goal (LTG) Pt to increased DGI score by at least three points to to demonstrate decreased falls risk 02/21/22: fall risk, no change since initial eval. 03/29/22: progressin/24, mild devaitions with dynamic head turns/ pivots, contact rail as needed receiprocal patterning descending for stability LTG Duration 05/08/22 progressed by 2 points 03/29/22 Two Impairment Pt stands with a forward weight shift onto the balls of his feet Fpc Goal (LTG) Pt to stand with proper posture 80% of the time with no verbal or tactile cues or corrections 02/21/22: progressing: thinks improved 50%. 03/29/22: progressing: thinks improved by 60%. LTG Duration 05/08/22 progressing 03/29/22 One Impairment Pt does not have an appropriate home exercise program Short Term Goal (STG) Pt to be independent and compliant with an appropriate HEP STG Duration Met Assessment Summary Assessment Pt showing fairly good general improvement with balance, still requires multiple verbal cues for improving posture and limiting foot scuffing during gait. Physical Therapy Plan Frequency and Duration Frequency of Treatment 2x/Week Duration of Treatment Two months Plan of Care Start Date 03/08/22 Plan of Care End Date 05/08/22 Therapeutic Interventions Therapeutic Interventions Aquatic Therapy,Balance Training,Joint Mobilizations, Manual Therapy,Neuromuscular Re-education,Patient/Caregiver Education,Self-Care/Home Management,Soft Tissue Mobilization,Therapeutic Exercises Modalities Cold Pack/Ice Massage,Electric Stimulation,Hot Packs, Ultrasound Next Visit Focus/Plan Next Note Type Treatment Note Next Visit Plan Continue dynamic balance gait to improved steadiness over neighborhood uneven terrain. POC: Posture training, lumbar joint mobilizations
--- NOTE | 2022-05-05 11:15 | PT.OTN ---
Current Diagnoses Other chronic pain (05/05/22) Postural kyphosis, thoracic region (05/05/22) Low back pain, unspecified (05/05/22) Abnormal posture (05/05/22) History of falling (05/05/22) Physical Therapy Treatment Note PT-OP-A Visit Information Start: 01/12/22 17:31 Freq: Status: Active Protocol: Document 05/05/22 10:35 SP (Rec: 05/05/22 11:22 SP [id number]) Out-Patient Physical Therapy Visit Information Visit Information Visit Type Treatment Note Visit Start Time 10:35 Visit Stop Time 11:15 Total Visit Minutes 40 Visit Number 21 Number of DAMAGE APPRAISER Visits 1 Evaluation Information Evaluation Date 01/12/22 PT-OP-B Current Condition Start: 01/12/22 17:31 Freq: Status: Active Protocol: Document 01/12/22 11:15 DCW (Rec: 01/13/22 15:32 DCW [id number]) Current Condition History of Current Condition Onset Date Multi-year history Current Complaints Back pain, decreased gait tolerance, difficulty lifting, decreased balance History of Current Condition Pt is a 66 year old male presenting with a multi-year history of low back pain. 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 Notes it has worsened over the last ~10 years, to the point now where he has pain with any extended standing, walking, or lifting. Pt notes he doesn't really have any difficulty when sitting or lying down, only standing. Also notes he has noticed worsening balance, has fallen a few times in the last couple months, typically when walking down hill, he feels like he gets moving too quickly forward and loses control. Treatment Goals Patient/Caregiver Goals Pt's goal is to improve his standing and walking tolerance , as well as improve his balance PT-OP-C Subjective Start: 01/12/22 17:31 Freq: Status: Active Protocol: Document 05/05/22 10:35 SP (Rec: 05/05/22 11:22 SP [id number]) OP-PT Subjective Patient Comments Patient Comments Pt stated his past appts were cancelled due to PT out sick and therapy appts were unavailable to schedule. Pt reports his balance doesn't seem to be getting better, was speaking with siblings and their reports area the same. PT-OP-D Balance Start: 03/08/22 17:00 Freq: Status: Active Protocol: Document 03/08/22 16:45 DCW (Rec: 03/08/22 17:08 DCW [id number]) Balance Tests mCTSIB mCTSIB Position 1 30 mCTSIB Position 2 30 mCTSIB Position 3 30 mCTSIB Position 4 17 Functional Reach Functional Reach Test 11 Functional Reach Impairment Rating 0% Impaired (Score 10) Single Limb Standing Single Limb- Right 1 Single Limb- Left <1 Tandem Tandem Standing L forward: 9.16, R forward: 19.03 PT-OP-E Functional Tests Start: 01/12/22 17:36 Freq: Status: Active Protocol: Document 03/29/22 09:49 SP (Rec: 03/29/22 10:32 SP [id number]) Functional Tests Dynamic Gait Index (DGI) Score 20 DGI Impairment Rating 1 to <20% Impaired (Score 20- 23) PT-OP-F Manual Assessment Start: 01/12/22 17:39 Freq: Status: Active Protocol: Document 03/08/22 16:45 DCW (Rec: 03/08/22 16:59 DCW [id number]) Manual Assessments Joint Mobility Assessment Joint Mobility Assessment Lumbar vertebral hypomobility, limited P->A motion during attempted mobilizations PT-OP-G Mobility & Gait Start: 01/12/22 17:36 Freq: Status: Active Protocol: Document 03/08/22 16:45 DCW (Rec: 03/08/22 16:59 DCW [id number]) OP Gait Assessment Comments Gait Comments Pt shuffles feet with 50% of his steps, due to forward weight shift, displays limited heel strike, mainly touch down phase begins entirely on balls of feet. PT-OP-J Posture/Palpation/Skin Start: 01/12/22 17:31 Freq: Status: Active Protocol: Document 01/12/22 11:15 DCW (Rec: 01/12/22 17:36 DCW [id number]) Posture Evaluation Position Standing Evaluation View Lateral Head/C-Spine Posture Flexed T-Spine Posture Increased Kyphosis L-Spine Posture Increased Lordosis Pelvis Posture Anteriorly Tilted Weight Distribution Weight Shifted Anterior Comments Posture Comments Pt stands with weight shifted forward over his feet, pelvis centered over his toes, and then show excessive lumbar lordosis to lean slightly back , and excessive thoracic kyphosis to return to forward lean. Pt very resistant to attempts to correct posture, will not allow himself to lean back. PT-OP-K Range of Motion Start: 01/12/22 17:31 Freq: Status: Active Protocol: Document 03/08/22 16:45 DCW (Rec: 03/08/22 16:59 DCW [id number]) Lumbar Spine Range of Motion Lumbar Spine Active Degrees Testing Position Standing Flexion 60 Extension 20 Lateral Flexion Left 45 Lateral Flexion Right 44 Comments Lateral flexion measured in cm from fingertips to floor PT-OP-L Special Tests Start: 01/12/22 17:55 Freq: Status: Active Protocol: Document 01/12/22 11:15 DCW (Rec: 01/13/22 15:18 DCW [id number]) Special Tests Lumbar Spine Special Tests Lateral SI Compression Test Results Negative ELIZABET Test Results Negative A-P Shearing Test Results Negative Compression Test Results Negative Straight Leg Raise Test Results Negative Slump Test Results Negative PT-OP-M Strength Start: 01/12/22 17:31 Freq: Status: Active Protocol: Document 01/12/22 11:15 DCW (Rec: 01/12/22 17:43 DCW [id number]) Hip Strength Hip Manual Muscle Testing Right Flexion (L2) 5 Normal Abduction 5 Normal Adduction 5 Normal External Rotation 5 Normal Internal Rotation 5 Normal Left Flexion (L2) 5 Normal Abduction 5 Normal Adduction 5 Normal External Rotation 5 Normal Internal Rotation 5 Normal Knee Strength Knee Manual Muscle Testing Right Flexion (S2) 5 Normal Extension (L3) 5 Normal Left Flexion (S2) 5 Normal Extension (L3) 5 Normal Ankle/Foot Strength Ankle and Foot Manual Muscle Testing Right Dorsiflexion (L4) 5 Normal Plantarflexion (S1) 5 Normal Left Dorsiflexion (L4) 5 Normal Plantarflexion (S1) 5 Normal PT-OP-Q Treatments Start: 01/12/22 17:31 Freq: Status: Active Protocol: Document 05/05/22 10:35 SP (Rec: 05/05/22 11:22 SP [id number]) Cardio Equipment Recumbent Elliptical ([employer]) Duration (Minutes) 5 Resistance 6 Seat Position 9 Other UEs/LEs 35-40 RPM, total steps 528 Gym Equipment Shuttle Recovery Unilateral Squats Details TrA hold Resistance 50# Reps/Time 2x15 (alternate BLE) Shuttle Balance red clips Details Red Reps/Duration 8 Comments WBOS EO (NO EC today) WBOS #4s: wt shift, HTs CG-5%A , EO 20%A 16 sec NBOS: wt shift, HT CGA-10%A. Staggered Stance: EO - very shaky, decrease with cues for pelvic under trunk, scap stab and HT to L with RLE forward, unable HT RLE forward Heavier breath. Gait Training Gait Activity stairs Description MAP bldg Device Used R HR not needed ascend, light back of hand contact descend Level of Assistance CGA Distance/Duration 28 step up/ down Treatment Focus posture, balance recovery, alternat step unsupproted Comments receiprocal stepping CGA, safety cues full foot on step, not allow heel off edge Neuro Re-Education Treatment Balance Activities Tandem Ambulation Details modified semi tandem Surface firm Equipment contact rail PRN Reps/Duration x2 lap 20 ft Comments cued scap retracted/depressed stab, improved patterning as distance progressed. Amb /c head turns Details Ambulation with head turns fwd /bwd, quick start/ stop Equipment 100 bpm metronome Reps/Duration 80 ft x2 laps in ER hallway Comments cued upright posture,heel toe with core fac and listen to foot clearance. SLS Details SLS Surface Solid Equipment facing rail, close SBA Comments 2-3 sec BLE hurdles Details Hurdles Equipment // bars Reps/Duration Fwd, Lateral Comments 2 laps each, cued slower pacing PT-OP-T Assessment and Plan Start: 01/12/22 17:31 Freq: Status: Active Protocol: Document 05/05/22 10:35 SP (Rec: 05/05/22 11:22 SP [id number]) Physical Therapy Assessment Goals Three Impairment Pt at increased falls risk, per DGI score () Aircraft Engine Mechanic Supervisor Goal (LTG) Pt to increased DGI score by at least three points to to demonstrate decreased falls risk 02/21/22: fall risk, no change since initial eval. 03/29/22: progressin/24, mild devaitions with dynamic head turns/ pivots, contact rail as needed receiprocal patterning descending for stability LTG Duration 05/08/22 progressed by 2 points 03/29/22 Two Impairment Pt stands with a forward weight shift onto the balls of his feet Aircraft Engine Mechanic Supervisor Goal (LTG) Pt to stand with proper posture 80% of the time with no verbal or tactile cues or corrections 02/21/22: progressing: thinks improved 50%. 03/29/22: progressing: thinks improved by 60%. LTG Duration 05/08/22 progressing 03/29/22 One Impairment Pt does not have an appropriate home exercise program Short Term Goal (STG) Pt to be independent and compliant with an appropriate HEP STG Duration Met Assessment Summary Assessment Pt improved endurance, continues cues for upright posturing and limiting foot scuffing clearance. Pt able receiprocal step descend only light back of hand contact rail. Pt challenged with EO uneven surface and SLS. Physical Therapy Plan Frequency and Duration Frequency of Treatment 2x/Week Duration of Treatment Two months Plan of Care Start Date 03/08/22 Plan of Care End Date 05/08/22 Therapeutic Interventions Therapeutic Interventions Aquatic Therapy,Balance Training,Joint Mobilizations, Manual Therapy,Neuromuscular Re-education,Patient/Caregiver Education,Self-Care/Home Management,Soft Tissue Mobilization,Therapeutic Exercises Modalities Cold Pack/Ice Massage,Electric Stimulation,Hot Packs, Ultrasound Next Visit Focus/Plan Next Note Type Progress Note Next Visit Plan PN/update POC next tx. Discussed calling 05/12- for waiting list cancellations with [facility]. Continue dynamic balance gait to improved steadiness over neighborhood uneven terrain. POC: Posture training, lumbar joint mobilizations
--- NOTE | 2022-05-16 17:30 | PT.OTN ---
Current Diagnoses Other chronic pain (05/16/22) Postural kyphosis, thoracic region (05/16/22) Low back pain, unspecified (05/16/22) Abnormal posture (05/16/22) History of falling (05/16/22) Physical Therapy Treatment Note PT-OP-A Visit Information Start: 01/12/22 17:31 Freq: Status: Active Protocol: Document 05/16/22 16:45 DCW (Rec: 05/16/22 17:29 DCW [id number]) Out-Patient Physical Therapy Visit Information Visit Information Visit Type Progress Note Visit Start Time 16:45 Visit Stop Time 17:30 Total Visit Minutes 45 Visit Number 22 Number of MIXER ATTENDANT Visits 0 Evaluation Information Evaluation Date 01/12/22 PT-OP-B Current Condition Start: 01/12/22 17:31 Freq: Status: Active Protocol: Document 01/12/22 11:15 DCW (Rec: 01/13/22 15:32 DCW [id number]) Current Condition History of Current Condition Onset Date Multi-year history Current Complaints Back pain, decreased gait tolerance, difficulty lifting, decreased balance History of Current Condition Pt is a 66 year old male presenting with a multi-year history of low back pain. 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 Notes it has worsened over the last ~10 years, to the point now where he has pain with any extended standing, walking, or lifting. Pt notes he doesn't really have any difficulty when sitting or lying down, only standing. Also notes he has noticed worsening balance, has fallen a few times in the last couple months, typically when walking down hill, he feels like he gets moving too quickly forward and loses control. Treatment Goals Patient/Caregiver Goals Pt's goal is to improve his standing and walking tolerance , as well as improve his balance PT-OP-C Subjective Start: 01/12/22 17:31 Freq: Status: Active Protocol: Document 05/16/22 16:45 DCW (Rec: 05/16/22 17:29 DCW [id number]) OP-PT Subjective Patient Comments Patient Comments I'll admit, I get frustrated. I feel like this should be going faster. I was always pretty athletic when I was younger, and I just have to recognize that I'm not at that level any more. PT-OP-D Balance Start: 03/08/22 17:00 Freq: Status: Active Protocol: Document 05/16/22 16:45 DCW (Rec: 05/16/22 17:16 DCW [id number]) Balance Tests mCTSIB mCTSIB Position 1 30+ mCTSIB Position 2 30+ mCTSIB Position 3 30+ mCTSIB Position 4 28 Functional Reach Functional Reach Test 11 Functional Reach Impairment Rating 0% Impaired (Score 10) Single Limb Standing Single Limb- Right 3 Single Limb- Left 4 Tandem Tandem Standing L forward: 1'15, R forward: 35 PT-OP-E Functional Tests Start: 01/12/22 17:36 Freq: Status: Active Protocol: Document 05/16/22 16:45 DCW (Rec: 05/16/22 17:16 DCW [id number]) Functional Tests Dynamic Gait Index (DGI) Score 20/24 DGI Impairment Rating 1 to <20% Impaired (Score 20- 23) Functional Gait Assessment Score 20/30 Functional Gait Assessment Impairment 20 to <40% Impaired (Score 19- Rating 24) PT-OP-F Manual Assessment Start: 01/12/22 17:39 Freq: Status: Active Protocol: Document 05/16/22 16:45 DCW (Rec: 05/16/22 17:16 DCW [id number]) Manual Assessments Joint Mobility Assessment Joint Mobility Assessment Lumbar vertebral hypomobility, limited P->A motion during attempted mobilizations PT-OP-G Mobility & Gait Start: 01/12/22 17:36 Freq: Status: Active Protocol: Document 05/16/22 16:45 DCW (Rec: 05/16/22 17:16 DCW [id number]) OP Gait Assessment Comments Gait Comments Pt shuffles feet with 40% of his steps, due to forward weight shift, displays limited heel strike, mainly touch down phase begins entirely on balls of feet. PT-OP-J Posture/Palpation/Skin Start: 01/12/22 17:31 Freq: Status: Active Protocol: Document 01/12/22 11:15 DCW (Rec: 01/12/22 17:36 DCW [id number]) Posture Evaluation Position Standing Evaluation View Lateral Head/C-Spine Posture Flexed T-Spine Posture Increased Kyphosis L-Spine Posture Increased Lordosis Pelvis Posture Anteriorly Tilted Weight Distribution Weight Shifted Anterior Comments Posture Comments Pt stands with weight shifted forward over his feet, pelvis centered over his toes, and then show excessive lumbar lordosis to lean slightly back , and excessive thoracic kyphosis to return to forward lean. Pt very resistant to attempts to correct posture, will not allow himself to lean back. PT-OP-K Range of Motion Start: 01/12/22 17:31 Freq: Status: Active Protocol: Document 05/16/22 16:45 DCW (Rec: 05/16/22 17:16 DCW [id number]) Lumbar Spine Range of Motion Lumbar Spine Active Degrees Testing Position Standing Flexion 63 Extension 20 Lateral Flexion Left 43 Lateral Flexion Right 44 Comments Lateral flexion measured in cm from fingertips to floor PT-OP-L Special Tests Start: 01/12/22 17:55 Freq: Status: Active Protocol: Document 01/12/22 11:15 DCW (Rec: 01/13/22 15:18 DCW [id number]) Special Tests Lumbar Spine Special Tests Lateral SI Compression Test Results Negative ELIZABET Test Results Negative A-P Shearing Test Results Negative Compression Test Results Negative Straight Leg Raise Test Results Negative Slump Test Results Negative PT-OP-M Strength Start: 01/12/22 17:31 Freq: Status: Active Protocol: Document 01/12/22 11:15 DCW (Rec: 01/12/22 17:43 DCW [id number]) Hip Strength Hip Manual Muscle Testing Right Flexion (L2) 5 Normal Abduction 5 Normal Adduction 5 Normal External Rotation 5 Normal Internal Rotation 5 Normal Left Flexion (L2) 5 Normal Abduction 5 Normal Adduction 5 Normal External Rotation 5 Normal Internal Rotation 5 Normal Knee Strength Knee Manual Muscle Testing Right Flexion (S2) 5 Normal Extension (L3) 5 Normal Left Flexion (S2) 5 Normal Extension (L3) 5 Normal Ankle/Foot Strength Ankle and Foot Manual Muscle Testing Right Dorsiflexion (L4) 5 Normal Plantarflexion (S1) 5 Normal Left Dorsiflexion (L4) 5 Normal Plantarflexion (S1) 5 Normal PT-OP-Q Treatments Start: 01/12/22 17:31 Freq: Status: Active Protocol: Document 05/16/22 16:45 DCW (Rec: 05/16/22 17:29 DCW [id number]) Gym Equipment Shuttle Recovery Unilateral Squats Details TrA hold Resistance 50# Reps/Time 2x15 (alternate BLE) Bilateral Squats Details TrA hold Resistance 87# Neuro Re-Education Treatment Other Activities 1 Details Testing Comments Balance testing, DGI, FGA PT-OP-T Assessment and Plan Start: 01/12/22 17:31 Freq: Status: Active Protocol: Document 05/16/22 16:45 DCW (Rec: 05/16/22 17:29 DCW [id number]) Physical Therapy Assessment Impairments Impairments Functional Activities, Functional Mobility,Gait, Posture Goals Three Impairment Pt at increased falls risk, per DGI score () Penitentiary Goal (LTG) Pt to increased DGI score by at least three points to to demonstrate decreased falls risk 05/16/22: Pt scores LTG Duration 06/15/22 Two Impairment Pt stands with a forward weight shift onto the balls of his feet Penitentiary Goal (LTG) Pt to stand with proper posture 80% of the time with no verbal or tactile cues or corrections 05/16/22: thinks improved by 60 %. LTG Duration 07/16/22 One Impairment Pt does not have an appropriate home exercise program Short Term Goal (STG) Pt to be independent and compliant with an appropriate HEP STG Duration Met Assessment Summary Assessment Since focusing more on balance , pt has improved mildly with DGI score (18 to 2024), and SLS has improved from 1 to 3-4, but tandem stance has improved greatly, L leg in front improved from 9 to 1'15 . Improved balance and stability also helping pt's subjective back pain, pt able to perform bed mobility with less difficulty and pain. Recommend continued skilled PT for additional improvement and eventual transition to fully independent HEP. Physical Therapy Plan Frequency and Duration Frequency of Treatment 2x/Week Duration of Treatment Two months Plan of Care Start Date 05/16/22 Plan of Care End Date 07/16/22 Therapeutic Interventions Therapeutic Interventions Aquatic Therapy,Balance Training,Joint Mobilizations, Manual Therapy,Neuromuscular Re-education,Patient/Caregiver Education,Self-Care/Home Management,Soft Tissue Mobilization,Therapeutic Exercises Modalities Cold Pack/Ice Massage,Electric Stimulation,Hot Packs, Ultrasound Next Visit Focus/Plan Next Note Type Treatment Note Next Visit Plan Continue dynamic balance gait to improved steadiness over neighborhood uneven terrain. POC: Posture training, lumbar joint mobilizations
--- NOTE | 2022-05-16 17:30 | PT.OPPOC ---
Physical, Occupational & Speech Therapy At [facility] Current Diagnoses Other chronic pain (05/16/22) Postural kyphosis, thoracic region (05/16/22) Low back pain, unspecified (05/16/22) Abnormal posture (05/16/22) History of falling (05/16/22) Visit Care Team Role Provider Type Raul Urbina DO Attending Provider Physician Family Provider Primary Care Provider Referring Provider Specialty: Family Practice Address: [address] [place] [address], [facility] Email: Plan Of Care PT-OP-T Assessment and Plan Start: 01/12/22 17:31 Freq: Status: Active Protocol: Document 05/16/22 16:45 DCW (Rec: 05/16/22 17:29 DCW [id number]) Physical Therapy Assessment Impairments Impairments Functional Activities, Functional Mobility,Gait, Posture Goals Three Impairment Pt at increased falls risk, per DGI score () Prosthetic Makeup Designer Goal (LTG) Pt to increased DGI score by at least three points to to demonstrate decreased falls risk 05/16/22: Pt scores 20 LTG Duration 06/15/22 Two Impairment Pt stands with a forward weight shift onto the balls of his feet Prosthetic Makeup Designer Goal (LTG) Pt to stand with proper posture 80% of the time with no verbal or tactile cues or corrections 05/16/22: thinks improved by 60 %. LTG Duration 07/16/22 One Impairment Pt does not have an appropriate home exercise program Short Term Goal (STG) Pt to be independent and compliant with an appropriate HEP STG Duration Met Assessment Summary Assessment Since focusing more on balance , pt has improved mildly with DGI score (18/24 to 20/24), and SLS has improved from 1 to 3-4, but tandem stance has improved greatly, L leg in front improved from 9 to 1'15 . Improved balance and stability also helping pt's subjective back pain, pt able to perform bed mobility with less difficulty and pain. Recommend continued skilled PT for additional improvement and eventual transition to fully independent HEP. Physical Therapy Plan Frequency and Duration Frequency of Treatment 2x/Week Duration of Treatment Two months Plan of Care Start Date 05/16/22 Plan of Care End Date 07/16/22 Therapeutic Interventions Therapeutic Interventions Aquatic Therapy,Balance Training,Joint Mobilizations, Manual Therapy,Neuromuscular Re-education,Patient/Caregiver Education,Self-Care/Home Management,Soft Tissue Mobilization,Therapeutic Exercises Modalities Cold Pack/Ice Massage,Electric Stimulation,Hot Packs, Ultrasound Next Visit Focus/Plan Next Note Type Treatment Note Next Visit Plan Continue dynamic balance gait to improved steadiness over neighborhood uneven terrain. POC: Posture training, lumbar joint mobilizations Plan of Care Dates Plan of Care Start Date 05/16/22 Plan of Care End Date 07/16/22 Electronically Signed by: Enoch Moyer, PT 05/16/22 9107 If you are in agreement with this Plan of Care, please return a signed and dated copy. I have reviewed this Plan of Care and certify that the skilled therapy services above are required to meet the patient?s needs. Physician Signature Date Printed Name and Credentials Clinical Instructor Signature Printed Name and Credentials
--- NOTE | 2022-05-18 15:16 | PT.OTN ---
Current Diagnoses Other chronic pain (05/18/22) Postural kyphosis, thoracic region (05/18/22) Low back pain, unspecified (05/18/22) Abnormal posture (05/18/22) History of falling (05/18/22) Physical Therapy Treatment Note PT-OP-A Visit Information Start: 01/12/22 17:31 Freq: Status: Active Protocol: Document 05/18/22 14:30 DCW (Rec: 05/18/22 15:15 DCW [id number]) Out-Patient Physical Therapy Visit Information Visit Information Visit Type Treatment Note Visit Start Time 14:30 Visit Stop Time 15:15 Total Visit Minutes 45 Visit Number 23 Number of SPRAY DRIER OPERATOR HELPER Visits 0 Evaluation Information Evaluation Date 01/12/22 PT-OP-B Current Condition Start: 01/12/22 17:31 Freq: Status: Active Protocol: Document 01/12/22 11:15 DCW (Rec: 01/13/22 15:32 DCW [id number]) Current Condition History of Current Condition Onset Date Multi-year history Current Complaints Back pain, decreased gait tolerance, difficulty lifting, decreased balance History of Current Condition Pt is a 66 year old male presenting with a multi-year history of low back pain. 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 Notes it has worsened over the last ~10 years, to the point now where he has pain with any extended standing, walking, or lifting. Pt notes he doesn't really have any difficulty when sitting or lying down, only standing. Also notes he has noticed worsening balance, has fallen a few times in the last couple months, typically when walking down hill, he feels like he gets moving too quickly forward and loses control. Treatment Goals Patient/Caregiver Goals Pt's goal is to improve his standing and walking tolerance , as well as improve his balance PT-OP-C Subjective Start: 01/12/22 17:31 Freq: Status: Active Protocol: Document 05/18/22 14:30 DCW (Rec: 05/18/22 15:16 DCW [id number]) OP-PT Subjective Patient Comments Patient Comments Pt reports he is doing well today. PT-OP-D Balance Start: 03/08/22 17:00 Freq: Status: Active Protocol: Document 05/16/22 16:45 DCW (Rec: 05/16/22 17:16 DCW [id number]) Balance Tests mCTSIB mCTSIB Position 1 30+ mCTSIB Position 2 30+ mCTSIB Position 3 30+ mCTSIB Position 4 28 Functional Reach Functional Reach Test 11 Functional Reach Impairment Rating 0% Impaired (Score 10) Single Limb Standing Single Limb- Right 3 Single Limb- Left 4 Tandem Tandem Standing L forward: 1'15, R forward: 35 PT-OP-E Functional Tests Start: 01/12/22 17:36 Freq: Status: Active Protocol: Document 05/16/22 16:45 DCW (Rec: 05/16/22 17:16 DCW [id number]) Functional Tests Dynamic Gait Index (DGI) Score 20/24 DGI Impairment Rating 1 to <20% Impaired (Score 20- 23) Functional Gait Assessment Score 20/30 Functional Gait Assessment Impairment 20 to <40% Impaired (Score 19- Rating 24) PT-OP-F Manual Assessment Start: 01/12/22 17:39 Freq: Status: Active Protocol: Document 05/16/22 16:45 DCW (Rec: 05/16/22 17:16 DCW [id number]) Manual Assessments Joint Mobility Assessment Joint Mobility Assessment Lumbar vertebral hypomobility, limited P->A motion during attempted mobilizations PT-OP-G Mobility & Gait Start: 01/12/22 17:36 Freq: Status: Active Protocol: Document 05/16/22 16:45 DCW (Rec: 05/16/22 17:16 DCW [id number]) OP Gait Assessment Comments Gait Comments Pt shuffles feet with 40% of his steps, due to forward weight shift, displays limited heel strike, mainly touch down phase begins entirely on balls of feet. PT-OP-J Posture/Palpation/Skin Start: 01/12/22 17:31 Freq: Status: Active Protocol: Document 01/12/22 11:15 DCW (Rec: 01/12/22 17:36 DCW [id number]) Posture Evaluation Position Standing Evaluation View Lateral Head/C-Spine Posture Flexed T-Spine Posture Increased Kyphosis L-Spine Posture Increased Lordosis Pelvis Posture Anteriorly Tilted Weight Distribution Weight Shifted Anterior Comments Posture Comments Pt stands with weight shifted forward over his feet, pelvis centered over his toes, and then show excessive lumbar lordosis to lean slightly back , and excessive thoracic kyphosis to return to forward lean. Pt very resistant to attempts to correct posture, will not allow himself to lean back. PT-OP-K Range of Motion Start: 01/12/22 17:31 Freq: Status: Active Protocol: Document 05/16/22 16:45 DCW (Rec: 05/16/22 17:16 DCW [id number]) Lumbar Spine Range of Motion Lumbar Spine Active Degrees Testing Position Standing Flexion 63 Extension 20 Lateral Flexion Left 43 Lateral Flexion Right 44 Comments Lateral flexion measured in cm from fingertips to floor PT-OP-L Special Tests Start: 01/12/22 17:55 Freq: Status: Active Protocol: Document 01/12/22 11:15 DCW (Rec: 01/13/22 15:18 DCW [id number]) Special Tests Lumbar Spine Special Tests Lateral SI Compression Test Results Negative ELIZABET Test Results Negative A-P Shearing Test Results Negative Compression Test Results Negative Straight Leg Raise Test Results Negative Slump Test Results Negative PT-OP-M Strength Start: 01/12/22 17:31 Freq: Status: Active Protocol: Document 01/12/22 11:15 DCW (Rec: 01/12/22 17:43 DCW [id number]) Hip Strength Hip Manual Muscle Testing Right Flexion (L2) 5 Normal Abduction 5 Normal Adduction 5 Normal External Rotation 5 Normal Internal Rotation 5 Normal Left Flexion (L2) 5 Normal Abduction 5 Normal Adduction 5 Normal External Rotation 5 Normal Internal Rotation 5 Normal Knee Strength Knee Manual Muscle Testing Right Flexion (S2) 5 Normal Extension (L3) 5 Normal Left Flexion (S2) 5 Normal Extension (L3) 5 Normal Ankle/Foot Strength Ankle and Foot Manual Muscle Testing Right Dorsiflexion (L4) 5 Normal Plantarflexion (S1) 5 Normal Left Dorsiflexion (L4) 5 Normal Plantarflexion (S1) 5 Normal PT-OP-Q Treatments Start: 01/12/22 17:31 Freq: Status: Active Protocol: Document 05/18/22 14:30 DCW (Rec: 05/18/22 15:15 DCW [id number]) Cardio Equipment Recumbent Elliptical ([employer]) Duration (Minutes) 5 Resistance 6 Seat Position 9 Other UEs/LEs 35-40 RPM, total steps 528 Gym Equipment Shuttle Recovery Unilateral Squats Details TrA hold Resistance 50# Reps/Time 2x15 (alternate BLE) Bilateral Squats Details TrA hold Resistance 87# Shuttle Balance red clips Details Red Comments WBOS EO/EC NBOS: DF/PF wt shift Staggered Stance: EO Neuro Re-Education Treatment Balance Activities Amb /c head turns Details Ambulation with head turns fwd /bwd Equipment 100 bpm metronome Comments cued upright posture,heel toe with core fac and listen to foot clearance. SLS Details SLS Surface Solid Equipment facing rail, close SBA hurdles Details Hurdles/Foam Equipment // bars Reps/Duration Fwd, Lateral PT-OP-T Assessment and Plan Start: 01/12/22 17:31 Freq: Status: Active Protocol: Document 05/18/22 14:30 DCW (Rec: 05/18/22 15:15 DCW [id number]) Physical Therapy Assessment Impairments Impairments Functional Activities, Functional Mobility,Gait, Posture Goals Three Impairment Pt at increased falls risk, per DGI score () Residential Goal (LTG) Pt to increased DGI score by at least three points to to demonstrate decreased falls risk 05/16/22: Pt scores LTG Duration 06/15/22 Two Impairment Pt stands with a forward weight shift onto the balls of his feet Residential Goal (LTG) Pt to stand with proper posture 80% of the time with no verbal or tactile cues or corrections 05/16/22: thinks improved by 60 %. LTG Duration 07/16/22 One Impairment Pt does not have an appropriate home exercise program Short Term Goal (STG) Pt to be independent and compliant with an appropriate HEP STG Duration Met Assessment Summary Assessment Pt worked very hard today, was fatigued and sweating from the effort, but showed some good overall progress, improved SLS but 2-3 seconds compared to his reassessment two days ago. Physical Therapy Plan Frequency and Duration Frequency of Treatment 2x/Week Duration of Treatment Two months Plan of Care Start Date 05/16/22 Plan of Care End Date 07/16/22 Therapeutic Interventions Therapeutic Interventions Aquatic Therapy,Balance Training,Joint Mobilizations, Manual Therapy,Neuromuscular Re-education,Patient/Caregiver Education,Self-Care/Home Management,Soft Tissue Mobilization,Therapeutic Exercises Modalities Cold Pack/Ice Massage,Electric Stimulation,Hot Packs, Ultrasound Next Visit Focus/Plan Next Note Type Treatment Note Next Visit Plan Continue dynamic balance gait to improved steadiness over neighborhood uneven terrain. POC: Posture training, lumbar joint mobilizations
--- NOTE | 2022-05-27 12:04 | PT.OTN ---
Current Diagnoses Other chronic pain (05/27/22) Postural kyphosis, thoracic region (05/27/22) Low back pain, unspecified (05/27/22) Abnormal posture (05/27/22) History of falling (05/27/22) Physical Therapy Treatment Note PT-OP-A Visit Information Start: 01/12/22 17:31 Freq: Status: Active Protocol: Document 05/27/22 11:15 DCW (Rec: 05/27/22 12:03 DCW [id number]) Out-Patient Physical Therapy Visit Information Visit Information Visit Type Treatment Note Visit Start Time 11:15 Visit Stop Time 12:00 Total Visit Minutes 45 Visit Number 24 Number of PRACTICE MANAGEMENT CONSULTANT Visits 0 Evaluation Information Evaluation Date 01/12/22 PT-OP-B Current Condition Start: 01/12/22 17:31 Freq: Status: Active Protocol: Document 01/12/22 11:15 DCW (Rec: 01/13/22 15:32 DCW [id number]) Current Condition History of Current Condition Onset Date Multi-year history Current Complaints Back pain, decreased gait tolerance, difficulty lifting, decreased balance History of Current Condition Pt is a 66 year old male presenting with a multi-year history of low back pain. 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 Notes it has worsened over the last ~10 years, to the point now where he has pain with any extended standing, walking, or lifting. Pt notes he doesn't really have any difficulty when sitting or lying down, only standing. Also notes he has noticed worsening balance, has fallen a few times in the last couple months, typically when walking down hill, he feels like he gets moving too quickly forward and loses control. Treatment Goals Patient/Caregiver Goals Pt's goal is to improve his standing and walking tolerance , as well as improve his balance PT-OP-C Subjective Start: 01/12/22 17:31 Freq: Status: Active Protocol: Document 05/27/22 11:15 DCW (Rec: 05/27/22 12:03 DCW [id number]) OP-PT Subjective Patient Comments Patient Comments Pt notes he is pretty good today. PT-OP-D Balance Start: 03/08/22 17:00 Freq: Status: Active Protocol: Document 05/16/22 16:45 DCW (Rec: 05/16/22 17:16 DCW [id number]) Balance Tests mCTSIB mCTSIB Position 1 30+ mCTSIB Position 2 30+ mCTSIB Position 3 30+ mCTSIB Position 4 28 Functional Reach Functional Reach Test 11 Functional Reach Impairment Rating 0% Impaired (Score 10) Single Limb Standing Single Limb- Right 3 Single Limb- Left 4 Tandem Tandem Standing L forward: 1'15, R forward: 35 PT-OP-E Functional Tests Start: 01/12/22 17:36 Freq: Status: Active Protocol: Document 05/16/22 16:45 DCW (Rec: 05/16/22 17:16 DCW [id number]) Functional Tests Dynamic Gait Index (DGI) Score 20/24 DGI Impairment Rating 1 to <20% Impaired (Score 20- 23) Functional Gait Assessment Score 20/30 Functional Gait Assessment Impairment 20 to <40% Impaired (Score 19- Rating 24) PT-OP-F Manual Assessment Start: 01/12/22 17:39 Freq: Status: Active Protocol: Document 05/16/22 16:45 DCW (Rec: 05/16/22 17:16 DCW [id number]) Manual Assessments Joint Mobility Assessment Joint Mobility Assessment Lumbar vertebral hypomobility, limited P->A motion during attempted mobilizations PT-OP-G Mobility & Gait Start: 01/12/22 17:36 Freq: Status: Active Protocol: Document 05/16/22 16:45 DCW (Rec: 05/16/22 17:16 DCW [id number]) OP Gait Assessment Comments Gait Comments Pt shuffles feet with 40% of his steps, due to forward weight shift, displays limited heel strike, mainly touch down phase begins entirely on balls of feet. PT-OP-J Posture/Palpation/Skin Start: 01/12/22 17:31 Freq: Status: Active Protocol: Document 01/12/22 11:15 DCW (Rec: 01/12/22 17:36 DCW [id number]) Posture Evaluation Position Standing Evaluation View Lateral Head/C-Spine Posture Flexed T-Spine Posture Increased Kyphosis L-Spine Posture Increased Lordosis Pelvis Posture Anteriorly Tilted Weight Distribution Weight Shifted Anterior Comments Posture Comments Pt stands with weight shifted forward over his feet, pelvis centered over his toes, and then show excessive lumbar lordosis to lean slightly back , and excessive thoracic kyphosis to return to forward lean. Pt very resistant to attempts to correct posture, will not allow himself to lean back. PT-OP-K Range of Motion Start: 01/12/22 17:31 Freq: Status: Active Protocol: Document 05/16/22 16:45 DCW (Rec: 05/16/22 17:16 DCW [id number]) Lumbar Spine Range of Motion Lumbar Spine Active Degrees Testing Position Standing Flexion 63 Extension 20 Lateral Flexion Left 43 Lateral Flexion Right 44 Comments Lateral flexion measured in cm from fingertips to floor PT-OP-L Special Tests Start: 01/12/22 17:55 Freq: Status: Active Protocol: Document 01/12/22 11:15 DCW (Rec: 01/13/22 15:18 DCW [id number]) Special Tests Lumbar Spine Special Tests Lateral SI Compression Test Results Negative ELIZABET Test Results Negative A-P Shearing Test Results Negative Compression Test Results Negative Straight Leg Raise Test Results Negative Slump Test Results Negative PT-OP-M Strength Start: 01/12/22 17:31 Freq: Status: Active Protocol: Document 01/12/22 11:15 DCW (Rec: 01/12/22 17:43 DCW [id number]) Hip Strength Hip Manual Muscle Testing Right Flexion (L2) 5 Normal Abduction 5 Normal Adduction 5 Normal External Rotation 5 Normal Internal Rotation 5 Normal Left Flexion (L2) 5 Normal Abduction 5 Normal Adduction 5 Normal External Rotation 5 Normal Internal Rotation 5 Normal Knee Strength Knee Manual Muscle Testing Right Flexion (S2) 5 Normal Extension (L3) 5 Normal Left Flexion (S2) 5 Normal Extension (L3) 5 Normal Ankle/Foot Strength Ankle and Foot Manual Muscle Testing Right Dorsiflexion (L4) 5 Normal Plantarflexion (S1) 5 Normal Left Dorsiflexion (L4) 5 Normal Plantarflexion (S1) 5 Normal PT-OP-Q Treatments Start: 01/12/22 17:31 Freq: Status: Active Protocol: Document 05/27/22 11:15 DCW (Rec: 05/27/22 12:03 DCW [id number]) Cardio Equipment Recumbent Elliptical ([employer]) Duration (Minutes) 5 Resistance 6 Seat Position 9 Other UEs/LEs 35-40 RPM, total steps 528 Gym Equipment Shuttle Recovery Unilateral Squats Details TrA hold Resistance 50# Reps/Time 2x15 (alternate BLE) Bilateral Squats Details TrA hold Resistance 87# Shuttle Balance red clips Details Red Comments WBOS EO/EC NBOS: DF/PF wt shift Staggered Stance: EO Neuro Re-Education Treatment Balance Activities NBOS Details NBOS Comments Eyes closed Amb /c head turns Details Ambulation with head turns fwd /bwd Equipment 100 bpm metronome Comments cued upright posture,heel toe with core fac and listen to foot clearance. Tandem Stance Details Tandem Stance Comments X1 horizontal/vertical head turns SLS Details SLS Surface lue foam Equipment facing rail, close SBA hurdles Details Hurdles/Foam Equipment // bars Reps/Duration Fwd, Lateral PT-OP-T Assessment and Plan Start: 01/12/22 17:31 Freq: Status: Active Protocol: Document 05/27/22 11:15 DCW (Rec: 05/27/22 12:03 DCW [id number]) Physical Therapy Assessment Impairments Impairments Functional Activities, Functional Mobility,Gait, Posture Goals Three Impairment Pt at increased falls risk, per DGI score () Marketing Communications Leader Goal (LTG) Pt to increased DGI score by at least three points to to demonstrate decreased falls risk 05/16/22: Pt scores LTG Duration 06/15/22 Two Impairment Pt stands with a forward weight shift onto the balls of his feet Care Home Goal (LTG) Pt to stand with proper posture 80% of the time with no verbal or tactile cues or corrections 05/16/22: thinks improved by 60 %. LTG Duration 07/16/22 One Impairment Pt does not have an appropriate home exercise program Short Term Goal (STG) Pt to be independent and compliant with an appropriate HEP STG Duration Met Assessment Summary Assessment SLS improved today, even with use of foam, and tandem stance with X1 viewing also went very well. Still struggling with hurdles. Physical Therapy Plan Frequency and Duration Frequency of Treatment 2x/Week Duration of Treatment Two months Plan of Care Start Date 05/16/22 Plan of Care End Date 07/16/22 Therapeutic Interventions Therapeutic Interventions Aquatic Therapy,Balance Training,Joint Mobilizations, Manual Therapy,Neuromuscular Re-education,Patient/Caregiver Education,Self-Care/Home Management,Soft Tissue Mobilization,Therapeutic Exercises Modalities Cold Pack/Ice Massage,Electric Stimulation,Hot Packs, Ultrasound Next Visit Focus/Plan Next Note Type Treatment Note Next Visit Plan Continue dynamic balance gait to improved steadiness over neighborhood uneven terrain. POC: Posture training, lumbar joint mobilizations
--- NOTE | 2022-06-03 10:38 | PT.OTN ---
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 Notes it has worsened over the last ~10 years, to the point now where he has pain with any extended standing, walking, or lifting. Pt notes he doesn't really have any difficulty when sitting or lying down, only standing. Also notes he has noticed worsening balance, has fallen a few times in the last couple months, typically when walking down hill, he feels like he gets moving too quickly forward and loses control. Treatment Goals Patient/Caregiver Goals Pt's goal is to improve his standing and walking tolerance , as well as improve his balance PT-OP-C Subjective Start: 01/12/22 17:31 Freq: Status: Active Protocol: Document 06/03/22 09:45 DCW (Rec: 06/03/22 10:38 DCW [id number]) OP-PT Subjective Patient Comments Patient Comments Pt feeling alright today. PT-OP-D Balance Start: 03/08/22 17:00 Freq: Status: Active Protocol: Document 05/16/22 16:45 DCW (Rec: 05/16/22 17:16 DCW [id number]) Balance Tests mCTSIB mCTSIB Position 1 30+ mCTSIB Position 2 30+ mCTSIB Position 3 30+ mCTSIB Position 4 28 Functional Reach Functional Reach Test 11 Functional Reach Impairment Rating 0% Impaired (Score 10) Single Limb Standing Single Limb- Right 3 Single Limb- Left 4 Tandem Tandem Standing L forward: 1'15, R forward: 35 PT-OP-E Functional Tests Start: 01/12/22 17:36 Freq: Status: Active Protocol: Document 05/16/22 16:45 DCW (Rec: 05/16/22 17:16 DCW [id number]) Functional Tests Dynamic Gait Index (DGI) Score 20/24 DGI Impairment Rating 1 to <20% Impaired (Score 20- 23) Functional Gait Assessment Score 20/30 Functional Gait Assessment Impairment 20 to <40% Impaired (Score 19- Rating 24) PT-OP-F Manual Assessment Start: 01/12/22 17:39 Freq: Status: Active Protocol: Document 05/16/22 16:45 DCW (Rec: 05/16/22 17:16 DCW [id number]) Manual Assessments Joint Mobility Assessment Joint Mobility Assessment Lumbar vertebral hypomobility, limited P->A motion during attempted mobilizations PT-OP-G Mobility & Gait Start: 01/12/22 17:36 Freq: Status: Active Protocol: Document 05/16/22 16:45 DCW (Rec: 05/16/22 17:16 DCW [id number]) OP Gait Assessment Comments Gait Comments Pt shuffles feet with 40% of his steps, due to forward weight shift, displays limited heel strike, mainly touch down phase begins entirely on balls of feet. PT-OP-J Posture/Palpation/Skin Start: 01/12/22 17:31 Freq: Status: Active Protocol: Document 01/12/22 11:15 DCW (Rec: 01/12/22 17:36 DCW [id number]) Posture Evaluation Position Standing Evaluation View Lateral Head/C-Spine Posture Flexed T-Spine Posture Increased Kyphosis L-Spine Posture Increased Lordosis Pelvis Posture Anteriorly Tilted Weight Distribution Weight Shifted Anterior Comments Posture Comments Pt stands with weight shifted forward over his feet, pelvis centered over his toes, and then show excessive lumbar lordosis to lean slightly back , and excessive thoracic kyphosis to return to forward lean. Pt very resistant to attempts to correct posture, will not allow himself to lean back. PT-OP-K Range of Motion Start: 01/12/22 17:31 Freq: Status: Active Protocol: Document 05/16/22 16:45 DCW (Rec: 05/16/22 17:16 DCW [id number]) Lumbar Spine Range of Motion Lumbar Spine Active Degrees Testing Position Standing Flexion 63 Extension 20 Lateral Flexion Left 43 Lateral Flexion Right 44 Comments Lateral flexion measured in cm from fingertips to floor PT-OP-L Special Tests Start: 01/12/22 17:55 Freq: Status: Active Protocol: Document 01/12/22 11:15 DCW (Rec: 01/13/22 15:18 DCW [id number]) Special Tests Lumbar Spine Special Tests Lateral SI Compression Test Results Negative ELIZABET Test Results Negative A-P Shearing Test Results Negative Compression Test Results Negative Straight Leg Raise Test Results Negative Slump Test Results Negative PT-OP-M Strength Start: 01/12/22 17:31 Freq: Status: Active Protocol: Document 01/12/22 11:15 DCW (Rec: 01/12/22 17:43 DCW [id number]) Hip Strength Hip Manual Muscle Testing Right Flexion (L2) 5 Normal Abduction 5 Normal Adduction 5 Normal External Rotation 5 Normal Internal Rotation 5 Normal Left Flexion (L2) 5 Normal Abduction 5 Normal Adduction 5 Normal External Rotation 5 Normal Internal Rotation 5 Normal Knee Strength Knee Manual Muscle Testing Right Flexion (S2) 5 Normal Extension (L3) 5 Normal Left Flexion (S2) 5 Normal Extension (L3) 5 Normal Ankle/Foot Strength Ankle and Foot Manual Muscle Testing Right Dorsiflexion (L4) 5 Normal Plantarflexion (S1) 5 Normal Left Dorsiflexion (L4) 5 Normal Plantarflexion (S1) 5 Normal PT-OP-Q Treatments Start: 01/12/22 17:31 Freq: Status: Active Protocol: Document 06/03/22 09:45 DCW (Rec: 06/03/22 10:38 DCW [id number]) Cardio Equipment Recumbent Elliptical ([employer]) Duration (Minutes) 5 Resistance 5 Seat Position 10 Other UEs/LEs 35-40 RPM, total steps Gym Equipment Shuttle Recovery Unilateral Squats Details TrA hold Resistance 50# Reps/Time 2x15 Bilateral Squats Details TrA hold Resistance 87# Shuttle Balance red clips Details Red Comments WBOS EO/EC NBOS: DF/PF wt shift Staggered Stance: EO Neuro Re-Education Treatment Balance Activities Tandem Stance Details Tandem Stance Surface Blue foam Comments X1 horizontal/vertical head turns SLS Details SLS Surface lue foam Equipment facing rail, close SBA hurdles Details Hurdles/Foam Equipment // bars Reps/Duration Fwd, Tandem, Lateral PT-OP-T Assessment and Plan Start: 01/12/22 17:31 Freq: Status: Active Protocol: Document 06/03/22 09:45 DCW (Rec: 06/03/22 10:38 DCW [id number]) Physical Therapy Assessment Impairments Impairments Functional Activities, Functional Mobility,Gait, Posture Goals Three Impairment Pt at increased falls risk, per DGI score () Program/Music Director Goal (LTG) Pt to increased DGI score by at least three points to to demonstrate decreased falls risk 05/16/22: Pt scores 20 LTG Duration 06/15/22 Two Impairment Pt stands with a forward weight shift onto the balls of his feet Program/Music Director Goal (LTG) Pt to stand with proper posture 80% of the time with no verbal or tactile cues or corrections 05/16/22: thinks improved by 60 %. LTG Duration 07/16/22 One Impairment Pt does not have an appropriate home exercise program Short Term Goal (STG) Pt to be independent and compliant with an appropriate HEP STG Duration Met Assessment Summary Assessment Performance on hurdles is hit or miss, does well a few times , then loses concentration and will stumble over two or three hurdles. Improving slightly with forward weight shift. Physical Therapy Plan Frequency and Duration Frequency of Treatment 2x/Week Duration of Treatment Two months Plan of Care Start Date 05/16/22 Plan of Care End Date 07/16/22 Therapeutic Interventions Therapeutic Interventions Aquatic Therapy,Balance Training,Joint Mobilizations, Manual Therapy,Neuromuscular Re-education,Patient/Caregiver Education,Self-Care/Home Management,Soft Tissue Mobilization,Therapeutic Exercises Modalities Cold Pack/Ice Massage,Electric Stimulation,Hot Packs, Ultrasound Next Visit Focus/Plan Next Note Type Treatment Note Next Visit Plan Continue dynamic balance gait to improved steadiness over neighborhood uneven terrain. POC: Posture training, lumbar joint mobilizations
--- NOTE | 2022-06-14 09:45 | PT.OTN ---
Current Diagnoses Other chronic pain (06/14/22) Postural kyphosis, thoracic region (06/14/22) Low back pain, unspecified (06/14/22) Abnormal posture (06/14/22) History of falling (06/14/22) Physical Therapy Treatment Note PT-OP-A Visit Information Start: 01/12/22 17:31 Freq: Status: Active Protocol: Document 06/14/22 09:02 SP (Rec: 06/14/22 09:46 SP [id number]) Out-Patient Physical Therapy Visit Information Visit Information Visit Type Treatment Note Visit Start Time 09:02 Visit Stop Time 09:45 Total Visit Minutes 43 Visit Number 26 Number of [employer] MEMBER Visits 1 Evaluation Information Evaluation Date 01/12/22 PT-OP-B Current Condition Start: 01/12/22 17:31 Freq: Status: Active Protocol: Document 01/12/22 11:15 DCW (Rec: 01/13/22 15:32 DCW [id number]) Current Condition History of Current Condition Onset Date Multi-year history Current Complaints Back pain, decreased gait tolerance, difficulty lifting, decreased balance History of Current Condition Pt is a 66 year old male presenting with a multi-year history of low back pain. 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 Notes it has worsened over the last ~10 years, to the point now where he has pain with any extended standing, walking, or lifting. Pt notes he doesn't really have any difficulty when sitting or lying down, only standing. Also notes he has noticed worsening balance, has fallen a few times in the last couple months, typically when walking down hill, he feels like he gets moving too quickly forward and loses control. Treatment Goals Patient/Caregiver Goals Pt's goal is to improve his standing and walking tolerance , as well as improve his balance PT-OP-C Subjective Start: 01/12/22 17:31 Freq: Status: Active Protocol: Document 06/14/22 09:02 SP (Rec: 06/14/22 09:46 SP [id number]) OP-PT Subjective Patient Comments Patient Comments Pt stated was able to play 9 holes of golf yesterday, utilized golf cart, didn't notice back pain and balance improving over uneven course. PT-OP-D Balance Start: 03/08/22 17:00 Freq: Status: Active Protocol: Document 05/16/22 16:45 DCW (Rec: 05/16/22 17:16 DCW [id number]) Balance Tests mCTSIB mCTSIB Position 1 30+ mCTSIB Position 2 30+ mCTSIB Position 3 30+ mCTSIB Position 4 28 Functional Reach Functional Reach Test 11 Functional Reach Impairment Rating 0% Impaired (Score 10) Single Limb Standing Single Limb- Right 3 Single Limb- Left 4 Tandem Tandem Standing L forward: 1'15, R forward: 35 PT-OP-E Functional Tests Start: 01/12/22 17:36 Freq: Status: Active Protocol: Document 05/16/22 16:45 DCW (Rec: 05/16/22 17:16 DCW [id number]) Functional Tests Dynamic Gait Index (DGI) Score 20/24 DGI Impairment Rating 1 to <20% Impaired (Score 20- 23) Functional Gait Assessment Score 20/30 Functional Gait Assessment Impairment 20 to <40% Impaired (Score 19- Rating 24) PT-OP-F Manual Assessment Start: 01/12/22 17:39 Freq: Status: Active Protocol: Document 05/16/22 16:45 DCW (Rec: 05/16/22 17:16 DCW [id number]) Manual Assessments Joint Mobility Assessment Joint Mobility Assessment Lumbar vertebral hypomobility, limited P->A motion during attempted mobilizations PT-OP-G Mobility & Gait Start: 01/12/22 17:36 Freq: Status: Active Protocol: Document 05/16/22 16:45 DCW (Rec: 05/16/22 17:16 DCW [id number]) OP Gait Assessment Comments Gait Comments Pt shuffles feet with 40% of his steps, due to forward weight shift, displays limited heel strike, mainly touch down phase begins entirely on balls of feet. PT-OP-J Posture/Palpation/Skin Start: 01/12/22 17:31 Freq: Status: Active Protocol: Document 01/12/22 11:15 DCW (Rec: 01/12/22 17:36 DCW [id number]) Posture Evaluation Position Standing Evaluation View Lateral Head/C-Spine Posture Flexed T-Spine Posture Increased Kyphosis L-Spine Posture Increased Lordosis Pelvis Posture Anteriorly Tilted Weight Distribution Weight Shifted Anterior Comments Posture Comments Pt stands with weight shifted forward over his feet, pelvis centered over his toes, and then show excessive lumbar lordosis to lean slightly back , and excessive thoracic kyphosis to return to forward lean. Pt very resistant to attempts to correct posture, will not allow himself to lean back. PT-OP-K Range of Motion Start: 01/12/22 17:31 Freq: Status: Active Protocol: Document 05/16/22 16:45 DCW (Rec: 05/16/22 17:16 DCW [id number]) Lumbar Spine Range of Motion Lumbar Spine Active Degrees Testing Position Standing Flexion 63 Extension 20 Lateral Flexion Left 43 Lateral Flexion Right 44 Comments Lateral flexion measured in cm from fingertips to floor PT-OP-L Special Tests Start: 01/12/22 17:55 Freq: Status: Active Protocol: Document 01/12/22 11:15 DCW (Rec: 01/13/22 15:18 DCW [id number]) Special Tests Lumbar Spine Special Tests Lateral SI Compression Test Results Negative ELIZABET Test Results Negative A-P Shearing Test Results Negative Compression Test Results Negative Straight Leg Raise Test Results Negative Slump Test Results Negative PT-OP-M Strength Start: 01/12/22 17:31 Freq: Status: Active Protocol: Document 01/12/22 11:15 DCW (Rec: 01/12/22 17:43 DCW [id number]) Hip Strength Hip Manual Muscle Testing Right Flexion (L2) 5 Normal Abduction 5 Normal Adduction 5 Normal External Rotation 5 Normal Internal Rotation 5 Normal Left Flexion (L2) 5 Normal Abduction 5 Normal Adduction 5 Normal External Rotation 5 Normal Internal Rotation 5 Normal Knee Strength Knee Manual Muscle Testing Right Flexion (S2) 5 Normal Extension (L3) 5 Normal Left Flexion (S2) 5 Normal Extension (L3) 5 Normal Ankle/Foot Strength Ankle and Foot Manual Muscle Testing Right Dorsiflexion (L4) 5 Normal Plantarflexion (S1) 5 Normal Left Dorsiflexion (L4) 5 Normal Plantarflexion (S1) 5 Normal PT-OP-Q Treatments Start: 01/12/22 17:31 Freq: Status: Active Protocol: Document 06/14/22 09:02 SP (Rec: 06/14/22 09:46 SP [id number]) Cardio Equipment Recumbent Elliptical ([employer]) Duration (Minutes) 6 Resistance 6 Seat Position 10 Other UEs/LEs 35-40 RPM, total steps 840 Gym Equipment Shuttle Recovery Unilateral Squats Details TrA hold Resistance 50# Reps/Time 2x20 Bilateral Squats Details TrA hold Resistance 87#>100#, Unstable x87# x10 Shuttle Recovery Platform Stable Reps/Time x20 Therapeutic Exercises Standing Exercises band walk Standing Exercise Name HEP review Resistance Lvl #3 TB at ankles Equipment Used rail PRN, Reps/Minutes 20 ft x2 laps Comments cued x1 for trailing LE clearance Gait Training Gait Activity dynamic gait Description head turns, vertical, quick stop/pivot, incline/decline, grass/gravel/mulch Device Used 0 Level of Assistance SBA Surface firm Distance/Duration outdoors Treatment Focus balance recovery Comments intermittend cues for tall posture/ core fac and eccentric heel strike, improved LLE stride and foot clearance. Neuro Re-Education Treatment Balance Activities Tandem Stance Details Tandem Stance Surface Blue foam Comments horizontal/vertical head turns CG- 10%A. EC Min A cues for posturing, scap retraction, core fac over FADY. hurdles Details Hurdles/Foam Equipment 2 blue foam, 2 pods, near rail Reps/Duration Fwd Comments CG- 5%A as needed. R foot caught bri x3 reps, cued increase height and stride PT-OP-T Assessment and Plan Start: 01/12/22 17:31 Freq: Status: Active Protocol: Document 06/14/22 09:02 SP (Rec: 06/14/22 09:46 SP [id number]) Physical Therapy Assessment Goals Three Impairment Pt at increased falls risk, per DGI score () Assisted Goal (LTG) Pt to increased DGI score by at least three points to 24 to demonstrate decreased falls risk 05/16/22: Pt scores 20 LTG Duration 06/15/22 Two Impairment Pt stands with a forward weight shift onto the balls of his feet Assisted Goal (LTG) Pt to stand with proper posture 80% of the time with no verbal or tactile cues or corrections 05/16/22: thinks improved by 60 %. LTG Duration 07/16/22 One Impairment Pt does not have an appropriate home exercise program Short Term Goal (STG) Pt to be independent and compliant with an appropriate HEP STG Duration Met Assessment Summary Assessment Pt improved posturing, and LLE foot clearance, occasional cues but better self corrections for normalizing gait over uneven surfaces today. Physical Therapy Plan Frequency and Duration Frequency of Treatment 2x/Week Duration of Treatment Two months Plan of Care Start Date 05/16/22 Plan of Care End Date 07/16/22 Therapeutic Interventions Therapeutic Interventions Aquatic Therapy,Balance Training,Joint Mobilizations, Manual Therapy,Neuromuscular Re-education,Patient/Caregiver Education,Self-Care/Home Management,Soft Tissue Mobilization,Therapeutic Exercises Modalities Cold Pack/Ice Massage,Electric Stimulation,Hot Packs, Ultrasound Next Visit Focus/Plan Next Note Type Treatment Note Next Visit Plan Continue dynamic balance gait to improved steadiness over neighborhood uneven terrain. POC: Posture training, lumbar joint mobilizations
--- NOTE | 2022-06-29 16:46 | PT.OTN ---
Current Diagnoses Other chronic pain (06/29/22) Postural kyphosis, thoracic region (06/29/22) Low back pain, unspecified (06/29/22) Abnormal posture (06/29/22) History of falling (06/29/22) Physical Therapy Treatment Note PT-OP-A Visit Information Start: 01/12/22 17:31 Freq: Status: Active Protocol: Document 06/29/22 16:00 DCW (Rec: 06/29/22 16:46 DCW [id number]) Out-Patient Physical Therapy Visit Information Visit Information Visit Type Treatment Note Visit Start Time 16:00 Visit Stop Time 16:45 Total Visit Minutes 45 Visit Number 27 Number of GLUING MACHINE FEEDER Visits 0 Evaluation Information Evaluation Date 01/12/22 PT-OP-B Current Condition Start: 01/12/22 17:31 Freq: Status: Active Protocol: Document 01/12/22 11:15 DCW (Rec: 01/13/22 15:32 DCW [id number]) Current Condition History of Current Condition Onset Date Multi-year history Current Complaints Back pain, decreased gait tolerance, difficulty lifting, decreased balance History of Current Condition Pt is a 66 year old male presenting with a multi-year history of low back pain. 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 Notes it has worsened over the last ~10 years, to the point now where he has pain with any extended standing, walking, or lifting. Pt notes he doesn't really have any difficulty when sitting or lying down, only standing. Also notes he has noticed worsening balance, has fallen a few times in the last couple months, typically when walking down hill, he feels like he gets moving too quickly forward and loses control. Treatment Goals Patient/Caregiver Goals Pt's goal is to improve his standing and walking tolerance , as well as improve his balance PT-OP-C Subjective Start: 01/12/22 17:31 Freq: Status: Active Protocol: Document 06/29/22 16:00 DCW (Rec: 06/29/22 16:46 DCW [id number]) OP-PT Subjective Patient Comments Patient Comments Pt notes his balance isn't perfect, but it's getting better. I haven't been on the verge of falling recently. Does admit his back is still sore. After 4 hours of standing at the shop, I really need to sit down. PT-OP-D Balance Start: 03/08/22 17:00 Freq: Status: Active Protocol: Document 05/16/22 16:45 DCW (Rec: 05/16/22 17:16 DCW [id number]) Balance Tests mCTSIB mCTSIB Position 1 30+ mCTSIB Position 2 30+ mCTSIB Position 3 30+ mCTSIB Position 4 28 Functional Reach Functional Reach Test 11 Functional Reach Impairment Rating 0% Impaired (Score 10) Single Limb Standing Single Limb- Right 3 Single Limb- Left 4 Tandem Tandem Standing L forward: 1'15, R forward: 35 PT-OP-E Functional Tests Start: 01/12/22 17:36 Freq: Status: Active Protocol: Document 05/16/22 16:45 DCW (Rec: 05/16/22 17:16 DCW [id number]) Functional Tests Dynamic Gait Index (DGI) Score 20/24 DGI Impairment Rating 1 to <20% Impaired (Score 20- 23) Functional Gait Assessment Score 20/30 Functional Gait Assessment Impairment 20 to <40% Impaired (Score 19- Rating 24) PT-OP-F Manual Assessment Start: 01/12/22 17:39 Freq: Status: Active Protocol: Document 05/16/22 16:45 DCW (Rec: 05/16/22 17:16 DCW [id number]) Manual Assessments Joint Mobility Assessment Joint Mobility Assessment Lumbar vertebral hypomobility, limited P->A motion during attempted mobilizations PT-OP-G Mobility & Gait Start: 01/12/22 17:36 Freq: Status: Active Protocol: Document 05/16/22 16:45 DCW (Rec: 05/16/22 17:16 DCW [id number]) OP Gait Assessment Comments Gait Comments Pt shuffles feet with 40% of his steps, due to forward weight shift, displays limited heel strike, mainly touch down phase begins entirely on balls of feet. PT-OP-J Posture/Palpation/Skin Start: 01/12/22 17:31 Freq: Status: Active Protocol: Document 01/12/22 11:15 DCW (Rec: 01/12/22 17:36 DCW [id number]) Posture Evaluation Position Standing Evaluation View Lateral Head/C-Spine Posture Flexed T-Spine Posture Increased Kyphosis L-Spine Posture Increased Lordosis Pelvis Posture Anteriorly Tilted Weight Distribution Weight Shifted Anterior Comments Posture Comments Pt stands with weight shifted forward over his feet, pelvis centered over his toes, and then show excessive lumbar lordosis to lean slightly back , and excessive thoracic kyphosis to return to forward lean. Pt very resistant to attempts to correct posture, will not allow himself to lean back. PT-OP-K Range of Motion Start: 01/12/22 17:31 Freq: Status: Active Protocol: Document 05/16/22 16:45 DCW (Rec: 05/16/22 17:16 DCW [id number]) Lumbar Spine Range of Motion Lumbar Spine Active Degrees Testing Position Standing Flexion 63 Extension 20 Lateral Flexion Left 43 Lateral Flexion Right 44 Comments Lateral flexion measured in cm from fingertips to floor PT-OP-L Special Tests Start: 01/12/22 17:55 Freq: Status: Active Protocol: Document 01/12/22 11:15 DCW (Rec: 01/13/22 15:18 DCW [id number]) Special Tests Lumbar Spine Special Tests Lateral SI Compression Test Results Negative ELIZABET Test Results Negative A-P Shearing Test Results Negative Compression Test Results Negative Straight Leg Raise Test Results Negative Slump Test Results Negative PT-OP-M Strength Start: 01/12/22 17:31 Freq: Status: Active Protocol: Document 01/12/22 11:15 DCW (Rec: 01/12/22 17:43 DCW [id number]) Hip Strength Hip Manual Muscle Testing Right Flexion (L2) 5 Normal Abduction 5 Normal Adduction 5 Normal External Rotation 5 Normal Internal Rotation 5 Normal Left Flexion (L2) 5 Normal Abduction 5 Normal Adduction 5 Normal External Rotation 5 Normal Internal Rotation 5 Normal Knee Strength Knee Manual Muscle Testing Right Flexion (S2) 5 Normal Extension (L3) 5 Normal Left Flexion (S2) 5 Normal Extension (L3) 5 Normal Ankle/Foot Strength Ankle and Foot Manual Muscle Testing Right Dorsiflexion (L4) 5 Normal Plantarflexion (S1) 5 Normal Left Dorsiflexion (L4) 5 Normal Plantarflexion (S1) 5 Normal PT-OP-Q Treatments Start: 01/12/22 17:31 Freq: Status: Active Protocol: Document 06/29/22 16:00 DCW (Rec: 06/29/22 16:46 DCW [id number]) Cardio Equipment Recumbent Elliptical (Biodex) Duration (Minutes) 6 Resistance 6 Seat Position 9 Gym Equipment Shuttle Recovery Unilateral Squats Details TrA hold Resistance 50# Reps/Time 2x15 Bilateral Squats Details TrA hold Resistance 87# Shuttle Balance red clips Details Red Comments WBOS EO/EC NBOS: DF/PF wt shift Staggered Stance: EO Manual Therapy Treatment Soft Tissue Mobilization LB Body Location B paraspinals & QL Mobilization Type Rolling,Strumming,Sustained Pressure Intensity/Depth Moderate Body Position Sidelying Joint Mobilizations Lumbar Joint Lumbar Direction P->A Grade III PT-OP-T Assessment and Plan Start: 01/12/22 17:31 Freq: Status: Active Protocol: Document 06/29/22 16:00 DCW (Rec: 06/29/22 16:46 DCW [id number]) Physical Therapy Assessment Impairments Impairments Functional Activities, Functional Mobility,Gait, Posture Goals Three Impairment Pt at increased falls risk, per DGI score () Wallpaper Printer Goal (LTG) Pt to increased DGI score by at least three points to to demonstrate decreased falls risk 05/16/22: Pt scores LTG Duration 06/15/22 Two Impairment Pt stands with a forward weight shift onto the balls of his feet Long-Term Goal (LTG) Pt to stand with proper posture 80% of the time with no verbal or tactile cues or corrections 05/16/22: thinks improved by 60 %. LTG Duration 07/16/22 One Impairment Pt does not have an appropriate home exercise program Short Term Goal (STG) Pt to be independent and compliant with an appropriate HEP STG Duration Met Assessment Summary Assessment Balance and back mobility much improved overall today, pt making good progress toward goals. Physical Therapy Plan Frequency and Duration Frequency of Treatment 2x/Week Duration of Treatment Two months Plan of Care Start Date 05/16/22 Plan of Care End Date 07/16/22 Therapeutic Interventions Therapeutic Interventions Aquatic Therapy,Balance Training,Joint Mobilizations, Manual Therapy,Neuromuscular Re-education,Patient/Caregiver Education,Self-Care/Home Management,Soft Tissue Mobilization,Therapeutic Exercises Modalities Cold Pack/Ice Massage,Electric Stimulation,Hot Packs, Ultrasound Next Visit Focus/Plan Next Note Type Treatment Note Next Visit Plan Continue dynamic balance gait to improved steadiness over neighborhood uneven terrain. POC: Posture training, lumbar joint mobilizations
--- NOTE | 2022-07-04 12:48 | PT.OTN ---
Current Diagnoses Other chronic pain (07/04/22) Postural kyphosis, thoracic region (07/04/22) Low back pain, unspecified (07/04/22) Abnormal posture (07/04/22) History of falling (07/04/22) Physical Therapy Treatment Note PT-OP-A Visit Information Start: 01/12/22 17:31 Freq: Status: Active Protocol: Document 07/04/22 12:00 DCW (Rec: 07/04/22 12:47 DCW [id number]) Out-Patient Physical Therapy Visit Information Visit Information Visit Type Treatment Note Visit Start Time 12:00 Visit Stop Time 12:45 Total Visit Minutes 45 Visit Number 28 Number of DIRECTOR OF ENTERPRISE ARCHITECTURE Visits 0 Evaluation Information Evaluation Date 01/12/22 PT-OP-B Current Condition Start: 01/12/22 17:31 Freq: Status: Active Protocol: Document 01/12/22 11:15 DCW (Rec: 01/13/22 15:32 DCW [id number]) Current Condition History of Current Condition Onset Date Multi-year history Current Complaints Back pain, decreased gait tolerance, difficulty lifting, decreased balance History of Current Condition Pt is a 66 year old male presenting with a multi-year history of low back pain. 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 Notes it has worsened over the last ~10 years, to the point now where he has pain with any extended standing, walking, or lifting. Pt notes he doesn't really have any difficulty when sitting or lying down, only standing. Also notes he has noticed worsening balance, has fallen a few times in the last couple months, typically when walking down hill, he feels like he gets moving too quickly forward and loses control. Treatment Goals Patient/Caregiver Goals Pt's goal is to improve his standing and walking tolerance , as well as improve his balance PT-OP-C Subjective Start: 01/12/22 17:31 Freq: Status: Active Protocol: Document 07/04/22 12:00 DCW (Rec: 07/04/22 12:47 DCW [id number]) OP-PT Subjective Patient Comments Patient Comments Pt pretty good today, notes some mild back soreness. PT-OP-D Balance Start: 03/08/22 17:00 Freq: Status: Active Protocol: Document 05/16/22 16:45 DCW (Rec: 05/16/22 17:16 DCW [id number]) Balance Tests mCTSIB mCTSIB Position 1 30+ mCTSIB Position 2 30+ mCTSIB Position 3 30+ mCTSIB Position 4 28 Functional Reach Functional Reach Test 11 Functional Reach Impairment Rating 0% Impaired (Score 10) Single Limb Standing Single Limb- Right 3 Single Limb- Left 4 Tandem Tandem Standing L forward: 1'15, R forward: 35 PT-OP-E Functional Tests Start: 01/12/22 17:36 Freq: Status: Active Protocol: Document 05/16/22 16:45 DCW (Rec: 05/16/22 17:16 DCW [id number]) Functional Tests Dynamic Gait Index (DGI) Score 20/24 DGI Impairment Rating 1 to <20% Impaired (Score 20- 23) Functional Gait Assessment Score 20/30 Functional Gait Assessment Impairment 20 to <40% Impaired (Score 19- Rating 24) PT-OP-F Manual Assessment Start: 01/12/22 17:39 Freq: Status: Active Protocol: Document 05/16/22 16:45 DCW (Rec: 05/16/22 17:16 DCW [id number]) Manual Assessments Joint Mobility Assessment Joint Mobility Assessment Lumbar vertebral hypomobility, limited P->A motion during attempted mobilizations PT-OP-G Mobility & Gait Start: 01/12/22 17:36 Freq: Status: Active Protocol: Document 05/16/22 16:45 DCW (Rec: 05/16/22 17:16 DCW [id number]) OP Gait Assessment Comments Gait Comments Pt shuffles feet with 40% of his steps, due to forward weight shift, displays limited heel strike, mainly touch down phase begins entirely on balls of feet. PT-OP-J Posture/Palpation/Skin Start: 01/12/22 17:31 Freq: Status: Active Protocol: Document 01/12/22 11:15 DCW (Rec: 01/12/22 17:36 DCW [id number]) Posture Evaluation Position Standing Evaluation View Lateral Head/C-Spine Posture Flexed T-Spine Posture Increased Kyphosis L-Spine Posture Increased Lordosis Pelvis Posture Anteriorly Tilted Weight Distribution Weight Shifted Anterior Comments Posture Comments Pt stands with weight shifted forward over his feet, pelvis centered over his toes, and then show excessive lumbar lordosis to lean slightly back , and excessive thoracic kyphosis to return to forward lean. Pt very resistant to attempts to correct posture, will not allow himself to lean back. PT-OP-K Range of Motion Start: 01/12/22 17:31 Freq: Status: Active Protocol: Document 05/16/22 16:45 DCW (Rec: 05/16/22 17:16 DCW [id number]) Lumbar Spine Range of Motion Lumbar Spine Active Degrees Testing Position Standing Flexion 63 Extension 20 Lateral Flexion Left 43 Lateral Flexion Right 44 Comments Lateral flexion measured in cm from fingertips to floor PT-OP-L Special Tests Start: 01/12/22 17:55 Freq: Status: Active Protocol: Document 01/12/22 11:15 DCW (Rec: 01/13/22 15:18 DCW [id number]) Special Tests Lumbar Spine Special Tests Lateral SI Compression Test Results Negative ELIZABET Test Results Negative A-P Shearing Test Results Negative Compression Test Results Negative Straight Leg Raise Test Results Negative Slump Test Results Negative PT-OP-M Strength Start: 01/12/22 17:31 Freq: Status: Active Protocol: Document 01/12/22 11:15 DCW (Rec: 01/12/22 17:43 DCW [id number]) Hip Strength Hip Manual Muscle Testing Right Flexion (L2) 5 Normal Abduction 5 Normal Adduction 5 Normal External Rotation 5 Normal Internal Rotation 5 Normal Left Flexion (L2) 5 Normal Abduction 5 Normal Adduction 5 Normal External Rotation 5 Normal Internal Rotation 5 Normal Knee Strength Knee Manual Muscle Testing Right Flexion (S2) 5 Normal Extension (L3) 5 Normal Left Flexion (S2) 5 Normal Extension (L3) 5 Normal Ankle/Foot Strength Ankle and Foot Manual Muscle Testing Right Dorsiflexion (L4) 5 Normal Plantarflexion (S1) 5 Normal Left Dorsiflexion (L4) 5 Normal Plantarflexion (S1) 5 Normal PT-OP-Q Treatments Start: 01/12/22 17:31 Freq: Status: Active Protocol: Document 07/04/22 12:00 DCW (Rec: 07/04/22 12:47 DCW [id number]) Cardio Equipment Recumbent Elliptical (Biodex) Duration (Minutes) 6 Resistance 6 Seat Position 9 Gym Equipment Shuttle Recovery Unilateral Squats Details TrA hold Resistance 50# Reps/Time 2x15 Bilateral Squats Details TrA hold Resistance 87# Shuttle Balance red clips Details Red Comments WBOS EO/EC Staggered Stance: EO Lateral Weight Shift Gait Training Gait Activity dynamic gait Description head turns, vertical, quick stop/pivot Device Used None Level of Assistance SBA Surface firm Treatment Focus balance recovery Comments intermittend cues for tall posture/ core fac and eccentric heel strike, improved LLE stride and foot clearance. Manual Therapy Treatment Soft Tissue Mobilization LB Body Location B paraspinals & QL Mobilization Type Rolling,Strumming,Sustained Pressure Intensity/Depth Moderate Body Position Sidelying Neuro Re-Education Treatment Balance Activities hurdles Details Hurdles/Foam Comments Fwd, Tandem, Side-stepping PT-OP-T Assessment and Plan Start: 01/12/22 17:31 Freq: Status: Active Protocol: Document 07/04/22 12:00 DCW (Rec: 07/04/22 12:47 DCW [id number]) Physical Therapy Assessment Impairments Impairments Functional Activities, Functional Mobility,Gait, Posture Goals Three Impairment Pt at increased falls risk, per DGI score () Special Education Paraprofessional Goal (LTG) Pt to increased DGI score by at least three points to to demonstrate decreased falls risk 05/16/22: Pt scores 20 LTG Duration 06/15/22 Two Impairment Pt stands with a forward weight shift onto the balls of his feet Fci Goal (LTG) Pt to stand with proper posture 80% of the time with no verbal or tactile cues or corrections 05/16/22: thinks improved by 60 %. LTG Duration 07/16/22 One Impairment Pt does not have an appropriate home exercise program Short Term Goal (STG) Pt to be independent and compliant with an appropriate HEP STG Duration Met Assessment Summary Assessment Pt tolerating treatment well, responded well to STM on low back, feeling more limber. Physical Therapy Plan Frequency and Duration Frequency of Treatment 2x/Week Duration of Treatment Two months Plan of Care Start Date 05/16/22 Plan of Care End Date 07/16/22 Therapeutic Interventions Therapeutic Interventions Aquatic Therapy,Balance Training,Joint Mobilizations, Manual Therapy,Neuromuscular Re-education,Patient/Caregiver Education,Self-Care/Home Management,Soft Tissue Mobilization,Therapeutic Exercises Modalities Cold Pack/Ice Massage,Electric Stimulation,Hot Packs, Ultrasound Next Visit Focus/Plan Next Note Type Treatment Note Next Visit Plan Continue dynamic balance gait to improved steadiness over neighborhood uneven terrain. POC: Posture training, lumbar joint mobilizations
--- NOTE | 2022-07-07 10:28 | PT.OTN ---
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 Notes it has worsened over the last ~10 years, to the point now where he has pain with any extended standing, walking, or lifting. Pt notes he doesn't really have any difficulty when sitting or lying down, only standing. Also notes he has noticed worsening balance, has fallen a few times in the last couple months, typically when walking down hill, he feels like he gets moving too quickly forward and loses control. Treatment Goals Patient/Caregiver Goals Pt's goal is to improve his standing and walking tolerance , as well as improve his balance PT-OP-C Subjective Start: 01/12/22 17:31 Freq: Status: Active Protocol: Document 07/07/22 09:45 DCW (Rec: 07/07/22 10:28 DCW [id number]) OP-PT Subjective Patient Comments Patient Comments We're having a big [employer] picnic today, and I was loading up supplies for it, so I'm a little sore. PT-OP-D Balance Start: 03/08/22 17:00 Freq: Status: Active Protocol: Document 05/16/22 16:45 DCW (Rec: 05/16/22 17:16 DCW [id number]) Balance Tests mCTSIB mCTSIB Position 1 30+ mCTSIB Position 2 30+ mCTSIB Position 3 30+ mCTSIB Position 4 28 Functional Reach Functional Reach Test 11 Functional Reach Impairment Rating 0% Impaired (Score 10) Single Limb Standing Single Limb- Right 3 Single Limb- Left 4 Tandem Tandem Standing L forward: 1'15, R forward: 35 PT-OP-E Functional Tests Start: 01/12/22 17:36 Freq: Status: Active Protocol: Document 05/16/22 16:45 DCW (Rec: 05/16/22 17:16 DCW [id number]) Functional Tests Dynamic Gait Index (DGI) Score 20/24 DGI Impairment Rating 1 to <20% Impaired (Score 20- 23) Functional Gait Assessment Score 20/30 Functional Gait Assessment Impairment 20 to <40% Impaired (Score 19- Rating 24) PT-OP-F Manual Assessment Start: 01/12/22 17:39 Freq: Status: Active Protocol: Document 05/16/22 16:45 DCW (Rec: 05/16/22 17:16 DCW [id number]) Manual Assessments Joint Mobility Assessment Joint Mobility Assessment Lumbar vertebral hypomobility, limited P->A motion during attempted mobilizations PT-OP-G Mobility & Gait Start: 01/12/22 17:36 Freq: Status: Active Protocol: Document 05/16/22 16:45 DCW (Rec: 05/16/22 17:16 DCW [id number]) OP Gait Assessment Comments Gait Comments Pt shuffles feet with 40% of his steps, due to forward weight shift, displays limited heel strike, mainly touch down phase begins entirely on balls of feet. PT-OP-J Posture/Palpation/Skin Start: 01/12/22 17:31 Freq: Status: Active Protocol: Document 01/12/22 11:15 DCW (Rec: 01/12/22 17:36 DCW [id number]) Posture Evaluation Position Standing Evaluation View Lateral Head/C-Spine Posture Flexed T-Spine Posture Increased Kyphosis L-Spine Posture Increased Lordosis Pelvis Posture Anteriorly Tilted Weight Distribution Weight Shifted Anterior Comments Posture Comments Pt stands with weight shifted forward over his feet, pelvis centered over his toes, and then show excessive lumbar lordosis to lean slightly back , and excessive thoracic kyphosis to return to forward lean. Pt very resistant to attempts to correct posture, will not allow himself to lean back. PT-OP-K Range of Motion Start: 01/12/22 17:31 Freq: Status: Active Protocol: Document 05/16/22 16:45 DCW (Rec: 05/16/22 17:16 DCW [id number]) Lumbar Spine Range of Motion Lumbar Spine Active Degrees Testing Position Standing Flexion 63 Extension 20 Lateral Flexion Left 43 Lateral Flexion Right 44 Comments Lateral flexion measured in cm from fingertips to floor PT-OP-L Special Tests Start: 01/12/22 17:55 Freq: Status: Active Protocol: Document 01/12/22 11:15 DCW (Rec: 01/13/22 15:18 DCW [id number]) Special Tests Lumbar Spine Special Tests Lateral SI Compression Test Results Negative ELIZABET Test Results Negative A-P Shearing Test Results Negative Compression Test Results Negative Straight Leg Raise Test Results Negative Slump Test Results Negative PT-OP-M Strength Start: 01/12/22 17:31 Freq: Status: Active Protocol: Document 01/12/22 11:15 DCW (Rec: 01/12/22 17:43 DCW [id number]) Hip Strength Hip Manual Muscle Testing Right Flexion (L2) 5 Normal Abduction 5 Normal Adduction 5 Normal External Rotation 5 Normal Internal Rotation 5 Normal Left Flexion (L2) 5 Normal Abduction 5 Normal Adduction 5 Normal External Rotation 5 Normal Internal Rotation 5 Normal Knee Strength Knee Manual Muscle Testing Right Flexion (S2) 5 Normal Extension (L3) 5 Normal Left Flexion (S2) 5 Normal Extension (L3) 5 Normal Ankle/Foot Strength Ankle and Foot Manual Muscle Testing Right Dorsiflexion (L4) 5 Normal Plantarflexion (S1) 5 Normal Left Dorsiflexion (L4) 5 Normal Plantarflexion (S1) 5 Normal PT-OP-Q Treatments Start: 01/12/22 17:31 Freq: Status: Active Protocol: Document 07/07/22 09:45 DCW (Rec: 07/07/22 10:28 DCW [id number]) Cardio Equipment Recumbent Elliptical ([employer]) Duration (Minutes) 6 Resistance 6 Seat Position 9 Gym Equipment Shuttle Recovery Unilateral Squats Details TrA hold Resistance 50# Reps/Time 2x15 Bilateral Squats Details TrA hold Resistance 87# Shuttle Balance red clips Details Red Comments WBOS EO/EC Staggered Stance: EO Lateral Weight Shift Manual Therapy Treatment Soft Tissue Mobilization LB Body Location B paraspinals & QL Mobilization Type Rolling,Strumming,Sustained Pressure Intensity/Depth Moderate Body Position Sidelying Joint Mobilizations Lumbar Joint Lumbar Direction P->A Grade III PT-OP-T Assessment and Plan Start: 01/12/22 17:31 Freq: Status: Active Protocol: Document 07/07/22 09:45 DCW (Rec: 07/07/22 10:28 DCW [id number]) Physical Therapy Assessment Impairments Impairments Functional Activities, Functional Mobility,Gait, Posture Goals Three Impairment Pt at increased falls risk, per DGI score () Shop Coordinator Goal (LTG) Pt to increased DGI score by at least three points to to demonstrate decreased falls risk 05/16/22: Pt scores LTG Duration 06/15/22 Two Impairment Pt stands with a forward weight shift onto the balls of his feet Fpc Goal (LTG) Pt to stand with proper posture 80% of the time with no verbal or tactile cues or corrections 05/16/22: thinks improved by 60 %. LTG Duration 07/16/22 One Impairment Pt does not have an appropriate home exercise program Short Term Goal (STG) Pt to be independent and compliant with an appropriate HEP STG Duration Met Assessment Summary Assessment Pt doing well today, showing some improved mobility, still ambulating with a forward lean and catching feet regularly. Physical Therapy Plan Frequency and Duration Frequency of Treatment 2x/Week Duration of Treatment Two months Plan of Care Start Date 05/16/22 Plan of Care End Date 07/16/22 Therapeutic Interventions Therapeutic Interventions Aquatic Therapy,Balance Training,Joint Mobilizations, Manual Therapy,Neuromuscular Re-education,Patient/Caregiver Education,Self-Care/Home Management,Soft Tissue Mobilization,Therapeutic Exercises Modalities Cold Pack/Ice Massage,Electric Stimulation,Hot Packs, Ultrasound Next Visit Focus/Plan Next Note Type Treatment Note Next Visit Plan Continue dynamic balance gait to improved steadiness over neighborhood uneven terrain. POC: Posture training, lumbar joint mobilizations
--- NOTE | 2022-07-11 14:28 | PT.OTN ---
Current Diagnoses Other chronic pain (07/11/22) Postural kyphosis, thoracic region (07/11/22) Low back pain, unspecified (07/11/22) Abnormal posture (07/11/22) History of falling (07/11/22) Physical Therapy Treatment Note PT-OP-A Visit Information Start: 01/12/22 17:31 Freq: Status: Active Protocol: Document 07/11/22 13:45 DCW (Rec: 07/11/22 14:28 DCW [id number]) Out-Patient Physical Therapy Visit Information Visit Information Visit Type Treatment Note Visit Start Time 13:45 Visit Stop Time 14:30 Total Visit Minutes 45 Visit Number 30 Number of SMT TECHNICIAN Visits 0 Evaluation Information Evaluation Date 01/12/22 PT-OP-B Current Condition Start: 01/12/22 17:31 Freq: Status: Active Protocol: Document 01/12/22 11:15 DCW (Rec: 01/13/22 15:32 DCW [id number]) Current Condition History of Current Condition Onset Date Multi-year history Current Complaints Back pain, decreased gait tolerance, difficulty lifting, decreased balance History of Current Condition Pt is a 66 year old male presenting with a multi-year history of low back pain. 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 Notes it has worsened over the last ~10 years, to the point now where he has pain with any extended standing, walking, or lifting. Pt notes he doesn't really have any difficulty when sitting or lying down, only standing. Also notes he has noticed worsening balance, has fallen a few times in the last couple months, typically when walking down hill, he feels like he gets moving too quickly forward and loses control. Treatment Goals Patient/Caregiver Goals Pt's goal is to improve his standing and walking tolerance , as well as improve his balance PT-OP-C Subjective Start: 01/12/22 17:31 Freq: Status: Active Protocol: Document 07/11/22 13:45 DCW (Rec: 07/11/22 14:28 DCW [id number]) OP-PT Subjective Patient Comments Patient Comments Pt reports he was able to get out and participate in a golf tournament over the weekend, no complaints of balance difficulty PT-OP-D Balance Start: 03/08/22 17:00 Freq: Status: Active Protocol: Document 05/16/22 16:45 DCW (Rec: 05/16/22 17:16 DCW [id number]) Balance Tests mCTSIB mCTSIB Position 1 30+ mCTSIB Position 2 30+ mCTSIB Position 3 30+ mCTSIB Position 4 28 Functional Reach Functional Reach Test 11 Functional Reach Impairment Rating 0% Impaired (Score 10) Single Limb Standing Single Limb- Right 3 Single Limb- Left 4 Tandem Tandem Standing L forward: 1'15, R forward: 35 PT-OP-E Functional Tests Start: 01/12/22 17:36 Freq: Status: Active Protocol: Document 05/16/22 16:45 DCW (Rec: 05/16/22 17:16 DCW [id number]) Functional Tests Dynamic Gait Index (DGI) Score 20/24 DGI Impairment Rating 1 to <20% Impaired (Score 20- 23) Functional Gait Assessment Score 20/30 Functional Gait Assessment Impairment 20 to <40% Impaired (Score 19- Rating 24) PT-OP-F Manual Assessment Start: 01/12/22 17:39 Freq: Status: Active Protocol: Document 05/16/22 16:45 DCW (Rec: 05/16/22 17:16 DCW [id number]) Manual Assessments Joint Mobility Assessment Joint Mobility Assessment Lumbar vertebral hypomobility, limited P->A motion during attempted mobilizations PT-OP-G Mobility & Gait Start: 01/12/22 17:36 Freq: Status: Active Protocol: Document 05/16/22 16:45 DCW (Rec: 05/16/22 17:16 DCW [id number]) OP Gait Assessment Comments Gait Comments Pt shuffles feet with 40% of his steps, due to forward weight shift, displays limited heel strike, mainly touch down phase begins entirely on balls of feet. PT-OP-J Posture/Palpation/Skin Start: 01/12/22 17:31 Freq: Status: Active Protocol: Document 01/12/22 11:15 DCW (Rec: 01/12/22 17:36 DCW [id number]) Posture Evaluation Position Standing Evaluation View Lateral Head/C-Spine Posture Flexed T-Spine Posture Increased Kyphosis L-Spine Posture Increased Lordosis Pelvis Posture Anteriorly Tilted Weight Distribution Weight Shifted Anterior Comments Posture Comments Pt stands with weight shifted forward over his feet, pelvis centered over his toes, and then show excessive lumbar lordosis to lean slightly back , and excessive thoracic kyphosis to return to forward lean. Pt very resistant to attempts to correct posture, will not allow himself to lean back. PT-OP-K Range of Motion Start: 01/12/22 17:31 Freq: Status: Active Protocol: Document 05/16/22 16:45 DCW (Rec: 05/16/22 17:16 DCW [id number]) Lumbar Spine Range of Motion Lumbar Spine Active Degrees Testing Position Standing Flexion 63 Extension 20 Lateral Flexion Left 43 Lateral Flexion Right 44 Comments Lateral flexion measured in cm from fingertips to floor PT-OP-L Special Tests Start: 01/12/22 17:55 Freq: Status: Active Protocol: Document 01/12/22 11:15 DCW (Rec: 01/13/22 15:18 DCW [id number]) Special Tests Lumbar Spine Special Tests Lateral SI Compression Test Results Negative ELIZABTE Test Results Negative A-P Shearing Test Results Negative Compression Test Results Negative Straight Leg Raise Test Results Negative Slump Test Results Negative PT-OP-M Strength Start: 01/12/22 17:31 Freq: Status: Active Protocol: Document 01/12/22 11:15 DCW (Rec: 01/12/22 17:43 DCW [id number]) Hip Strength Hip Manual Muscle Testing Right Flexion (L2) 5 Normal Abduction 5 Normal Adduction 5 Normal External Rotation 5 Normal Internal Rotation 5 Normal Left Flexion (L2) 5 Normal Abduction 5 Normal Adduction 5 Normal External Rotation 5 Normal Internal Rotation 5 Normal Knee Strength Knee Manual Muscle Testing Right Flexion (S2) 5 Normal Extension (L3) 5 Normal Left Flexion (S2) 5 Normal Extension (L3) 5 Normal Ankle/Foot Strength Ankle and Foot Manual Muscle Testing Right Dorsiflexion (L4) 5 Normal Plantarflexion (S1) 5 Normal Left Dorsiflexion (L4) 5 Normal Plantarflexion (S1) 5 Normal PT-OP-Q Treatments Start: 01/12/22 17:31 Freq: Status: Active Protocol: Document 07/11/22 13:45 DCW (Rec: 07/11/22 14:28 DCW [id number]) Cardio Equipment Recumbent Elliptical ([employer]) Duration (Minutes) 6 Resistance 6 Seat Position 9 Gym Equipment Shuttle Recovery Unilateral Squats Details TrA hold Resistance 50# Reps/Time 2x15 Bilateral Squats Details TrA hold Resistance 87# Shuttle Balance red clips Details Red Comments WBOS EO/EC Staggered Stance: EO Gait Training Gait Activity dynamic gait Description head turns, vertical, tandem amb Device Used None Level of Assistance SBA Surface firm Treatment Focus balance recovery Comments 120 bpm Neuro Re-Education Treatment Balance Activities NBOS Details NBOS Surface Blue foam Comments Eyes closed Tandem Stance Details Tandem Stance SLS Details SLS hurdles Details Hurdles Comments Fwd, Side-stepping PT-OP-T Assessment and Plan Start: 01/12/22 17:31 Freq: Status: Active Protocol: Document 07/11/22 13:45 DCW (Rec: 07/11/22 14:28 DCW [id number]) Physical Therapy Assessment Impairments Impairments Functional Activities, Functional Mobility,Gait, Posture Goals Three Impairment Pt at increased falls risk, per DGI score () Utility Agent Goal (LTG) Pt to increased DGI score by at least three points to to demonstrate decreased falls risk 05/16/22: Pt scores LTG Duration 06/15/22 Two Impairment Pt stands with a forward weight shift onto the balls of his feet Jail Goal (LTG) Pt to stand with proper posture 80% of the time with no verbal or tactile cues or corrections 05/16/22: thinks improved by 60 %. LTG Duration 07/16/22 One Impairment Pt does not have an appropriate home exercise program Short Term Goal (STG) Pt to be independent and compliant with an appropriate HEP STG Duration Met Assessment Summary Assessment Pt showing good improvement overall with balance, demonstrated improved stability with participation in golf tournament this weekend. Physical Therapy Plan Frequency and Duration Frequency of Treatment 2x/Week Duration of Treatment Two months Plan of Care Start Date 05/16/22 Plan of Care End Date 07/16/22 Therapeutic Interventions Therapeutic Interventions Aquatic Therapy,Balance Training,Joint Mobilizations, Manual Therapy,Neuromuscular Re-education,Patient/Caregiver Education,Self-Care/Home Management,Soft Tissue Mobilization,Therapeutic Exercises Modalities Cold Pack/Ice Massage,Electric Stimulation,Hot Packs, Ultrasound Next Visit Focus/Plan Next Note Type Progress Note Next Visit Plan Continue dynamic balance gait to improved steadiness over neighborhood uneven terrain. POC: Posture training, lumbar joint mobilizations
--- NOTE | 2022-07-13 14:28 | PT.OTN ---
Current Diagnoses Other chronic pain (07/13/22) Postural kyphosis, thoracic region (07/13/22) Low back pain, unspecified (07/13/22) Abnormal posture (07/13/22) History of falling (07/13/22) Physical Therapy Treatment Note PT-OP-A Visit Information Start: 01/12/22 17:31 Freq: Status: Active Protocol: Document 07/13/22 13:45 DCW (Rec: 07/13/22 14:28 DCW [id number]) Out-Patient Physical Therapy Visit Information Visit Information Visit Type Discharge Summary Visit Start Time 13:45 Visit Stop Time 14:30 Total Visit Minutes 45 Visit Number 31 Number of DRY CLEANING CHECKER Visits 0 Evaluation Information Evaluation Date 01/12/22 PT-OP-B Current Condition Start: 01/12/22 17:31 Freq: Status: Active Protocol: Document 01/12/22 11:15 DCW (Rec: 01/13/22 15:32 DCW [id number]) Current Condition History of Current Condition Onset Date Multi-year history Current Complaints Back pain, decreased gait tolerance, difficulty lifting, decreased balance History of Current Condition Pt is a 66 year old male presenting with a multi-year history of low back pain. 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 Notes it has worsened over the last ~10 years, to the point now where he has pain with any extended standing, walking, or lifting. Pt notes he doesn't really have any difficulty when sitting or lying down, only standing. Also notes he has noticed worsening balance, has fallen a few times in the last couple months, typically when walking down hill, he feels like he gets moving too quickly forward and loses control. Treatment Goals Patient/Caregiver Goals Pt's goal is to improve his standing and walking tolerance , as well as improve his balance PT-OP-C Subjective Start: 01/12/22 17:31 Freq: Status: Active Protocol: Document 07/13/22 13:45 DCW (Rec: 07/13/22 14:28 DCW [id number]) OP-PT Subjective Patient Comments Patient Comments Pt reports he's doing well today. Notes he is okay with today being his last visit, feels like he has plateaued. PT-OP-D Balance Start: 03/08/22 17:00 Freq: Status: Active Protocol: Document 05/16/22 16:45 DCW (Rec: 05/16/22 17:16 DCW [id number]) Balance Tests mCTSIB mCTSIB Position 1 30+ mCTSIB Position 2 30+ mCTSIB Position 3 30+ mCTSIB Position 4 28 Functional Reach Functional Reach Test 11 Functional Reach Impairment Rating 0% Impaired (Score 10) Single Limb Standing Single Limb- Right 3 Single Limb- Left 4 Tandem Tandem Standing L forward: 1'15, R forward: 35 PT-OP-E Functional Tests Start: 01/12/22 17:36 Freq: Status: Active Protocol: Document 05/16/22 16:45 DCW (Rec: 05/16/22 17:16 DCW [id number]) Functional Tests Dynamic Gait Index (DGI) Score 20/24 DGI Impairment Rating 1 to <20% Impaired (Score 20- 23) Functional Gait Assessment Score 20/30 Functional Gait Assessment Impairment 20 to <40% Impaired (Score 19- Rating 24) PT-OP-F Manual Assessment Start: 01/12/22 17:39 Freq: Status: Active Protocol: Document 05/16/22 16:45 DCW (Rec: 05/16/22 17:16 DCW [id number]) Manual Assessments Joint Mobility Assessment Joint Mobility Assessment Lumbar vertebral hypomobility, limited P->A motion during attempted mobilizations PT-OP-G Mobility & Gait Start: 01/12/22 17:36 Freq: Status: Active Protocol: Document 05/16/22 16:45 DCW (Rec: 05/16/22 17:16 DCW [id number]) OP Gait Assessment Comments Gait Comments Pt shuffles feet with 40% of his steps, due to forward weight shift, displays limited heel strike, mainly touch down phase begins entirely on balls of feet. PT-OP-J Posture/Palpation/Skin Start: 01/12/22 17:31 Freq: Status: Active Protocol: Document 01/12/22 11:15 DCW (Rec: 01/12/22 17:36 DCW [id number]) Posture Evaluation Position Standing Evaluation View Lateral Head/C-Spine Posture Flexed T-Spine Posture Increased Kyphosis L-Spine Posture Increased Lordosis Pelvis Posture Anteriorly Tilted Weight Distribution Weight Shifted Anterior Comments Posture Comments Pt stands with weight shifted forward over his feet, pelvis centered over his toes, and then show excessive lumbar lordosis to lean slightly back , and excessive thoracic kyphosis to return to forward lean. Pt very resistant to attempts to correct posture, will not allow himself to lean back. PT-OP-K Range of Motion Start: 01/12/22 17:31 Freq: Status: Active Protocol: Document 05/16/22 16:45 DCW (Rec: 05/16/22 17:16 DCW [id number]) Lumbar Spine Range of Motion Lumbar Spine Active Degrees Testing Position Standing Flexion 63 Extension 20 Lateral Flexion Left 43 Lateral Flexion Right 44 Comments Lateral flexion measured in cm from fingertips to floor PT-OP-L Special Tests Start: 01/12/22 17:55 Freq: Status: Active Protocol: Document 01/12/22 11:15 DCW (Rec: 01/13/22 15:18 DCW [id number]) Special Tests Lumbar Spine Special Tests Lateral SI Compression Test Results Negative ELIZABET Test Results Negative A-P Shearing Test Results Negative Compression Test Results Negative Straight Leg Raise Test Results Negative Slump Test Results Negative PT-OP-M Strength Start: 01/12/22 17:31 Freq: Status: Active Protocol: Document 01/12/22 11:15 DCW (Rec: 01/12/22 17:43 DCW [id number]) Hip Strength Hip Manual Muscle Testing Right Flexion (L2) 5 Normal Abduction 5 Normal Adduction 5 Normal External Rotation 5 Normal Internal Rotation 5 Normal Left Flexion (L2) 5 Normal Abduction 5 Normal Adduction 5 Normal External Rotation 5 Normal Internal Rotation 5 Normal Knee Strength Knee Manual Muscle Testing Right Flexion (S2) 5 Normal Extension (L3) 5 Normal Left Flexion (S2) 5 Normal Extension (L3) 5 Normal Ankle/Foot Strength Ankle and Foot Manual Muscle Testing Right Dorsiflexion (L4) 5 Normal Plantarflexion (S1) 5 Normal Left Dorsiflexion (L4) 5 Normal Plantarflexion (S1) 5 Normal PT-OP-Q Treatments Start: 01/12/22 17:31 Freq: Status: Active Protocol: Document 07/13/22 13:45 DCW (Rec: 07/13/22 14:28 DCW [id number]) Cardio Equipment Recumbent Elliptical ([email or web address].tv) Duration (Minutes) 6 Resistance 6 Seat Position 9 Gym Equipment Shuttle Recovery Unilateral Squats Details TrA hold Resistance 50# Reps/Time 2x15 Bilateral Squats Details TrA hold Resistance 87# Shuttle Balance red clips Details Red Comments WBOS EO/EC Staggered Stance: EO Therapeutic Exercises Standing Exercises band walk Resistance Green Equipment Used rail PRN, Reps/Minutes 20 ft x2 laps Other Exercises 1 Other Exercise Name Wall Squats /c ball squeeze adduction Gait Training Gait Activity dynamic gait Description head turns, vertical, tandem amb Device Used None Level of Assistance SBA Surface firm Treatment Focus balance recovery Comments 120 bpm Manual Therapy Treatment Soft Tissue Mobilization LB Body Location B paraspinals & QL Mobilization Type Rolling,Strumming,Sustained Pressure Intensity/Depth Moderate Body Position Sidelying Neuro Re-Education Treatment Balance Activities hurdles Details Hurdles Comments Fwd, Side-stepping PT-OP-T Assessment and Plan Start: 01/12/22 17:31 Freq: Status: Active Protocol: Document 07/13/22 13:45 DCW (Rec: 07/13/22 14:28 DCW [id number]) Physical Therapy Assessment Impairments Impairments Functional Activities, Functional Mobility,Gait, Posture Goals Three Impairment Pt at increased falls risk, per DGI score () Jail Goal (LTG) Pt to increased DGI score by at least three points to to demonstrate decreased falls risk 05/16/22: Pt scores LTG Duration 06/15/22 Two Impairment Pt stands with a forward weight shift onto the balls of his feet Financial Sales Advisor Goal (LTG) Pt to stand with proper posture 80% of the time with no verbal or tactile cues or corrections 05/16/22: thinks improved by 60 %. LTG Duration 07/16/22 One Impairment Pt does not have an appropriate home exercise program Short Term Goal (STG) Pt to be independent and compliant with an appropriate HEP STG Duration Met Assessment Summary Assessment Pt has largely plateaued after seeing good overall improvement with his ambulation and balance. Pt agreeable to discharge at this time. Physical Therapy Plan Frequency and Duration Frequency of Treatment 2x/Week Duration of Treatment Two months Plan of Care Start Date 05/16/22 Plan of Care End Date 07/16/22 Therapeutic Interventions Therapeutic Interventions Aquatic Therapy,Balance Training,Joint Mobilizations, Manual Therapy,Neuromuscular Re-education,Patient/Caregiver Education,Self-Care/Home Management,Soft Tissue Mobilization,Therapeutic Exercises Modalities Cold Pack/Ice Massage,Electric Stimulation,Hot Packs, Ultrasound Discharge Physical Therapy Discharge Reasons Plateau in Progress Next Visit Focus/Plan Next Note Type Discharge Summary
== END 2022-11-23 10:00 | disposition home or self-care (01) ==
LOC: PHYS 13:45
PROVIDERS: Family Provider Family Medicine; PCP Family Medicine; Referring Provider Family Medicine; Visit Provider Family Medicine
DX: R29.3 Abnormal posture (principal); G89.29 Other chronic pain; M40.04 Postural kyphosis, thoracic region; M54.50 Low back pain, unspecified; Z91.81 History of falling
CPT/HCPCS: 97110; 97112; 97116; 97140; 97161; 97530

== ENCOUNTER → 2023-02-06 11:45 | Outpatient (CLI) | payer MEDICARE, OTHER, SELFPAY ==
[2023-02-06 12:45] LABS: Add Manual Diff / Slide Review NO; Basophils Absolute Auto 100 /uL (0-100); Basophils Percent Auto 0.8 % (0-2); Eosinophils Absolute Auto 300 /uL (0-450); Eosinophils Percent Auto 4.1 % (2-4); Hematocrit 41.3 % (41-53); Hemoglobin 13.7 g/dL (13.5-17.5); Lymphocytes Absolute Auto 1900 /uL (1100-4500); Lymphocytes Percent Auto 29.1 % (25-40); Mean Corpuscular HGB Conc 33.3 % (30-36); Mean Corpuscular Hemoglobin 30.7 PG (26-34); Mean Corpuscular Volume 92.4 fL (80-100); Monocytes Absolute Auto 500 /uL (0-900); Monocytes Percent Auto 7.6 % (3-14); Neutrophils Absolute Auto 3800 /uL (1500-7000); Neutrophils Percent Auto 58.4 % (50-75); Platelet Count 238 X10^3/uL (150-400); Red Blood Cell Count 4.47 X10^6/uL (4.5-5.9); Red Cell Distribution Width 13.8 % (11.6-14.8); White Blood Cell Count 6.4 X10^3/uL (4.5-11.0)
[2023-02-06 12:55] LABS: Hemoglobin A1C% w Est Avg Glu 6.6 % (4.0-6.0)
[2023-02-06 12:58] LABS: Alanine Aminotransferase 27 IU/L (<50); Albumin 4.4 g/dL (3.5-5.0); Albumin Globulin Ratio 1.5 (1.0-2.8); Alkaline Phosphatase 70 U/L (38-126); Aspartate Aminotransferase 29 IU/L (17-59); BUN Creatinine Ratio 19.4 (6-22); Bilirubin Total 0.9 mg/dL (0.2-1.3); Blood Urea Nitrogen 21 mg/dL (9-20); Carbon Dioxide 26 mmol/L (22-32); Chloride 106 mmol/L (98-107); Cholesterol 109 mg/dL (140-199); Estimated Glomerular Filt Rate > 60 mL/min (>60); Globulin 2.9 g/dL (1.7-4.1); Glucose 101 mg/dL (80-110); HDL Cholesterol 35 mg/dL (40-60); HEMOLYSIS < 15 (0-50); LDL Cholesterol Calculated 47 mg/dL (<100); Potassium 4.1 mmol/L (3.4-5.1); Sodium 141 mmol/L (137-145); Total Protein 7.3 g/dL (6.3-8.2); Triglycerides 134 mg/dL (35-150)
[2023-02-06 13:27] LABS: Prostate Specific Antigen Scrn 0.263 ng/mL (0.1-4.0)
[2023-02-06 13:31] LABS: Creatinine Urine Random 300.4 mg/dL
[2023-02-06 13:34] LABS: Microalbumi Creatinin Ratio Ur 4.9 ug/mg CR (<30); Microalbumin Urine Random 1.5 mg/dL (0-1.6)
[2023-02-06 13:58] LABS: TSH w/ Reflex to FT4 1.88 uIU/mL (0.47-4.68)
== END ==
PROVIDERS: Family Provider Family Medicine; PCP Family Medicine; Referring Provider Family Medicine; Visit Provider Family Medicine
DX: E11.9 Type 2 diabetes mellitus without complications (principal); Z12.5 Encounter for screening for malignant neoplasm of prostate; R63.5 Abnormal weight gain; E78.5 Hyperlipidemia, unspecified; I10 Essential (primary) hypertension
CPT/HCPCS: 36415; 80053; 80061; 82043; 82570; 83036; 84443; 85025; G0103

== ENCOUNTER → 2024-05-02 10:14 | Outpatient (CLI) | payer MEDICARE, OTHER, SELFPAY ==
[2024-05-02 11:18] LABS: Add Manual Diff / Slide Review NO; Basophils Absolute Auto 100 /uL (0-100); Basophils Percent Auto 0.6 % (0-2); Eosinophils Absolute Auto 200 /uL (0-450); Eosinophils Percent Auto 1.9 % (2-4); Hematocrit 40.9 % (41-53); Hemoglobin 13.9 g/dL (13.5-17.5); Lymphocytes Absolute Auto 1800 /uL (1100-4500); Lymphocytes Percent Auto 19.2 % (25-40); Mean Corpuscular HGB Conc 33.9 % (30-36); Mean Corpuscular Hemoglobin 30.3 PG (26-34); Mean Corpuscular Volume 89.2 fL (80-100); Monocytes Absolute Auto 700 /uL (0-900); Monocytes Percent Auto 7.3 % (3-14); Neutrophils Absolute Auto 6700 /uL (1500-7000); Platelet Count 329 X10^3/uL (150-400); Red Blood Cell Count 4.59 X10^6/uL (4.5-5.9); Red Cell Distribution Width 13.6 % (11.6-14.8); White Blood Cell Count 9.5 X10^3/uL (4.5-11.0)
[2024-05-02 11:57] LABS: Alanine Aminotransferase 28 IU/L (<50); Albumin 4.6 g/dL (3.5-5.0); Albumin Globulin Ratio 1.8 (1.0-2.8); Alkaline Phosphatase 79 U/L (38-126); Aspartate Aminotransferase 28 IU/L (17-59); BUN Creatinine Ratio 20.6 (6-22); Bilirubin Total 1.1 mg/dL (0.2-1.3); Blood Urea Nitrogen 22 mg/dL (9-20); Calcium 9.4 mg/dL (8.4-10.2); Carbon Dioxide 24 mmol/L (22-32); Chloride 106 mmol/L (98-107); Cholesterol 115 mg/dL (140-199); Estimated Glomerular Filt Rate > 60 mL/min (>60); Globulin 2.5 g/dL (1.7-4.1); Glucose 149 mg/dL (80-110); HDL Cholesterol 36 mg/dL (40-60); HEMOLYSIS < 15 (0-50); LDL Cholesterol Calculated 43 mg/dL (<100); Potassium 4.2 mmol/L (3.4-5.1); Sodium 139 mmol/L (137-145); Total Protein 7.1 g/dL (6.3-8.2); Triglycerides 181 mg/dL (35-150)
[2024-05-02 11:58] LABS: Hemoglobin A1C% w Est Avg Glu 8.8 % (4.0-6.0)
[2024-05-02 12:22] LABS: Prostate Specific Antigen Scrn 0.253 ng/mL (0.1-4.0)
== END ==
LOC: LAB 10:15
PROVIDERS: Family Provider Family Medicine; PCP Family Medicine; Referring Provider Family Medicine; Visit Provider Family Medicine
DX: Z12.5 Encounter for screening for malignant neoplasm of prostate (principal); E11.9 Type 2 diabetes mellitus without complications; E78.5 Hyperlipidemia, unspecified; I10 Essential (primary) hypertension
CPT/HCPCS: 36415; 80053; 80061; 83036; 85025; G0103

== ENCOUNTER → 2024-08-02 08:24 | Outpatient (CLI) | payer MEDICARE, OTHER, SELFPAY ==
[2024-08-02 12:55] LABS: Microalbumin Urine Random < 0.6 mg/dL (0-1.6)
[2024-08-02 12:57] LABS: Creatinine Urine Random 93.88 mg/dL
== END ==
PROVIDERS: Family Provider Family Medicine; PCP Family Medicine; Referring Provider Family Medicine; Visit Provider Family Medicine
DX: E11.9 Type 2 diabetes mellitus without complications (principal)
CPT/HCPCS: 36415; 82043; 82570; 83036

== ENCOUNTER → 2025-01-17 10:45 | Outpatient (CLI) | payer MEDICARE, OTHER, SELFPAY ==
[2025-01-17 12:33] LABS: Hemoglobin A1C% w Est Avg Glu 5.8 % (4.0-6.0)
== END ==
PROVIDERS: Family Provider Family Medicine; PCP Family Medicine; Referring Provider Family Medicine; Visit Provider Family Medicine
DX: E11.9 Type 2 diabetes mellitus without complications (principal)
CPT/HCPCS: 36415; 83036

== ENCOUNTER → 2025-05-02 09:29 | Outpatient (CLI) | payer MEDICARE, OTHER, SELFPAY ==
[2025-05-02 10:30] LABS: Hemoglobin A1C% w Est Avg Glu 5.8 % (4.0-6.0)
[2025-05-02 10:34] LABS: Alanine Aminotransferase 18 IU/L (<50); Albumin 4.9 g/dL (3.5-5.0); Alkaline Phosphatase 68 U/L (38-126); Aspartate Aminotransferase 22 IU/L (17-59); Bilirubin Total 0.9 mg/dL (0.2-1.3); Blood Urea Nitrogen 23 mg/dL (9-20); Calcium 9.9 mg/dL (8.4-10.2); Carbon Dioxide 21 mmol/L (22-32); Chloride 100 mmol/L (98-107); Cholesterol 93 mg/dL (140-199); Estimated Glomerular Filt Rate > 60 mL/min (>60); Globulin 2.4 g/dL (1.7-4.1); Glucose 105 mg/dL (70-99); HDL Cholesterol 40 mg/dL (40-60); HEMOLYSIS < 15 (0-50); LDL Cholesterol Calculated 33 mg/dL (<100); Potassium 4.4 mmol/L (3.4-5.1); Sodium 133 mmol/L (137-145); Total Protein 7.3 g/dL (6.3-8.2); Triglycerides 102 mg/dL (35-150)
[2025-05-02 11:06] LABS: Prostate Specific Antigen Scrn 0.282 ng/mL (0.1-4.0)
== END ==
PROVIDERS: Family Provider Family Medicine; PCP Family Medicine; Referring Provider Family Medicine; Visit Provider Family Medicine
DX: Z12.5 Encounter for screening for malignant neoplasm of prostate (principal); E11.9 Type 2 diabetes mellitus without complications; I10 Essential (primary) hypertension; E78.5 Hyperlipidemia, unspecified
CPT/HCPCS: 36415; 80053; 80061; 83036; G0103

== ENCOUNTER → 2025-05-12 08:35 | Outpatient (CLI) | payer MEDICARE, OTHER, SELFPAY | PROVIDERS: PCP Family Medicine; Referring Provider Family Medicine; Visit Provider Family Medicine | DX: R63.5 Abnormal weight gain (principal); I10 Essential (primary) hypertension; E78.5 Hyperlipidemia, unspecified | CPT/HCPCS: 36415; 84402; 84403 ==

== ENCOUNTER → 2025-05-28 08:56 | Outpatient (CLI) | payer MEDICARE, OTHER, SELFPAY | PROVIDERS: PCP Family Medicine; Referring Provider Family Medicine; Visit Provider Family Medicine | DX: R79.89 Other specified abnormal findings of blood chemistry (principal) | CPT/HCPCS: 36415; 84402; 84403 ==

== ENCOUNTER → 2025-09-22 12:48 | Outpatient (CLI) | payer MEDICARE, OTHER, SELFPAY ==
[2025-09-22 14:07] LABS: Cholesterol 91 mg/dL (140-199); HDL Cholesterol 35 mg/dL (40-60); Triglycerides 130 mg/dL (35-150)
[2025-09-28 10:12] LABS: Percent Free Testosterone 4.15 % (1.50-4.20)
== END ==
PROVIDERS: PCP Family Medicine; Referring Provider Family Medicine; Visit Provider Family Medicine
DX: R79.89 Other specified abnormal findings of blood chemistry (principal); E29.1 Testicular hypofunction; E78.5 Hyperlipidemia, unspecified
CPT/HCPCS: 36415; 80061; 84402; 84403